=== PATIENT | female | born 1945 | race Caucasian/White ===

== ENCOUNTER 2019-06-08 07:27 | Outpatient (CLI) | payer MEDICARE, MEDICAID, SELFPAY ==
[2019-06-08 08:49] LABS: Blood Urea Nitrogen 20 mg/dL (7-17); Carbon Dioxide 27 mmol/L (22-30); Chloride 100 mmol/L (98-107); Potassium 4.4 mmol/L (3.4-5.0); Sodium 142 mmol/L (137-145)
[2019-06-08 08:50] LABS: Alanine Aminotransferase 35 U/L (4-35); Albumin Level 4.7 g/dL (3.5-5.1); Alkaline Phosphatase 96 U/L (38-126); Aspartate Amino Transferase 38 U/L (14-36); Bilirubin,Total 0.3 mg/dL (0.2-1.3); Calcium 9.6 mg/dL (8.4-10.2); Cholesterol 155 mg/dL (0-200); Estimated Glomerular Filt Rate > 60; Glucose 88 mg/dL (65-105); HDL Direct 47 mg/dL; Triglycerides 98 mg/dL (<150)
[2019-06-08 08:51] LABS: Hemoglobin A1C 6.4 % (<5.7)
[2019-06-08 09:01] LABS: LDL Cholesterol Direct 86 mg/dL
[2019-06-08 09:35] LABS: Free T4 Free Thyroxine 1.13 ng/mL (0.78-2.19)
== END 2019-06-08 07:28 | disposition home or self-care (01) ==
PROVIDERS: PCP Emergency Medicine; Visit Provider Internal Medicine Endocrinology, Diabetes & Metabolism
DX: E11.9 Type 2 diabetes mellitus without complications (principal); E78.5 Hyperlipidemia, unspecified; E03.9 Hypothyroidism, unspecified
CPT/HCPCS: 36415; 80053; 80061; 83036; 84439; 84443

== ENCOUNTER 2019-11-03 07:49 | Outpatient (CLI) | payer MEDICARE, MEDICAID, SELFPAY ==
--- NOTE | ~2019-11-03 | MM_ITS ---
EXAMINATION: MM screening [facility] BI w kelle HISTORY: Screening mammogram TECHNIQUE: Craniocaudal and mediolateral oblique 3-D tomosynthesis images were obtained and synthetic 2-D images were generated. CAD analysis was submitted and interpreted. COMPARISON: 10/03/2018, 09/29/2017, 09/30/2016, 09/16/2016 BREAST PARENCHYMAL COMPOSITION: There are scattered areas of fibroglandular density. FINDINGS: Scattered benign-appearing calcifications are present. There is no evidence of suspicious m ass, calcification, or architectural distortion to suggest malignancy in either breast. There has bee n no suspicious interval change. IMPRESSION: 1. No mammographic evidence of malignancy. 2. Recommend routine screening mammography in one year. BI-RADS Category 2: Benign finding(s). Reviewed, dictated and finalized at location A.
== END 2019-11-03 07:50 | disposition home or self-care (01) ==
PROVIDERS: PCP Emergency Medicine; Visit Provider Emergency Medicine
DX: Z12.31 Encounter for screening mammogram for malignant neoplasm of breast (principal)
CPT/HCPCS: 77063; 77067

== ENCOUNTER 2020-01-30 08:32 | Outpatient (CLI) | payer MEDICARE, MEDICAID, SELFPAY ==
--- NOTE | ~2020-01-30 | DEXA_ITS ---
Bone Density Report Name: Katlin Powell Age: 74 Sex: Female Ethnicity: White Date of : 1945 Indication: osteopenia; monitoring treatment; asthma or emphysema; hysterectomy; Referring Provider: Keo, Mónica Thomas Study: Bone densitometry was performed. Exam Date: January 30, 2020 Accession number: [id number] Bone Density: Region BMD T-score Z-score Classification AP Spine (L1-L4) 0.929 -1.1 1.2 Osteopenia Femoral Neck (Left) 0.582 -2.4 -0.4 Osteopenia Total Hip (Left) 0.852 -0.7 1.0 Normal Total Hip Bilateral Avg 0.808 -1.1 0.6 Osteopenia Femoral Neck (Right) 0.604 -2.2 -0.2 Osteopenia Total Hip (Right) 0.762 -1.5 0.2 Osteopenia World Health Organization criteria for BMD impression classify patients as: Normal (T-score at or above -1.0), Osteopenia (T-score between -1.0 and -2.5), or Osteoporosis (T-score at or below -2.5). 10-year Fracture Risk: FRAX not reported because: Treated for osteoporosis Previous Exams: Region Exam Age BMD T-score BMD Change BMD Change Date g/cm2 vs Baseline vs Previous AP Spine(L1-L4) 01/30/2020 74 0.929 -1.1 0.194(26.3%)# 0.045(5.1%)* 01/19/2018 72 0.883 -1.5 0.148(20.2%)# 0.087(10.9%)# 01/13/2016 70 0.797 -2.3 0.062(8.4%)* 0.062(8.4%)* 01/10/2014 68 0.735 -2.8 Total Hip(Left) 01/30/2020 74 0.852 -0.7 0.005(0.5%) 0.020(2.4%) 01/19/2018 72 0.833 -0.9 -0.015(-1.8%) -0.057(-6.4%)* 01/13/2016 70 0.890 -0.4 0.042(4.9%)* 0.042(4.9%)* 01/10/2014 68 0.848 -0.8 Total Hip(Right) 01/30/2020 74 0.762 -1.5 0.018(2.4%) -0.012(-1.6%) 01/19/2018 72 0.775 -1.4 0.030(4.0%)* 0.035(4.8%)* 01/13/2016 70 0.740 -1.7 -0.005(-0.7%) -0.005(-0.7%) 01/10/2014 68 0.745 -1.6 *Denotes significance at 95% confidence level, LSC for AP Spine = 0.022 g/cm2, LSC for Total Hip = 0.027 g/cm2 Clinical Information Provided by Patient: Is being treated for osteoporosis Has used the following medications: Prolia (i.e. denosumab), Calcium Has the following medical conditions: Asthma or Emphysema, Hysterectomy Patient maximum height was 60 Menopause Age: 31 Does not regularly consume dairy products Drinks caffeinated beverages Onset of menses at age 13 Number of children 0 Impression: The patient has low bone mass, based on the Left Femoral Neck T-score. No significant bone loss was observed. Discussion: PATIENT UNDER TREATMENT WITH NO SIGNIFICANT B
== END 2020-01-30 08:33 | disposition home or self-care (01) ==
PROVIDERS: PCP Emergency Medicine; Visit Provider Internal Medicine Endocrinology, Diabetes & Metabolism
DX: M81.0 Age-related osteoporosis without current pathological fracture (principal); M85.88 Other specified disorders of bone density and structure, other site; M85.852 Other specified disorders of bone density and structure, left thigh; M85.851 Other specified disorders of bone density and structure, right thigh
CPT/HCPCS: 77080

== ENCOUNTER 2020-02-06 07:48 | Outpatient (CLI) | payer MEDICARE, MEDICAID, SELFPAY ==
[2020-02-06 08:57] LABS: Hemoglobin A1C 6.6 % (<5.7)
[2020-02-06 08:59] LABS: Alanine Aminotransferase 58 U/L (4-35); Alkaline Phosphatase 103 U/L (38-126); Anion Gap 13 mmol/L (8-16); Aspartate Amino Transferase 59 U/L (14-36); Bilirubin,Total 0.5 mg/dL (0.2-1.3); Blood Urea Nitrogen 18 mg/dL (7-17); Calcium 10.4 mg/dL (8.4-10.2); Carbon Dioxide 31 mmol/L (22-30); Chloride 99 mmol/L (98-107); Estimated Glomerular Filt Rate 54; Glucose 128 mg/dL (65-105); Potassium 4.7 mmol/L (3.4-5.0); Sodium 143 mmol/L (137-145)
[2020-02-06 09:37] LABS: Free T4 Free Thyroxine 1.19 ng/mL (0.78-2.19)
== END 2020-02-06 07:49 | disposition home or self-care (01) ==
PROVIDERS: PCP Emergency Medicine; Visit Provider Internal Medicine Endocrinology, Diabetes & Metabolism
DX: E03.9 Hypothyroidism, unspecified (principal); E11.9 Type 2 diabetes mellitus without complications
CPT/HCPCS: 36415; 80053; 83036; 84439; 84443

== ENCOUNTER 2020-05-03 11:15 | Outpatient (CLI) | payer MEDICARE, MEDICAID, SELFPAY ==
--- NOTE | ~2020-05-03 | US_ITS ---
EXAMINATION:US venous doppler LE RT INDICATION:Leg edema TECHNIQUE: Multiple grayscale, color flow and Doppler images of the right lower extremity deep venous systems were obtained and reviewed. COMPARISON:09/21/2018 FINDINGS: The common femoral, superficial femoral and popliteal veins demonstrate normal respiratory variation, augmentation and compressibility. Color flow is also seen within the posterior tibial, pe roneal, greater saphenous and profunda veins. IMPRESSION: 1: No lower extremity deep venous thrombosis. Reviewed, dictated and finalized at location A. SERVICE MAN
== END 2020-05-03 11:16 | disposition home or self-care (01) ==
LOC: ANHIMG 11:24
PROVIDERS: PCP Emergency Medicine; Visit Provider Internal Medicine Cardiovascular Disease
DX: R60.9 Edema, unspecified (principal)
CPT/HCPCS: 93971

== ENCOUNTER 2020-05-20 07:37 | Outpatient (CLI) | payer MEDICARE, MEDICAID, SELFPAY ==
[2020-05-20 08:34] LABS: Hematocrit 40.6 % (37.0-47.0); Hemoglobin 13.6 g/dL (12.0-15.0); Mean Corpuscular HGB Conc 33.5 g/dl (32-36); Mean Corpuscular Hemoglobin 30.8 pg (26-34); Mean Corpuscular Volume 91.9 fl (80-100); Mean Platelet Volume 10.6 fl (7.4-10.4); Platelet Count Result 250 k/mm3 (150-375); Red Blood Count 4.42 M/mm3 (4.2-5.4); Red Cell Distribution Width 14.7 % (11.5-14.5); White Blood Count 8.2 K/mm3 (4.5-10.0)
[2020-05-20 09:29] LABS: Alanine Aminotransferase 65 U/L (4-35); Albumin Level 4.5 g/dL (3.5-5.1); Alkaline Phosphatase 91 U/L (38-126); Anion Gap 9 mmol/L (8-16); Aspartate Amino Transferase 96 U/L (14-36); Bilirubin,Total 0.7 mg/dL (0.2-1.3); Blood Urea Nitrogen 18 mg/dL (7-17); Calcium 9.5 mg/dL (8.4-10.2); Carbon Dioxide 30 mmol/L (22-30); Chloride 100 mmol/L (98-107); Estimated Glomerular Filt Rate 54; Glucose 143 mg/dL (65-105); Potassium 3.8 mmol/L (3.4-5.0); Sodium 139 mmol/L (137-145)
== END 2020-05-20 07:38 | disposition home or self-care (01) ==
PROVIDERS: PCP Nurse Practitioner Family; Visit Provider Nurse Practitioner Family
DX: E03.9 Hypothyroidism, unspecified (principal); I10 Essential (primary) hypertension; E11.9 Type 2 diabetes mellitus without complications; E78.5 Hyperlipidemia, unspecified
CPT/HCPCS: 36415; 80053; 83036; 84443; 85027

== ENCOUNTER 2020-07-02 07:29 | Outpatient (CLI) | payer MEDICARE, MEDICAID, SELFPAY ==
[2020-07-02 08:46] LABS: Alanine Aminotransferase 61 U/L (4-35); Albumin Level 4.6 g/dL (3.5-5.1); Alkaline Phosphatase 84 U/L (38-126); Anion Gap 9 mmol/L (8-16); Aspartate Amino Transferase 70 U/L (14-36); Bilirubin,Total 0.5 mg/dL (0.2-1.3); Blood Urea Nitrogen 15 mg/dL (7-17); Calcium 9.1 mg/dL (8.4-10.2); Carbon Dioxide 28 mmol/L (22-30); Chloride 105 mmol/L (98-107); Cholesterol 149 mg/dL (0-200); Estimated Glomerular Filt Rate > 60; Glucose 112 mg/dL (65-105); HDL Direct 48 mg/dL; Potassium 3.7 mmol/L (3.4-5.0); Sodium 142 mmol/L (137-145); Triglycerides 119 mg/dL (<150)
[2020-07-02 08:58] LABS: LDL Cholesterol Direct 73 mg/dL
== END 2020-07-02 07:30 | disposition home or self-care (01) ==
PROVIDERS: PCP Nurse Practitioner Family; Visit Provider Internal Medicine Cardiovascular Disease
DX: E78.5 Hyperlipidemia, unspecified (principal)
CPT/HCPCS: 36415; 80053; 80061

== ENCOUNTER 2020-07-31 07:21 | Outpatient (CLI) | payer MEDICARE, MEDICAID, SELFPAY ==
[2020-07-31 09:45] LABS: Alanine Aminotransferase 52 U/L (4-35); Albumin Level 4.5 g/dL (3.5-5.1); Alkaline Phosphatase 82 U/L (38-126); Anion Gap 10 mmol/L (8-16); Aspartate Amino Transferase 69 U/L (14-36); Bilirubin,Total 0.6 mg/dL (0.2-1.3); Blood Urea Nitrogen 21 mg/dL (7-17); Calcium 9.2 mg/dL (8.4-10.2); Carbon Dioxide 27 mmol/L (22-30); Chloride 102 mmol/L (98-107); Estimated Glomerular Filt Rate 49; Glucose 128 mg/dL (65-105); Potassium 3.5 mmol/L (3.4-5.0); Sodium 139 mmol/L (137-145)
[2020-07-31 09:46] LABS: Cholesterol 199 mg/dL (0-200); HDL Direct 39 mg/dL; LDL Cholesterol Direct 115 mg/dL; Triglycerides 172 mg/dL (<150)
== END 2020-07-31 07:22 | disposition home or self-care (01) ==
PROVIDERS: PCP Nurse Practitioner Family; Visit Provider Internal Medicine Cardiovascular Disease
DX: E78.5 Hyperlipidemia, unspecified (principal); I10 Essential (primary) hypertension
CPT/HCPCS: 36415; 80053; 80061

== ENCOUNTER 2020-08-07 07:18 | Outpatient (CLI) | payer MEDICARE, MEDICAID, SELFPAY ==
[2020-08-07 07:57] LABS: Hemoglobin A1C 6.2 % (<5.7)
[2020-08-07 07:59] LABS: Alanine Aminotransferase 88 U/L (4-35); Albumin Level 4.5 g/dL (3.5-5.1); Alkaline Phosphatase 78 U/L (38-126); Anion Gap 6 mmol/L (8-16); Aspartate Amino Transferase 92 U/L (14-36); Bilirubin,Total 0.5 mg/dL (0.2-1.3); Blood Urea Nitrogen 17 mg/dL (7-17); Calcium 9.2 mg/dL (8.4-10.2); Carbon Dioxide 33 mmol/L (22-30); Chloride 103 mmol/L (98-107); Estimated Glomerular Filt Rate 49; Glucose 122 mg/dL (65-105); Sodium 142 mmol/L (137-145)
[2020-08-07 08:11] LABS: Parathyroid Intact 28.2 pg/mL (7.5-53.5)
[2020-08-07 08:28] LABS: Creatinine Urine 170.1 mg/dL
[2020-08-07 08:32] LABS: MALB Creatinine Ratio 4.8 mg/g (0-30); Microalbumin Urine Random 8.1 mg/L (0-16.7)
[2020-08-07 08:42] LABS: Free T4 Free Thyroxine 1.18 ng/mL (0.78-2.19); Vitamin D 25 Hydroxy 43.6 ng/mL
[2020-08-11 07:48] LABS: Triiodothyronine T3 Free 2.7 pg/mL (2.3-4.2)
== END 2020-08-07 07:19 | disposition home or self-care (01) ==
PROVIDERS: PCP Nurse Practitioner Family; Visit Provider Internal Medicine Endocrinology, Diabetes & Metabolism
DX: E11.9 Type 2 diabetes mellitus without complications (principal); M81.0 Age-related osteoporosis without current pathological fracture; E03.9 Hypothyroidism, unspecified
CPT/HCPCS: 36415; 80053; 82043; 82306; 83036; 83970; 84439; 84443; 84481

== ENCOUNTER 2020-09-05 07:59 | Outpatient (CLI) | payer MEDICARE, MEDICAID, SELFPAY ==
--- NOTE | ~2020-09-05 | US_ITS ---
EXAMINATION: US abdomen limited DATE: 09/05/2020 08:47 INDICATION: Abnormal liver function tests. TECHNIQUE: Multiple grayscale and Doppler ultrasound images of the abdomen were obtained. COMPARISON: CT abdomen and pelvis 10/18/2018 FINDINGS: The visualized portions of the head and body of the pancreas are normal. There is diffuse h epatic steatosis. No liver surface nodularity. There is normal flow in main portal vein. The gallblad jacob is normal in size. No gallstones or gallbladder wall thickening. There is no sonographic Nielsen s ign. The common duct is normal and measures 3 mm. IMPRESSION: 1. Diffuse hepatic steatosis. Reviewed, dictated and finalized at location B.
== END 2020-09-05 08:00 | disposition home or self-care (01) ==
PROVIDERS: PCP Family Medicine; Visit Provider Nurse Practitioner Family
DX: R74.8 Abnormal levels of other serum enzymes (principal); K76.0 Fatty (change of) liver, not elsewhere classified
CPT/HCPCS: 76705

== ENCOUNTER 2020-11-04 08:20 | Outpatient (CLI) | payer MEDICARE, MEDICAID, SELFPAY ==
--- NOTE | ~2020-11-04 | MM_ITS ---
EXAMINATION: MM screening [facility] BI w kelle HISTORY: Screening mammogram TECHNIQUE: Craniocaudal and mediolateral oblique 3-D tomosynthesis images were obtained and synthetic 2-D images were generated. CAD analysis was submitted and interpreted. COMPARISON: 11/03/2019, 10/03/2018, 09/29/2017 BREAST PARENCHYMAL COMPOSITION: There are scattered areas of fibroglandular density. FINDINGS: Scattered benign-appearing calcifications are present. There is no evidence of suspicious m ass, calcification, or architectural distortion to suggest malignancy in either breast. There has bee n no suspicious interval change. IMPRESSION: 1. No mammographic evidence of malignancy. 2. Recommend routine screening mammography in one year. BI-RADS Category 2: Benign finding(s). Reviewed, dictated and finalized at location A.
== END 2020-11-04 08:21 | disposition home or self-care (01) ==
LOC: ANHIMG 08:23
PROVIDERS: PCP Family Medicine; Visit Provider Nurse Practitioner Family
DX: Z12.31 Encounter for screening mammogram for malignant neoplasm of breast (principal)
CPT/HCPCS: 77063; 77067

== ENCOUNTER 2020-12-23 08:17 | Outpatient (CLI) | payer MEDICARE, MEDICAID, SELFPAY ==
[2020-12-23 09:26] LABS: Alanine Aminotransferase 43 U/L (4-35); Albumin Level 4.6 g/dL (3.5-5.1); Alkaline Phosphatase 89 U/L (38-126); Anion Gap 12 mmol/L (8-16); Aspartate Amino Transferase 44 U/L (14-36); Bilirubin,Total 0.4 mg/dL (0.2-1.3); Blood Urea Nitrogen 18 mg/dL (7-17); Calcium 9.7 mg/dL (8.4-10.2); Carbon Dioxide 27 mmol/L (22-30); Chloride 96 mmol/L (98-107); Estimated Glomerular Filt Rate 54; Glucose 106 mg/dL (65-110); Potassium 3.5 mmol/L (3.4-5.0); Sodium 135 mmol/L (137-145)
[2020-12-23 09:42] LABS: Hemoglobin A1C 5.8 % (<5.7)
[2020-12-23 10:03] LABS: Free T4 Free Thyroxine 1.13 ng/mL (0.78-2.19)
[2020-12-23 12:39] LABS: Microalbumin Urine Random 16.7 mg/L (0-16.7)
[2020-12-23 13:00] LABS: Creatinine Urine 267.2 mg/dL; MALB Creatinine Ratio 6.3 mg/g (0-30)
[2020-12-25 12:22] LABS: Triiodothyronine T3 Free 2.7 pg/mL (2.3-4.2)
== END 2020-12-23 08:18 | disposition home or self-care (01) ==
PROVIDERS: PCP Family Medicine; Visit Provider Internal Medicine Endocrinology, Diabetes & Metabolism
DX: E11.9 Type 2 diabetes mellitus without complications (principal); E03.9 Hypothyroidism, unspecified
CPT/HCPCS: 36415; 80053; 82043; 83036; 84439; 84443; 84481

== ENCOUNTER 2021-03-24 08:19 | Outpatient (CLI) | payer MEDICARE, MEDICAID, SELFPAY ==
--- NOTE | ~2021-03-24 | XR_ITS ---
EXAMINATION: XR hand BI arthritis min 3V DATE: 03/24/2021 08:35 INDICATION: Bilateral hand pain. TECHNIQUE: 4 views of right hand and 4 views of left hand on a total of 7 radiographs were obtained. COMPARISON: Left wrist radiographs 04/03/2019 FINDINGS: RIGHT HAND: Bone alignment is normal. No fracture. There is mild osteoarthritis of triscaphe joint an d moderate osteoarthritis of first carpometacarpal joint. There is severe osteoarthritis of first met acarpophalangeal joint and first interphalangeal joint. There is moderate osteoarthritis of second me tacarpophalangeal joint and mild osteoarthritis of third metacarpophalangeal joint. There is moderate osteoarthritis of second-fourth proximal and distal interphalangeal joints and severe osteoarthritis of fifth proximal and distal interphalangeal joints. LEFT HAND: Bone alignment is normal. No fracture. There is mild osteoarthritis of triscaphe joint and first carpometacarpal joint. There is moderate osteoarthritis of first and third metacarpophalangeal joints and mild osteoarthritis of second metacarpophalangeal joint. There is severe osteoarthritis o f first interphalangeal joint. There is mild to moderate osteoarthritis of the second-fifth proximal and distal interphalangeal joints. IMPRESSION: 1. Polyarticular osteoarthritis. Reviewed, dictated and finalized at location A. 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
== END 2021-03-24 08:20 | disposition home or self-care (01) ==
LOC: ANHIMG 08:24
PROVIDERS: PCP Family Medicine; Visit Provider Nurse Practitioner Family
DX: M19.041 Primary osteoarthritis, right hand (principal); M19.042 Primary osteoarthritis, left hand
CPT/HCPCS: 73130

== ENCOUNTER 2021-03-27 07:40 | Outpatient (CLI) | payer MEDICARE, MEDICAID, SELFPAY ==
[2021-03-27 08:44] LABS: Hemoglobin A1C 5.5 % (<5.7)
[2021-03-27 08:59] LABS: Alanine Aminotransferase 32 U/L (4-35); Albumin Level 4.7 g/dL (3.5-5.1); Alkaline Phosphatase 96 U/L (38-126); Anion Gap 11 mmol/L (8-16); Aspartate Amino Transferase 38 U/L (14-36); Bilirubin,Total 0.7 mg/dL (0.2-1.3); Blood Urea Nitrogen 19 mg/dL (7-17); Calcium 9.7 mg/dL (8.4-10.2); Carbon Dioxide 28 mmol/L (22-30); Chloride 99 mmol/L (98-107); Estimated Glomerular Filt Rate 54; Glucose 107 mg/dL (65-110); Phosphorus 4.4 mg/dL (2.5-4.5); Potassium 4.2 mmol/L (3.4-5.0); Sodium 138 mmol/L (137-145)
[2021-03-27 09:10] LABS: Parathyroid Intact 27.5 pg/mL (7.5-53.5)
[2021-03-27 09:16] LABS: Free T4 Free Thyroxine 1.38 ng/mL (0.78-2.19); Vitamin D 25 Hydroxy 51.4 ng/mL
[2021-03-27 09:28] LABS: Creatinine Urine 47.5 mg/dL
[2021-03-27 09:50] LABS: Microalbumin Urine Random < 6.0 mg/L (0-16.7)
[2021-03-27 09:51] LABS: MALB Creatinine Ratio < 12.6 mg/g (0-30)
[2021-03-30 07:26] LABS: Triiodothyronine T3 Free 2.6 pg/mL (2.3-4.2)
== END 2021-03-27 07:41 | disposition home or self-care (01) ==
LOC: ANHLAB 07:48
PROVIDERS: PCP Family Medicine; Visit Provider Internal Medicine Endocrinology, Diabetes & Metabolism
DX: E11.9 Type 2 diabetes mellitus without complications (principal); E03.9 Hypothyroidism, unspecified; M85.80 Other specified disorders of bone density and structure, unspecified site
CPT/HCPCS: 36415; 80053; 82043; 82306; 83036; 83970; 84100; 84439; 84443; 84481

== ENCOUNTER 2021-07-28 08:55 | Outpatient (CLI) | payer MEDICARE, MEDICAID, SELFPAY ==
[2021-07-28 09:46] LABS: Alanine Aminotransferase 31 U/L (4-35); Albumin Level 4.8 g/dL (3.5-5.1); Alkaline Phosphatase 83 U/L (38-126); Anion Gap 9 mmol/L (8-16); Aspartate Amino Transferase 47 U/L (14-36); Bilirubin,Total 0.6 mg/dL (0.2-1.3); Blood Urea Nitrogen 19 mg/dL (7-17); Calcium 9.5 mg/dL (8.4-10.2); Carbon Dioxide 32 mmol/L (22-30); Chloride 99 mmol/L (98-107); Cholesterol 211 mg/dL (0-200); Estimated Glomerular Filt Rate > 60; Glucose 101 mg/dL (65-110); HDL Direct 50 mg/dL; Potassium 4.2 mmol/L (3.4-5.0); Sodium 140 mmol/L (137-145); Triglycerides 196 mg/dL (<150)
[2021-07-28 10:03] LABS: LDL Cholesterol Direct 92 mg/dL
[2021-07-28 10:04] LABS: Parathyroid Intact 28.3 pg/mL (7.5-53.5)
[2021-07-28 10:06] LABS: Hemoglobin A1C 5.5 % (<5.7)
[2021-07-28 10:35] LABS: Creatinine Urine 38.6 mg/dL
[2021-07-28 10:49] LABS: Free T4 Free Thyroxine 1.32 ng/mL (0.78-2.19); Vitamin D 25 Hydroxy 62.1 ng/mL
[2021-07-28 11:00] LABS: MALB Creatinine Ratio < 15.5 mg/g (0-30); Microalbumin Urine Random < 6.0 mg/L (0-16.7)
[2021-07-31 06:06] LABS: Triiodothyronine T3 Free 3.2 pg/mL (2.3-4.2)
== END 2021-07-28 08:56 | disposition home or self-care (01) ==
LOC: ANHLAB 08:59
PROVIDERS: PCP Family Medicine; Visit Provider Internal Medicine Endocrinology, Diabetes & Metabolism
DX: E11.9 Type 2 diabetes mellitus without complications (principal); E03.9 Hypothyroidism, unspecified; E55.9 Vitamin D deficiency, unspecified; E21.0 Primary hyperparathyroidism; E78.5 Hyperlipidemia, unspecified
CPT/HCPCS: 36415; 80053; 80061; 82043; 82306; 83036; 83970; 84439; 84443; 84481

== ENCOUNTER 2021-09-02 08:38 | Outpatient (CLI) | payer MEDICARE, MEDICAID, SELFPAY ==
[2021-09-02 09:00] LABS: Basophils Percent Auto 0.4 % (0.2-1.2); Eosinophils Absolute Auto 0.2 K/mm3 (0-0.3); Eosinophils Percent Auto 2.2 % (0-4.4); Hematocrit 44.5 % (37.0-47.0); Hemoglobin 14.5 g/dL (12.0-15.0); Immature Granulocyte Absolute 0.04 K/mm3 (0.00-0.031); Immature Granulocyte Percent A 0.4 % (0-0.5); Lymphocytes Absolute Auto 2.63 K/mm3 (0.9-3.2); Lymphocytes Percent Auto 26.6 % (18.3-44.2); Mean Corpuscular HGB Conc 32.6 g/dl (32-36); Mean Corpuscular Hemoglobin 31.3 pg (26-34); Mean Corpuscular Volume 96.1 fl (80-100); Mean Platelet Volume 9.7 fl (7.4-10.4); Monocytes Absolute Auto 0.8 K/mm3 (0.1-0.6); Neutrophils Absolute Auto 6.2 K/mm3 (1.3-6.7); Neutrophils Percent Auto 62.4 % (45.5-73.1); Platelet Count Result 216 k/mm3 (150-375); Red Blood Count 4.63 M/mm3 (4.2-5.4); White Blood Count 9.9 K/mm3 (4.5-10.0)
== END 2021-09-02 08:39 | disposition home or self-care (01) ==
LOC: ANHLAB 08:43
PROVIDERS: PCP Family Medicine; Visit Provider Nurse Practitioner
DX: J45.909 Unspecified asthma, uncomplicated (principal)
CPT/HCPCS: 36415; 82104; 82785; 85025; 86003

== ENCOUNTER 2021-09-17 09:00 | Outpatient (CLI) | payer MEDICARE, MEDICAID, SELFPAY ==
[2021-09-17 10:36] LABS: Cholesterol 194 mg/dL (0-200); HDL Direct 48 mg/dL; Triglycerides 299 mg/dL (<150)
[2021-09-17 10:47] LABS: LDL Cholesterol Direct 90 mg/dL
== END 2021-09-17 09:01 | disposition home or self-care (01) ==
PROVIDERS: PCP Family Medicine; Visit Provider Internal Medicine Cardiovascular Disease
DX: E78.5 Hyperlipidemia, unspecified (principal)
CPT/HCPCS: 36415; 80061

== ENCOUNTER 2021-11-27 08:32 | Outpatient (CLI) | payer MEDICARE, MEDICAID, SELFPAY ==
--- NOTE | ~2021-11-27 | MM_ITS ---
EXAMINATION: MM screening dell BI w kelle HISTORY: Screening TECHNIQUE: Craniocaudal and mediolateral oblique 3-D tomosynthesis images were obtained and synthetic 2-D images were generated. CAD analysis was submitted and interpreted. COMPARISON: Comparison to multiple prior studies sequentially, with oldest reviewed study dated 09/2017. BREAST PARENCHYMAL COMPOSITION: Breast composed of scattered areas of fibroglandular density FINDINGS: Stable benign-appearing bilateral breast calcifications. There is no evidence of suspicious mass, calcification, or architectural distortion to suggest malignancy in either breast. There has b een no suspicious interval change. IMPRESSION: 1. No mammographic evidence of malignancy. 2. Recommend routine screening mammography in one year. BI-RADS Category 1: Negative Reviewed, dictated and finalized at location A.
== END 2021-11-27 08:33 | disposition home or self-care (01) ==
PROVIDERS: PCP Nurse Practitioner Family; Visit Provider Nurse Practitioner Family
DX: Z12.31 Encounter for screening mammogram for malignant neoplasm of breast (principal)
CPT/HCPCS: 77063; 77067

== ENCOUNTER 2022-01-21 06:57 | Outpatient (CLI) | payer MEDICARE, MEDICAID, SELFPAY ==
--- NOTE | ~2022-01-21 | NM_ITS ---
EXAMINATION: NM melinda stress w perfusion DATE: 01/21/2022 11:54 CDT INDICATION: Chest pain TECHNIQUE: Rest images were obtained following intravenous administration of 9.5 mCi Tc99m tetrofosmi n (Myoview). The patient was infused intravenously with Lexiscan (regadenoson). Then, 29.4 mCi Tc99m tetrofosmin (Myoview) was administered intravenously, and stress images were obtained. Data was recon structed into short axis and horizontal and vertical long axis SPECT images. Gated SPECT images were also obtained. COMPARISON: None. FINDINGS: There is no definite reversible or fixed perfusion abnormality to suggest ischemia or infar ction. There is no segmental wall motion abnormality. Left ventricular ejection fraction measures 7 7%. IMPRESSION: 1. No definite ischemia or infarct. 2. Normal left ventricular ejection fraction measuring 77%. Reviewed, dictated and finalized at location B.
--- NOTE | 2022-01-21 07:34 | ECHO_ITS ---
Patient Info Name: Katlin Powell Age: 76 years : 1945 Gender: Female Ht: 60 in Wt: 170 lbs BSA: 1.84 m2 HR: 60 bpm BP: 141 / 76 mmHg Heart Rhythm: Sinus Rhythm Technical Quality: Fair Exam Date: 01/21/2022 7:51 AM Exam Location: [facility] Pulmonary Patient Status: Outpatient Admit Date: 01/21/2022 Staff Ordering Physician: Karson Hammonds DO Trolley Car Operator: Lisa Morataya RDCS Attending Provider: Karson Hammonds DO Referring Physician: Cassius ESCALERA; Exam Type: CA echo doppler color flow Study Info Indications R07.9 - Chest pain, unspecified Complete two-dimensional, color flow and Doppler transthoracic echocardiogram is performed. Summary 1. Complete two-dimensional, color flow and Doppler transthoracic echocardiogram is performed. 2. Left ventricular chamber dimension is normal. 3. Left ventricular systolic function is normal, estimated at 60-65%. 4. The left ventricular diastolic function is grade I diastolic dysfunction. 5. E/e' 12 is mildly elevated. 6. There is moderate aortic valve sclerosis. 7. There is mild aortic valve regurgitation. 8. The mitral valve has moderately calcified annulus. 9. There is trace tricuspid valve regurgitation. 10. No pulmonary hypertension, estimated pulmonary arterial systolic pressure is 28 mmHg. Left Ventricle E/e' 12 is mildly elevated. Left ventricular chamber dimension is normal. Left ventricular systolic function is normal, estimated at 60-65%. The left ventricular diastolic function is grade I diastolic dysfunction. Right Ventricle Right ventricular systolic function is normal and with normal TAPSE 2.1 cm. Right ventricular chamber dimension is normal. Left Atria Left atrial chamber dimension is normal. Right Atria Right atrial chamber dimension is normal. Aortic Valve The aortic valve is trileaflet. There is moderate aortic valve sclerosis. There is no aortic valve stenosis. There is mild aortic valve regurgitation. Pulmonic Valve There is no pulmonic regurgitation. Mitral Valve The mitral valve has moderately calcified annulus. There is no mitral valve stenosis. There is no mitral valve regurgitation. Tricuspid Valve There is trace tricuspid valve regurgitation. No pulmonary hypertension, estimated pulmonary arterial systolic pressure is 28 mmHg. Pericardium/Pleural There is no pericardial effusion. Inferior Vena Cava Normal inferior vena cava with >50% collapse upon inspiration consistent with normal right atrial pressure, 5 mmHg. Aorta The aortic root size at the sinus of Valsalva is normal. Left Ventricular Outflow Tract Name Value Normal LVOT 2D LVOT Diameter 2.0 cm LVOT Doppler LVOT Peak Gradient 4 mmHg LVOT Mean Gradient 2 mmHg LVOT VTI 24 cm LVOT VTI/AV VTI Ratio 0.7 LVOT Stroke Volume 71 ml LVOT CO 4.3 l/min LVOT CI 2.3 l/min/m2 Pulmonic Valve
--- NOTE | 2022-01-21 09:07 | EST_ITS ---
Patient Info Name: Katlin Powell Age: 76 years : 1945 Gender: Female Ht: 61 in Wt: 170 lbs BSA: 1.85 m2 Exam Date: 01/21/2022 11:01 AM Exam Location: [facility] Stress Patient Status: Outpatient Admit Date: 01/21/2022 Staff Ordering Physician: Karson Hammonds DO Attending Provider: Karson Hammonds DO Exercise Technologist: Cruz Nielsen RDCS, RT Exercise Physician: Karson Hammonds DO Exam Type: CA stress melinda w NM Study Info A regadenoson stress test was performed. Summary 1. 1. Negative lexiscan stress test for ischemic ST changes by ECG criteria. 2. 2. Baseline hypertension. 3. 3. Nuclear scan to follow and will be reported separately. Please correlate with it. 4. 4. Patient informed of the above results. Protocol: Lexiscan Stress ECG Details Stage: REST Duration (min): 9 min : 12 sec HR (bpm): 65 SBP (mmHg): 148 DBP (mmHg): 72 Stage: REST Duration (min): 10 min : 58 sec HR (bpm): 79 SBP (mmHg): 148 DBP (mmHg): 72 Stage: STAGE 1 Duration (min): 1 min : 0 sec HR (bpm): 78 SBP (mmHg): 183 DBP (mmHg): 82 Stage: RECOVERY Duration (min): 1 min : 0 sec HR (bpm): 82 SBP (mmHg): 183 DBP (mmHg): 82 Stage: RECOVERY Duration (min): 2 min : 0 sec HR (bpm): 81 SBP (mmHg): 183 DBP (mmHg): 82 Stage: RECOVERY Duration (min): 3 min : 0 sec HR (bpm): 81 SBP (mmHg): 176 DBP (mmHg): 90 Stage: RECOVERY Duration (min): 4 min : 0 sec HR (bpm): 71 SBP (mmHg): 176 DBP (mmHg): 90 Stage: RECOVERY Duration (min): 5 min : 0 sec HR (bpm): 70 SBP (mmHg): 160 DBP (mmHg): 70 Stage: RECOVERY Duration (min): 6 min : 0 sec HR (bpm): 70 SBP (mmHg): 160 DBP (mmHg): 70 Stage: RECOVERY Duration (min): 7 min : 0 sec HR (bpm): 69 SBP (mmHg): 142 DBP (mmHg): 70 Stage: RECOVERY Duration (min): 7 min : 29 sec HR (bpm): 67 SBP (mmHg): 142 DBP (mmHg): 70 Rest HR: 79 bpm Peak HR: 84 bpm Rest Sys BP: 148 mmHg Peak Sys BP: 183 mmHg Max Pred HR: 145 bpm % Max Pred HR: 58 % Target HR: 123 bpm Max RPP: 15,372 bpm*mmHg Termination Reason: Completed protocol Cardiac Symptoms: Shortness of breath Total Time: 1 min : 0 sec Rest Harvey BP: 72 mmHg Peak Harvey BP: 82 mmHg Total Dose: 0.4 mg Resting ECG Sinus rhythm. Stress ECG No ST changes. Arrhythmias None. Report Signatures
== END 2022-01-21 06:58 | disposition home or self-care (01) ==
LOC: ANHCARD 06:59
PROVIDERS: PCP Nurse Practitioner Family; Visit Provider Internal Medicine Cardiovascular Disease
DX: R07.9 Chest pain, unspecified (principal); I08.0 Rheumatic disorders of both mitral and aortic valves
CPT/HCPCS: 78452; 93017; 93306; A9502; J2785

== ENCOUNTER 2022-02-02 07:16 | Outpatient (CLI) | payer MEDICARE, MEDICAID, SELFPAY ==
[2022-02-02 08:00] LABS: Alanine Aminotransferase 52 U/L (6-35); Albumin Level 4.6 g/dL (3.5-5.1); Alkaline Phosphatase 73 U/L (38-126); Anion Gap 16 mmol/L (8-16); Aspartate Amino Transferase 58 U/L (14-36); Bilirubin,Total 0.5 mg/dL (0.2-1.3); Blood Urea Nitrogen 21 mg/dL (7-17); Calcium 9.2 mg/dL (8.4-10.2); Carbon Dioxide 28 mmol/L (22-30); Chloride 98 mmol/L (98-107); Cholesterol 175 mg/dL (0-200); Estimated Glomerular Filt Rate 48; Glucose 157 mg/dL (65-110); HDL Direct 42 mg/dL; Potassium 3.4 mmol/L (3.4-5.0); Sodium 142 mmol/L (137-145); Triglycerides 187 mg/dL (<150)
[2022-02-02 08:11] LABS: LDL Cholesterol Direct 92 mg/dL; Parathyroid Intact 26.8 pg/mL (7.5-53.5)
[2022-02-02 08:34] LABS: Free T4 Free Thyroxine 1.31 ng/mL (0.78-2.19); Vitamin D 25 Hydroxy 49.6 ng/mL
== END 2022-02-02 07:17 | disposition home or self-care (01) ==
PROVIDERS: PCP Nurse Practitioner Family; Visit Provider Internal Medicine Endocrinology, Diabetes & Metabolism
DX: E11.9 Type 2 diabetes mellitus without complications (principal); E03.9 Hypothyroidism, unspecified; E21.0 Primary hyperparathyroidism; E78.2 Mixed hyperlipidemia
CPT/HCPCS: 36415; 80053; 80061; 82306; 83036; 83970; 84439; 84443; 84481

== ENCOUNTER 2022-03-05 09:01 | Outpatient (CLI) | payer MEDICARE, MEDICAID, SELFPAY ==
--- NOTE | ~2022-03-05 | DEXA_ITS ---
Bone Density Report Name: WADE QUESADA Age: 76 Sex: Female Ethnicity: White Date of : 1945 Indication: postmenopausal; screening for osteoporosis; hysterectomy; Referring Provider: JEAN PAUL, CONNOR Thomas Study: Bone densitometry was performed. Exam Date: March 05, 2022 Accession number: [id number] Bone Density: Region BMD T-score Z-score Classification AP Spine(L1-L4) 0.955 -0.8 1.6 Normal Femoral Neck (Left) 0.633 -1.9 0.2 Osteopenia Total Hip (Left) 0.841 -0.8 1.0 Normal Femoral Neck (Right) 0.587 -2.4 -0.3 Osteopenia Total Hip (Right) 0.757 -1.5 0.3 Osteopenia Total Hip Mean 0.799 -1.2 0.7 Osteopenia World Health Organization criteria for BMD impression classify patients as: Normal (T-score at or above -1.0), Osteopenia (T-score between -1.0 and -2.5), or Osteoporosis (T-score at or below -2.5). 10-year Fracture Risk(1): Major Osteoporotic Fracture 15% Hip Fracture 4.3% Reported Risk Factors: [place] (), Neck BMD=0.587, BMI=32.6 (1) FRAX(R) Version 3.08. Fracture probability calculated for an untreated patient. Fracture probability may be lower if the patient has received treatment. Clinical Information Provided by Patient: Has used the following medications: Calcium Has the following medical conditions: Hysterectomy Patient maximum height was 60.5 Menopause Age: 51 Drinks caffeinated beverages Impression: The patient has low bone mass, based on the Right Femoral Neck T-score. The patient has an estimated ten-year risk of hip fracture of 4.3% and an estimated ten-year risk of major fracture of 15%, based on the WHO FRAX algorithm. Discussion: BONE DENSITY IS LOW AT ONE OR MORE SKELETAL SITES. THE PATIENT'S BMD AND CLINICAL RISK FACTORS CONTRIBUTE TO THIS PATIENT'S INCREASED RISK OF FRACTURE. This patient's lowest T-score is low at one or more skeletal sites. It meets the World Health Organization's (WHO) criteria for ?low bone mass? (T-score between -1.0 and -2.5). The patient's 10-year risk of hip fracture as calculated by FRAX exceeds the threshold where pharmacological therapy is recommended by the National Osteoporosis Foundation (NOF). However, all treatment decisions require clinical judgment and consideration of individual patient factors, including patient preferences, comorbidities, previous drug use, risk factors not captured in the FRAX model (e.g., frailty, falls, vitamin D deficiency, increased bone turnover, interval significant decline in bone density) and possible under or overestimation of fracture risk by FRAX. The patient should follow a healthful lifestyle (good nutrition with adequate calcium and vitamin D, and appropriate weight-bearing exercise). Follow-Up: Consider a repeat BMD and Vertebral Fracture Assessment (VFA) exam in
== END 2022-03-05 09:02 | disposition home or self-care (01) ==
PROVIDERS: PCP Nurse Practitioner Family; Visit Provider Internal Medicine Endocrinology, Diabetes & Metabolism
DX: Z78.0 Asymptomatic menopausal state (principal); M85.852 Other specified disorders of bone density and structure, left thigh; M85.851 Other specified disorders of bone density and structure, right thigh
CPT/HCPCS: 77080

== ENCOUNTER 2022-04-07 08:18 | Outpatient (CLI) | payer MEDICARE, MEDICAID, SELFPAY ==
--- NOTE | ~2022-04-07 | XR_ITS ---
Clinical Indication: Dyspnea PA and lateral views of the chest: Comparison: 12/03/2014 Findings: No change from prior exam. The lungs are clear, without evidence of focal consolidation or pleural effusion. Cardiomediastinal silhouette is within normal limits. Bones and soft tissues are u nremarkable. Impression: Normal chest. Reviewed, dictated and finalized at location [] OSONDE OPERATOR Impression: Normal chest.
== END 2022-04-07 08:19 | disposition home or self-care (01) ==
PROVIDERS: PCP Family Medicine; Visit Provider Nurse Practitioner
DX: R06.09 Other forms of dyspnea (principal)
CPT/HCPCS: 71046

== ENCOUNTER → 2022-05-01 09:24 | Outpatient (CLI) | payer MEDICARE, MEDICAID, SELFPAY ==
--- NOTE | ~2022-05-01 | XR_ITS ---
XR hip RT 2V w AP pelvis DATE: 05/01/2022 09:57 INDICATION: Right hip pain since fall 3 months ago TECHNIQUE: AP pelvis. AP and lateral views of right hip COMPARISON: None FINDINGS: No fracture or dislocation, avascular necrosis or bone destruction of the right hip. Right hip joint space appears well preserved and symmetric with the left. The pubic symphysis and sacroiliac joints are intact. There is mild degenerative change at the sacroi liac joints. No pelvic fracture or bone destruction is detected. There is degenerative disc disease of the lumbar spine, particularly at L4-5 and L5-S1. IMPRESSION: Degenerative disc disease of the lumbar spine Degenerative change at the sacroiliac joints Negative right hip Reviewed, dictated and finalized at location B. CTOR FINANCIAL SYSTEMS
== END ==
PROVIDERS: PCP Nurse Practitioner Family; Visit Provider Nurse Practitioner Family
DX: M89.8X8 Other specified disorders of bone, other site (principal); M53.3 Sacrococcygeal disorders, not elsewhere classified; M51.36 Other intervertebral disc degeneration, lumbar region
CPT/HCPCS: 73502

== ENCOUNTER 2022-07-15 08:35 | Outpatient (CLI) | payer MEDICARE, MEDICAID, SELFPAY ==
[2022-07-15 19:37] LABS: Basophils Absolute Auto 0.1 K/mm3 (0.0-0.1); Basophils Percent Auto 0.8 % (0.2-1.2); Eosinophils Absolute Auto 0.2 K/mm3 (0-0.3); Eosinophils Percent Auto 2.2 % (0-4.4); Hematocrit 44.4 % (37.0-47.0); Hemoglobin 14.4 g/dL (12.0-15.0); Immature Granulocyte Absolute 0.02 K/mm3 (0.00-0.031); Immature Granulocyte Percent A 0.3 % (0-0.5); Lymphocytes Absolute Auto 2.64 K/mm3 (0.9-3.2); Lymphocytes Percent Auto 34.2 % (18.3-44.2); Mean Corpuscular HGB Conc 32.4 g/dl (32-36); Mean Corpuscular Volume 95.5 fl (80-100); Mean Platelet Volume 10.8 fl (7.4-10.4); Monocytes Absolute Auto 0.6 K/mm3 (0.1-0.6); Monocytes Percent Auto 8.3 % (2.6-8.5); Neutrophils Absolute Auto 4.2 K/mm3 (1.3-6.7); Neutrophils Percent Auto 54.2 % (45.5-73.1); Platelet Count Result 257 k/mm3 (150-375); Red Blood Count 4.65 M/mm3 (4.2-5.4); Red Cell Distribution Width 15.1 % (11.5-14.5); White Blood Count 7.7 K/mm3 (4.5-10.0)
[2022-07-15 19:45] LABS: Alanine Aminotransferase 68 U/L (6-35); Albumin Level 4.8 g/dL (3.5-5.1); Alkaline Phosphatase 60 U/L (38-126); Anion Gap 12 mmol/L (8-16); Aspartate Amino Transferase 85 U/L (14-36); Bilirubin,Total 0.6 mg/dL (0.2-1.3); Blood Urea Nitrogen 21 mg/dL (7-17); Calcium 9.6 mg/dL (8.4-10.2); Carbon Dioxide 26 mmol/L (22-30); Chloride 99 mmol/L (98-107); Cholesterol 195 mg/dL (0-200); Estimated Glomerular Filt Rate 48; Glucose 77 mg/dL (65-110); HDL Direct 45 mg/dL; Potassium 4.1 mmol/L (3.4-5.0); Sodium 137 mmol/L (137-145); Triglycerides 149 mg/dL (<150)
[2022-07-15 19:56] LABS: LDL Cholesterol Direct 101 mg/dL
[2022-07-15 21:03] LABS: Hemoglobin A1C 5.8 % (<5.7)
== END 2022-07-15 08:36 | disposition home or self-care (01) ==
LOC: ANHGOSHLAB 08:37
PROVIDERS: PCP Family Medicine; Visit Provider Nurse Practitioner Family
DX: E11.9 Type 2 diabetes mellitus without complications (principal); E03.9 Hypothyroidism, unspecified; I10 Essential (primary) hypertension; E55.9 Vitamin D deficiency, unspecified; E78.5 Hyperlipidemia, unspecified
CPT/HCPCS: 36415; 80053; 80061; 82306; 83036; 84443; 85025

== ENCOUNTER 2022-08-31 07:15 | Outpatient (CLI) | payer MEDICARE, MEDICAID, SELFPAY ==
[2022-08-31 07:53] LABS: Alanine Aminotransferase 57 U/L (6-35); Albumin Level 4.7 g/dL (3.5-5.1); Alkaline Phosphatase 59 U/L (38-126); Anion Gap 9 mmol/L (8-16); Aspartate Amino Transferase 65 U/L (14-36); Bilirubin,Total 0.7 mg/dL (0.2-1.3); Blood Urea Nitrogen 20 mg/dL (7-17); Calcium 9.2 mg/dL (8.4-10.2); Carbon Dioxide 30 mmol/L (22-30); Chloride 100 mmol/L (98-107); Cholesterol 191 mg/dL (0-200); Estimated Glomerular Filt Rate 48; Glucose 167 mg/dL (65-110); HDL Direct 52 mg/dL; Potassium 3.9 mmol/L (3.4-5.0); Sodium 139 mmol/L (137-145); Triglycerides 213 mg/dL (<150)
[2022-08-31 07:54] LABS: Hemoglobin A1C 5.7 % (<5.7)
[2022-08-31 08:04] LABS: LDL Cholesterol Direct 102 mg/dL
[2022-08-31 08:10] LABS: Free T4 Free Thyroxine 1.24 ng/mL (0.78-2.19); Vitamin D 25 Hydroxy 53.1 ng/mL
[2022-08-31 08:41] LABS: Creatinine Urine 111.6 mg/dL
[2022-08-31 08:46] LABS: MALB Creatinine Ratio 7.4 mg/g (0-30); Microalbumin Urine Random 8.3 mg/L (0-16.7)
[2022-09-04 06:33] LABS: Triiodothyronine T3 Free 2.6 pg/mL (2.3-4.2)
== END 2022-08-31 07:16 | disposition home or self-care (01) ==
PROVIDERS: PCP Family Medicine; Visit Provider Internal Medicine Endocrinology, Diabetes & Metabolism
DX: E11.9 Type 2 diabetes mellitus without complications (principal); E03.9 Hypothyroidism, unspecified; E78.5 Hyperlipidemia, unspecified; M85.80 Other specified disorders of bone density and structure, unspecified site
CPT/HCPCS: 36415; 80053; 80061; 82043; 82306; 83036; 83970; 84439; 84443; 84481

== ENCOUNTER 2022-12-22 10:07 | Outpatient (CLI) | payer MEDICARE, MEDICAID, SELFPAY ==
[2022-12-22 15:17] LABS: Basophils Absolute Auto 0.1 K/mm3 (0.0-0.1); Basophils Percent Auto 0.7 % (0.2-1.2); Eosinophils Absolute Auto 0.2 K/mm3 (0-0.3); Eosinophils Percent Auto 2.1 % (0-4.4); Hemoglobin 14.5 g/dL (12.0-15.0); Immature Granulocyte Absolute 0.03 K/mm3 (0.00-0.031); Immature Granulocyte Percent A 0.4 % (0-0.5); Lymphocytes Absolute Auto 2.47 K/mm3 (0.9-3.2); Lymphocytes Percent Auto 32.3 % (18.3-44.2); Mean Corpuscular Hemoglobin 31.3 pg (26-34); Mean Corpuscular Volume 94.8 fl (80-100); Mean Platelet Volume 10.5 fl (7.4-10.4); Monocytes Absolute Auto 0.7 K/mm3 (0.1-0.6); Monocytes Percent Auto 8.9 % (2.6-8.5); Neutrophils Absolute Auto 4.3 K/mm3 (1.3-6.7); Neutrophils Percent Auto 55.6 % (45.5-73.1); Platelet Count Result 227 k/mm3 (150-375); Red Blood Count 4.64 M/mm3 (4.2-5.4); Red Cell Distribution Width 14.6 % (11.5-14.5); White Blood Count 7.6 K/mm3 (4.5-10.0)
[2022-12-22 15:43] LABS: Alanine Aminotransferase 68 U/L (6-35); Albumin Level 4.7 g/dL (3.5-5.1); Alkaline Phosphatase 58 U/L (38-126); Anion Gap 8 mmol/L (8-16); Aspartate Amino Transferase 88 U/L (14-36); Bilirubin,Total 0.7 mg/dL (0.2-1.3); Blood Urea Nitrogen 24 mg/dL (7-17); Calcium 9.6 mg/dL (8.4-10.2); Carbon Dioxide 33 mmol/L (22-30); Chloride 98 mmol/L (98-107); Cholesterol 199 mg/dL (0-200); Estimated Glomerular Filt Rate 44; Glucose 99 mg/dL (65-110); HDL Direct 48 mg/dL; Sodium 139 mmol/L (137-145); Triglycerides 222 mg/dL (<150)
[2022-12-22 15:54] LABS: LDL Cholesterol Direct 107 mg/dL
[2022-12-22 17:56] LABS: Hemoglobin A1C 5.6 % (<5.7)
[2022-12-25 10:39] LABS: Vitamin D 1,25 (OH)2 Total <8 pg/mL (18-72); Vitamin D2 1,25 (OH)2 <8 pg/mL; Vitamin D3 1,25 (OH)2 <8 pg/mL
== END 2022-12-22 10:08 | disposition home or self-care (01) ==
PROVIDERS: PCP Family Medicine; Visit Provider Nurse Practitioner Family
DX: E11.9 Type 2 diabetes mellitus without complications (principal); I10 Essential (primary) hypertension; E55.9 Vitamin D deficiency, unspecified
CPT/HCPCS: 36415; 80053; 80061; 82652; 83036; 85025

== ENCOUNTER 2023-02-12 07:43 | Outpatient (CLI) | payer MEDICARE, MEDICAID, SELFPAY ==
--- NOTE | ~2023-02-12 | MM_ITS ---
EXAMINATION: MM screening [facility] BI w kelle HISTORY: Screening TECHNIQUE: Craniocaudal and mediolateral oblique 3-D tomosynthesis images were obtained and synthetic 2-D images were generated. CAD analysis was submitted and interpreted. COMPARISON: Comparison to multiple prior studies sequentially, with oldest reviewed study dated 09/2017. BREAST PARENCHYMAL COMPOSITION: There are scattered areas of fibroglandular density. FINDINGS: There is no evidence of suspicious mass, calcification, or architectural distortion to sugg est malignancy in either breast. There has been no suspicious interval change. IMPRESSION: 1. No mammographic evidence of malignancy. 2. Recommend routine screening mammography in one year. BI-RADS Category 1: Negative Reviewed, dictated and finalized at location A.
== END 2023-02-12 07:44 | disposition home or self-care (01) ==
LOC: ANHIMG 07:46
PROVIDERS: PCP Family Medicine; Visit Provider Nurse Practitioner Family
DX: Z12.31 Encounter for screening mammogram for malignant neoplasm of breast (principal)
CPT/HCPCS: 77063; 77067

== ENCOUNTER 2023-04-12 08:31 | Outpatient (CLI) | payer MEDICARE, MEDICAID, SELFPAY ==
[2023-04-12 19:55] LABS: Basophils Absolute Auto 0.1 K/mm3 (0.0-0.1); Basophils Percent Auto 0.7 % (0.2-1.2); Eosinophils Absolute Auto 0.2 K/mm3 (0-0.3); Eosinophils Percent Auto 2.3 % (0-4.4); Hematocrit 44.4 % (37.0-47.0); Hemoglobin 14.6 g/dL (12.0-15.0); Immature Granulocyte Absolute 0.02 K/mm3 (0.00-0.031); Immature Granulocyte Percent A 0.2 % (0-0.5); Lymphocytes Absolute Auto 2.86 K/mm3 (0.9-3.2); Lymphocytes Percent Auto 34.9 % (18.3-44.2); Mean Corpuscular HGB Conc 32.9 g/dl (32-36); Mean Corpuscular Hemoglobin 31.3 pg (26-34); Mean Corpuscular Volume 95.3 fl (80-100); Mean Platelet Volume 10.7 fl (7.4-10.4); Monocytes Absolute Auto 0.6 K/mm3 (0.1-0.6); Monocytes Percent Auto 6.8 % (2.6-8.5); Neutrophils Absolute Auto 4.5 K/mm3 (1.3-6.7); Neutrophils Percent Auto 55.1 % (45.5-73.1); Platelet Count Result 245 k/mm3 (150-375); Red Blood Count 4.66 M/mm3 (4.2-5.4); Red Cell Distribution Width 15.4 % (11.5-14.5); White Blood Count 8.2 K/mm3 (4.5-10.0)
[2023-04-12 20:55] LABS: Alanine Aminotransferase 51 U/L (6-35); Albumin Level 4.8 g/dL (3.5-5.1); Alkaline Phosphatase 67 U/L (38-126); Anion Gap 11 mmol/L (8-16); Aspartate Amino Transferase 61 U/L (14-36); Bilirubin,Total 0.6 mg/dL (0.2-1.3); Blood Urea Nitrogen 18 mg/dL (7-17); Carbon Dioxide 27 mmol/L (22-30); Chloride 100 mmol/L (98-107); Cholesterol 233 mg/dL (0-200); Estimated Glomerular Filt Rate 48; Glucose 83 mg/dL (65-110); HDL Direct 56 mg/dL; Potassium 4.4 mmol/L (3.4-5.0); Sodium 138 mmol/L (137-145); Triglycerides 174 mg/dL (<150)
[2023-04-12 21:07] LABS: LDL Cholesterol Direct 121 mg/dL
[2023-04-12 21:32] LABS: Hemoglobin A1C 6.1 % (<5.7)
[2023-04-15 13:45] LABS: Vitamin D 1,25 (OH)2 Total 37 pg/mL (18-72); Vitamin D2 1,25 (OH)2 <8 pg/mL; Vitamin D3 1,25 (OH)2 37 pg/mL
== END 2023-04-12 08:32 | disposition home or self-care (01) ==
LOC: ANHGOSHLAB 08:32
PROVIDERS: PCP Family Medicine; Visit Provider Nurse Practitioner Family
DX: E11.9 Type 2 diabetes mellitus without complications (principal); I10 Essential (primary) hypertension; E55.9 Vitamin D deficiency, unspecified
CPT/HCPCS: 36415; 80053; 80061; 82652; 83036; 85025

== ENCOUNTER 2023-07-14 08:24 | Outpatient (CLI) | payer MEDICARE, MEDICAID, SELFPAY ==
[2023-07-14 15:03] LABS: Basophils Absolute Auto 0.1 K/mm3 (0.0-0.1); Basophils Percent Auto 0.7 % (0.2-1.2); Eosinophils Absolute Auto 0.2 K/mm3 (0-0.3); Eosinophils Percent Auto 2.1 % (0-4.4); Hematocrit 45.4 % (37.0-47.0); Hemoglobin 14.6 g/dL (12.0-15.0); Immature Granulocyte Absolute 0.03 K/mm3 (0.00-0.031); Immature Granulocyte Percent A 0.4 % (0-0.5); Lymphocytes Absolute Auto 3.15 K/mm3 (0.9-3.2); Lymphocytes Percent Auto 37.4 % (18.3-44.2); Mean Corpuscular HGB Conc 32.2 g/dl (32-36); Mean Corpuscular Hemoglobin 31.5 pg (26-34); Mean Corpuscular Volume 97.8 fl (80-100); Mean Platelet Volume 10.8 fl (7.4-10.4); Monocytes Absolute Auto 0.7 K/mm3 (0.1-0.6); Monocytes Percent Auto 8.1 % (2.6-8.5); Neutrophils Absolute Auto 4.3 K/mm3 (1.3-6.7); Neutrophils Percent Auto 51.3 % (45.5-73.1); Platelet Count Result 229 k/mm3 (150-375); Red Blood Count 4.64 M/mm3 (4.2-5.4); Red Cell Distribution Width 14.9 % (11.5-14.5); White Blood Count 8.4 K/mm3 (4.5-10.0)
[2023-07-14 15:53] LABS: Alanine Aminotransferase 55 U/L (6-35); Albumin Level 4.7 g/dL (3.5-5.1); Alkaline Phosphatase 52 U/L (38-126); Anion Gap 7 mmol/L (8-16); Aspartate Amino Transferase 70 U/L (14-36); Bilirubin,Total 0.7 mg/dL (0.2-1.3); Blood Urea Nitrogen 22 mg/dL (7-17); Calcium 9.8 mg/dL (8.4-10.2); Carbon Dioxide 30 mmol/L (22-30); Chloride 100 mmol/L (98-107); Cholesterol 182 mg/dL (0-200); Estimated Glomerular Filt Rate 54; Glucose 102 mg/dL (65-110); HDL Direct 49 mg/dL; Sodium 137 mmol/L (137-145); Triglycerides 180 mg/dL (<150)
[2023-07-14 16:07] LABS: LDL Cholesterol Direct 97 mg/dL
[2023-07-16 13:12] LABS: Hemoglobin A1C 6.4 % (<5.7)
== END 2023-07-14 08:25 | disposition home or self-care (01) ==
PROVIDERS: PCP Family Medicine; Visit Provider Nurse Practitioner Family
DX: E03.9 Hypothyroidism, unspecified (principal); E11.9 Type 2 diabetes mellitus without complications; E78.5 Hyperlipidemia, unspecified; I10 Essential (primary) hypertension; G47.33 Obstructive sleep apnea (adult) (pediatric); Z00.00 Encounter for general adult medical examination without abnormal findings; Z99.89 Dependence on other enabling machines and devices
CPT/HCPCS: 36415; 80053; 80061; 83036; 85025

== ENCOUNTER 2023-08-04 10:03 | Outpatient (CLI) | payer MEDICARE, MEDICAID, SELFPAY ==
--- NOTE | ~2023-08-04 | XR_ITS ---
Lumbosacral Spine: AP and lateral views Clinical History: Sacrococcygeal disorder Findings: The normal lordotic curve is maintained. 6 mm anterolisthesis of L4 over L5 noted. 4 mm ant erolisthesis of L3 over L4 present. There is severe facet arthropathy from L3 through S1. Questionabl e lucent lesion in L1. The sacroiliac joints are normally outlined. Impression: Questionable lucent/lytic lesion in L1. Recommend CT or MR to further evaluate. Degenerative spondylosis with 6 mm anterolisthesis of L4 over L5, as detailed above. Additional 4 mm anterolisthesis of L3 over L4. Reviewed, dictated and finalized at location . Impression: Questionable lucent/lytic lesion in L1. Recommend CT or MR to further evaluate. Degenerative spondylosis with 6 mm anterolisthesis of L4 over L5, as detailed a lila. Additional 4 mm anterolisthesis of L3 over L4.
--- NOTE | ~2023-08-04 | XR_ITS ---
AP and lateral views of the right hip Clinical history: Pain Findings: No acute fracture or dislocation is seen. Osseous alignment is anatomic. Right hip joint sp seble is preserved. Soft tissues are unremarkable. Impression: No significant abnormality is seen. Reviewed, dictated and finalized at location . Impression: No significant abnormality is seen.
== END 2023-08-04 10:04 | disposition home or self-care (01) ==
LOC: ANHASCIMG 10:06
PROVIDERS: PCP Family Medicine; Visit Provider Nurse Practitioner Family
DX: M53.3 Sacrococcygeal disorders, not elsewhere classified (principal); M25.851 Other specified joint disorders, right hip; M47.896 Other spondylosis, lumbar region
CPT/HCPCS: 72100; 73502

== ENCOUNTER 2023-08-17 09:45 | Outpatient (CLI) | payer MEDICARE, MEDICAID, SELFPAY ==
--- NOTE | ~2023-08-17 | MR_ITS ---
EXAMINATION: MR lumbar spine wo con DATE: 08/17/2023 11:22 INDICATION: Low back pain. Other specified joint disorders, right hip. TECHNIQUE: Magnetic resonance imaging (MRI) of the lumbar spine was performed without intravenous con trast. Sequences included sagittal T2-weighted FSE, sagittal T2-weighted FS FSE, sagittal T1-weighted FSE, and axial T2-weighted FSE. COMPARISON: Lumbar spine radiographs 08/04/2023 FINDINGS: There is 4 degrees dextrocurvature of thoracic lumbar spine. There is 3 mm anterolisthesis of L3 on L4 and L4 on L5. Vertebral body heights are normal. There is mildly decreased disc height at L3-L4 and L4-L5. The distal spinal cord signal intensity is normal. The conus medullaris is at L1. T he following disc levels are specifically discussed: L1-L2: The disc does not extend beyond the endplate margin. There is severe bilateral facet joint ost eoarthritis. There is no neural foraminal stenosis. There is no central canal stenosis. L2-L3: The disc is bulging. There is severe bilateral facet joint osteoarthritis. There is mild bilat eral neural foraminal stenosis. There is no central canal stenosis. L3-L4: The disc is bulging and has an annular fissure. There is severe bilateral facet joint osteoart hritis. There is mild bilateral neural foraminal stenosis. There is mild central canal stenosis. L4-L5: The disc is bulging and has an annular fissure. There is severe bilateral facet joint osteoart hritis. There is mild bilateral neural foraminal stenosis. There is mild central canal stenosis. L5-S1: The disc is bulging and has an annular fissure. There is severe bilateral facet joint osteoart hritis. There is mild bilateral neural foraminal stenosis. There is mild central canal stenosis. IMPRESSION: 1. Mild lumbar spondylosis. Reviewed, dictated and finalized at location E. IMPRESSION: 1. Mild lumbar spondylosis.
--- NOTE | ~2023-08-17 | MR_ITS ---
EXAMINATION: MR hip RT wo con DATE: 08/17/2023 11:22 INDICATION: Right hip joint disorder TECHNIQUE: Magnetic resonance imaging (MRI) of the right hip was performed without intravenous contr ast. Sequences included full-field axial PD-weighted FS FSE and T1-weighted FSE, coronal of the pelvi s with PD-weighted FS FSE, T2-weighted FSE and T1-weighted FSE, small field of view of the right hip with axial PD-weighted FS FSE, sagittal PD-weighted FS FSE, coronal PD-weighted FS FSE and coronal T2 weighted FSE. Additional radial T1-weighted FGR oriented orthogonal to the acetabular rim were obt ained for evaluation of the labrum. COMPARISON: None FINDINGS: Bones/labrum/cartilage: 6 degrees lower lumbar levocurvature. Alignment is otherwise normal. Mild fibrovascular degenerative endplate changes at both sides of the L3-L4 disc space. There is also a low signal intensity scleroti c bone island at the posterior right acetabulum. Bone marrow signal is otherwise normal. No fracture, avascular necrosis or pathologic marrow replacing process. Mild to moderate osteoarthritis at the ri ght hip with nonuniform partial thickness cartilage loss resulting greater than 50% joint space narro wing at the posterior inferomedial aspect the joint space. No degenerative subchondral changes. There is diffuse labral degeneration. Similar findings suggested but not diagnostically evaluated on the c ontralateral left hip on the larger [id number] images of the pelvis. Fluid: Symmetric physiologic amount of fluid within both hip joints. Soft tissues: Normal and symmetric muscle bulk and signal in the pelvis and visualized proximal thighs. Mild tendin opathy without tear at the distal right gluteus minimus tendon. The bilateral iliopsoas, remaining gl uteal and proximal hamstring tendons are normal. The uterus is not identified and has likely been aaron gically resected. There are multiple diverticula along the sigmoid colon without adjacent from trace stranding to suggest diverticulitis. No pathologically enlarged pelvic/inguinal lymphadenopathy. IMPRESSION: 1. Mild to moderate right hip osteoarthritis with diffuse labral degeneration. Similar findings sugge sted but not diagnostically evaluated the contralateral left hip on the larger [id number] images. 2. Mild right radius minimus tendinopathy without tear. Reviewed, dictated and finalized at location A. IMPRESSION: 1. Mild to moderate right hip osteoarthritis with diffuse labral degeneration. Similar findings suggested but not diagnostically evaluated the contralateral l eft hip on the larger [id number]-[id number] images. 2. Mild right radius minimus tendinopathy without tear.
== END 2023-08-17 09:46 | disposition home or self-care (01) ==
LOC: ANHIMG 09:47
PROVIDERS: PCP Family Medicine; Visit Provider Nurse Practitioner Family
DX: M25.851 Other specified joint disorders, right hip (principal); M53.3 Sacrococcygeal disorders, not elsewhere classified; M16.11 Unilateral primary osteoarthritis, right hip; M47.896 Other spondylosis, lumbar region
CPT/HCPCS: 72148; 73721

== ENCOUNTER 2023-10-07 09:06 | Outpatient (CLI) | payer MEDICARE, MEDICAID, SELFPAY ==
--- NOTE | ~2023-10-07 | DEXA_ITS ---
Bone Density Report Name: WADE QUESADA Age: 78 Sex: Female Ethnicity: White Date of : 1945 Indication: postmenopausal; screening for osteoporosis; height loss; hysterectomy; Referring Provider: KAREN BAI Study: Bone densitometry was performed. Exam Date: October 07, 2023 Accession number: [id number] Bone Density: Region BMD T-score Z-score Classification AP Spine(L1-L4) 1.044 0.0 2.5 Normal Femoral Neck (Left) 0.691 -1.4 0.7 Osteopenia Total Hip (Left) 0.897 -0.4 1.5 Normal Femoral Neck (Right) 0.608 -2.2 0.0 Osteopenia Total Hip (Right) 0.845 -0.8 1.1 Normal Total Hip Mean 0.871 -0.6 1.3 Normal World Health Organization criteria for BMD impression classify patients as: Normal (T-score at or above -1.0), Osteopenia (T-score between -1.0 and -2.5), or Osteoporosis (T-score at or below -2.5). 10-year Fracture Risk: FRAX not reported because: Treated for osteoporosis Clinical Information Provided by Patient: Is being treated for osteoporosis Has used the following medications: Vitamin D, Calcium Has the following medical conditions: Hysterectomy Patient maximum height was 60.5 Menopause Age: 51 Drinks caffeinated beverages Onset of menses at age 13 Number of children 0 Impression: The patient has low bone mass, based on the Right Femoral Neck T-score. Discussion: It is important to ask patients whether they are taking their medications and to encourage continued and appropriate compliance with their osteoporosis therapies to reduce fracture risk. It is also important to review their risk factors and encourage appropriate calcium and vitamin D intakes, exercise, fall prevention and other lifestyle measures. Follow-Up: Consider a repeat BMD and Vertebral Fracture Assessment (VFA) exam in 2 years or sooner if medically necessary, to reassess this patient's status. Reported by: KATHERINE on 10/07/2023 9:39:00 AM. Reviewed, dictated and finalized at location AKushal GREEN
== END 2023-10-07 09:07 | disposition home or self-care (01) ==
PROVIDERS: PCP Family Medicine; Visit Provider Internal Medicine Endocrinology, Diabetes & Metabolism
DX: M81.0 Age-related osteoporosis without current pathological fracture (principal); M85.852 Other specified disorders of bone density and structure, left thigh; M85.851 Other specified disorders of bone density and structure, right thigh
CPT/HCPCS: 77080

== ENCOUNTER 2024-02-21 08:52 | Outpatient (CLI) | payer MEDICARE, MEDICAID, SELFPAY ==
--- NOTE | ~2024-02-21 | MM_ITS ---
EXAMINATION: MM screening [facility] BI w kelle HISTORY: Screening mammogram TECHNIQUE: Craniocaudal and mediolateral oblique 3-D tomosynthesis images were obtained and synthetic 2-D images were generated. CAD analysis was submitted and interpreted. COMPARISON: 02/12/2023, 11/27/2021, 11/04/2020, 11/03/2019 BREAST PARENCHYMAL COMPOSITION:Not Dense. There are scattered areas of fibroglandular density. FINDINGS: No suspicious mass, calcification, or architectural distortion are identified in either le[place] ast to suggest malignancy. There has been no suspicious interval change. IMPRESSION: No mammographic evidence of malignancy. Recommend routine screening mammography in one year. BI-RADS Category 1: Negative Reviewed, dictated and finalized at location .
== END 2024-02-21 08:53 | disposition home or self-care (01) ==
LOC: ANHIMG 08:55
PROVIDERS: PCP Family Medicine; Visit Provider Nurse Practitioner Family
DX: Z12.31 Encounter for screening mammogram for malignant neoplasm of breast (principal)
CPT/HCPCS: 77063; 77067

== ENCOUNTER 2024-02-29 09:37 | Outpatient (CLI) | payer MEDICARE, MEDICAID, SELFPAY ==
--- NOTE | ~2024-02-29 | XR_ITS ---
XR wrist LT 2V Ordering provider: Jeannie Godoy NP History: . PAIN AND SWELLING LT WRIST; FALL . Comparison: March 24, 2021 FINDINGS: BONES: Slight widening of the distance between the lunate and scaphoid bones. Otherwise, No acute fra cture or dislocation. No definite scaphoid fracture. JOINT SPACES: Osteoarthritic changes of the first carpometacarpal joint. Otherwise, Well maintained. SOFT TISSUES: Normal. IMPRESSION: Slight widening of the distance between the scaphoid and lunate bone which may indicate ligamentous d isruption. Osteoarthritic changes of the first carpometacarpal joint. Reviewed, dictated and finalized at location A. [place] [place] [employer] IMPRESSION: Slight widening of the distance between the scaphoid and lunate bone which may indicate ligamentous disruption. Osteoarthritic changes of the first carpometacarpal joint.
[2024-02-29 19:02] LABS: Alanine Aminotransferase 21 U/L (6-35); Albumin Level 4.6 g/dL (3.5-5.1); Alkaline Phosphatase 56 U/L (38-126); Anion Gap 12 mmol/L (4-12); Aspartate Amino Transferase 45 U/L (14-36); Bilirubin,Total 0.4 mg/dL (0.2-1.3); Blood Urea Nitrogen 26 mg/dL (7-17); Calcium 9.5 mg/dL (8.4-10.2); Carbon Dioxide 28 mmol/L (22-30); Chloride 98 mmol/L (98-107); Cholesterol 170 mg/dL (0-200); Estimated Glomerular Filt Rate 48; Glucose 80 mg/dL (65-110); HDL Direct 55 mg/dL; Potassium 3.9 mmol/L (3.4-5.0); Sodium 138 mmol/L (137-145); Triglycerides 151 mg/dL (<150)
[2024-02-29 19:14] LABS: LDL Cholesterol Direct 73 mg/dL
[2024-02-29 20:03] LABS: Creatinine Urine 72.2 mg/dL
[2024-02-29 20:20] LABS: Microalbumin Urine Random < 6.0 mg/L (0-16.7)
[2024-02-29 20:21] LABS: MALB Creatinine Ratio < 8.3 mg/g (0-30)
[2024-02-29 20:57] LABS: Free T4 Free Thyroxine 1.29 ng/mL (0.78-2.19); Vitamin D 25 Hydroxy 72.8 ng/mL
== END 2024-02-29 09:38 | disposition home or self-care (01) ==
PROVIDERS: PCP Family Medicine; Visit Provider Internal Medicine Endocrinology, Diabetes & Metabolism
DX: E11.9 Type 2 diabetes mellitus without complications (principal); K76.0 Fatty (change of) liver, not elsewhere classified; M81.0 Age-related osteoporosis without current pathological fracture; E03.9 Hypothyroidism, unspecified; R79.89 Other specified abnormal findings of blood chemistry; M19.032 Primary osteoarthritis, left wrist
CPT/HCPCS: 36415; 73100; 80053; 80061; 82043; 82306; 82607; 84439; 84443

== ENCOUNTER 2024-09-09 09:17 | Emergency (ER) | payer MEDICARE, MEDICAID, SELFPAY ==
[2024-09-09 10:06] VITALS: BP 130/62; PULSE 66; RESP 16; TEMP 35.8; O2SAT 100
--- NOTE | 2024-09-09 10:10 | ED_ITS ---
HPI - Fall General Chief Complaint: Fall Stated Complaint: FALL/FACIAL INJURY Related Data Home Medications Medication Instructions Recorded Confirmed Last Taken Type albuterol sulfate 90 mcg/actuation 2 inhalation inhalation Q4H 12/14/19 06/19/24 Unknown History aerosol inhaler (Ventolin HFA) aspirin 81 mg tablet,delayed 81 mg PO DAILY 12/14/19 06/19/24 Unknown History release omega-3 fatty acids 1,000 mg 1,000 mg PO BID 08/30/20 06/19/24 Unknown History capsule (Fish Oil Concentrate) denosumab 60 mg/mL subcutaneous 60 mg subcut [id number] 01/12/23 06/19/24 Unknown History syringe (Prolia) Allergies Allergy/AdvReac Type Severity Reaction Status Date / Time oxycodone Allergy Unknown HIVES Verified 09/09/24 10:07 Penicillins Allergy Unknown Unknown Verified 09/09/24 10:07 metformin AdvReac diarrhea Verified 09/09/24 10:07 PMFSH Past Medical History Medical History Symptomatic bone lesion with abnormal x-ray Right hip impingement syndrome DDD (degenerative disc disease) Hepatic steatosis CKD (chronic kidney disease) stage 3, GFR 30-59 ml/min Environmental allergies History of CVA (cerebrovascular accident) Hypothyroidism Type 2 diabetes mellitus without complications Asthma Hx of gout Osteoporosis Dyslipidemia Essential hypertension DAVID on CPAP Surgical History Surgical History H/O: hysterectomy Hx of bilateral breast reduction surgery Hx of tonsillectomy Hx of appendectomy Hx of repair of left rotator cuff (~2019) Social History Social History Smoking status: Never smoker Alcohol intake: current Alcohol use details: rarely Substance use: never Substance use type: does not use Do You Feel Safe in your Home?: Yes Lack of Transportation: No Lack of Food: Never True Current Housing: I Have Housing Concerned About Future Housing: No Difficulty Paying Gas/Electric Bills: No Difficulty Paying for Meds: No Currently Unemployed: No Education: Grade School Difficulty w/ Childcare or Family Care: No Living arrangements: with family Occupation/Education: retired Gender identity (if verbalized by the patient): Female Sexual Orientation (if Verbalized by the Patient): Straight or Heterosexual Agree to blood products: Yes Course Vital Signs Vital signs: Vital Signs Temperature 96.4 F L 09/09/24 10:06 Pulse Rate 138 H 09/09/24 10:06 Respiratory Rate 16 09/09/24 10:06 Pulse Oximetry 100 09/09/24 10:06 Temperature 96.4 F L 09/09/24 10:06 Pulse Rate 138 H 09/09/24 10:06 Respiratory Rate 16 09/09/24 10:06 Pulse Oximetry 100 09/09/24 10:06 Discharge Plan Discharge Patient Language: Portuguese Prescriptions: No Action aspirin 81 mg tablet,delayed release (DR/EC) 81 mg PO DAILY omega-3 fatty acids [Fish Oil Concentrate] 1,000 mg capsule 1,000 mg PO BID Prolia 60 mg/mL syringe 60 mg subcut [id number] albuterol sulfate [Ventolin HFA] 90 mcg/actuation HFA aerosol inhaler 2 inhalation INHALATION Q4H (DME) Blood Glucose Test Strip See Rx Instructions .ROUTE .MEDSUPPLY Qty: 100 2RF Rx Instructions: Use to test blood sugar daily (DME) blood pressure monitor [Blood Pressure Kit] Kit See Rx Instructions .Route Qty: 1 0RF Rx Instructions: daily cholecalciferol (vitamin D3) 1,250 mcg (50,000 unit) tablet 50,000 unit PO WEEKLY Qty: 90 0RF fluticasone propionate [Flonase Allergy Relief] 50 mcg/actuation spray,suspension See Rx Instructions intranasal DAILY Qty: 16 5RF Rx Instructions: 1-2 sprays intranasal daily; administer into each nostril losartan 25 mg tablet See Rx Instructions .ROUTE .COMPLEX Qty: 90 2RF Dose Instruction: TAKE 1 TABLET BY MOUTH EVERY DAY Rx Instructions: TAKE 1 TABLET BY MOUTH EVERY DAY tirzepatide 7.5 mg/0.5 mL pen injector 7.5 mg subcut WEEKLY 30 Days Qty: 2.5 6RF cyclobenzaprine 10 mg tablet 10 mg PO TID PRN (Reason: muscle spasm) Qty: 30 1RF allopurinol 100 mg tablet 100 mg PO DAILY Qty: 90 1RF fluticasone furoate-vilanterol [Breo Ellipta] 200-25 mcg/dose blister with device See Rx Instructions .ROUTE .COMPLEX Qty: 180 1RF Dose Instruction: INHALE 1 PUFF EVERY DAY DIRECTED FOR 30 DAYS Rx Instructions: INHALE 1 PUFF EVERY DAY DIRECTED FOR 30 DAYS levothyroxine 50 mcg tablet See Rx Instructions .ROUTE .COMPLEX Qty: 90 1RF Dose Instruction: TAKE ONE TABLET BY MOUTH DAILY FOR 90 DAYS Rx Instructions: TAKE ONE TABLET BY MOUTH DAILY FOR 90 DAYS metoprolol tartrate 25 mg tablet See Rx Instructions .ROUTE .COMPLEX Qty: 180 2RF Dose Instruction: TAKE 1 TABLET BY MOUTH TWICE A DAY Rx Instructions: TAKE 1 TABLET BY MOUTH TWICE A DAY Jardiance 25 mg tablet See Rx Instructions .ROUTE .COMPLEX Qty: 90 1RF Dose Instruction: TAKE ONE TABLET BY MOUTH ONCE DAILY Rx Instructions: TAKE ONE TABLET BY MOUTH ONCE DAILY rosuvastatin 40 mg tablet 40 mg PO DAILY Qty: 90 1RF montelukast 10 mg tablet 10 mg PO DAILY Qty: 90 1RF Follow-up/Referrals: Jeannie Godoy NP [Primary Care Provider] -
--- NOTE | 2024-09-09 10:22 | ECG_ITS ---
Test Date: 2024-09-09 10:32:04 Measurements Intervals [place] Rate: 62 P: 60 UT: 209 QRS: 8 QRSD: 87 T: 41 QT: 405 QTc: 413 Interpretive Statements SINUS RHYTHM NONSPECIFIC ST ABNORMALITY ABNORMAL ECG No previous ECG available for comparison Electronically Signed On 09-09-2024 13:02:00 CDT by Rene Blackburn M.D.
[2024-09-09 10:26] LABS: Glucose Point of Care 73 mg/dl (65-105)
--- NOTE | 2024-09-09 10:53 | ED_ITS ---
HPI - Fall General Chief Complaint: Head Injury Stated Complaint: FALL/FACIAL INJURY Time Seen by Provider: 09/09/24 10:29 Source: patient Mode of arrival: ambulatory Limitations: no limitations History of Present Illness HPI Narrative: 78-year-old female presented for complaint of a fall 10 days. Endorses bruising to face. She states I would like to see if I had a stroke broke anything. Says her legs gave out, she fell flat on her face. she denies LOC. Patient denies any pain at this time; reports occasional pain across lower neck. Denies numbness, tingling, or weakness to the upper extremities, denies headache or dizziness. Related Data Home Medications Medication Instructions Recorded Confirmed Last Taken Type albuterol sulfate 90 mcg/actuation 2 inhalation inhalation Q4H 12/14/19 09/09/24 Unknown History aerosol inhaler (Ventolin HFA) aspirin 81 mg tablet,delayed 81 mg PO DAILY 12/14/19 09/09/24 Unknown History release omega-3 fatty acids 1,000 mg 1,000 mg PO BID 08/30/20 09/09/24 Unknown History capsule (Fish Oil Concentrate) denosumab 60 mg/mL subcutaneous 60 mg subcut [id number] 01/12/23 09/09/24 Unknown History syringe (Prolia) Allergies Allergy/AdvReac Type Severity Reaction Status Date / Time oxycodone Allergy Unknown HIVES Verified 09/09/24 10:07 Penicillins Allergy Unknown Unknown Verified 09/09/24 10:07 metformin AdvReac diarrhea Verified 09/09/24 10:07 Review of Systems Review of Systems: CONSTITUTIONAL: Denies body aches, fever, chills, or sweats. EYES: Denies visual changes, redness, or discharge. ENT: Denies rhinorrhea, congestion, sore throat, or otalgia. CARDIOVASCULAR: Denies chest pain, palpitations, or edema. RESPIRATORY: Denies cough or dyspnea. GASTROINTESTINAL: Denies abdominal pain, nausea, vomiting, or diarrhea. GENITOURINARY: Denies dysuria or hematuria. SKIN: Denies rash, or wounds. MUSCULOSKELETAL: Denies back pain, joint pain NEUROLOGIC: Denies headache, numbness, tinPSYCH: Denies depression or anxiety. All systems reviewed & are unremarkable except as noted in HPI and below PMFSH Past Medical History Medical History Symptomatic bone lesion with abnormal x-ray Right hip impingement syndrome DDD (degenerative disc disease) Hepatic steatosis CKD (chronic kidney disease) stage 3, GFR 30-59 ml/min Environmental allergies History of CVA (cerebrovascular accident) Hypothyroidism Type 2 diabetes mellitus without complications Asthma Hx of gout Osteoporosis Dyslipidemia Essential hypertension DAVID on CPAP Surgical History Surgical History H/O: hysterectomy Hx of bilateral breast reduction surgery Hx of tonsillectomy Hx of appendectomy Hx of repair of left rotator cuff (~2019) Social History Social History Smoking status: Never smoker Alcohol intake: current Alcohol use details: rarely Substance use: never Substance use type: does not use Do You Feel Safe in your Home?: Yes Lack of Transportation: No Lack of Food: Never True Current Housing: I Have Housing Concerned About Future Housing: No Difficulty Paying Gas/Electric Bills: No Difficulty Paying for Meds: No Currently Unemployed: No Education: Grade School Difficulty w/ Childcare or Family Care: No Living arrangements: with family Occupation/Education: retired Gender identity (if verbalized by the patient): Female Sexual Orientation (if Verbalized by the Patient): Straight or Heterosexual Agree to blood products: Yes Comments At time of signature, I have reviewed and agree with nursing past medical, surgical, social and family history unless otherwise noted. Please see nursing chart for further information. There is no relevant family history pertinent to the presenting complaint Exam Narrative: GENERAL: Well-appearing, and in no acute distress. HEAD: Normocephalic, contusion noted to cheeks around nose EYES: EOMI. PERRLA ENT: Mucous membranes pink and moist. NECK: Normal AROM. Supple. No vpt. CHEST: No respiratory distress. Clear to auscultation. HEART: Regular rate and rhythm. murmur is appreciated. Normal peripheral pulses. EXTREMITIES: Normal range of motion. No edema. SKIN: Warm, dry, no rash. Capillary refill normal. Normal skin turgor. NEURO: No focal deficits. Alert and oriented x3. Gait steady. PSYCH: Anxious, talkative. Course Course Emergency Course: Patient is aware of diagnosis, understands and agrees to treatment plan. Anticipatory guidance given. Patient agrees to follow-up as directed and is aware of reasons to seek care at the emergency department. Portions of this record may have been created with voice recognition software Level of Care: Express Care Visit Vital Signs Vital signs: Vital Signs Temperature 96.4 F L 09/09/24 10:06 Pulse Rate 66 09/09/24 10:06 Respiratory Rate 16 09/09/24 10:06 Blood Pressure 130/62 09/09/24 10:06 Pulse Oximetry 100 09/09/24 10:06 Temperature 96.4 F L 09/09/24 10:06 Pulse Rate 66 09/09/24 10:06 Respiratory Rate 16 09/09/24 10:06 Blood Pressure 130/62 09/09/24 10:06 Pulse Oximetry 100 09/09/24 10:06 MDM - Fall MDM Narrative Medical decision making narrative: Discussed physical exam findings consistent with facial contusion. EKG NSR, BS 73 Discussed possible etiologies leading to fall, and Offered ER transfer for further evaluation of head and neck injuries. Patient declines at this time stating she does not like to have her friend her. Friend is in the room during the discussion of plan per pt request. Pt is aware of the risk of worsening condition, disability and/or . She plans to follow-up with her PCP.. Advised supportive measures and signs/symptoms to go to the ER. Pt is a ppropriate for outpt treatment and f/u. Differential Diagnosis Differential diagnosis: Likely syncope, concussion without loss of consciousness and other (fall, contusion, CVA, Subarachnoid hemorrhage, subdural hematoma, cervical spine fracture, torticollis, cervical strain) Lab Data Labs: Lab Results 09/09/24 Range/Units 10:22 POC Capillary Glucose 73 (65-105) mg/dl ECG Data EKG #1: Attestation: I personally reviewed and interpreted this ECG as follows: (NSR 62) ECG completion date: 09/09/24 ECG completion time: 10:32 Prior ECG tracings: not available for review EKG Interpretation: normal rate and sinus rhythm Discharge Plan Discharge Clinical Impression: Contusion of face Qualifiers: Encounter type: initial encounter Qualified Code(s): S00.83XA - Contusion of other part of head, initial encounter Patient Disposition: Home Condition: Stable Instructions: Antibiotic Form, Head Injury (ED) Additional Instructions: Rest. Tylenol 1000mg every 8 hours as needed Alternate ice/heat to the sites Of pain as needed. Lidocaine or salon pas pain patch or use pain cream like icy/hot or biofreeze. Follow up with your primary care provider as needed in 1 week Go to the ER for worsening symptoms or concerns Patient Language: Belarusian Prescriptions: No Action aspirin 81 mg tablet,delayed release (DR/EC) 81 mg PO DAILY omega-3 fatty acids [Fish Oil Concentrate] 1,000 mg capsule 1,000 mg PO BID Prolia 60 mg/mL syringe 60 mg subcut [id number] albuterol sulfate [Ventolin HFA] 90 mcg/actuation HFA aerosol inhaler 2 inhalation INHALATION Q4H (DME) Blood Glucose Test Strip See Rx Instructions .ROUTE .MEDSUPPLY Qty: 100 2RF Rx Instructions: Use to test blood sugar daily (DME) blood pressure monitor [Blood Pressure Kit] Kit See Rx Instructions .Route Qty: 1 0RF Rx Instructions: daily cholecalciferol (vitamin D3) 1,250 mcg (50,000 unit) tablet 50,000 unit PO WEEKLY Qty: 90 0RF fluticasone propionate [Flonase Allergy Relief] 50 mcg/actuation spray,suspension See Rx Instructions intranasal DAILY Qty: 16 5RF Rx Instructions: 1-2 sprays intranasal daily; administer into each nostril losartan 25 mg tablet See Rx Instructions .ROUTE .COMPLEX Qty: 90 2RF Dose Instruction: TAKE 1 TABLET BY MOUTH EVERY DAY Rx Instructions: TAKE 1 TABLET BY MOUTH EVERY DAY tirzepatide 7.5 mg/0.5 mL pen injector 7.5 mg subcut WEEKLY 30 Days Qty: 2.5 6RF cyclobenzaprine 10 mg tablet 10 mg PO TID PRN (Reason: muscle spasm) Qty: 30 1RF allopurinol 100 mg tablet 100 mg PO DAILY Qty: 90 1RF fluticasone furoate-vilanterol [Breo Ellipta] 200-25 mcg/dose blister with device See Rx Instructions .ROUTE .COMPLEX Qty: 180 1RF Dose Instruction: INHALE 1 PUFF EVERY DAY DIRECTED FOR 30 DAYS Rx Instructions: INHALE 1 PUFF EVERY DAY DIRECTED FOR 30 DAYS levothyroxine 50 mcg tablet See Rx Instructions .ROUTE .COMPLEX Qty: 90 1RF Dose Instruction: TAKE ONE TABLET BY MOUTH DAILY FOR 90 DAYS Rx Instructions: TAKE ONE TABLET BY MOUTH DAILY FOR 90 DAYS metoprolol tartrate 25 mg tablet See Rx Instructions .ROUTE .COMPLEX Qty: 180 2RF Dose Instruction: TAKE 1 TABLET BY MOUTH TWICE A DAY Rx Instructions: TAKE 1 TABLET BY MOUTH TWICE A DAY Jardiance 25 mg tablet See Rx Instructions .ROUTE .COMPLEX Qty: 90 1RF Dose Instruction: TAKE ONE TABLET BY MOUTH ONCE DAILY Rx Instructions: TAKE ONE TABLET BY MOUTH ONCE DAILY rosuvastatin 40 mg tablet 40 mg PO DAILY Qty: 90 1RF montelukast 10 mg tablet 10 mg PO DAILY Qty: 90 1RF Follow-up/Referrals: Jeannie Godoy NP [Primary Care Provider] -
== END 2024-09-09 11:08 | disposition home or self-care (01) ==
PROVIDERS: Emergency Provider Nurse Practitioner Family; PCP Nurse Practitioner Family
DX: S00.83XA Contusion of other part of head, initial encounter (principal); W19.XXXA Unspecified fall, initial encounter; I12.9 Hypertensive chronic kidney disease with stage 1 through stage 4 chronic kidney disease, or unspecified chronic kidney disease; E11.22 Type 2 diabetes mellitus with diabetic chronic kidney disease; N18.30 Chronic kidney disease, stage 3 unspecified; Z79.84 Long term (current) use of oral hypoglycemic drugs; K76.0 Fatty (change of) liver, not elsewhere classified; E03.9 Hypothyroidism, unspecified; J45.909 Unspecified asthma, uncomplicated; M10.9 Gout, unspecified; M81.0 Age-related osteoporosis without current pathological fracture; E78.5 Hyperlipidemia, unspecified; G47.33 Obstructive sleep apnea (adult) (pediatric); Z86.73 Personal history of transient ischemic attack (TIA), and cerebral infarction without residual deficits
CPT/HCPCS: 82948; 93005; 99213; G0463

== ENCOUNTER 2024-09-13 11:20 | Outpatient (CLI) | payer MEDICARE, MEDICAID, SELFPAY ==
--- OUTSIDE RECORDS SUMMARY | 2024-09-13 11:46 | XMS_ITS | Referral Summary ---
Author Organization [facility] Address [id number] [place] [address] Care Team Providers Care Plate Cleaner Name Role Phone Henrry Olson MD Primary Care Provider [phone] Dean Flaherty MD Unavailable Farshad Farrar Unavailable [phone] Allergies Active Allergy Reactions Criticality Noted Date Comments Celecoxib Hives High Reaction: Angioedema, Metformin Other (See comments) Low 11/24/2023 Penicillins Hives Medium 11/14/2013 Medications aspirin (ASPIR-81) 81 mg tablet take 1 tablet by oral route every day 0 0 4 Active Additional Information Patient taking differently:81 mgoral Every morning, Indications: prevention of thrombosis, Informant: Self, Reported on 09/22/2023 fluticasone (FLONASE) 50 mcg/actuation nasal spray USE 1 SPRAY IN EACH NOSTRIL ONCE DAILY 2 7 Active acetaminophen 500 mg capsuleIndicat ions:Pain Take 2 capsules (1,000 mg total) by mouth every 6 (six) hours as needed for pain. Stop this medication last for pain managment 9 Active Additional Information Patient not taking.Reported on 11/24/2023 docusate sodium (COLACE) 100 mg capsuleIndicat ions:constipat ion Take 1 capsule (100 mg total) by mouth 2 (two) times a day. 30 capsule 9 Active Additional Information Patient not taking.Reported on 11/24/2023 senna-docusate (PERICOLACE) 8.6-50 mg Take up to 4 tablets by mouth 2 times daily 90 tablet 0 Active Additional Information Patient not taking.Reported on 11/24/2023 ascorbic acid (ascorbic acid) 500 mg tablet,chewabl e Take 1 tablet by ORAL twice a day 60 tablet/chew tab 0 Active Additional Information Patient not taking.Reported on 11/24/2023 ondansetron (ZOFRAN) 4 mg tablet Take 1-2 tablet(s) (4MG) by ORAL route every 8 hours as needed for nausea and vomiting 20 tablet 0 Active Additional Information Patient not taking.Reported on 11/24/2023 glimepiride (AMARYL) 1 mg tabletIndicati ons:type 2 diabetes mellitus Take 1 tablet (1 mg total) by mouth 2 (two) times a day Active calcium carbonate-aaron min D3 1500 mg (600 mg elemental) -200 units per tabletIndicati ons:Prevention of Vitamin D Deficiency Take 1 tablet by mouth daily Active losartan (COZAAR) 25 mg tabletIndicati ons:hypertensi on Take 1 tablet (25 mg total) by mouth daily Active montelukast (SINGULAIR) 10 mg tabletIndicati ons:Allergic Rhinitis Take 1 tablet (10 mg total) by mouth nightly Active cholecalcifero l (Vitamin D3) 2000 unit tabletIndicati ons:Prevention of Vitamin D Deficiency Take 0.0005 tablets (1 Units total) by mouth daily Active HYDROcodone-ac etaminophen ([place]) 5-325 mg per tabletIndicati ons:Pain 1 tabs Q8-12 hours prn pain 21 tablet 0 Active Additional Information Patient not taking.Reported on 11/24/2023 metFORMIN XR (GLUCOPHAGE XR) 500 mg 24 hr tablet metformin ER 500 mg tablet,extended release 24 hr TAKE 2 TABLET(S) EVERY DAY BY ORAL ROUTE IN THE MORNING. Active calcitRIOL (ROCALTROL) 0.25 mcg capsule Take 1 capsule (0.25 mcg total) by mouth daily 9 Active dicyclomine (BENTYL) 20 mg tablet Take 1 tablet (20 mg total) by mouth every 12 hours 8 Active albuterol HFA (Ventolin HFA) 90 mcg/actuation inhaler Ventolin HFA 90 mcg/actuation aerosol inhaler INHALE 2 PUFFS BY MOUTH EVERY 4 6 HOURS NEEDED FOR SHORTNESS OF BREATH/COUGH 6 Active Ventolin HFA 90 mcg/actuation inhaler INHALE 2 PUFFS BY MOUTH EVERY 4 6 HOURS NEEDED FOR SHORTNESS OF BREATH/COUGH 0 Active amLODIPine (Norvasc) 10 mg tablet Take 1 tablet (10 mg total) by mouth daily 0 Active fluticasone furoate-vilant Uzma (Breo Ellipta) 200-25 mcg/dose diskus inhaler Inhale 1 puff daily 7 Active levothyroxine (SYNTHROID) 75 mcg tablet Take 1 tablet (75 mcg total) by mouth every morning 0 Active levothyroxine (Synthroid) 50 mcg tablet Take 1 tablet (50 mcg total) by mouth daily 8 Active metFORMIN (FORTAMET) 1,000 mg 24 hr tablet Take 1 tablet (1,000 mg total) by mouth daily 9 Active metFORMIN XR (GLUCOPHAGE XR) 500 mg 24 hr tablet TAKE 2 TABLET(S) EVERY DAY BY ORAL ROUTE IN THE MORNING. 0 Active metoprolol tartrate (LOPRESSOR) 25 mg immediate release tablet metoprolol tartrate 25 mg tablet TAKE 1 TABLET BY MOUTH TWICE A DAY Active metoprolol tartrate (LOPRESSOR) 25 mg immediate release tablet Take 1 tablet (25 mg total) by mouth 2 (two) times a day 0 Active metoprolol tartrate (LOPRESSOR) 50 mg immediate release tablet Take 1 tablet (50 mg total) by mouth every 12 hours 9 Active atorvastatin (LIPITOR) 40 mg tablet Take 1 tablet (40 mg total) by mouth daily 0 Active allopurinoL (ZYLOPRIM) 100 mg tablet Take 1 tablet (100 mg total) by mouth daily 4 Active cyclobenzaprin e (FLEXERIL) 10 mg tablet Take 1 tablet (10 mg total) by mouth 3 (three) times a day as needed 4 Active pravastatin (PRAVACHOL) 40 mg tablet Take 1 tablet (40 mg total) by mouth nightly 4 Active Mounjaro 5 mg/0.5 mL pen injector INJECT 5 MG (0.5 ML) SUBCUTANEOUSLY WEEKLY FOR 4 WEEKS WILL INCREASE DOSE IF TOLERATED Active Jardiance 25 mg tablet Take 1 tablet (25 mg total) by mouth daily Active omega-3 fatty acids-fish oil 300-1,000 mg capsule Take 2 capsules (2 g total) by mouth daily Active Active Problems Problem Noted Date Diagnosed Date Abnormal involuntary movements 09/22/2023 Allergic rhinitis 09/22/2023 Breast lump 09/22/2023 Chest pain 09/22/2023 Chronic kidney disease 09/22/2023 Irritable bowel syndrome with diarrhea Disorder of bone and cartilage 09/22/2023 Diverticulosis of intestine, part unspecified, without perforation or abscess with bleeding 09/22/2023 Dysmetabolic syndrome X 09/22/2023 Fatty liver 09/22/2023 Chronic liver disease 09/22/2023 Anorexia 09/22/2023 Pain in right shoulder 09/22/2023 Pain in right foot 09/22/2023 Renal stone 09/22/2023 Tinea corporis 09/22/2023 Urinary tract infection 09/22/2023 Well controlled type 2 diabetes mellitus 023 Dyslipidemia 10/19/2022 Complete tear of left rotator cuff 06/05/2019 Overview (06/05/2019): Added automatically from request for surgery [id number] Biceps tendinitis of left upper extremity 2019 Overview (06/05/2019): Added automatically from request for surgery [id number] Arthritis of left acromioclavicular joint 2019 Overview (06/05/2019): Added automatically from request for surgery [id number] Impingement syndrome of left shoulder 06/05/2019 Overview (06/05/2019): Added automatically from request for surgery [id number] Diabetes mellitus 01/06/2018 Overview (09/22/2023): Added automatically from request for surgery [id number] Sleep apnea 01/06/2018 Daytime hypersomnia 10/07/2017 Obesity with body mass index 30 or greater 10/07 Postmenopausal osteoporosis 03/11/2017 Assessment & Plan (09/23/2017 9:14 AM CDT): On Fosamax Weight bearing exercise and fall precautions discussed. Assessment & Plan (03/11/2017 9:36 AM SPRING FORMER): Check DEXA Fall precautions. Daily weight bearing exercise Continue Alendronate. Hypercalcemia 11/26/2015 Uncomplicated asthma 12/28/2014 Vitamin D deficiency 01/25/2014 Assessment & Plan (09/23/2017 9:14 AM CDT): Check 25 [place] vit D Adjust dose of Ergocalciferol accordingly ( restart if indicated ) ( low vit D can worsen hyperparathyrodism ) Pain in joint, lower leg 01/03/2014 Undiagnosed cardiac murmurs 11/30/2013 Overview (09/22/2023): Heart murmur Type 2 diabetes mellitus with diabetic nephropat hy 11/14/2013 Overview (09/22/2023): Hypothyroidism Assessment & Plan (09/23/2017 9:15 AM CDT): Will check TSH and free T4 Will adjust dose of Levothyroxine accordingly . If there is a need to make changes, will recheck levels in 2-3 months. Instructions to patient on taking medication properly : in the morning, on an empty stomach , 1 h part from food and/or other meds. If any doses are missed, can take 2-3 tab together ,to make up for the missed dose; make sure at the end to the week, 7 tabs have been taken. Assessment & Plan (03/11/2017 9:24 AM SPRING FORMER): Check TSH, free T4 Adjust dose of Levothyroxine accordingly . Instructions to patient on taking medication properly Hyperparathyroidism 11/14/2013 Overview (09/22/2023): Check PTH, 25 [place] vit D, BMP, 24 h urine calcium Assessment & Plan (09/23/2017 9:14 AM CDT): Keep monitoring serum and urine Ca Pt on Fosamax, for osteoporosis Pt has been reluctant to consider surgery As long as serum Ca stays under 11-11.5 and urine calcium stays under 300 mg / 24 h , will continue monitoring Encounter for other preprocedural examination Essential hypertension 11/14/2013 Hyperlipidemia 11/14/2013 Immunizations Immunization Administration Dates Next Due Td, adsorbed 07/08/2006 Social History Tobacco Use Types Packs/Day Years Used Date Smoking Tobacco: Never Smokeless Tobacco: Never Alcohol Use Standard Drinks/Week Comments No 0 (1 standard drink = 0.6 oz pur e alcohol) Comments Unknown Sex and Gender Information Value Date Recorded Sex Assigned at Not on file Legal Sex Female 11:54 PM SPRING FORMER Gender Identity Not on file Sexual Orientation Not on file Last Filed Vital Signs Vital Sign Reading Time Taken Comments Blood Pressure 116/70 11/24/2023 8:43 AM CDT Pulse 63 11/24/2023 8:43 AM CDT Temperature 36.2 C (97.1 F) 04/29/2020 8:29 AM SPRING FORMER Respiratory Rate 18 09/06/2019 10:53 AM CDT Oxygen Saturation 98% 09/06/2019 10:53 AM CDT Inhaled Oxygen Concentration - - Weight 72.3 kg (159 lb 4.8 oz) 11/24/2023 8:43 A M CDT Height 154.5 cm (5' 0.83 ) 11/24/2023 8:43 AM CD T Body Mass Index 30.27 11/24/2023 8:43 AM CDT Plan of Treatment Not on file Medical Devices Implanted Type Area Human Resources Director Device Identifier Shelf Expiration Date Model / Serial / Lot Depuy Mitek [id number] Healix Advance Br Orthocord 4.5mm 3 Rector Suture Sterile Latex Free - [id number] Implanted:Qty: 1 on 06/29/2019 by Lex Walker MD at [facility] Left: Shoulder Depuy Mitek 07/25/2019 [id number] / / [id number] Barry [employer] Nephew 2504-1 Regenerate Tendon Rector Suture - [id number] Implanted:Qty: 1 on 06/29/2019 by Lex Walker MD at [facility] Left: Shoulder [employer] Nephew 12/01/2019 2504-1 / / [id number] Barry [employer] Nephew/Richco/Or tho 4565 Implant Medium Arthroscopic Bioinductive W/ Delivery Device - [id number] Implanted:Qty: 1 on 06/29/2019 by Lex Walker MD at [facility] Left: Shoulder [employer]/Richco/Or tho 12/29/2021 [id number] / / [id number] Bone Anchors With Arthroscopic Delivery System Advanced Implanted:Qty: 1 on 06/29/2019 by Lex Walker MD at [facility] Left: Shoulder [employer]hew [id number] 03/21/2022 [id number] / / [id number] Arthrex Inc Ar-2323bcc Swivelock C 5.5mm 19.1mm Closed Eyelet Vent Rector Suture - [id number] Implanted:Qty: 1 on 06/29/2019 by Lex Walker MD at [facility] Left: Shoulder Arthrex Inc 10/23/2020 AR-2323BC C / / [id number] Procedures Procedure Name Priority Date/Time Associated Diagnosis Comments DEXA AXIAL SKELETON BONE DENSITY 1 OR MORE SITES Schedule Routine, Read Routine (OP Routine) 09/11/2015 from Last 3 Months or Most Recently Relevant to Health Maintenance Results * Dexa Axial Skeleton Bone Density 1 or 2 Site (09/11/2015) Anatomical Region Laterality Modality Body N/A Radiographic Stephani ging Historical Provider MD MARINA DXA PROCEDURES Final Result from Last 3 Months or Most Recently Relevant to Health Maintenance Insurance IDPA MEDICARE RAILROAD MEDICARE RAILROAD Member Subscriber Plan / Payer ( fective 1972-) Name:Wade Quesada Member ID:[id number] Relation to Subscriber:Self Name:Wade Quesada Subscriber ID:[id number] Payer ID:[id number] Group ID:Not on file Type:MEDICARE TRADITIONAL [address] IDPA [facility] MEDICARE ADVANTAGE IDPA Advance Directives For more information, please contact: [phone] * Full Code (Latest Code Status on File) Date Activated Date Inactivated Comments 05/17/2018 11:43 AM 05/18/2018 1:46 PM Care Teams Plate Cleaner Relationship Specialty Start Date End Date Henrry Olson MD PCP - General 07/24/16 [place] [address] [place] [address] Consulting Physician Endocrinology Diabetes & Metabolism 06/01/18 Farshad Farrar PA [address] [place] [address] [address] [place] [address] Physician Credentialer Orthopedic Surgery 06/29/19
--- OUTSIDE RECORDS SUMMARY | 2024-09-13 11:46 | XMS_ITS | Clinical Summary ---
Author Organization [facility] Address [address] [place] [id number] Care Team Providers Care Grass Farmer Name Role Phone Henrry Olson MD Primary Care Provider [phone] Dean Flaherty MD Unavailable Farshad Farrar Unavailable [phone] Allergies Active Allergy Reactions Criticality Noted Date [...] total) by mouth daily Active HYDROcodone-ac etaminophen ([place]) 5-325 mg per tabletIndicati ons:Pain 1 tabs [...] (06/05/2019): Added automatically from request for surgery [id number] Biceps tendinitis of left upper extremity 2019 Overview (06/05/2019): Added automatically from request for surgery [id number] Arthritis of left acromioclavicular joint 2019 Overview (06/05/2019): Added automatically from request for surgery [id number] Impingement syndrome of left shoulder 06/05/2019 Overview (06/05/2019): Added automatically from request for surgery [id number] Diabetes mellitus 01/06/2018 Overview (09/22/2023): Added automatically from request for surgery [id number] Sleep apnea 01/06/2018 Daytime hypersomnia 10/07/2017 Obesity with body mass index 30 or greater 10/07 Postmenopausal osteoporosis 03/11/2017 Assessment & Plan (09/23/2017 9:14 AM CDT): On Fosamax Weight bearing exercise and fall precautions discussed. Assessment & Plan (03/11/2017 9:36 AM ENVIRONMENTAL ASSOCIATE): Check DEXA Fall precautions. Daily weight bearing [...] taken. Assessment & Plan (03/11/2017 9:24 AM ENVIRONMENTAL ASSOCIATE): Check TSH, free T4 Adjust dose of [...] Administration Dates Next Due Td, adsorbed 07/08/2006 Surgical History Surgery Date Site/Laterality Comments KNEE ARTHROPLASTY Right Knee replacement KNEE ARTHROPLASTY Left Knee replacement REDUCTION MAMMAPLASTY HYSTERECTOMY APPENDECTOMY TONSILLECTOMY Medical History Medical History Date Comments Hypertension Hypertension Hx Other Medical dyslipidemia Hypothyroidism Hypothyroidism Hx Other Medical COPD: Asthma Hx Other Medical CVA subclinical Asthma Asthma; Comments : [facility] 01/11/2014 - Rheumatoid arthritis (HCC) Rheum atoid arthritis; Comments: [facility] 01/11/2014 - Hypercholesterolemia High choles terol; Comments: [facility] 01/11/2014 - Hypertension Hypertension Disorder of thyroid Thyroid dise ase Gout Gout Hypercalcemia Hyperparathyroidism Heart murmur Sleep apnea CPAP Cerebrovascular accident (CVA) (HCC) Social History Tobacco Use Types Packs/Day Years Used Date Smoking Tobacco: Never Smokeless Tobacco: Never Alcohol Use Standard Drinks/Week Comments No 0 (1 standard drink = 0.6 oz pur e alcohol) Comments Unknown Sex and Gender Information Value Date Recorded Sex Assigned at Not on file Legal Sex Female 11:54 PM ENVIRONMENTAL ASSOCIATE Gender Identity Not on file Sexual Orientation Not on file Obstetrics History Last Filed Vital Signs Vital Sign Reading Time Taken Comments Blood Pressure 116/70 11/24/2023 8:43 AM CDT Pulse 63 11/24/2023 8:43 AM CDT Temperature 36.2 C (97.1 F) 04/29/2020 8:29 AM ENVIRONMENTAL ASSOCIATE Respiratory Rate 18 09/06/2019 10:53 AM CDT Oxygen Saturation 98% 09/06/2019 10:53 AM CDT Inhaled Oxygen Concentration - - Weight 72.3 kg (159 lb 4.8 oz) 11/24/2023 8:43 A M CDT Height 154.5 cm (5' 0.83 ) 11/24/2023 8:43 AM CD T Body Mass Index 30.27 11/24/2023 8:43 AM CDT Plan of Treatment Health Maintenance Due Date Last Done Comments Albumin Creatinine Ratio, Urine 1946 Fall Risk Assessment 1946 Hemoglobin A1C 1946 Hepatitis C Screening 1946 eGFR 1946 Dilated Eye Exam 1946 Foot Exam 1946 Lipid Panel 1946 Hepatitis B Screening 1964 DTaP/Tdap/Td Vaccine (1 - Tdap) 07/09/2006 7 Well Visit 65+ 09/11/2011 Zoster Vaccine (2 of 3) 04/22/2015 02/25/2015 Osteoporosis Screening-Bone Density Scan 2017 09/11/2015 Depression Screening 09/23/2018 09/23/2017, 03/11/20 17 Influenza Vaccine (#1) 2023 , 12/29/2019, 01/24/2018, Additional history exists Pneumococcal vaccine 65+ Completed 01/25/2017, 11/2015 Medical Devices Implanted Type Area Bleacher Kraft Pulp Device Identifier Shelf Expiration Date Model / Serial / Lot Depuy Mitek [id number] Healix Advance Br Orthocord 4.5mm 3 [place] Suture Sterile Latex Free - [id number] Implanted:Qty: 1 on 06/29/2019 by Lex Walker MD at [facility] Left: Shoulder Depuy Mitek 07/25/2019 [id number] / / [id number] [employer]hew 2504-1 Regenerate Tendon [place] Suture - [id number] Implanted:Qty: 1 on 06/29/2019 by Lex Walker MD at [facility] Left: Shoulder [employer]hew 12/01/2019 2504-1 / / [id number] [employer] Nephew/Richco/Or tho 4565 Implant Medium Arthroscopic Bioinductive W/ Delivery Device - [id number] Implanted:Qty: 1 on 06/29/2019 by Lex Walker MD at [facility] Left: Shoulder [employer]/Richco/Or tho 12/29/2021 [id number] / / [id number] Bone Anchors With Arthroscopic Delivery System Advanced Implanted:Qty: 1 on 06/29/2019 by Lex Walker MD at [facility] Left: Shoulder [employer]hew [id number] 03/21/2022 [id number] / / [id number] Arthrex Inc Ar-2323bcc Swivelock C 5.5mm 19.1mm Closed Eyelet Vent [place] Suture - [id number] Implanted:Qty: 1 on 06/29/2019 by Lex Walker MD at [facility] Left: Shoulder Ar[employer]rex Inc 10/23/2020 AR-2323BC C / / [id number] Procedures Procedure Name Priority Date/Time Associated Diagnosis [...] Most Recently Relevant to Health Maintenance Insurance [employer] MEDICARE RAILROAD MEDICARE RAILROAD IDRI MEDICARE RAILROAD IDRI [facility] MEDICARE ADVANTAGE [facility] [place] Address: [address] [address] [place] [address] IDPA Advance Directives For more information, please contact: [phone] * Full Code (Latest Code Status on File) Date Activated Date Inactivated Comments 05/17/2018 11:43 AM 05/18/2018 1:46 PM Care Teams Grass Farmer Relationship Specialty Start Date End Date Henrry Olson MD PCP - General 07/24/16 [place] [address] [address] [place] [address] Consulting Physician Endocrinology Diabetes & Metabolism 06/01/18 Farshad Farrar PA [address] [facility] [address] [place] [address] Physician Photographic Equipment Mechanic Orthopedic Surgery 06/29/19
--- OUTSIDE RECORDS SUMMARY | 2024-09-13 11:46 | XMS_ITS | Clinical Summary ---
Author Organization [facility] Address [address] [place] [address] Care Team Providers Care Audit Analyst Name Role Phone Unavailable Primary Care Provider Unavailabl e Medications denosumab (Prolia) 60 mg/mL Syringe TO BE ADMINISTERED IN PHYSICIAN'S OFFICE. INJECT ONE SYRINGE SUBCUTANEOUSLY ONCE EVERY 6 MONTHS. 1 mL 1 10/29/2022 9:57 AM CDT 2 Active Encounters Date Type Department Care Team Description 08/29/2024 External Device Data [facility] ABSTRACTION Provider, Abstract from Last 3 Months Social History Tobacco Use Types Packs/Day Years Used Date Smoking Tobacco: Never Assessed Comments Unknown Sex and Gender Information Value Date Recorded Sex Assigned at Not on file Legal Sex Female 7:34 AM QUALITY INTERN Gender Identity Not on file Sexual Orientation Not on file Plan of Treatment Health Maintenance Due Date Last Done Comments DTAP/TDAP/TD VACCINES (1 - Tdap) 1965 PNEUMOCOCCAL VACCINE 50+ YEARS (1 of 1 - PCV) 09/10/18 97 ZOSTER VACCINE (1 of 2) 1996 OSTEOPOROSIS SCREENING 09/11/2011 RSV VACCINE (60+ or ) (1 - 1-dose 75+ series) 2021 INFLUENZA VACCINE (#1) 2023 Insurance RX [employer] RX Member Subscriber Plan / Payer (Ef fective for All Dates) Name:Katlin Powell Relation to Subscriber:Self Name:Katlin Powell Payer ID:Not on file Group ID:[id number] Type:RX Medicare Part D Address: [address]
--- OUTSIDE RECORDS SUMMARY | 2024-09-13 11:47 | XMS_ITS | Continuity of Care Document ---
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 Name Role Phone Henrry Olson MD Unavailable Unavailable Allergies, Adverse Reactions, Alerts Substance Reaction Status Criticality Penicillins Active No Information Medications Medication Instructions Dosage Effective Dates (start - stop) Status Comments Norvasc 10 mg tablet take 1 tablet by or al route every day 10 MG - Active metoprolol tartrate 50 mg tablet take 1 tablet by oral route 2 times every day with meals 50 MG - Active metformin ER 1,000 mg tablet,extended release 24hr take 1 tablet by oral route every day with the evening meal 1000 MG - Active Lipitor 20 mg tablet take 1 Tablet by or al route every day 20 MG - Active calcitriol 0.25 mcg capsule take 1 capsule by oral route every day 0.25 MCG - Active dicyclomine 20 mg tablet take 1 tablet by oral route 2 times every day 20 MG - Active Synthroid 50 mcg tablet take 1 tablet by oral route every day 50 MCG - Active Breo Ellipta 200 mcg-25 mcg/dose powder for inhalation inhale 1 puff by inhalation route every day at the same time each day 1.00 puff - Active Ventolin HFA 90 mcg/actuation aerosol inhaler inhale 2 puff by inhalation route every 4 - 6 hours as needed - Active Procedures Procedure Date OFFICE/OUTPATIENT VISIT, EST OFFICE/OUTPATIENT VISIT, EST OFFICE/OUTPATIENT VISIT, EST OFFICE/OUTPATIENT VISIT, EST OFFICE/OUTPATIENT VISIT, EST OFFICE/OUTPATIENT VISIT, EST PPPS, subseq visit OFFICE/OUTPATIENT VISIT, EST OFFICE/OUTPATIENT VISIT, EST OFFICE/OUTPATIENT VISIT, EST OFFICE/OUTPATIENT VISIT, EST OFFICE/OUTPATIENT VISIT, EST PPPS, initial visit OFFICE/OUTPATIENT VISIT, EST OFFICE/OUTPATIENT VISIT, EST OFFICE/OUTPATIENT VISIT, EST OFFICE/OUTPATIENT VISIT, EST OFFICE/OUTPATIENT VISIT, EST OFFICE/OUTPATIENT VISIT, EST OFFICE/OUTPATIENT VISIT, EST OFFICE/OUTPATIENT VISIT, EST OFFICE/OUTPATIENT VISIT, EST OFFICE/OUTPATIENT VISIT, EST OFFICE/OUTPATIENT VISIT, EST OFFICE/OUTPATIENT VISIT, EST OFFICE/OUTPATIENT VISIT, EST OFFICE/OUTPATIENT VISIT, EST OFFICE/OUTPATIENT VISIT, EST OFFICE/OUTPATIENT VISIT, EST OFFICE/OUTPATIENT VISIT, EST OFFICE/OUTPATIENT VISIT, EST OFFICE/OUTPATIENT VISIT, EST OFFICE/OUTPATIENT VISIT, EST OFFICE/OUTPATIENT VISIT, EST OFFICE/OUTPATIENT VISIT, EST OFFICE/OUTPATIENT VISIT, NEW Advance Directives Directive Yes / No Effective Date File Name No Information Encounters Encounter Description Practice Location Reason(s) For Visit Diagnoses Date Provider Providers Copied on Encounter [facility], [address] [place], [place], [address], [place] tel:[phone] [facility] No Information 1 Wesley Sales. [address], [place], [place], [address] , [place]. tel:[phone] OFFICE/OUTPA TIENT VISIT, [facility], [address] [place], [place], [address], [place] tel:[phone] [facility] knee pain1 (chief complaint) Pain in right knee 0 Wesley Sales. [address], [place], [place], [address] , [place]. [phone] Referring Provider: Noe Calvo [address], [place], [place], [address]. tel:[phone] OFFICE/OUTPA TIENT VISIT, [facility], [address], [place], [place], [address], [place] tel:[phone] [facility] shoulder pain1 (chief complaint)DM (chief complaint)cass st pain1 (chief complaint) Pain in left shoulderChest painType 2 diabetes mellitus without complicationsEnc ounter for other preprocedural examination 0 Wesley Sales. [address], [address], [place], [place], [address] , [place]. [phone] Referring Provider: Noe Calvo [address], [place], [place], [address]. tel:[phone] OFFICE/OUTPA TIENT VISIT, [facility], [address], [place], [place], [address], [place] tel:[phone] [facility] shoulder pain1 (chief complaint)HTN (chief complaint)thy roid1 (chief complaint)sle ep apnea1 (chief complaint) Essential (primary) hypertensionPain in left shoulderHypothyr oidismSleep apnea 0 Wesley Boykin [address], [place], [place], [address] , [place]. [phone] Referring Provider: Noe Calvo [address], [place], [place], [address]. tel:[phone] OFFICE/OUTPA TIENT VISIT, [facility], [address], [place], [place], [address], [place] tel:[phone] [facility] shoulder pain1 (chief complaint)HTN (chief complaint)ost eoporosis1 (chief complaint) Pain in left shoulderPain in left handEssential (primary) hypertensionOste oporosis 9 Wesley Sales. [address], [place], [place], [address] , [place]. [phone] Referring Provider: Noe Calvo [address], [place], [place], [address]. tel:[phone] OFFICE/OUTPA TIENT VISIT, [facility], [address], [place], [place], [address], [place] tel:[phone] [facility] abd pain1 (chief complaint)fat ty liver1 (chief complaint)div ercitulosis1 (chief complaint) Renal stoneAbdominal painSleep apneaFatty liverDiverticulo sis of intestine without abscess with bleedingOsteopor osis 9 Wesley Boykin [address], [place], [place], [address] , [place]. [phone] Referring Provider: Noe Calvo [address], [place], [address]. tel:[phone] [facility], [address], [place], [place], [address], [place] tel:[phone] [facility] No Information 9 Wesley Boykin [address], [place], [place], [address] , [place]. tel:[phone] OFFICE/OUTPA TIENT VISIT, [facility], [address], [place], [place], [address], [place] tel:[phone] [facility] itchy rash1 (chief complaint)abd pain1 (chief complaint)LFT (chief complaint)Pre DM (chief complaint) Tinea corporisAbdomina l painFatty liverType 2 diabetes mellitus without complications 9 Wesley Boykin [address], [place], [place], [address] , [place]. tel:[phone] Referring Provider: Noe Calvo [address], [place], [place], [address]. tel:[phone] OFFICE/OUTPA TIENT VISIT, [facility], [address], [place], [place], [address], [place] tel:[phone] [facility] Medicine PHysical (chief complaint) Encounter for general adult medical exam w abnormal findingsAbdomina l painHypothyroidi smSleep apnea 9 Wesley Sales. [address], [place], [place], [address] , [place]. [phone] Referring Provider: Noe Calvo [facility] [address], [place], [place], [address]. tel:[phone] OFFICE/OUTPA TIENT VISIT, [facility], [address], [place], [place], [address], [place] tel:[phone] [facility] parathyroid1 (chief complaint)HTN (chief complaint)IBS 1 (chief complaint) OsteoporosisIrri table bowel syndrome with diarrheaEssentia l (primary) hypertensionHype rcalcemia 9 Wesley Sales. [address], [place], [place], [address] , [place]. [phone] Referring Provider: [address], [place], [place], [address]. tel:[phone] OFFICE/OUTPA TIENT VISIT, [facility], [address], [place], [address], [place] tel:[phone] [facility] parathyroid1 (chief complaint)IBS 1 (chief complaint)ost eoporosis1 (chief complaint)HTN (chief complaint) OsteoporosisEsse ntial (primary) hypertensionDiso rder of parathyroid gland, unspecifiedIrrit able bowel syndrome with diarrhea 8 Wesley Sales. [address], [place], [address] , [place]. [phone] Referring Provider: Noe Calvo [facility] [address], [place], [place], [address]. tel:[phone] OFFICE/OUTPA TIENT VISIT, [facility], [address], [place], [place], [address], [place] [phone] [facility] Medicine osteoporosis1 (chief complaint)enrrique rrhea1 (chief complaint)jur y duty1 (chief complaint)hyp othyroidism1 (chief complaint) OsteoporosisDiar rheaHypothyroidi smSleep apnea 8 Wesley Sales. [address], [place], [address] , [place]. [phone] Referring Provider: Noe Calvo [facility] [address], [place], [place], [address]. tel:[phone] OFFICE/OUTPA TIENT VISIT, [facility], [address], [place], [place], [address], [place] tel:[phone] [facility] HLP (chief complaint)DM (chief complaint)PTH (chief complaint)ost eoporosis1 (chief complaint) HypercalcemiaHyp othyroidismMixed hyperlipidemiaOs teoporosisMetabo lic syndromeSleep apnea 8 Wesley Boykin [address], [facility] [address], [place], [place], [address] , [place]. tel:[phone] Referring Provider: Noe Calvo [facility] [address], [place], [place], [address]. tel:[phone] OFFICE/OUTPA TIENT VISIT, [facility], [address], [address], [place] tel:[phone] [facility] Physical (chief complaint) Encounter for general adult medical exam w abnormal findingsOsteopor osisHypothyroidi smHypercalcemiaM ixed hyperlipidemiaEs sential (primary) hypertension 8 Wesley Boykin [address], [place], [place], [address] , [place]. [phone] Referring Provider: Noe Calvo [address] [facility] [address], [place], [place], [address]. tel:[phone] OFFICE/OUTPA TIENT VISIT, [facility], [address], [place], [place], [address], [place] tel:[phone] [facility] heel pain1 (chief complaint)cass st pain1 (chief complaint)HTN (chief complaint)ost eoprossis (chief complaint) OsteoporosisEsse ntial (primary) hypertensionChes t painPain in right foot 8 Wesley Sales. [address], [place], [place], [address] , [place]. tel:[phone] Referring Provider: Noe Calvo [address], [place], [place], [address]. tel:[phone] OFFICE/OUTPA TIENT VISIT, [facility], [address], [place], [place], [address], [place] tel:[phone] [facility] hypothyroidis m1 (chief complaint)ost eoporosis1 (chief complaint)griselda ulder pain1 (chief complaint)ast hma1 (chief complaint) HypothyroidismPa in in right shoulderOsteopor osisAsthma 7 Wesley Sales. [address], [place], [place], [address] , [place]. tel:[phone] Referring Provider: Noe Calvo [address], [place], [place], [address]. tel:[phone] OFFICE/OUTPA TIENT VISIT, [facility], [address], [place], [place], [address], [place] tel:[phone] [facility] breast nodule1 (chief complaint) Nodule in breast 7 Wesley Sales. [address], [place], [place], [address] , [place]. tel:[phone] Referring Provider: Noe Calvo [address], [place], [place], [address]. tel:[phone] OFFICE/OUTPA TIENT VISIT, [facility], [address], [place], [place], [address], [place] tel:[phone] [facility] HLP (chief complaint)met abolic (chief complaint)HTN (chief complaint)PTH (chief complaint)blake ght loss1 (chief complaint) HyperlipidemiaEs sential (primary) hypertensionAbno rmal weight lossHypothyroidi sm 7 Wesley Sales. [address], [place], [place], [address] , [place]. [phone] Referring Provider: Noe Calvo [address], [place], [place], [address]. tel:[phone] OFFICE/OUTPA TIENT VISIT, [facility], [address], [place], [place], [address], [place] [phone] [facility] Fatty liver1 (chief complaint)DM (chief complaint)HLP (chief complaint)ost eoporosis1 (chief complaint)HTN (chief complaint) OsteoporosisMixe d hyperlipidemiaEs sential (primary) hypertensionFatt y liver Wesley Sales. [address], [place], [place], [address] , [place]. [phone] Referring Provider: Noe Calvo [address] [facility] [address], [place], [place], [address]. tel:[phone] OFFICE/OUTPA TIENT VISIT, [facility], [address] [place], [address], [place] [phone] [facility] dM (chief complaint)jameel al disease (chief complaint)par athyroid (chief complaint)HLP (chief complaint)UTI 1 (chief complaint) Type 2 diabetes mellitus with diabetic nephropathyMixed hyperlipidemiaHy percalcemiaUrina ry tract infection 6 Wesley Sales. [address], [place], [place], [address] , [place]. tel:[phone] Referring Provider: Noe Calvo [facility] [address], [place], [place], [address]. tel:[phone] OFFICE/OUTPA TIENT VISIT, [facility], [address], [place], [place], [address], [place] tel:[phone] [facility] osteoporosis1 (chief complaint)par athyroidism (chief complaint)HTN (chief complaint) OsteoporosisEsse ntial (primary) hypertensionDiso rder of parathyroid gland, unspecifiedEncou nter for oth screening for malignant neoplasm of breast 6 Wesley Sales. [address], [place], [place], [address] , [place]. tel:[phone] Referring Provider: Noe Calvo [facility] [address], [place], [place], [address]. tel:[phone] OFFICE/OUTPA TIENT VISIT, [facility], [address], [address], [place] tel:[phone] [facility] hLP (chief complaint)thy roid1 (chief complaint)ost eoprosis1 (chief complaint)jameel al disease (chief complaint) OsteoporosisHypo thyroidismMixed hyperlipidemiaMe tabolic syndrome 6 Wesley Boykin [address], [place], [place], [address] , [place]. [phone] Referring Provider: Noe Calvo, [place], [place], [address]. tel:[phone] OFFICE/OUTPA TIENT VISIT, [facility], [address], [address], [place] tel:[phone] [facility] vertigo1 (chief complaint)HTN (chief complaint)Ast hma (chief complaint)hyp erparathyroid (chief complaint) AsthmaEssential (primary) hypertensionVert igoHypothyroidis m 6 Wesley Boykin [address] [facility] [address], [place], [place], [address] , [place]. tel:[phone] Referring Provider: Noe Calvo, [place], [place], [address]. tel:[phone] OFFICE/OUTPA TIENT VISIT, [facility], [address], [place], [place], [address], [place] tel:[phone] [facility] asthma (chief complaint)HLP 1 (chief complaint)HTN (chief complaint)ost oporosis1 (chief complaint) OsteoporosisEsse ntial (primary) hypertensionMixe d hyperlipidemiaAs thma 6 Wesley Sales. [address], [place], [place], [address] , [place]. tel:[phone] Referring Provider: Henrry Olson, [address], [place], [place], [address]. tel:[phone] OFFICE/OUTPA TIENT VISIT, [facility], [address], [place], [place], [address], [place] tel:[phone] [facility] tremor (chief complaint) Dietary surveillance and counselingTremor 5 Wesley Sales. [address], [place], [place], [address] , [place]. [phone] Referring Provider: Noe Calvo [address], [place], [place], [address]. tel:[phone] OFFICE/OUTPA TIENT VISIT, [facility], [address], [place], [place], [address], [place] tel:[phone] [facility] HLP (chief complaint)ost eoporosis (chief complaint)pre DM (chief complaint)jameel al (chief complaint) Dietary surveillance and counselingUnspec ified hypothyroidismOt her and unspecified hyperlipidemiaUn specified essential hypertensionOthe r disorders of bone and cartilage 5 Wesley Sales. [address], [place], [place], [address] , [place]. tel:[phone] Referring Provider: Noe Calvo [address], [place], [place], [address]. [phone] OFFICE/OUTPA TIENT VISIT, [facility], [address], [place], [place], [address], [place] tel:[phone] [facility] knee pain (chief complaint)HLP (chief complaint)hyp othyroidism (chief complaint)ast hma (chief complaint) Dietary surveillance and counselingUnspec ified hypothyroidismOt her and unspecified hyperlipidemiaPa in in joint involving lower legAsthma 5 Wesley Sales. [address], [place], [place], [address] , [place]. tel:[phone] Referring Provider: Noe Calvo [address], [place], [place], [address]. tel:[phone] OFFICE/OUTPA TIENT VISIT, [facility], [address], [place], [place], [address], [place] tel:[phone] [facility] renal (chief complaint)HLP (chief complaint)HTN (chief complaint)UTI (chief complaint) Dietary surveillance and counselingRenal Insufficiency, AcuteHypertensio n, UnspecifiedHyper parathyroidism, unspecifiedOther and unspecified hyperlipidemia 5 Wesley Sales. [address], [place], [place], [address] , [place]. tel:[phone] Referring Provider: Noe Calvo [address], [place], [place], [address]. tel:[phone] OFFICE/OUTPA TIENT VISIT, [facility], [address], [place], [place], [address], [place] tel:[phone] [facility] prediabetic (chief complaint)jameel al function (chief complaint)abd ominal pain (chief complaint)UTI (chief complaint) Dietary surveillance and counselingMetabo lic SyndromeChronic kidney disease, unspecifiedUrina ry Tract InfectionOther chronic nonalcoholic liver disease 5 Wesley Boykin [address], [place], [place], [address] , [place]. tel:[phone] Referring Provider: Noe Calvo [address], [place], [place], [address]. tel:[phone] OFFICE/OUTPA TIENT VISIT, [facility], [address], [place], [place], [address], [place] tel:[phone] [facility] HTN (chief complaint)hyp othyroidism (chief complaint)HLP (chief complaint)debbie etite loss (chief complaint)art hritis (chief complaint) Dietary surveillance and counselingDisord er of bone and cartilage, unspecifiedHypot hyroidismHyperte nsion, UnspecifiedAnore jaycee 5 Wesley Sales. [address], [place], [place], [address] , [place]. tel:[phone] Referring Provider: Noe Calvo [address], [place], [place], [address]. tel:[phone] OFFICE/OUTPA TIENT VISIT, [facility], [address], [place], [place], [address], [place] tel:[phone] [facility] knee pain (chief complaint) Dietary surveillance and counselingPain in joint involving lower leg 4 Wesley Sales. [address], [place], [place], [address] , [place]. tel:[phone] Referring Provider: Noe Calvo [address], [place], [place], [address]. tel:[phone] OFFICE/OUTPA TIENT VISIT, [facility], [address], [place], [place], [address], [place] tel:[phone] [facility] knee pain (chief complaint)hyp erparathyroid ism (chief complaint)ost eoporosis (chief complaint) Dietary surveillance and counselingHyperp arathyroidism, unspecifiedHypot hyroidismDisorde r of bone and cartilage, unspecified 4 Wesley Boykin [address], [place], [place], [address] , [place]. tel:[phone] Referring Provider: Noe Calvo [address], [place], [place], [address]. tel:[phone] OFFICE/OUTPA TIENT VISIT, [facility], [address], [place], [place], [address], [place] tel:[phone] [facility] osteoporosis (chief complaint)HTN (chief complaint)vit garcia d (chief complaint) Disorder of bone and cartilage, unspecifiedHyper tension, UnspecifiedDieta ry surveillance and counselingUnspec ified vitamin d deficiency 4 Wesley Boykin [address], [place], [place], [address] , [place]. tel:[phone] Referring Provider: Noe Calvo [address], [place], [place], [address]. tel:[phone] OFFICE/OUTPA TIENT VISIT, [facility], [address], [place], [place], [address], [place] [phone] [facility] PTH (chief complaint)car diac murmur (chief complaint)kne e pain (chief complaint) Dietary surveillance and counselingHyperp arathyroidism, unspecifiedMurmu rPain in joint involving lower leg 4 Wesley Boykin [address], [place], [address] , [place]. tel:[phone] Referring Provider: Noe Calvo [facility] [address], [place], [place], [address]. tel:[phone] OFFICE/OUTPA TIENT VISIT, [facility], [address], [place], [place], [address], [place] [phone] [facility] glucose (chief complaint)LFT (chief complaint)UTI (chief complaint)thy roid (chief complaint) Dietary surveillance and counselingHypoth yroidismHyperpar athyroidism, unspecifiedUnspe cified chronic liver disease without mention of alcoholMurmur 4 Wesley Boykin [address], [place], [place], [address] , [place]. tel:[phone] Referring Provider: Noe Calvo [address], [place], [place], [address]. tel:[phone] OFFICE/OUTPA TIENT VISIT, [facility], [address], [place], [place], [address], tel:[phone] [facility] PTH elevation (chief complaint)HLP (chief complaint)hyp othyroidism (chief complaint)HTN (chief complaint) Hyperparathyroid ism, unspecifiedHyper tension, UnspecifiedOther and unspecified hyperlipidemiaHy pothyroidismDiet mary surveillance and counseling 4 Wesley Sales. [address], [place], [address] , [place]. tel:[phone] Family History Family Member Type Diagnosis Age At Onset No Information Payers Payer name Insurance type Covered libertarian ID Authoriza tion(s) No Information Social History Type Description Quantity Date Captured Comments Sex Female Smoking Status No Information Chief Complaint And Reason For Visit No Information Plan Of Treatment Date Type Action Status Goal Special diet education compl eted Goal Special diet education compl eted Goal Special diet education compl eted Goal Special diet education compl eted Goal Special diet education compl eted Goal Special diet education compl eted Goal Prescribed dietary intake co mpleted Goal Prescribed dietary intake co mpleted Goal Special diet education compl eted Referral Ordered: Physical Therapy (related to Pain in left shoulder) ordered Referral Ordered: Lex Walker [facility] : Orthopaedic Surgery (related to Pain in left shoulder) ordered Referral Referred To: Lex Walker [address] [facility] [address] [address] [facility] [address] [place], [place] [id number] Ordered: Referrals: [facility] : Orthopaedic Surgery. Lex Walker. Evaluate and treat ordered Referral Referred To: Physical Therapy Ordered: Referrals: Physical Therapy. Evaluate and treat ordered Referral Ordered: US EXAM, EXTREMITY ordered Referral Referred To: Ezequiel Slaughter MD [address] [place], [address] Ordered: Referrals: Ezequiel Slaughter MD. Evaluate and treat ordered Referral Referred To: Brad Ferrer MD Ordered: Referrals: Brad Ferrer MD. Evaluate and treat ordered Referral Ordered: SHANNAN CARL -[facility] : Surgery (related to Renal stone) ordered Referral Referred To: SHANNAN CARL [address] [place], [place], [id number] Ordered: Referrals: [facility] : Surgery. SHANNAN CARL. Evaluate and treat ordered Referral Ordered: CT ABDOMEN&PELVIS W/CONTRAST ordered Referral Ordered: Karson Hammonds (related to Chest pain) ordered Referral Ordered: Podiatry (related to Pain in right foot) ordered Referral Referred To: Karson Hammonds [address] [place], [place] [id number] Ordered: Referrals: Karson Hammonds. Evaluate and treat ordered Referral Ordered: Referrals: Podiatry. Evaluate and treat ordered Referral Ordered: [employer] (related to Pain in right shoulder) ordered Referral Ordered: US CAROTID ordered Referral Referred To: [employer] [address] [place] [address] Ordered: Referrals: [employer] Evaluate and treat ordered Referral Ordered: IMAGE BREAST PERC/NEEDLE BX ordered Referral Ordered: MAMMOGRAM, ONE BREAST ordered Referral Ordered: DXA BONE DENSITY, AXIAL ordered Referral Ordered: Pulmonology (related to Asthma) ordered Referral Ordered: Pulmonology (related to Asthma) ordered Referral Ordered: Referrals: Pulmonology. Evaluate and treat ordered Referral Ordered: Nephrology (related to Hypothyroidism) ordered Referral Ordered: Referrals: Nephrology. Evaluate and treat ordered Referral Ordered: CHEST X-RAY PA/LAT TWO-VIEWS ordered Referral Ordered: US KIDNEY ordered Referral Ordered: US EXAM, ABDOM, COMPLETE ordered Referral Ordered: Referral: Ortho Surg. Evaluate and treat. ordered Referral Ordered: Endocrinology ordered Referral Ordered: Referral: Endocrinology. ordered Referral Ordered: MAMMOGRAM, SCREENING ordered Referral Ordered: DOPPLER ECHO EXAM, HEART ordered Referral Ordered: US THYROID ordered Nutrition Recommendation Nutrition therap y completed History Of Present Illness Encounter Date Complaint History Of Kimberly nt Illness knee pain1 pt states that s he has very mild right knee pain and also swelling above right knee for two weeks. Pt denies any injury or redness or warmth or skin abrasion Pt denies any calf or posterior right thigh pain or swelling Pt is very poor historian .Pt also does not have any video for me to see. Pt denies any sob or chest pain Pt is able to bend her knee ok. shoulder pain1 Pt has left shou lder pain. Pt needs have left shoulder arthroscopic surgery next month Pt was told that needs pre op clearance .Pt denies any chest pain or sob. Pt had negative cardiac stress test last year Pt denies any issue with anesthesia or surgery in the past. DM Pt has borderlin e Dm. Pt takes metformin from endo. her A1c is ok .Pt has not checked her glucose at home but she denies any polyuria, polydipsia Pt denies any neuropathy chest pain1 Pt had history o f chest pain Pt denies any chest pain currently Pt is seeing cardiology and she had negative cardiac stress test last year. Pt has debbie with cardiology on 06/29/19 shoulder pain1 Pt has chronic l ateral left shoulder pain for several months ,Pt denies any injury .Pt denies any neck pain. Pt denies any radiculopathy . Ultrasound showed rotator cuff muscle tear and Ac hypertrophy and also subscapularis tendinosis. Pt also has left wrist pain and she just saw Dr. taylro and was told that she has arthritis. pt did not receive any injections HTN Pt takes norvasc and metoprolol. Cardiology decreased metoprolol from 100 mg to 50 mg due to recent slow heart rate and low BP. Her BP is borderline high thyroid1 Pt has low thyro id. Pt is seeing endo and she is getting her synthroid from endo. sleep apnea1 Pt does not use cpap. Pt is noncompliant. Pt denies any fatigue or snoring now. Pt states that she sleeps ok shoulder pain1 Pt c/o left shou lder pain for one week, Pt denies any injury Pt denies any neck pain Pt c/o left shoulder stiffness and pain with movement. Pt also notices dorsal left thumb area pain one week. Pt denies any radiculopathy symptoms Pt denies any numbness or tingling or weakness left hand. Pt denies any weakness. Pt denies any waking up at night with symptoms HTN Pt has HTN. Pt t noam bearden and she recently was told to decrease metoprolol to 50 mg BID due to low BP. osteoporosis1 Pt is on bisphon ates injection every 6 months now. Pt is off fosamax. Pt takes calcium and D abd pain1 pt c/o chronic r ight side and flank pain for several years Pt denies any acute pain Pt feels sharp and dull ache. pt denies any urinary symptoms Pt denies any fever, chill, nausea, vomiting. Pt has 6 mm right side renal stone without hydronephrosis. Pt has normal UO fatty liver1 Pt has fatty marisela er. Pt has borderline LFT Pt does NOT have hepatitis divercitulosis1 Pt has diverticu losis on ct scan Pt denies any left lower quadrant abdominal pian. Pt denies any change of bowel or blood in stool, diarrhea LFT Pt has mild high LFt on recent lab Pt denies any jaundice. Pt does not drink alcohol Pre DM Pt is pre diabet ic. Pt is taking metformin ER 1000 mg daily now. her most recent A1c is 6.5, which is up from in the past. Pt denies any polyuria, polydipsia itchy rash1 Pt c/o itchy prosper h around both armpit and around inner thigh for two weeks. Pt notices multiple slightly red flat circular rash both area as well. Pt denies any rash or itch around arm and finger. Pt denies any sick contact. Pt denies any recent travel. abd pain1 Pt has intermitt ent right side abdominal pain, which is sharp for several months Pt denies any nausea, vomiting Pt has not done Ct yet. Pt denies any nausea, vomiting, GERD Pt denies any urinary symptoms. Pt denies any flank pain. Pt denies any fever chill PHysical Pt needs annual physical. Pt has osteoporosis. Pt is getting injection every 6 months now. Pt is on calcium and D. Pt has mild insulin resistance. Pt takes metformin. Pt sees endocrinology. Pt also sees cardiology. Pt does not have any heart disease Pt is on lipitor now Pt is off pravastatin Pt takes norvasc and metoprolol for HTN. Pt c/o intermittent right side abdominal pain for 2 weeks now. pt denies any nausea, vomiting, diarrhea Pt has sharp pain. Pt has intermittent pain. Pt denies any acute pain. Pt denies any trigger factor. Pt denies any blood in stool. pt denies any weight loss parathyroid1 pt has hyperpara thyroidism with hypercalcemia with osteoporosis. pt is on fosamax and calcium and also calcitrol. Pt also takes vitamin D as well. Pt just underwent parathyroidectomy two weeks ago. Pt denies any dysphagia. Pt denies any pain. HTN Pt has HTN Pt ta kes norvasc and metoprolol and doing ok Pt denies any chest pain or headache. Her BP is stable IBS1 Pt has intermitt ent nonbloody diarrhea Pt doing ok with bentyl. Pt does not want colonoscopy. Pt also no longer takes metformin IR and she is on metformin ER now. parathyroid1 pt has parathyro id adenoma. Pt is seeing endo and she will have parathyroid surgery for soon at [facility]. Pt denies any dysphagia. IBS1 Pt has abdominal cramp and nonbloody diarrhea. Pt does not want colonoscopy. Pt states that bentyl is helping her with cramp and pain Pt denies any nausea, vomiting osteoporosis1 Pt has osteoporo sis. pt takes calcium and vitamin D and also she recently seen endo and she was told to stop fosamax and she was started on something else but pt does not know the name of it. Pt was also told to take vitamin D once per month instead of once per week. HTN Pt takes norvasc and metoprolol and her BP is ok. Pt needs refill. Pt denies any chest pain or headache diarrhea1 Pt has been havi ng persistent diarrhea for 3 months. Pt denies any blood in stool. Pt has some abdominal cramp. Pt denies any abdominal pain with food. Pt denies any nausea, vomiting. Pt states that she has diarrhea soon after any type of food. Pt has diarrhea 3-4 times per day. Pt denies any GERD. hypothyroidism1 Pt has low thyro id. Pt is seeing Dr. Crowley now. Pt needs synthroid refilled Pt also is being worked up for parathyroid. osteoporosis1 Pt has osteoporo sis. Pt takes calcium and vitamin D and is trying weight bearing exercise. Pt has been on fosamax for over 5 years. Her bone density showed osteoporosis. Pt denies any fracture jury duty1 Pt wants to avoi d jury duty. Pt states that she does not want to do the jury duty HLP Pt has mild HLP Pt takes pravastatin. Her lipid profile is till mildly elevated. pt denies any myalgia DM P thas mild insu ras resistance. Pt takes metformin. Her A1c is mildly high. Pt denies any polyuria polydipsia PTH Pt has elevated PTH and her ionized calcium is normal. Her TSh is normal. pt is seeing endo. Pt takes synthroid. Pt has autoimmune thyroid disease. osteoporosis1 Pt has osteoporo sis Pt takes calcium and D and fosamax. Pt cannot do bone density until next month. Pt denies any fx Physical Pt needs annual physical. Pt has HTn. Pt takes norvasc and metoprolol. Her BP is stable. Pt has osteoporosis. Pt takes calcium and D and fosamax Pt denies any fracture Pt has low thyroid. Pt takes synthroid. Pt has HLP. Pt takes pravastatin. Pt denies any chest pain. her cardiac stress test was negative recently. Pt also takes metformin for borderline DM. Pt does not check her BG Pt denies any numbness. Pt denies any other complaints heel pain1 Pt has right pos terior heel pain for several weeks. Pt denies any injury. pt denies any pain rest of her right foot. Pt denies anynumnbess chest pain1 Pt c/o acute ons et of left side chest pain two weeks ago. Pt was watching TV when the chest pain occured. Pt denies any nausa, vomiting. Pt feels mild diaphoresis. Pt states that the chest pain went to left arm as well. pt denies any chest apin since the initial episode. Pt states that pain last 45 secods then resolved. HTN P has HTn pt tks ea norvasc, metoprolola nd enlarpirl. pt denies any headahe Pt had one chest pain two weeks ago but not since. osteoprossis Pt has osteopros is. Pt still has not talked to her endo about osteoporosis yet. Pt is on fosamax and calcium and D hypothyroidism1 Pt has low thyro id. Pt takes synthyroid. Pt denies any chest pain or headache osteoporosis1 Pt has osteoporo sis. Pt has been taking fosamax for 2-3 years. pt takes calcium and vitamin D also. Pt denies any fracture. shoulder pain1 Pt c/o right pot erior shouder pain for 4 weeks, Pt denies any injury. Pt notices achy pain, worse with movement of the right arm. Pt also notices pain right lateral neck area along with the pain. Pt denies any neck pain. Pt denies any radiculopathy or hand numbness. asthma1 pt has asthma. P t uses breo now. Pt uses ventolin 1-2 per week. Pt does not smoke. Pt sees pulmonary MD breast nodule1 Pt has right lebron ast abnormality on recent mammogram. Pt states that her right breast hurt sometimes since the mammogram Pt denies any breast nodule. Pt denies any nipple discharger HLP Pt takes pravast atin. Pt denies any myalgia. Her lipid profile is ok metabolic Pt has mildly el evated A1c. Pt is taking metformin. Pt has been diet and exercisign and she lost some weight. Pt denies any numbness HTN Pt takes norvasc , metoprolol and enlapril and her BP is stable PTH Pt sees endo and she has mildly elevatd PTH. Pt also seen endo surgeon who told her she does not need surgery. Pt is on synthroid weight loss1 Pt has been diet and exercising and cutting down glucose and she lost some jada Pt denies any abd pain or any appetite loss Fatty liver1 Pt has mildly el evated LFT. Pt denies any abd pain. Pt has fatty liver. DM Pt has borderlin e diabetes. Pt takes metfomrin Pt is trying low carb and low sweet diet. Pt denies any polyuria, polydipsia. Pt denies any foot numbness. HLP Pt takes pravast atin and her lipid profile is ok recently. Pt denies any myalgia osteoporosis1 pt has osteoporo sis. Pt is taking fosamax. Pt does have hyperparathyroidism. Pt denies any fx. HTN Pt takes norvasc , enlapril, metoprolol. Her BP is stable dM Pt has borderlin e Diabete. Pt denies any polyuria, polydipisia. Pt eats a lot ice cream and candy. renal disease Pt has chronic s tage III renal disease and mild proteinuria. Pt sees nephrology parathyroid Pt has hyperpara thyroid and chronic elevated calcium. Pt is seeing endo and will have parathyroid removed soon. Pt denies any bone pain HLP Pt has HLP. Pt t akes pravastatin and lopid. Her lipid profile is not at goal. Pt denies any myalgia UTI1 Pt denies any UT I symptoms Pt is taking macrobid. Pt denies any back pain. On further inquiry. Pt told me she did have mild burning which resolved with abx osteoporosis1 Pt has osteoporo sis on right femoral neck. Pt has been taking fosamax for past year. Her spine and left femoral neck is better but right femoral neck is worse. pt denies any history of fracture. Pt denies any bone pain parathyroidism Pt has hyperpara thyroidism. Pt is seeing endo. Pt does not have any plan for any treatment or surgery HTN Pt takes metopro lol and nor asc and enlarpril. Her BP is stable hLP Pt takes pravast atin and loipid and her lipid is ok recently from endo lab Pt denies any myalgia thyroid1 Pt is on syntroi d 50 mcg and her TSH OK Pt has high PTH and is working with endo. Pt is off calcium osteoprosis1 Pt has osteoporo sis. Pt takes calicum and vitamin D and fosamax. pt denies any fx renal disease Pt will have jameel al biospy. Pt is seeing last inserter vertigo1 Pt c/o vertigo f or 4 weeks. Pt denies any headache. Pt denies any orthostasis. Pt just feel vertigo feeling randomly. pt denies any vision, loss. Pt denies any chest pain or headache. Pt denies any ear pain or any hearing loss or any tinnitus HTN Pt takes enalapr il , norvasc and metoprolol, Her BP is stalbe. Asthma The initial visi t date was 09/19/2014. Additional information: Pt uses flovent and albuterol. Pt feels SOB BID. Pt could not tolerate the PFT. No acute SOB. hyperparathyroid Pt has history of hyperparathyroid. Pt takes synthroid for hypothyroidism. Her endo just retired. asthma The initial visi t date was 09/19/2014. Additional information: Pt uses qvar and albuterol. pt uses albuterol almost daily. Pt does not smoke. Insurance does not cover qvar anymore. HLP1 Pt takes pravast atin and lopid and doing ok. Pt denies any myalgia HTN Pt takes norvas, metoprolol and enlapril and her BP is stable. Pt denies any chest pain or headache ostoporosis1 Pt has osteoporo sis. Pt atkes calcium and vitamin D and fosamax. Pt denies any fx. Pt denies any GERD symptoms or abd pain tremor Additional infor mation: Pt c/o tremor around both hand for the past several weeks. Pt denies any neurologic deficit. Pt denies any headache or speech problem. Pt denies any weakness or numbness. HLP Pt takes pravast atin and lopid and her cholesterol is good. Pt denies any myalgia osteoporosis Additional infor mation: Pt takes fosamax and calcium and vitamin D. Pt is doing weight bearing exercise. preDM A1c is 6.1 Pt de nies any polyruia, polydipsia renal PT has intermite nt low GFR but not bad. Pt had normal ultrasound. knee pain Location: knee. Additional information: Pt has chronic left knee pain. Pt will have left knee replacement soon. Pt needs medical clearnace. HLP Pt takes lopid a nd pravastatin. Pt denies any myalgia hypothyroidism Pt takes synthro id. Pt is seeing endo. Pt still is not sure if she will have her thyroid removed. asthma The initial visi t date was 09/19/2014. Additional information: Pt states that she uses proair daily but not working. Pt has diffiuclty breathing all the time. NO acute SOB. Instructions Date Instruction Additional Infor mation Special diet education Related t o Body mass index (BMI) 34.0-34.9, adult Weight management Related to Ess ential (primary) hypertension Special diet education Related t o Body mass index (BMI) 34.0-34.9, adult Medications as instructed Relate d to Abdominal pain Increase physical activity Relat ed to Tinea corporis Weight management Related to Tin ea corporis Special diet education Related t o Body mass index (BMI) 35.0-35.9, adult Special diet education Related t o Body mass index (BMI) 34.0-34.9, adult Increase physical activity Relat ed to Encounter for general adult medical exam w abnormal findings Weight management Related to Enc ounter for general adult medical exam w abnormal findings Special diet education Related t o Body mass index (BMI) 34.0-34.9, adult Weight management Related to Ost eoporosis Special diet education Related t o Body mass index (BMI) 34.0-34.9, adult Increase physical activity Relat ed to Osteoporosis Weight management Related to Ost eoporosis Prescribed dietary intake Relate d to Body mass index (BMI) 34.0-34.9, adult Increase physical activity Relat ed to Osteoporosis Weight management Related to Ost eoporosis Prescribed dietary intake Relate d to Body mass index (BMI) 35.0-35.9, adult Increase physical activity Relat ed to Hypercalcemia Weight management Related to Hyp ercalcemia Weight management Related to Enc ounter for general adult medical exam w abnormal findings Special diet education Related t o Body mass index (BMI) 34.0-34.9, adult Increase physical activity Relat ed to Encounter for general adult medical exam w abnormal findings Prescribed Activity and Exercise Education Related to Dietary Surveillance and Counseling Prescribed Diet Educ ation/Lifestyle Education Regarding Diet Related to Dietary Surveillance and Counseling Increase physical activity Relat ed to Osteoporosis Weight management Related to Ost eoporosis Prescribed Activity and Exercise Education Related to Dietary Surveillance and Counseling Prescribed Diet Educ ation/Lifestyle Education Regarding Diet Related to Dietary Surveillance and Counseling Increase physical activity Relat ed to Hypothyroidism Weight management Related to Hyp othyroidism Prescribed Activity and Exercise Education Related to Dietary Surveillance and Counseling Prescribed Diet Educ ation/Lifestyle Education Regarding Diet Related to Dietary Surveillance and Counseling Prescribed Activity and Exercise Education Related to Dietary Surveillance and Counseling Prescribed Diet Educ ation/Lifestyle Education Regarding Diet Related to Dietary Surveillance and Counseling Prescribed Activity and Exercise Education Related to Dietary Surveillance and Counseling Prescribed Diet Educ ation/Lifestyle Education Regarding Diet Related to Dietary Surveillance and Counseling Prescribed Activity and Exercise Education Related to Dietary Surveillance and Counseling Prescribed Diet Educ ation/Lifestyle Education Regarding Diet Related to Dietary Surveillance and Counseling Prescribed Activity and Exercise Education Related to Dietary Surveillance and Counseling Prescribed Diet Educ ation/Lifestyle Education Regarding Diet Related to Dietary Surveillance and Counseling Prescribed Activity and Exercise Education Related to Dietary Surveillance and Counseling Prescribed Diet Educ ation/Lifestyle Education Regarding Diet Related to Dietary Surveillance and Counseling Prescribed Activity and Exercise Education Related to Dietary Surveillance and Counseling Prescribed Diet Educ ation/Lifestyle Education Regarding Diet Related to Dietary Surveillance and Counseling Prescribed Activity and Exercise Education Related to Dietary Surveillance and Counseling Prescribed Diet Educ ation/Lifestyle Education Regarding Diet Related to Dietary Surveillance and Counseling Prescribed activity/ exercise education Related to Dietary surveillance and counseling Physical activity counseling Rel ated to Dietary surveillance counseling Decrease caloric intake Related to Dietary surveillance counseling Physical activity counseling Rel ated to Dietary surveillance counseling Decrease caloric intake Related to Dietary surveillance counseling Physical activity counseling Rel ated to Dietary surveillance counseling Decrease caloric intake Related to Dietary surveillance counseling Dietary counseling Related to Di etary surveillance counseling Decrease caloric intake Related to Dietary surveillance counseling Dietary counseling Related to Di etary surveillance counseling Decrease caloric intake Related to Dietary surveillance counseling Dietary counseling Related to Di etary surveillance counseling Decrease caloric intake Related to Dietary surveillance counseling Dietary counseling Related to Di etary surveillance counseling Decrease caloric intake Related to Dietary surveillance counseling Dietary counseling Related to Di etary surveillance counseling Decrease caloric intake Related to Dietary surveillance counseling Dietary counseling Related to Di etary surveillance counseling Decrease caloric intake Related to Dietary surveillance counseling Assessments Type Assessment Date No Information
--- OUTSIDE RECORDS SUMMARY | 2024-09-13 11:47 | XMS_ITS | Clinical Summary ---
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 Name Role Phone Unavailable Primary Care Provider Unavailabl e Medications Meclizine HCl 25 MG chewable tablet 5 Active metoprolol tartrate (LOPRESSOR) 100 MG tablet 1 bid 5 Active gemfibrozil (LOPID) 600 MG tablet 1 bid 5 Active allopurinol (ZYLOPRIM) 300 MG tablet 1 daily beginning the day after she starts the prednisone 12 7 Active metFORMIN (GLUCOPHAGE) 500 MG tablet 1 bid 0 6 Active levoFLOXacin (LEVAQUIN) 250 MG tablet 1 daily 1 5 Active enalapril (VASOTEC) 20 MG tablet 1 bid 5 6 Active beclomethasone (QVAR) 80 MCG/ACT inhaler 5 Active albuterol HFA (PROAIR HFA) 108 (90 Base) MCG/ACT inhaler 5 Active levothyroxine (SYNTHROID) 50 MCG tablet 5 Active Meclizine HCl 25 MG chewable tablet 5 Active beclomethasone (QVAR) 40 MCG/ACT inhaler 5 Active predniSONE (DELTASONE) 10 MG tablet 1 daily for 7 days 0 7 Active aspirin (ASPIR-LOW) 81 MG EC tablet 1 daily 5 Active amLODIPine (NORVASC) 10 MG tablet 5 Active ergocalciferol (VITAMIN D-2) 36954 units capsule 1 q2wks 0 6 Active pravastatin (PRAVACHOL) 40 MG tablet 1 nightly 0 6 Active albuterol HFA (VENTOLIN HFA) 108 (90 Base) MCG/ACT inhaler 5 Active Active Problems Problem Noted Date Diagnosed Date Hyperlipidemia 11/28/2015 Hypercalcemia 11/26/2015 Essential (primary) hypertension 12/28/2014 Cerebral artery occlusion, u nspecified, with cerebral infarction 12/28/2014 Overview (07/09/2018): Converted unresolved ICD9, potential mismatch. Uncomplicated asthma 12/28/2014 Pain in joint 12/28/2014 Hypothyroidism 12/28/2014 Family History Medical History Relation Comments Kidney disease Neg Hx Social History Tobacco Use Types Packs/Day Years Used Date Smoking Tobacco: Never Comments Unknown Sex and Gender Information Value Date Recorded Sex Assigned at Not on file Legal Sex Female 9:26 AM MST Gender Identity Not on file Sexual Orientation Not on file Last Filed Vital Signs Vital Sign Reading Time Taken Comments Blood Pressure 122/70 04/06/2018 12:01 AM [employer]ICER Pulse 72 04/06/2018 12:01 AM [employer] Temperature 36.1 C (96.9 F) 04/06/2018 12:01 AM [employer] Respiratory Rate - - Oxygen Saturation - - Inhaled Oxygen Concentration - - Weight 78 kg (172 lb) 04/06/2018 12:01 AM [employer] Height 152.4 cm (5') 04/06/2018 12:01 AM [employer]ER Body Mass Index 33.59 04/06/2018 12:01 AM [employer]ER Plan of Treatment Not on file
[2024-09-13 13:02] LABS: Basophils Absolute Auto 0.1 K/mm3 (0.0-0.1); Basophils Percent Auto 0.7 % (0.2-1.2); Eosinophils Absolute Auto 0.2 K/mm3 (0-0.3); Eosinophils Percent Auto 1.8 % (0-4.4); Hematocrit 39.7 % (37.0-47.0); Hemoglobin 12.8 g/dL (12.0-15.0); Immature Granulocyte Absolute 0.05 K/mm3 (0.00-0.031); Immature Granulocyte Percent A 0.6 % (0-0.5); Lymphocytes Absolute Auto 2.28 K/mm3 (0.9-3.2); Lymphocytes Percent Auto 27.2 % (18.3-44.2); Mean Corpuscular HGB Conc 32.2 g/dl (32-36); Mean Corpuscular Hemoglobin 30.5 pg (26-34); Mean Corpuscular Volume 94.7 fl (80-100); Mean Platelet Volume 10.4 fl (7.4-10.4); Monocytes Absolute Auto 0.6 K/mm3 (0.1-0.6); Monocytes Percent Auto 6.9 % (2.6-8.5); Neutrophils Absolute Auto 5.3 K/mm3 (1.3-6.7); Neutrophils Percent Auto 62.8 % (45.5-73.1); Platelet Count Result 216 k/mm3 (150-375); Red Blood Count 4.19 M/mm3 (4.2-5.4); Red Cell Distribution Width 14.9 % (11.5-14.5); White Blood Count 8.4 K/mm3 (4.5-10.0)
[2024-09-13 13:10] LABS: Add Urine Microscopic? YES; Appearance Urine Clear (Clear); Bacteria Urine None Seen /hpf; Bilirubin Urine Negative (Negative); Blood Urine 1+ (Negative); Color Urine Yellow (Yellow); Glucose Urine UA 3+ mg/dL (Negative); Ketones Urine Negative (Negative); Leukocyte Esterase Ur 1+ LEU/UL (Negative); Nitrate Urine Negative (Negative); Protein Urine 2+ mg/dL (Negative); RBC Urine 0-2 /hpf (0-2); Specific Grav Ur 1.024 (1.001-1.035); Squamous Epithelial Cell Urine Occasional /hpf (Few); WBC Urine 51-100 /hpf (0-3); pH Urine 5.5 (5.0-9.0)
[2024-09-13 13:26] LABS: Alanine Aminotransferase 45 U/L (6-35); Albumin Level 4.5 g/dL (3.5-5.1); Alkaline Phosphatase 49 U/L (38-126); Anion Gap 8 mmol/L (4-12); Aspartate Amino Transferase 65 U/L (14-36); Bilirubin,Total 0.6 mg/dL (0.2-1.3); Blood Urea Nitrogen 21 mg/dL (7-17); Calcium 9.3 mg/dL (8.4-10.2); Carbon Dioxide 29 mmol/L (22-30); Chloride 102 mmol/L (98-107); Cholesterol 122 mg/dL (0-200); Estimated Glomerular Filt Rate 39; Glucose 90 mg/dL (65-110); HDL Direct 68 mg/dL; Potassium 4.1 mmol/L (3.4-5.0); Sodium 139 mmol/L (137-145); Triglycerides 96 mg/dL (<150)
[2024-09-13 13:42] LABS: Free T4 Free Thyroxine 1.27 ng/dL (0.78-2.19)
[2024-09-13 13:48] LABS: LDL Cholesterol Direct < 30 mg/dL
[2024-09-13 13:54] LABS: Creatinine Urine 81.3 mg/dL
[2024-09-13 14:17] LABS: Microalbumin Urine Random 223.6 mg/L (0-16.7)
[2024-09-13 17:18] LABS: Hemoglobin A1C 5.4 % (<5.7)
[2024-09-14 15:53] LABS: Mumps Virus IgG Antibody >300.00 AU/mL; Rubeola Measles IgG >300.00 AU/mL
== END 2024-09-13 11:21 | disposition home or self-care (01) ==
PROVIDERS: PCP Nurse Practitioner Family; Visit Provider Nurse Practitioner Family
DX: R29.898 Other symptoms and signs involving the musculoskeletal system (principal); E11.9 Type 2 diabetes mellitus without complications; I10 Essential (primary) hypertension; Z11.59 Encounter for screening for other viral diseases; E78.5 Hyperlipidemia, unspecified; E03.9 Hypothyroidism, unspecified
CPT/HCPCS: 36415; 80053; 80061; 81001; 82043; 83036; 84439; 84443; 85025; 86735; 86762; 86765; 87077; 87086; 87186

== ENCOUNTER 2024-10-02 10:20 | Outpatient (CLI) | payer MEDICARE, MEDICAID, SELFPAY ==
--- OUTSIDE RECORDS SUMMARY | 2024-10-02 11:34 | XMS_ITS | Clinical Summary ---
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
--- OUTSIDE RECORDS SUMMARY | 2024-10-02 11:34 | XMS_ITS | Data Portability ---
Author Organization [place] [facility] [employer], Main Office Address [address] [place] [address] Assessment No assessment recorded. Plan of Treatment Reminders Order Date Submit Date Provider Last Modified By Organization Details Last Modified Time Details Appointments None recorded. Lab CMP, serum or plasma [address], [address] [place] [address] Rd, [address] [place] [address], [id number], 3 12:36:59 HbA1c (hemoglobin A1c), blood [address], [address] [place] [address], [address] [place] [address], [address], 3 12:36:59 microalbumi n/creatinin e, mass ratio, urine [address], [address] [place] [address] Rd, [address] [place] [address], [address], 3 12:36:59 lipid panel, serum [address], [address] [place] [address] Rd, [address] [place] [address], [address], 3 12:36:59 T3, free, serum or plasma [address], [address] [place] [address] Rd, [address] [place] [address], [address], 3 09:32:01 TSH + free T4, serum [address], [address] [place] [address], [address] [place] [address], [address], 3 12:36:59 Referral None recorded. Procedures None recorded. Surgeries None recorded. Imaging None recorded. Medication Orders glimepiride [address] [facility], [address] [place], [address], 3 09:27:50 Jardiance 25 mg tablet [address] [facility], [address] [place], [address], 3 09:28:07 Prolia 60 mg/mL subcutaneou s syringe 2022 023 [id number], [address] [place] [address], [address], 3 13:48:42 levothyroxi ne 50 mcg tablet [address] [facility], [address] [place] [address], [address], 3 09:28:28 Breo Ellipta 200 mcg-25 mcg/dose powder for inhalation [address] [facility], [address] [place] [address], [address], 3 13:16:20 Patient TargetsNo targets recorded. Patient InstructionsNo instructions recorded. Reason for Referral None Reported. Results Created Date Observation Date Name Description Value Unit Range Abnormal Flag Note LastModifiedBy Organization Detail LastModifiedTime 03/06/2003/05/2022 bone densi ty No observ ation record ed. [id number], [place], [address], 06/24/2022 05:00:23 04/07/20 22 04/07/2022 XR, chest , 2 view No observ ation record ed. [id number] [facility] [address], [place], [address], 06/24/2022 05:00:23 Result Notes None recorded. Problems Name Problem SNOMED Code Status Onset Date Resolution Date Notes Provider Name and Address Organization Details Recorded Time Postmenopa usal osteoporos is 622308865 Active 2022 Not Available [facility] 3 13:48:42 Well controlled type 2 diabetes mellitus 629860786 Active 2022 Not Available [facility] 3 13:48:42 Hypothyroi dism 01243981 Active 2022 Not Available [facility] 3 13:48:42 Dyslipidem ia 052724192 Active 2022 Not Available [facility] 3 13:48:42 Disorder of thyroid gland 27303355 Active 2018 Not Available [facility] 3 13:48:42 Acute sinusitis 44106851 Active 2021 Not Available [facility] 3 13:48:42 Body mass index 30+ - obesity 788148026 Active 2017 Not Available [facility] 3 13:48:42 Asthma 739399613 Active Not Available [facility] 3 13:48:42 Osteopenia 322606668 Active 2021 Not Available [facility] 3 13:48:42 Daytime hypersomni a 5402113179719 2 Active 2017 Not Available [facility] 3 13:48:42 Environmen neel allergy 972499406 Active Not Available [facility] 3 13:48:42 Cough 25709049 Active Not Available [facility] 3 13:48:42 Dyspnea on exertion 23741567 Active 2021 Not Available [facility] 3 13:48:42 Allergic rhinitis 00455731 Active Not Available [facility] 3 13:48:42 Osteoporos is 38998438 Active 2019 Not Available [facility] 3 13:48:42 Diabetes mellitus 10504893 Active 2017 Not Available [facility] 3 13:48:42 Obstructiv e sleep apnea syndrome 25529380 Active 2017 Not Available [facility] 3 13:48:42 Notes:Some problems listed i n Document: #[id number] could not be added to this patient's chart. Please review this document and add these problems to the patient's chart manually as needed. Problem Notes None recorded. Procedures Surgical History Date Name Laterality Status Provider Name and Address Organization Details Recorded Time Nipple/areola reconstruction completed Not Available [facility] 06/24/2022 04:42:30 Knee Surgery completed Not Available [facility] 06/24/2022 04:42:30 Rotator cuff surgery completed Not Available [facility] 06/24/2022 04:42:30 Imaging Results None recorded. Procedure Notes None recorded. Medical Equipment None Reported. Allergies Allergen ID Allergen Name Allergen Category Reaction Reaction Severity Criticality Documentation Date Start Date Code Code System Note Provider Name and Address Organization Details Recorded Time 7370 Product containin g penicilli n (product) medicatio n Not available Not available Not available 06/24/2022 21724 8001 SNOMED Not Available [facility] 3 04:59:58 7371 oxycodone medicatio n Not available Not available Not available 06/24/2022 7804 RxNorm Not Available [facility] 3 04:59:58 7372 metformin medicatio n Not available Not available Not available 06/24/2022 6809 RxNorm Not Available [facility] 3 04:59:58 Medications Name Sig Start Date Stop Date Status Note LastModified by Organization Details LastModified Time atorvasta tin 40 mg tablet TAKE 1 TABLET BY MOUTH EVERY DAY 08/13 completed Not Available Not Available Not Available metformin 500 mg tablet TAKE 1 TABLET BY MOUTH TWICE A DAY WITH FOOD 06/27 completed Not Available Not Available Not Available prednison e 10 mg tablet TAKE 1 TABLET BY MOUTH EVERY DAY 01/28 completed Not Available Not Available Not Available cetirizin e 10 mg tablet Take 1 tablet every day by oral route as directed for 90 days. active Not Available Not Available No t Available azithromy rema 250 mg tablet TAKE 2 TABLETS (500 MG) BY ORAL ROUTE ONCE DAILY FOR 1 DAY THEN 1 TABLET (250 MG) BY ORAL ROUTE ONCE DAILY FOR 4 DAYS active Not Available Not Available No t Available pravastat in 40 mg tablet TAKE 1 TABLET BY MOUTH EVERY DAY 11/04 completed Stopped by cardiolo gist 07/12/18- TQ Not Available Not Available Not Available metoprolo l tartrate 100 mg tablet TAKE 1 TABLET BY MOUTH TWICE A DAY WITH MEALS active Not Available Not Available No t Available hydrocodo ne 5 mg-acetam inophen 325 mg tablet TAKE 1 TAB BY MOUTH EVERY 8 12 HOURS NEEDED FOR PAIN. active Not Available Not Available No t Available enalapril maleate 20 mg tablet TAKE 1 TABLET BY ORAL ROUTE EVERY DAY 01/28 completed Not Available Not Available Not Available alendrona te 70 mg tablet TAKE 1 TABLET BY MOUTH ONCE A WEEK IN THE MORNING AT LEAST 30 MIN BEFORE FOOD/QUYEN ERAGE/ME DICATION 06/10 completed Not Available Not Available Not Available meclizine 12.5 mg tablet TAKE 1 TABLET BY ORAL ROUTE 2 TIMES EVERY DAY NEEDED NEEDED 12/01 completed Not Available Not Available Not Available levofloxa rema 250 mg tablet TAKE 1 TABLET EVERY DAY active Not Available Not Available No t Available amlodipin e 5 mg tablet TAKE 1 TABLET BY MOUTH EVERY DAY 12/31 completed Not Available Not Available Not Available allopurin ol 100 mg tablet TAKE ONE TABLET BY MOUTH ONCE DAILY active Not Available Not Available No t Available aspirin 81 mg tablet,de layed release Take 1 tablet every day by oral route as directed . 2015 active Not Available Not Available Not Avai lable tramadol 50 mg tablet TAKE 1-2 TABLETS BY MOUTH EVERY 6 HOURS NEEDED active Not Available Not Available No t Available glimepiri de 1 mg tablet TAKE 1 TABLET BY MOUTH ONCE A DAY TAKE WITH MEAL active Not Available Not Available No t Available levothyro xine 75 mcg tablet TAKE 1 TABLET BY MOUTH EVERY DAY IN THE MORNING 08/13 completed Not Available Not Available Not Available meloxicam 7.5 mg tablet TAKE 1 TABLET BY MOUTH DAILY NEEDED FOR 30 DAYS 08/13 completed Not Available Not Available Not Available oxycodone -acetamin ophen 5 mg-325 mg tablet TAKE 1 TABLET BY MOUTH EVERY 4 TO 6 HOURS NEEDED FOR PAIN active Not Available Not Available No t Available terbinafi ne HCl 250 mg tablet 08/13 completed Not Available Not Available Not Available pravastat in 10 mg tablet TAKE 1 TABLET BY MOUTH ONCE DAILY 09/30 completed Not Available Not Available Not Available dicyclomi ne 20 mg tablet Take 1 tablet 4 times a day by oral route. 08/13 completed Not Available Not Available Not Available OneTouch Ultra Test strips USE TO TEST BLOOD GLUCOSE TWICE DAILY 10/19 completed Not Available Not Available Not Available amlodipin e 10 mg tablet TAKE 1 TABLET BY MOUTH EVERY DAY active Not Available Not Available No t Available gemfibroz il 600 mg tablet TAKE 1 TABLET BY ORAL ROUTE EVERY DAY 30 MINUTES BEFORE MORNING AND EVENING MEAL 12/14 completed Not Available Not Available Not Available levothyro xine 50 mcg tablet TAKE ONE TABLET BY MOUTH DAILY FOR 90 DAYS active Not Available Not Available No t Available nystatin 100,000 unit/gram topical cream 08/15 completed Not Available Not Available Not Available losartan 25 mg tablet TAKE 1 TABLET BY MOUTH EVERY DAY active Not Available Not Available No t Available docusate sodium 100 mg capsule TAKE 1 CAPSULE BY MOUTH TWICE A DAY 08/13 completed Not Available Not Available Not Available monteluka st 10 mg tablet TAKE 1 TABLET BY MOUTH EVERY DAY IN THE EVENING FOR 90 DAYS active Not Available Not Available No t Available allopurin ol 300 mg tablet 1 TABLE BY MOUTH DAILY BEGINNIN G THE DAY AFTER SHE STARTS THE PREDNISO NE 01/28 completed Not Available Not Available Not Available pravastat in 20 mg tablet TAKE 1 TABLET BY MOUTH AT BEDTIME active Not Available Not Available No t Available ergocalci ferol (vitamin D2) 1,250 mcg (50,000 unit) capsule TAKE 1 CAPSULE (21582CI ITS) BY ORAL ROUTE EVERY WEEK 03/04 completed Not Available Not Available Not Available albuterol sulfate HFA 90 mcg/actua tion aerosol inhaler INHALE 2 PUFFS EVERY 4 TO 6 HOURS active Not Available Not Available No t Available fluticaso ne propionat e 50 mcg/actua tion nasal spray,yolanda pension 1-2 SPRAYS INTRANAS AL DAILY ADMINIST ER INTO EACH NOSTRIL active Not Available Not Available No t Available metformin ER 500 mg tablet,ex tended release 24 hr TAKE 2 TABLET(S ) EVERY DAY BY ORAL ROUTE IN THE MORNING. 08/13 completed Not Available Not Available Not Available calcitrio l 0.25 mcg capsule TAKE 1 CAPSULE (0.25 MCG TOTAL) BY MOUTH DAILY. 12/31 completed Not Available Not Available Not Available loratadin e 10 mg tablet active Not Available Not Available Not Available Microlet Lancet test sugars up to 4 times daily 10/19 completed Not Available Not Available Not Available Low Dose Aspirin 81 mg tablet,de layed release Take 1 tablet every day by oral route. 08/13 completed Not Available Not Available Not Available Pneumovax -23 25 mcg/0.5 mL injection syringe TO BE ADMINIST ERED BY [facility] FOR IMMUNIZA TION 02/11 completed Not Available Not Available Not Available metoprolo l tartrate 25 mg tablet TAKE 1 TABLET BY MOUTH TWICE A DAY active Not Available Not Available No t Available nitrofura ntoin monohydra te/macroc rystals 100 mg capsule TAKE 1 CAPSULE BY ORAL ROUTE EVERY 12 HOURS WITH FOOD 06/02 completed Not Available Not Available Not Available Flovent HFA 110 mcg/actua tion aerosol inhaler INHALE 2 PUFF BY INHALATI ON ROUTE 2 TIMES EVERY DAY 12/14 completed Not Available Not Available Not Available dicyclomi ne 03/03 completed Not Available Not Available Not Available Calcium 600 + D(3) Take one tablet daily as directed 06/02 completed Not Available Not Available Not Available Zostavax (PF) 19,400 unit/0.65 mL subcutane ous suspensio n TO BE ADMINIST ERED BY PHARMACI [facility] FOR IMMUNIZA TION 12/01 completed Not Available Not Available Not Available hydrochlo rothiazid e 12.5 mg tablet TAKE 1 TABLET ORALLY DAILY FOR SWELLING active Not Available Not Available No t Available cholecalc iferol (vitamin D3) 1,250 mcg (50,000 unit) capsule TAKE ONE CAPSULE BY MOUTH ONCE WEEKLY active Not Available Not Available No t Available Prevnar 13 (PF) 0.5 mL intramusc ular syringe TO BE ADMINIST ERED BY PHARMACI [employer] FOR IMMUNIZA TION 12/01 completed Not Available Not Available Not Available OneTouch Delica Lancets 33 gauge USE DIRECTED . TEST SUGARS ONCE DAILY 10/19 completed Not Available Not Available Not Available Prolia 60 mg/mL subcutane ous syringe active Not Available Not Available Not Available Dulera 200 mcg-5 mcg/actua tion HFA aerosol inhaler Inhale 2 puffs twice a day by inhalati on route as directed . 12/14 completed Not Available Not Available Not Available Jardiance 10 mg tablet TAKE 1 TABLET BY MOUTH EVERY DAY active Not Available Not Available No t Available Jardiance 25 mg tablet TAKE ONE TABLET BY MOUTH ONCE DAILY active Not Available Not Available No t Available Breo Ellipta 200 mcg-25 mcg/dose powder for inhalatio n INHALE 1 PUFF EVERY DAY DIRECTED active Not Available Not Available No t Available Fluzone High-Dose 2014- (PF) 180 mcg/0.5 mL intramusc ular syringe TO BE ADMINIST ERED BY [employer] FOR IMMUNIZA TION 12/01 completed Not Available Not Available Not Available Fluzone High-Dose 9402-4398 (PF) 180 mcg/0.5 mL intramusc ular syringe TO BE ADMINIST ERED BY [employer] FOR IMMUNIZA TION 12/01 completed Not Available Not Available Not Available Fluzone High-Dose 3181-5537 (PF) 180 mcg/0.5 mL intramusc ular syringe TO BE ADMINIST ERED BY [employer] FOR IMMUNIZA TION 02/11 completed Not Available Not Available Not Available OneTouch Ultra Blue Test Strip USE DIRECTED . CHECK BLOOD SUGAR ONCE DAILY OK TO SUBSTITU TE BASED ON INSURANC E REQUIREM ENTS,Use as directed . test sugars once daily ok to substitu te meter, strips and lancets per insuranc e coverage 10/19 completed Not Available Not Available Not Available Fluzone High-Dose 4266-2177 (PF) 180 mcg/0.5 mL intramusc ular syringe TO BE ADMINIST ERED BY [employer] FOR IMMUNIZA TION 08/13 completed Not Available Not Available Not Available OneTouch Ultra2 Meter TEST SUGARS IN MORNING FASTING, OK TO SUBSTITU TE METER, STRIPS AND LANCETS FOR WHAT INSURANC E COVERS 10/19 completed Not Available Not Available Not Available Fluad Quad 0582-9189 (65yr up)(PF) 60 mcg (15 mcg x 4)/0.5mL IM syringe PHARMACY ADMINIST ERED 08/13 completed Not Available Not Available Not Available Vitals Date Recorded Body height Body mass index (BMI) Body weight Body temperature Heart rate Oxygen saturation Oxygen saturation in Arterial blood by Pulse oximetry Systolic blood pressure Diastolic blood pressure Provider Name and Address Organization Details Last Updated DateTime 3 154.94 cm 31.9 kg/m2 70202.1 1 g 97.6 [degF] 55 /min 99 % 99 % 132 mm[Hg] 64 mm[Hg] Viji Myers MA [facility] [employer] [facility] 3 09:45:33 Date Recorded Body height Body mass index (BMI) Body weight Provider Name and Address Organization Details Last Updated DateTime 10/19/2022 154.94 cm 31.9 kg/m2 47112.39 g Taylor Jose [facility] [employer] [facility] 10/19/2022 09:05:43 Date Recorded Body mass index (BMI) Body height Oxygen saturation Oxygen saturation in Arterial blood by Pulse oximetry Heart rate Body temperature Body weight Systolic blood pressure Diastolic blood pressure Provider Name and Address Organization Details Last Updated DateTime 2 32.1 kg/m2 154.94 cm 97 % 97 % 60 /min 97.3 [degF] 10203.7 g 132 mm[Hg] 70 mm[Hg] Not Available [facility] 3 04:49:09 Social History Question Answer Notes LastModified by Organizat ion Details LastModified Time Tobacco Smoking Status Never Smoker Not Available [facility] 06/24/2022 04:42:15 Do You Have An Advance Directive? No [id number] Information not available 06/24/2022 What Is Your Level Of Caffeine Consumption? Moderate [id number] Information not available 06/24/2022 How Much Tobacco Do You Chew? None [id number] Information not available 06/24/2022 In The 14 Days Before Symptom Onset, Have You Had Close Contact With A Laboratory-confirm ed COVID-19 While That Case Was Ill? No [id number] Information not available 06/24/2022 In The 14 Days Before Symptom Onset, Have You Had Close Contact With A Person Who Is Under Investigation For COVID-19 While That Person Was Ill? No [id number] Information not available 06/24/2022 What Type Of Diet Are You Following? REGULAR [id number] Information not available 06/24/2022 Which Illicit Or Recreational Drugs Have You Used? None [id number] Information not available 06/24/2022 Do You Have An Electrostatic Air Filter? No [id number] Information not available 06/24/2022 Do You Have A Humidifier? No [id number] Information not available 06/24/2022 Do You Have Moisture Problems In Your Home? Yes [id number] Information not available 06/24/2022 What Was The Date Of Your Most Recent Tobacco Screening? 03/17/2021 [id number] Information not available 06/24/2022 How Many Children Do You Have? 0 [id number] Information not available 06/24/2022 Do You Have Any Pets? Yes [id number] Information not available 06/24/2022 What Is Your Relationship Status? Single MIGRATION.[id number] Information not available 06/24/2022 Have You Recently Traveled Abroad? No [id number].[id number] Information not available 06/24/2022 Sex: Unknown Functional Status Question Answer Note LastModified by Organizat ion Details LastModified Time What is your level of alcohol consumption? None [id number] Information not available 06/24/2022 Do you or have you ever used smokeless tobacco? 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 Never used electronic cigarettes [id number].[id number] Information not available 06/24/2022 What is your exercise level? Occasional [id number] Information not available 06/24/2022 Mental Status None recorded. Family History Nothing Reported Notes:PT WAS ADOPTED Medical History Condition Response CHEST XRAY Y NERVE DISEASE N BLINDNESS N POLIO N LUNG DISEASE/DISORDER N RADIATION / CHEMOTHERAPY N COPD N BLOOD DISEASES N EAR OR HEARING PROBLEMS N FEMALE PROBLEMS / INFECTIONS N DEPRESSION (INCLUDING POST ) N BOWEL PROBLEMS N STROKE/TIA Y THYROID DISEASE Y CHEST CT N ULCERS N RENAL INSUFFICIENCY N TB SKIN TEST Y OBESITY Y GERD/NAUSEA N EXCESSIVE PERSPIRATION N ANEURYSM N URINARY/BLADDER/KIDNEY PROBLEMS N CORONARY ARTERY DISEASE (CAD) N USE OF BLOOD THINNERS N SKIN PROBLEMS N EMPHYSEMA N SHORTNESS OF BREATH Y GASTROINTESTINAL DISORDER N PARATHYROID DISEASE N PERIPHERAL VASCULAR DISEASE N GASTROINTESTINAL BLEEDING N BLOOD CLOTS N ASTHMA Y CONCUSSION OR SPINAL TRAUMA N VARICOSITIES N GI PROBLEMS N CHF N AIDS/HIV N HYPERTENSION Y TOURETTE'S N ANXIETY DISORDER N BLOOD TRANSFUSION N ANEMIA/BLOOD DISORDER N BRONCHITIS N TUBERCULOSIS N GLAUCOMA N SLEEP APNEA Y ALLERGIES/HAYFEVER Y INFECTIOUS DISEASE N HEART ARRHYTHMIA N INSOMNIA N HIGH CHOLESTEROL / HYPERLIPIDEMIA Y EDEMA Y CAROTID BLOCKAGE N BACK / NECK PROBLEMS N ATHEROSCLEROSIS N BREAST PROBLEMS N HERNIATED DISC N DIALYSIS N FIBROMYALGIA N OSTEOPOROSIS Y ARTHRITIS Y DIABETES, TYPE Y SEASONAL ALLERGIES Y HEARTBURN / REFLUX N PLEURISY N ADD/ADHD N Bronchoscopy N HEPATITIS / LIVER DISEASE N PULMONARY DISEASE N GOUT Y SLEEP DISORDER N ALZHEIMER'S DISEASE N FATIGUE N HERPES N DEMENTIA N RETINOPATHY N SEIZURES/EPILEPSY N HEADACHES/MIGRAINES N SLEEP STUDY N VASCULAR DISEASE N DIZZINESS N HEAD TRAUMA OR INJURY N HEART DISEASE/HEART PROBLEMS Y MULTIPLE SCLEROSIS N PULMONARY FUNCTION TEST Y CARDIAC ARRHYTHMIA N CANCER: SPECIFY N PNEUMONIA N ANESTHESIA COMPLICATIONS N ATRIAL FIBRILLATION N PULMONARY EMBOLISM N AUTOIMMUNE DISEASE N Gynecological HistoryNo gynecological history recorded. Obstetrics History GPAL:G 0 P 0 0 0 0 Immunizations Vaccine Type Date Status Note Provider Nam e and Address Organization Details Recorded Time Influenza, split virus, quadrivalent, preservative 0 completed Not Available [facility] 06/24/2022 04:59:47 influenza, unspecified formulation 8 completed Not Available [facility] 06/24/2022 04:59:48 Influenza, high-dose, trivalent, PF 7 completed Not Available [facility] 06/24/2022 04:59:48 pneumococcal polysaccharide PPV23 7 completed Not Available [facility] 06/24/2022 04:59:48 influenza, unspecified formulation 6 completed Not Available [facility] 06/24/2022 04:59:48 Pneumococcal conjugate PCV 13 6 completed Not Available [facility] 06/24/2022 04:59:48 Influenza, high-dose, quadrivalent, PF 1 completed Not Available [facility] 06/24/2022 04:59:48 COVID-19, mRNA, LNP-S, PF, 30 mcg/0.3 mL dose 1 completed Not Available [facility] 06/24/2022 04:59:48 COVID-19, mRNA, LNP-S, PF, 30 mcg/0.3 mL dose 1 completed Not Available [facility] 06/24/2022 04:59:48 Influenza, split virus, quadrivalent, preservative 0 completed Not Available [facility] 06/24/2022 04:59:49 zoster live 5 completed Not Available [facility] 06/24/2022 04:59:49 influenza, unspecified formulation 5 completed Not Available [facility] 06/24/2022 04:59:49 Past Encounters Encounter ID Performer Location Encounter Start Date Encounter Closed Date Diagnosis/Indication Diagnosis SNOMED-CT Code Diagnosis ICD10 Code Diagnosis Note [id number] Mónica Crowley MD [facility] [place] [address] [place] [address] 08/13/2020 00:00:00 08/13/2020 10:55:00 [id number] [facility] [place] [address] [place] [address] 08/15/2020 00:00:00 08/15/2020 10:39:42 [id number] Mónica Crowley MD S[facility] [place] [address] [place] [address] 12/31/2020 00:00:00 12/31/2020 13:17:25 [id number] [facility] [place] [address] [place] [address] 03/17/2021 00:00:00 03/17/2021 12:40:03 [id number] Mónica Crowley MD [facility] [place] [address] [place] [address] 04/01/2021 00:00:00 04/01/2021 10:16:49 [id number] Mónica Crowley MD [facility] [place] [address] [place] [address] 08/04/2021 00:00:00 08/04/2021 12:15:09 [id number] [facility] [place] [address] [place] [address] 09/30/2021 00:00:00 09/30/2021 11:28:51 [id number] Mónica Crowley MD [facility] [place] [address] [place] [address] 02/16/2022 00:00:00 02/16/2022 13:42:11 [id number] Felipa Dey [facility] [place] [address] [place] [address] 04/01/2022 00:00:00 04/01/2022 11:50:29 [id number] Mónica Crowley MD [facility] [place] [address] [place] [address] 04/06/2022 00:00:00 05/21/2022 20:26:47 [id number] [facility] [place] [address] [place] [address] 09/30/2022 09:37:47 09/30/2022 11:03:43 Asthma [id number] J45.909 PFT 05/12/17 did not meet guidelines for ATS acceptabil ity, however he had a significan t bronchodil ator response. She continues to decline a repeat study.IGE levels WNL.RAST normalAlph a 1 MM normalCont inue Breo Ellipta 200 one puff daily, she has been stable on this with no exacerbati onsInstruc liza on technique todayConti nue montelukas t daily and fluticason e2 gen antihistam ineShe is aware of reportable signs and symptomsRX for medication s todayRTO in 6 months and PRN for concerns Obstructiv e sleep apnea syndrome 02394040 G47.33 Home study 10/21/17 with AHI 43.1She is not using her machine and is uninterest ed in any troublesho otingOnce again discussed the risks of uncorrecte d DAVID, including PR, CVA, deathShe does not qualify for oral appliance or Inspire Dyspnea on exertion 6084 5006 R06.09 6MWT normal.Enc ouraged increased exercise and weight loss.Satur ations 99% on room air at rest todayCXR 03/2022 normal Allergic rhinitis [id number] J30.9 2 gen antihistam ineSaline nasal rinsesDecl vitaliy home health nurse referral [id number] Mónica Crowley MD [facility] [address] [place] [address] 10/19/2022 08:49:59 10/19/2022 09:41:28 Well controlled type 2 diabetes mellitus [id number] E11.9 a1c of 5.7%- continue on low dose glimepirid e scale along with jardiance as patient tolerating well. Discussed carb counting and how to read food labels. Recommende d patient to utilize the diabetesfo Advisor Client [employer]SoPost from the ADA website to help with food preparatio n as this presents ideal carb content per meal so this will make carb counting much easier for patient. Recommende d she incorporat e natural insulin vocational case manager s such as pears, apples, cinnamon, holly and sweet potatoes to help mobilize her endogenous insulin. Recommende d up to 150 minutes of moderate level activity/e xercise weekly. Hypothyroidism [id number] E03.9 TSH in range- continue on LT4 50 mcg daily. She was reminded to take her LT4 on empty stomach with glass of water and wait one hour to eat or have her coffee in morning and up to 4 hours if ever taking any heartburn or reflux medication s to help optimize absorption . Discussed paleo like diet with restrictio n of GMOs to help with energy and to optimize absorption of vitamins and minerals and reduce inflammati on. Dyslipidemia [id number] E 78.5 Continue on statin therapy as LDL in range. 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 Due for repeat bone density scan in fall 2023. Hyperparat hyroidism in remission. Spent up to 28 minutes preparing to see the patient (eg, review of tests), obtaining and/or reviewing separately obtained history, performing a medically appropriat e examinatio n and evaluation , counseling and educating the patient, ordering medication s, tests, along with documentin g clinical informatio n in the electronic health record, independen tly interpreti ng results and communicat ing results to the patient. RTC in 6 months. Patient was provided a handwritte n lab order which contains our fax number. If she chooses to go outside of the [facility] system to obtain labwork she was advised to provide our fax number and my informatio n to the lab she will be obtaining labwork from in order to have her labs properly forwarded over for me to review so there is no loss of follow up due to use of outside network. She was also advised to contact our clinic informing us that she has completed her labwork so we are aware we will need to reach out to the appropriat e laboratory to request her results be forwarded to us so I might have the ability to review and make further medical decision making in her case. She voiced understand ing. [id number] Mónica Crowley MD [facility] [place] [address] [place] [address] 11/06/2022 08:57:49 11/06/2022 09:36:11 Postmenopausal osteoporosis [id number] M81.0 Patient tolerated prolia injection without site reaction or pain. She is aware to complete in 6 months. She can complete with PCP or new endocrinol ogist as she is aware of my resignatio n as of Feb 05. Health Concerns Section Related Observation LastModified by Organization Detai ls LastModified Time None Recorded Concern Status LastModified by Organization Details LastModified Time None Recorded Advance Directives Directive N: Payers Encounter Date Sequence Insurance Name Policy Number Policy Miranda Covered Member ID Miranda Member ID Guarantor Name 09/30/2022 1 [facility] (MEDICARE REPLACEMENT/A DVANTAGE - HMO) [id number] Katlin Powell [id number] Katlin Powell 09/30/2022 2 [place] Katlin Powell [id number] Katlin Powell 10/19/2022 1 [facility] (MEDICARE REPLACEMENT/A DVANTAGE - HMO) [id number] Katlin Hernandezdridge [id number] Katlin Sherry 10/19/2022 2 [place] Katlin Hernandezdridge [id number] Katlin Hernandezdridge 11/06/2022 1 [facility] (MEDICARE REPLACEMENT/A DVANTAGE - HMO) [id number] Katlin Sherry [id number] Katlin Hernandezdridge 11/06/2022 2 [place] [facility] DEPARTMENT OF PUBLIC AID Katlin Hernandezdridge [id number] Katlin Sherry Notes Date Note Type Note Provider Name and Address Organization Details Recorded Time 3 text/html Katlin presents today to follow up on asthma, dyspnea and OSALydia continues to tell me that she has strong reactions to honeysuckle, encounters this frequently on her walksWalks outside daily and does have difficulty with hillsShace does not always carry her rescue inhaler with herUses her rescue MDI most days after getting back.She has been doing well on Breo Ellipta 200 one puff daily, this is affordableShace can complete ADLs without difficultyContinues to use singulair daily, has also started taking an allergy pill dailyDenies chest pain, wheezing, cough unless triggeredAt baseline she does not have dyspnea at rest.Respiratory symptoms do not wake her at night.She has had no exacerbations requiring steroids in >2 yearsContinues to report no difficulty with dressing or bathingContinues non-compliance with CPAP.Reports restful sleep but low energy levels and fatigue Felipa Dey, [facility]- [address], [place], [address], [facility] [employer] 09/30/2022 13:26:59 3 text/html 77 yo female comes in for follow up in management of hypothyroidism, hyperparathyroidism in remission, severe osteopenia and well controlled type 2 DM (A1C of 5.7%) at her last visit in Jan we continued jardiance and glimepiride scale along with LT4 50 mcg daily. we continued prolia injections last provided in March. Due for prolia injection this summer She is taking 81 mg of ASA daily She is on LT4 50 mcg daily and thyroid in range. She is not testing her glucose regularly but A1C in range. She has had a few issues with asthma from humidity. labs from 08/31/22:microalbumin 7.4 ug/mgFT3 of 2.6 pg/mLCr 1.10 mg/dl with GFR 48 ml/qif000/213/52/102gluc ose 167 mg/dLLFT highTSH of 2.71 uIU/mlFT4 of 1.24 ng/dLa1c 5.7%PTH 24 pg/ML with normal calciumvit D 53 ng/mL Mónica Crowley MD [address] [address], [place], [address], [employer] 10/19/2022 14:20:36 3 text/html 77 yo female comes in for prolia injection in management of osteoporosis. Mónica Crowley MD [address], [place], [address], [employer] 11/06/2022 16:44:12 OBGyn Episode No OBEpisode recorded.
--- OUTSIDE RECORDS SUMMARY | 2024-10-02 11:34 | XMS_ITS | Clinical Summary ---
Author Organization [facility] Care Team Providers Care Manager Surgical Name Role Phone Unavailable Primary Care Provider Unavailabl e Social History Tobacco Use Types Packs/Day Years Used Date Smoking Tobacco: Never Assessed Comments Unknown Sex and Gender Information Value Date Recorded Sex Assigned at Not on file Legal Sex Female 12:37 AM CDT Gender Identity Not on file Sexual Orientation Not on file Plan of Treatment Health Maintenance Due Date Last Done Comments DEXA Bone Density 1945 Hepatitis C Virus (HCV) Screening 1945 TdaP Immunization 1945 Pneumococcal Immunization (5 0+ years) (1 of 1 - PCV) 1996 Zoster Immunization (1 of 2) 1996 Respiratory Syncytial Virus (RSV) Immunization (Adult) (1 - 1-dose 75+ series) 2021 Influenza Immunization (#1) 2023 SARS-COV-2 Immunization ( season) 2023 Hepatitis B Immunization Aged Out No longer eligible based on patient's age to complete this topic Meningococcal Immunization (ACWY) Aged Out No longer eligible based on patient's age to complete this topic Rotavirus Immunization Aged Out No lo nger eligible based on patient's age to complete this topic
--- OUTSIDE RECORDS SUMMARY | 2024-10-02 11:34 | XMS_ITS | Continuity of Care Document ---
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 [address], [place], [place], [address] , [place]. tel:[phone] OFFICE/OUTPA TIENT VISIT, [facility], [address] [place], [place], [address], [place] tel:[phone] [facility] knee pain1 (chief complaint) Pain in right knee 0 Wesley Sales. [address], [place], [place], [address] , [place]. [phone] Referring Provider: Noe Calvo [address], [place], [place], [address]. tel:[phone] OFFICE/OUTPA TIENT VISIT, [facility], [address], [place], [place], [address], [place] tel:[phone] [facility] shoulder pain1 (chief complaint)DM (chief complaint)cass st pain1 (chief complaint) Pain in left shoulderChest painType 2 diabetes mellitus without complicationsEnc ounter for other preprocedural examination 0 Wesley Sales. [address], [place], [place], [address] , [place]. [phone] Referring Provider: Noe Calvo [address], [place], [place], [address]. tel:[phone] OFFICE/OUTPA TIENT VISIT, [facility], [address], [place], [place], [address], [place] tel:[phone] [facility] shoulder pain1 (chief complaint)HTN (chief complaint)thy roid1 (chief complaint)sle ep apnea1 (chief complaint) Essential (primary) hypertensionPain in left shoulderHypothyr oidismSleep apnea 0 Wesley Boykin [address], [place], [place], [address] , [place]. [phone] Referring Provider: Noe Calvo [address], [place], [place], [address]. tel:[phone] OFFICE/OUTPA TIENT VISIT, [facility], [address], [place], [place], [address], [place] tel:[phone] [facility] shoulder pain1 (chief complaint)HTN (chief complaint)ost eoporosis1 (chief complaint) Pain in left shoulderPain in left handEssential (primary) hypertensionOste oporosis 9 Wesley Sales. [address], [place], [place], [address] , [place]. [phone] Referring Provider: Noe Calvo [address], [place], [place], [address]. tel:[phone] OFFICE/OUTPA TIENT VISIT, [facility], [address], [place], [place], [address], [place] tel:[phone] [facility] abd pain1 (chief complaint)fat ty liver1 (chief complaint)div ercitulosis1 (chief complaint) Renal stoneAbdominal painSleep apneaFatty liverDiverticulo sis of intestine without abscess with bleedingOsteopor osis 9 Wesley Boykin [address], [place], [place], [address] , [place]. [phone] Referring Provider: Noe Calvo [address], [place], [place], [address]. [phone] [facility], [address], [place], [place], [address], [place] tel:[phone] [facility] No Information 9 Wesley Boykin [address], [place], [place], [address] , [place]. tel:[phone] OFFICE/OUTPA TIENT VISIT, [facility], [address], [place], [address], [place] tel:[phone] [facility] itchy rash1 (chief complaint)abd pain1 (chief complaint)LFT (chief complaint)Pre DM (chief complaint) Tinea corporisAbdomina l painFatty liverType 2 diabetes mellitus without complications 9 Wesley Boykin [address], [place], [place], [address] , [place]. [phone] Referring Provider: Noe Calvo [address], [place], [place], [address]. tel:[phone] OFFICE/OUTPA TIENT VISIT, [facility], [address], [place], [place], [address], [place] tel:[phone] [facility] PHysical (chief complaint) Encounter for general adult medical exam w abnormal findingsAbdomina l painHypothyroidi smSleep apnea 9 Wesley Sales. [address], [place], [place], [address] , [place]. [phone] Referring Provider: Noe Calvo [facility] [address], [place], [place], [address]. tel:[phone] OFFICE/OUTPA TIENT VISIT, [facility], [address], [place], [place], [address], [place] tel:[phone] [facility] parathyroid1 (chief complaint)HTN (chief complaint)IBS 1 (chief complaint) OsteoporosisIrri table bowel syndrome with diarrheaEssentia l (primary) hypertensionHype rcalcemia 9 Wesley Sales. [address], [place], [place], [address] , [place]. [phone] Referring Provider: [address], [place], [place], [address]. tel:[phone] OFFICE/OUTPA TIENT VISIT, [facility], [address], [place], [place], [address], [place] tel:[phone] [facility] parathyroid1 (chief complaint)IBS 1 (chief complaint)ost eoporosis1 (chief complaint)HTN (chief complaint) OsteoporosisEsse ntial (primary) hypertensionDiso rder of parathyroid gland, unspecifiedIrrit able bowel syndrome with diarrhea 8 Wesley Sales. [address], [place], [address] , [place]. [phone] Referring Provider: Noe Calvo [facility] [address], [place], [place], [address]. tel:[phone] OFFICE/OUTPA TIENT VISIT, [facility], [address], [place], [place], [address], [place] [phone] [facility] osteoporosis1 (chief complaint)enrrique rrhea1 (chief complaint)jur y duty1 (chief complaint)hyp othyroidism1 (chief complaint) OsteoporosisDiar rheaHypothyroidi smSleep apnea 8 Wesley Sales. [address], [place], [place], [address] , [place]. tel:[phone] Referring Provider: Noe Calvo [facility] [address], [place], [place], [address]. tel:[phone] OFFICE/OUTPA TIENT VISIT, [facility], [address], [place], [place], [address], [place] tel:[phone] [facility] HLP (chief complaint)DM (chief complaint)PTH (chief complaint)ost eoporosis1 (chief complaint) HypercalcemiaHyp othyroidismMixed hyperlipidemiaOs teoporosisMetabo lic syndromeSleep apnea 8 Wesley Boykin [address], [facility] [address], [place], [place], [address] , [place]. tel:[phone] Referring Provider: Noe Calvo [facility] [address], [place], [place], [address]. tel:[phone] OFFICE/OUTPA TIENT VISIT, [facility], [address], [address], [place] tel:[phone] [facility] Physical (chief complaint) Encounter for general adult medical exam w abnormal findingsOsteopor osisHypothyroidi smHypercalcemiaM ixed hyperlipidemiaEs sential (primary) hypertension 8 Wesley Boykin [address], [place], [address] , [place]. tel:[phone] Referring Provider: oNe Calvo [address] [facility] [address], [place], [place], [address]. tel:[phone] OFFICE/OUTPA TIENT VISIT, [facility], [address], [place], [place], [address], [place] tel:[phone] [facility] heel pain1 (chief complaint)cass st pain1 (chief complaint)HTN (chief complaint)ost eoprossis (chief complaint) OsteoporosisEsse ntial (primary) hypertensionChes t painPain in right foot 8 Wesley Sales. [address], [place], [place], [address] , [place]. tel:[phone] Referring Provider: Noe Calvo [address], [place], [place], [address]. tel:[phone] OFFICE/OUTPA TIENT VISIT, [facility], [address], [place], [place], [address], [place] tel:[phone] [facility] hypothyroidis m1 (chief complaint)ost eoporosis1 (chief complaint)griselda ulder pain1 (chief complaint)ast hma1 (chief complaint) HypothyroidismPa in in right shoulderOsteopor osisAsthma 7 Wesley Sales. [address], [place], [place], [address] , [place]. tel:[phone] Referring Provider: Noe Calvo [address], [place], [place], [address]. tel:[phone] OFFICE/OUTPA TIENT VISIT, [facility], [address], [place], [place], [address], [place] tel:[phone] [facility] breast nodule1 (chief complaint) Nodule in breast 7 Wesley Sales. [address], [place], [place], [address] , [place]. tel:[phone] Referring Provider: Noe Calvo [address], [place], [place], [address]. tel:[phone] OFFICE/OUTPA TIENT VISIT, [facility], [address], [place], [place], [address], [place] tel:[phone] [facility] HLP (chief complaint)met abolic (chief complaint)HTN (chief complaint)PTH (chief complaint)blake ght loss1 (chief complaint) HyperlipidemiaEs sential (primary) hypertensionAbno rmal weight lossHypothyroidi sm 7 Wesley Sales. [address], [place], [place], [address] , [place]. [phone] Referring Provider: Noe Calvo [address], [place], [place], [address]. tel:[phone] OFFICE/OUTPA TIENT VISIT, [facility], [address], [place], [place], [address], [place] [phone] [facility] Fatty liver1 (chief complaint)DM (chief complaint)HLP (chief complaint)ost eoporosis1 (chief complaint)HTN (chief complaint) OsteoporosisMixe d hyperlipidemiaEs sential (primary) hypertensionFatt y liver Wesley Sales. [address], [place], [place], [address] , [place]. [phone] Referring Provider: Noe Calvo [address] [facility] [address], [place], [place], [address]. tel:[phone] OFFICE/OUTPA TIENT VISIT, [facility], [address] [place], [address], [place] [phone] [facility] dM (chief complaint)jameel al disease (chief complaint)par athyroid (chief complaint)HLP (chief complaint)UTI 1 (chief complaint) Type 2 diabetes mellitus with diabetic nephropathyMixed hyperlipidemiaHy percalcemiaUrina ry tract infection 6 Wesley Sales. [address], [place], [place], [address] , [place]. tel:[phone] Referring Provider: Noe Calvo [facility] [address], [place], [place], [address]. tel:[phone] OFFICE/OUTPA TIENT VISIT, [facility], [address], [place], [place], [address], [place] tel:[phone] [facility] osteoporosis1 (chief complaint)par athyroidism (chief complaint)HTN (chief complaint) OsteoporosisEsse ntial (primary) hypertensionDiso rder of parathyroid gland, unspecifiedEncou nter for oth screening for malignant neoplasm of breast 6 Wesley Sales. [address], [place], [place], [address] , [place]. tel:[phone] Referring Provider: Noe Calvo [facility] [address], [place], [place], [address]. tel:[phone] OFFICE/OUTPA TIENT VISIT, [facility], [address], [address], [place] tel:[phone] [facility] hLP (chief complaint)thy roid1 (chief complaint)ost eoprosis1 (chief complaint)jameel al disease (chief complaint) OsteoporosisHypo thyroidismMixed hyperlipidemiaMe tabolic syndrome 6 Wesley Boykin [address], [place], [place], [address] , [place]. [phone] Referring Provider: Noe Calvo, [place], [place], [address]. tel:[phone] OFFICE/OUTPA TIENT VISIT, [facility], [address], [place], [address], [place] tel:[phone] [facility] vertigo1 (chief complaint)HTN (chief complaint)Ast hma (chief complaint)hyp erparathyroid (chief complaint) AsthmaEssential (primary) hypertensionVert igoHypothyroidis m 6 Wesley Boykin [address] [facility] [address], [place], [place], [address] , [place]. tel:[phone] Referring Provider: Noe Calvo, [place], [place], [address]. tel:[phone] OFFICE/OUTPA TIENT VISIT, [facility], [address], [place], [place], [address], [place] tel:[phone] [facility] asthma (chief complaint)HLP 1 (chief complaint)HTN (chief complaint)ost oporosis1 (chief complaint) OsteoporosisEsse ntial (primary) hypertensionMixe d hyperlipidemiaAs thma 6 Wesley Sales. [address], [place], [place], [address] , [place]. tel:[phone] Referring Provider: Henrry Olson, [address], [place], [place], [address]. tel:[phone] OFFICE/OUTPA TIENT VISIT, [facility], [address], [place], [place], [address], [place] tel:[phone] [facility] tremor (chief complaint) Dietary surveillance and counselingTremor 5 Wesley Sales. [address], [place], [place], [address] , [place]. [phone] Referring Provider: Noe Calvo [address], [place], [place], [address]. tel:[phone] OFFICE/OUTPA TIENT VISIT, [facility], [address], [place], [place], [address], [place] tel:[phone] [facility] HLP (chief complaint)ost eoporosis (chief complaint)pre DM (chief complaint)jameel al (chief complaint) Dietary surveillance and counselingUnspec ified hypothyroidismOt her and unspecified hyperlipidemiaUn specified essential hypertensionOthe r disorders of bone and cartilage 5 Wesley Sales. [address], [place], [place], [address] , [place]. tel:[phone] Referring Provider: Noe Calvo [address], [place], [place], [address]. tel:[phone] OFFICE/OUTPA TIENT VISIT, [facility], [address], [place], [place], [address], [place] tel:[phone] [facility] knee pain (chief complaint)HLP (chief complaint)hyp othyroidism (chief complaint)ast hma (chief complaint) Dietary surveillance and counselingUnspec ified hypothyroidismOt her and unspecified hyperlipidemiaPa in in joint involving lower legAsthma 5 Wesley Sales. [address], [place], [place], [address] , [place]. tel:[phone] Referring Provider: Noe Calvo [address], [place], [place], [address]. tel:[phone] OFFICE/OUTPA TIENT VISIT, [facility], [address], [place], [place], [address], [place] tel:[phone] [facility] renal (chief complaint)HLP (chief complaint)HTN (chief complaint)UTI (chief complaint) Dietary surveillance and counselingRenal Insufficiency, AcuteHypertensio n, UnspecifiedHyper parathyroidism, unspecifiedOther and unspecified hyperlipidemia 5 Wesley Sales. [address], [place], [place], [address] , [place]. tel:[phone] Referring Provider: Noe Calvo [address], [place], [place], [address]. tel:[phone] OFFICE/OUTPA TIENT VISIT, [facility], [address], [place], [place], [address], [place] tel:[phone] [facility] prediabetic (chief complaint)jameel al function (chief complaint)abd ominal pain (chief complaint)UTI (chief complaint) Dietary surveillance and counselingMetabo lic SyndromeChronic kidney disease, unspecifiedUrina ry Tract InfectionOther chronic nonalcoholic liver disease 5 Wesley Boykin [address], [place], [place], [address] , [place]. tel:[phone] Referring Provider: Noe Calvo [address], [place], [place], [address]. tel:[phone] OFFICE/OUTPA TIENT VISIT, [facility], [address], [place], [place], [address], [place] tel:[phone] [facility] HTN (chief complaint)hyp othyroidism (chief complaint)HLP (chief complaint)debbie etite loss (chief complaint)art hritis (chief complaint) Dietary surveillance and counselingDisord er of bone and cartilage, unspecifiedHypot hyroidismHyperte nsion, UnspecifiedAnore jaycee 5 Wesley Sales. [address], [place], [place], [address] , [place]. tel:[phone] Referring Provider: Noe Calvo [address], [place], [place], [address]. tel:[phone] OFFICE/OUTPA TIENT VISIT, [facility], [address], [place], [place], [address], [place] tel:[phone] [facility] knee pain (chief complaint) Dietary surveillance and counselingPain in joint involving lower leg 4 Wesley Sales. [address], [place], [place], [address] , [place]. tel:[phone] Referring Provider: Noe Calvo [address], [place], [place], [address]. tel:[phone] OFFICE/OUTPA TIENT VISIT, [facility], [address], [place], [place], [address], [place] tel:[phone] [facility] knee pain (chief complaint)hyp erparathyroid ism (chief complaint)ost eoporosis (chief complaint) Dietary surveillance and counselingHyperp arathyroidism, unspecifiedHypot hyroidismDisorde r of bone and cartilage, unspecified 4 Wesley Boykin [address], [place], [place], [address] , [place]. tel:[phone] Referring Provider: Noe Calvo [address], [place], [place], [address]. tel:[phone] OFFICE/OUTPA TIENT VISIT, [facility], [address], [place], [place], [address], [place] tel:[phone] [facility] osteoporosis (chief complaint)HTN (chief complaint)vit garcia d (chief complaint) Disorder of bone and cartilage, unspecifiedHyper tension, UnspecifiedDieta ry surveillance and counselingUnspec ified vitamin d deficiency 4 Wesley Boykin [address], [place], [place], [address] , [place]. tel:[phone] Referring Provider: Noe Calvo [address], [place], [place], [address]. tel:[phone] OFFICE/OUTPA TIENT VISIT, [facility], [address], [place], [place], [address], [place] [phone] [facility] PTH (chief complaint)car diac murmur (chief complaint)kne e pain (chief complaint) Dietary surveillance and counselingHyperp arathyroidism, unspecifiedMurmu rPain in joint involving lower leg 4 Wesley Boykin [address], [place], [place], [address] , [place]. tel:[phone] Referring Provider: Noe Calvo [facility] [address], [place], [place], [address]. tel:[phone] OFFICE/OUTPA TIENT VISIT, [facility], [address], [place], [place], [address], [place] [phone] [facility] glucose (chief complaint)LFT (chief complaint)UTI (chief complaint)thy roid (chief complaint) Dietary surveillance and counselingHypoth yroidismHyperpar athyroidism, unspecifiedUnspe cified chronic liver disease without mention of alcoholMurmur 4 Wesley Boykin [address], [place], [place], [address] , [place]. tel:[phone] Referring Provider: Noe Calvo [address], [place], [place], [address]. tel:[phone] OFFICE/OUTPA TIENT VISIT, [facility], [address], [place], [place], [address], tel:[phone] [facility] PTH elevation (chief complaint)HLP (chief complaint)hyp othyroidism (chief complaint)HTN (chief complaint) Hyperparathyroid ism, unspecifiedHyper tension, UnspecifiedOther and unspecified hyperlipidemiaHy pothyroidismDiet mary surveillance and counseling 4 Wesley Sales. [address], [place], [place], [address] , [place]. tel:[phone] Family History Family Member Type Diagnosis Age At Onset No Information Payers Payer name Insurance type Covered alliance party ID Authoriza tion(s) No Information Social History [...] ordered Referral Referred To: Lex Walker [address] BR[address]SHA[address] [facility] [address] [place], [place] [id number] Ordered: Referrals: Allopathic & Osteopathic Physicians : Orthopaedic Surgery. Lex Walker. Evaluate and treat ordered Referral Referred To: Physical Therapy Ordered: Referrals: Physical Therapy. Evaluate and treat ordered Referral Ordered: US EXAM, EXTREMITY ordered Referral Referred To: Ezequiel Slaughter MD [address] [place], [address] Ordered: Referrals: Ezequiel Slaughter MD. Evaluate and treat ordered Referral Referred To: Brad Ferrer MD Ordered: Referrals: Brad Ferrer MD. Evaluate and treat ordered Referral Ordered: SHANNAN CARL -Allopathic & Osteopathic Physicians : Surgery (related to Renal stone) ordered Referral Referred To: SHANNAN CARL [address] [place], [place], [phone] Ordered: Referrals: Allopathic & Osteopathic Physicians : Surgery. SHANNAN CARL. Evaluate and treat ordered Referral Ordered: CT ABDOMEN&PELVIS W/CONTRAST ordered Referral Ordered: Karson Hammonds (related to Chest pain) ordered Referral Ordered: Podiatry (related to Pain in right foot) ordered Referral Referred To: Karson Hammonds [address] [place], [place] [id number] Ordered: Referrals: Karson Hammonds. Evaluate and treat ordered Referral Ordered: Referrals: Podiatry. Evaluate and treat ordered Referral Ordered: [email or web address] (related to Pain in right shoulder) ordered Referral Ordered: [place] CAROTID ordered Referral Referred To: [facility] [address] [place] [address] Ordered: Referrals: [facility] Evaluate and treat [...] wrist pain and she just saw Dr. taylor and was told that she has arthritis. [...] will have parathyroid surgery for soon at [facility]. Pt denies any dysphagia. IBS1 Pt has [...] have jameel al biospy. 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 Instructions Date Instruction Additional Infor mation Weight management Related to Ess ential (primary) hypertension Special diet education Related t o Body mass index (BMI) 34.0-34.9, adult Medications as instructed Relate d to Abdominal pain Special diet education Related t o Body mass index (BMI) 34.0-34.9, adult Weight management Related to Tin ea corporis Increase physical activity Relat ed to Tinea corporis Special diet education Related t o [...] w abnormal findings Weight management Related to Ost eoporosis Increase physical activity Relat ed to Osteoporosis Prescribed Diet Educ ation/Lifestyle Education Regarding Diet [...] caloric intake Related to Dietary surveillance counseling Decrease caloric intake Related to Dietary surveillance counseling Dietary counseling Related to Di etary surveillance counseling Assessments Type Assessment Date No Information
--- OUTSIDE RECORDS SUMMARY | 2024-10-02 11:34 | XMS_ITS | Clinical Summary ---
Author Organization [facility] Address [address] [place] [address] Care Team Providers Care Business Development Associate Name Role Phone Unavailable Primary Care Provider Unavailabl e Medications denosumab (Prolia) 60 mg/mL Syringe TO BE ADMINISTERED IN PHYSICIAN'S OFFICE. INJECT ONE SYRINGE SUBCUTANEOUSLY ONCE EVERY 6 MONTHS. 1 mL 1 10/29/2022 9:57 AM CDT 2 Active Encounters Date Type Department Care Team Description 09/19/2024 External Device Data [facility] Provider, Abstract 09/13/2024 External Device Data [facility] Provider, Abstract 09/12/2024 External Device Data [facility] Provider, Abstract 08/29/2024 External Device Data [facility] Provider, Abstract from Last 3 Months Social History Tobacco Use Types Packs/Day Years Used Date Smoking Tobacco: Never Assessed Comments Unknown Sex and Gender Information Value Date Recorded Sex Assigned at Not on file Legal Sex Female 7:34 AM [employer] Gender Identity Not on file Sexual Orientation [...]
--- OUTSIDE RECORDS SUMMARY | 2024-10-02 11:34 | XMS_ITS | Referral Summary ---
Author Organization [facility] Address [id number] [place] [id number] Care Team Providers Care Environment Artist Name Role Phone Henrry Olson MD Primary Care Provider [phone] Dean Flaherty MD Unavailable Farshad Farrar Unavailable [phone] Allergies Active Allergy Reactions Criticality Noted Date [...] total) by mouth daily Active HYDROcodone-ac etaminophen ([place]) 5-325 mg per tabletIndicati ons:Pain 1 tabs [...] (06/05/2019): Added automatically from request for surgery [id number] Biceps tendinitis of left upper extremity 2019 Overview (06/05/2019): Added automatically from request for surgery [id number] Arthritis of left acromioclavicular joint 2019 Overview (06/05/2019): Added automatically from request for surgery [id number] Impingement syndrome of left shoulder 06/05/2019 Overview (06/05/2019): Added automatically from request for surgery [id number] Diabetes mellitus 01/06/2018 Overview (09/22/2023): Added automatically from request for surgery [id number] Sleep apnea 01/06/2018 Daytime hypersomnia 10/07/2017 Obesity with body mass index 30 or greater 10/07 Postmenopausal osteoporosis 03/11/2017 Assessment & Plan (09/23/2017 9:14 AM CDT): On Fosamax Weight bearing exercise and fall precautions discussed. Assessment & Plan (03/11/2017 9:36 AM PUBLIC HEALTH WORKER): Check DEXA Fall precautions. Daily weight bearing [...] taken. Assessment & Plan (03/11/2017 9:24 AM PUBLIC HEALTH WORKER): Check TSH, free T4 Adjust dose of [...] on file Legal Sex Female 11:54 PM PUBLIC HEALTH WORKER Gender Identity Not on file Sexual Orientation Not on file Last Filed Vital Signs Vital Sign Reading Time Taken Comments Blood Pressure 116/70 11/24/2023 8:43 AM CDT Pulse 63 11/24/2023 8:43 AM CDT Temperature 36.2 C (97.1 F) 04/29/2020 8:29 AM PUBLIC HEALTH WORKER Respiratory Rate 18 09/06/2019 10:53 AM CDT Oxygen Saturation 98% 09/06/2019 10:53 AM CDT Inhaled Oxygen Concentration - - Weight 72.3 kg (159 lb 4.8 oz) 11/24/2023 8:43 A M CDT Height 154.5 cm (5' 0.83) 11/24/2023 8:43 AM CD T Body Mass Index 30.27 11/24/2023 8:43 AM CDT Plan of Treatment Not on file Medical Devices Implanted Type Area Cardiac Technologist Device Identifier Shelf Expiration Date Model / Serial / Lot Depuy Mitek [id number] Healix Advance Br Orthocord 4.5mm 3 Austin Suture Sterile Latex Free - [id number] Implanted:Qty: 1 on 06/29/2019 by Lex Walker MD at [facility] Left: Shoulder Depuy Mitek 07/25/2019 [id number] / / [id number] [employer]hew 2504-1 Regenerate Tendon Austin Suture - [id number] Implanted:Qty: 1 on 06/29/2019 by Lex Walker MD at [facility] Left: Shoulder [employer]hew 12/01/2019 2504-1 / / [id number] [employer] Nephew/Richco/Or tho 4565 Implant Medium Arthroscopic Bioinductive W/ Delivery Device - [id number] Implanted:Qty: 1 on 06/29/2019 by Lex Walker MD at [facility] Left: Shoulder [employer]/Richco/Or tho 12/29/2021 [id number] / / [id number] Bone Anchors With Arthroscopic Delivery System Advanced Implanted:Qty: 1 on 06/29/2019 by Lex Walker MD at [facility] Left: Shoulder [employer]hew [id number] 03/21/2022 [id number] / / [id number] Arthrex Inc Ar-2323bcc Swivelock C 5.5mm 19.1mm Closed Eyelet Vent Austin Suture - [id number] Implanted:Qty: 1 on 06/29/2019 by Lex Walker MD at [facility] Left: Shoulder [employer] 10/23/2020 AR-2323BC C / / [id number] Procedures Procedure Name Priority Date/Time Associated Diagnosis [...] Payer ( fective 1972-) Name:Wade Quesada Member ID:[id number] Relation to Subscriber:Self Name:Wade Quesada Subscriber ID:[id number] Payer ID:[id number] Group ID:Not on file Type:MEDICARE TRADITIONAL [address] [place] [facility] MEDICARE ADVANTAGE ID[place] Advance Directives For more information, please contact: [phone] * Full Code (Latest Code Status on File) Date Activated Date Inactivated Comments 05/17/2018 11:43 AM 05/18/2018 1:46 PM Care Teams Environment Artist Relationship Specialty Start Date End Date Henrry Olson MD PCP - General 07/24/16 [place] [address] [place] [address] Consulting Physician Endocrinology Diabetes & Metabolism 06/01/18 Farshad Farrar PA [address] [place] [address] [address] [place] [address] Physician Angiography Nurse Orthopedic Surgery 06/29/19
--- OUTSIDE RECORDS SUMMARY | 2024-10-02 11:34 | XMS_ITS | Clinical Summary ---
Author Organization [facility] Address [address] [place] [id number] Care Team Providers Care Outpatient Coordinator Name Role Phone Henrry Olson MD Primary Care Provider [phone] Dean Flaherty MD Unavailable Farshad Farrar Unavailable [phone] Allergies Active Allergy Reactions Criticality Noted Date [...] total) by mouth daily Active HYDROcodone-ac etaminophen ([place]) 5-325 mg per tabletIndicati ons:Pain 1 tabs [...] (06/05/2019): Added automatically from request for surgery [id number] Biceps tendinitis of left upper extremity 2019 Overview (06/05/2019): Added automatically from request for surgery [id number] Arthritis of left acromioclavicular joint 2019 Overview (06/05/2019): Added automatically from request for surgery [id number] Impingement syndrome of left shoulder 06/05/2019 Overview (06/05/2019): Added automatically from request for surgery [id number] Diabetes mellitus 01/06/2018 Overview (09/22/2023): Added automatically from request for surgery [id number] Sleep apnea 01/06/2018 Daytime hypersomnia 10/07/2017 Obesity with body mass index 30 or greater 10/07 Postmenopausal osteoporosis 03/11/2017 Assessment & Plan (09/23/2017 9:14 AM CDT): On Fosamax Weight bearing exercise and fall precautions discussed. Assessment & Plan (03/11/2017 9:36 AM DIRECTIONAL DRILL OPERATOR): Check DEXA Fall precautions. Daily weight bearing [...] taken. Assessment & Plan (03/11/2017 9:24 AM DIRECTIONAL DRILL OPERATOR): Check TSH, free T4 Adjust dose of [...] Medical CVA subclinical Asthma Asthma; Comments : [facility] 01/11/2014 - Rheumatoid arthritis (HCC) Rheum atoid arthritis; Comments: [facility] 01/11/2014 - Hypercholesterolemia High choles terol; Comments: [facility] 01/11/2014 - Hypertension Hypertension Disorder of thyroid [...] on file Legal Sex Female 11:54 PM DIRECTIONAL DRILL OPERATOR Gender Identity Not on file Sexual Orientation Not on file Obstetrics History Last Filed Vital Signs Vital Sign Reading Time Taken Comments Blood Pressure 116/70 11/24/2023 8:43 AM CDT Pulse 63 11/24/2023 8:43 AM CDT Temperature 36.2 C (97.1 F) 04/29/2020 8:29 AM DIRECTIONAL DRILL OPERATOR Respiratory Rate 18 09/06/2019 10:53 AM CDT [...] Screening 09/23/2018 09/23/2017, 03/11/20 17 Influenza Vaccine (Season Ended) 2024 01/27/2020, 12/29/2019, 01/24/2018, Additional history exists Pneumococcal vaccine 65+ Completed 01/25/2017, 11/2015 Medical Devices Implanted Type Area House Designer Device Identifier Shelf Expiration Date Model / Serial / Lot Depuy Mitek [id number] Healix Advance Br Orthocord 4.5mm 3 Germfask Suture Sterile Latex Free - [id number] Implanted:Qty: 1 on 06/29/2019 by Lex Walker MD at [facility] Left: Shoulder Depuy Mitek 07/25/2019 [id number] / / [id number] [employer]hew 2504-1 Regenerate Tendon Germfask Suture - [id number] Implanted:Qty: 1 on 06/29/2019 by Lex Walker MD at [facility] Left: Shoulder [employer] 12/01/2019 2504-1 / / [id number] [employer] Nephew/Richco/Or tho 4565 Implant Medium Arthroscopic Bioinductive W/ Delivery Device - [id number] Implanted:Qty: 1 on 06/29/2019 by Lex Walker MD at [facility] Left: Shoulder [employer]/Richco/Or tho 12/29/2021 [id number] / / [id number] Bone Anchors With Arthroscopic Delivery System Advanced Implanted:Qty: 1 on 06/29/2019 by Lex Walker MD at [facility] Left: Shoulder [employer] [id number] 03/21/2022 [id number] / / [id number] Ar[employer]rex Inc Ar-2323bcc Swivelock C 5.5mm 19.1mm Closed Eyelet Vent Germfask Suture - [id number] Implanted:Qty: 1 on 06/29/2019 by Lex Walker MD at [facility] Left: Shoulder Arthrex Inc 10/23/2020 AR-2323BC C / / [id number] Procedures Procedure Name Priority Date/Time Associated Diagnosis [...] Most Recently Relevant to Health Maintenance Insurance [place] MEDICARE RAILROAD [facility] Address: [address] [address] [place] [address] MEDICARE RAILROAD [place] MEDICARE RAILROAD [place] [facility] MEDICARE ADVANTAGE ID[place] Advance Directives For more information, please contact: [phone] * Full Code (Latest Code Status on File) Date Activated Date Inactivated Comments 05/17/2018 11:43 AM 05/18/2018 1:46 PM Care Teams Outpatient Coordinator Relationship Specialty Start Date End Date Henrry Olson MD PCP - General 07/24/16 [place] [address] [place] [address] Consulting Physician Endocrinology Diabetes & Metabolism 06/01/18 Farshad Farrar PA [address] [facility] [address] [place] [address] Physician Signal Engineer Orthopedic Surgery 06/29/19
[2024-10-02 13:28] LABS: Add Urine Microscopic? YES; Appearance Urine Cloudy (Clear); Bacteria Urine 4+ /hpf; Bilirubin Urine Negative (Negative); Blood Urine Trace (Negative); Color Urine Yellow (Yellow); Glucose Urine UA 3+ mg/dL (Negative); Ketones Urine Negative (Negative); Leukocyte Esterase Ur 2+ LEU/UL (Negative); Nitrate Urine Negative (Negative); Non Pathogenic Casts 0-2; Protein Urine 1+ mg/dL (Negative); RBC Urine 0-2 /hpf (0-2); Specific Grav Ur 1.022 (1.001-1.035); Squamous Epithelial Cell Urine Occasional /hpf (Few); WBC Urine >100 /hpf (0-3); pH Urine 5.5 (5.0-9.0)
== END 2024-10-02 10:21 | disposition home or self-care (01) ==
PROVIDERS: PCP Nurse Practitioner Family; Visit Provider Family Medicine
DX: N39.0 Urinary tract infection, site not specified (principal)
CPT/HCPCS: 81001; 87086; 87186

== ENCOUNTER 2024-10-29 09:36 | Inpatient (IN) | payer MEDICARE, MEDICAID, SELFPAY ==
--- NOTE | ~2024-10-29 | XR_ITS ---
CHEST RADIOGRAPH CLINICAL HISTORY: hip fracture . COMPARISON: 04/07/2022 TECHNIQUE: Single portable view of the chest. FINDINGS The cardiomediastinal silhouette is unremarkable. The lungs are clear. IMPRESSION: No focal infiltrate or effusion. Reviewed, dictated and finalized at location A.
--- NOTE | ~2024-10-29 | CT_ITS ---
History: Trauma PROCEDURE: CT head without contrast. COMPARISON: None TECHNIQUE: Axial imaging of the head performed from the skull base to the vertex without IV contrast. Sagittal a nd coronal reformations obtained. DLP: 605 mGy-cm FINDINGS: The ventricles are enlarged. The dilatation of the ventricles is proportional to the degree of sulcal prominence, not uncommon in the senescent brain. Decreased attenuation is identified within the periventricular white matter, likely secondary to micr ovascular ischemic disease, in a patient of this age. There is no mass, mass effect or midline shift. There is no abnormal extra-axial fluid collection or intracranial hemorrhage. Visualized paranasal sinuses are clear. The mastoid air cells are well aerated. No acute displaced fractures within the overlying cranium. Impression: No acute intracranial hemorrhage or suspicious mass effect. Reviewed, dictated and finalized at location A. Impression: No acute intracranial hemorrhage or suspicious mass effect.
--- NOTE | ~2024-10-29 | XR_ITS ---
HISTORY: trauma, hip pain, fall COMPARISON: None TECHNIQUE: 2 views of the right hip along with an AP view of the pelvis FINDINGS: Acute intertrochanteric fracture is identified within the right hip. The left hip demonstrates mild osteoarthritic change. Degenerative disease within the visualized portion of the lower lower lumbar spine. Fecal stasis within the colon. Age-appropriate mineralization. IMPRESSION: Right-sided intertrochanteric fracture, as detailed above Reviewed, dictated and finalized at location A.
--- NOTE | ~2024-10-29 | XR_ITS ---
EXAMINATION: XR surgery orthopedic DATE: 10/30/2024 15:30 CDT INDICATION: RIGHT IT NAIL . TECHNIQUE: 4 fluoroscopic images of the right hip were obtained during right intertrochanteric nail p lacement. Fluoroscopy exposure time was 38.4 seconds. Air Kerma 6.3447 mGy. DAP 1.2578 mGym2. COMPARISON: X-ray right hip 10/29/2024 FINDINGS/IMPRESSION: Fluoroscopic documentation of right intertrochanteric nail placement. Please refer to the operative n ote for complete procedural details. Reviewed, dictated and finalized at location K.
[2024-10-29 09:42] VITALS: BP 138/82; PULSE 76; RESP 18; TEMP 36.6; O2SAT 95
--- NOTE | 2024-10-29 10:05 | ED_ITS ---
HPI - General Adult General Chief complaint: Fall Stated complaint: fall, R hip Time Seen by Provider: 10/29/24 09:44 History of Present Illness HPI narrative: 79-year-old female presents emergency department for evaluation for head injury and right hip pain. Patient states she was walking in the kitchen when she stumbled and did strike her head and injured her right hip. Patient states she was unable to ambulate after the fall. Patient does complain of pain with movement of the right hip. Patient denied any loss of consciousness. Patient states she is not on any blood thinners. Patient reports this was a mechanical fall where she tripped over her own feet. Patient denies any syncope or lightheaded or dizziness. Related Data Home Medications ?Medication ?Instructions ?Recorded ?Confirmed ?Last Taken ?Type albuterol sulfate 90 mcg/actuation 2 inhalation inhalation Q4H PRN 12/14/19 10/29/24 Unknown History aerosol inhaler (Ventolin HFA) shortness of breath or wheezing aspirin 81 mg tablet,delayed 81 mg PO DAILY 12/14/19 10/29/24 Unknown History release omega-3 fatty acids 1,000 mg 1,000 mg PO BID 08/30/20 10/29/24 Unknown History capsule (Fish Oil Concentrate) denosumab 60 mg/mL subcutaneous 60 mg subcut [id number] 01/12/23 10/29/24 Unknown History syringe (Prolia) Allergies Allergy/AdvReac Type Severity Reaction Status Date / Time oxycodone Allergy Unknown HIVES Verified 09/13/24 10:37 Penicillins Allergy Unknown Unknown Verified 09/13/24 10:37 metformin AdvReac diarrhea Verified 09/13/24 10:37 Review of Systems 2 Review of Systems: All systems reviewed & are unremarkable except as noted in HPI and below PMFSH Past Medical History Medical History History of broken nose Symptomatic bone lesion with abnormal x-ray Right hip impingement syndrome DDD (degenerative disc disease) Hepatic steatosis CKD (chronic kidney disease) stage 3, GFR 30-59 ml/min Environmental allergies History of CVA (cerebrovascular accident) Hypothyroidism Type 2 diabetes mellitus without complications Asthma Hx of gout Osteoporosis Dyslipidemia Essential hypertension DAVID on CPAP Surgical History Surgical History H/O: hysterectomy Hx of bilateral breast reduction surgery Hx of tonsillectomy Hx of appendectomy Hx of repair of left rotator cuff (~2019) Social History Social History Smoking status: Never smoker Alcohol intake: never Alcohol use details: rarely Substance use: never Substance use type: does not use Do You Feel Safe in your Home?: Yes Lack of Transportation: YES Lack of Food: Never True Current Housing: I Have Housing Concerned About Future Housing: No Difficulty Paying Gas/Electric Bills: No Difficulty Paying for Meds: No Currently Unemployed: No Education: High School Diploma/GED Difficulty w/ Childcare or Family Care: No Living arrangements: with family Occupation/Education: retired Gender identity (if verbalized by the patient): Female Sexual Orientation (if Verbalized by the Patient): Straight or Heterosexual Spiritual care concerns: No Agree to blood products: Yes Exam 2 Narrative: APPEARANCE: Well appearing, no pain, no distress, well-nourished. HEAD: normocephalic, atraumatic. EYES: PERRLA/EOMI, conjunctivae clear. NOSE: Normal no drainage EARS:TMS clear with good light reflex. THROAT: Pharynx clear, no exudate. NECK: Supple. No adenopathy, no masses. RESPIRATORY: Airway patent, respirations nonlabored. Clear to auscultation bilaterally, no rales, rhonchi, wheezing. CARDIOVASCULAR: Regular rate and rhythm without murmurs rubs or gallops. ABDOMINAL: Soft, nontender, nondistended, normal bowel sounds MUSCULOSKELETAL: Unable to actively move the right leg secondary to pain in the hip and pain with passive range of motion. NEURO: Alert. Cranial nerves II through XII intact. Grossly intact SKIN: Warm, dry. Normal Color Course Vital Signs Vital signs: Vital Signs Temperature 97.8 F 10/29/24 09:42 Pulse Rate 76 10/29/24 09:42 Respiratory Rate 18 10/29/24 09:42 Blood Pressure 138/82 10/29/24 09:42 Pulse Oximetry 95 10/29/24 09:42 Temperature 97.2 F L 10/29/24 14:00 Pulse Rate 79 10/29/24 14:00 Respiratory Rate 18 10/29/24 14:00 Blood Pressure 131/75 10/29/24 14:00 Pulse Oximetry 100 10/29/24 14:00 Oxygen Delivery Room Air 10/29/24 14:00 Medical Decision Making [facility] Narrative Medical decision making narrative: 71-year-old female presents emergency department for evaluation for ground level fall resulting in head injury and right hip pain. Head CT was negative for acute intracranial abnormality. Hip x-ray was positive for right-sided nitro fracture. Orthopedics was consulted. Patient was admitted to the hospitalist. Patient was updated the results of the workup and at the chest pain treatment plan. All questions concerns were addressed patient was well-appearing at time of admission. Differential Diagnosis Differential Diagnosis: Pelvic fracture, hip fracture, subdural hematoma, subarachnoid hemorrhage Vital Signs Vital Signs: Vital Signs Temperature 97.8 F 10/29/24 09:42 Pulse Rate 76 10/29/24 09:42 Respiratory Rate 18 10/29/24 09:42 Blood Pressure 138/82 10/29/24 09:42 Pulse Oximetry 95 10/29/24 09:42 Temperature 97.2 F L 10/29/24 14:00 Pulse Rate 79 10/29/24 14:00 Respiratory Rate 18 10/29/24 14:00 Blood Pressure 131/75 10/29/24 14:00 Pulse Oximetry 100 10/29/24 14:00 Oxygen Delivery Room Air 10/29/24 14:00 Lab Data Lab results reviewed: Yes I reviewed the patient's lab results. 10/29/24 10:31 10/29/24 10:30 Labs: Lab Results 10/29/24 10/29/24 Range/Units 10:30 10:31 WBC 8.0 (4.5-10.0) K/mm3 RBC 4.12 L (4.2-5.4) M/mm3 Hgb 12.3 (12.0-15.0) g/dL Hct 37.7 (37.0-47.0) % MCV 91.5 (80-100) fl MCH 29.9 (26-34) pg MCHC 32.6 (32-36) g/dl RDW 15.0 H (11.5-14.5) % Plt Count 190 (150-375) k/mm3 MPV 10.2 (7.4-10.4) fl Immature Gran % (Auto) 0.5 (0-0.5) % Neut % (Auto) 73.7 H (45.5-73.1) % Lymph % (Auto) 17.6 L (18.3-44.2) % [place] % (Auto) 5.6 (2.6-8.5) % Eos % (Auto) 2.0 (0-4.4) % Baso % (Auto) 0.6 (0.2-1.2) % Lymph # (Auto) 1.41 (0.9-3.2) K/mm3 [place] # (Auto) 0.5 (0.1-0.6) K/mm3 Eos # (Auto) 0.2 (0-0.3) K/mm3 Baso # (Auto) 0.1 (0.0-0.1) K/mm3 Abs Immat Gran (auto) 0.04 H (0.00-0.031) K/mm3 Absolute Neuts (auto) 5.9 (1.3-6.7) K/mm3 Absolute Nucleated RBC 0.000 (0.0-0.012) K/mm3 Nucleated RBC % 0.0 (0.0-0.2) % PT 14.8 H (11.1-14.7) Seconds INR 1.1 APTT 36.3 (22.3-36.8) Seconds Sodium 136 L (137-145) mmol/L Potassium 3.5 (3.4-5.0) mmol/L Chloride 104 (98-107) mmol/L Carbon Dioxide 24 (22-30) mmol/L Anion Gap 8 (4-12) mmol/L BUN 16 (7-17) mg/dL Creatinine 1.17 H (0.7-1.0) mg/dL Estim Creat Clear Calc Not Reportable Estimated GFR 45 L (59 - ) Glucose 92 (65-110) mg/dL Calcium 8.9 (8.4-10.2) mg/dL Total Bilirubin 0.6 (0.2-1.3) mg/dL AST 35 (14-36) U/L ALT 29 (6-35) U/L Alkaline Phosphatase 46 (38-126) U/L Total Protein 7.6 (6.3-8.2) g/dL Albumin 4.3 (3.5-5.1) g/dL Imaging Data Radiologist's impression: Impressions Hip/Pelvis X-Ray 10/29/24 10:44 IMPRESSION: Right-sided intertrochanteric fracture, as detailed above Head CT 10/29/24 10:46 Impression: No acute intracranial hemorrhage or suspicious mass effect. Chest X-Ray 10/29/24 11:17 IMPRESSION: No focal infiltrate or effusion. ECG Data EKG #1: EKG Interpretation: normal rate, sinus rhythm, no ectopy, non-specific ST changes, normal QRS and NL axis Discharge Plan Discharge Clinical Impression: Closed intertrochanteric fracture of right hip Qualifiers: Encounter type: initial encounter Fracture alignment: displaced Qualified Code(s): S72.141A - Displaced intertrochanteric fracture of right femur, initial encounter for closed fracture Patient Disposition: Still a Patient Condition: Stable
--- NOTE | 2024-10-29 10:09 | PC.NURSE ---
pt in imaging at this time
--- OUTSIDE RECORDS SUMMARY | 2024-10-29 10:17 | XMS_ITS | Data Portability ---
Author Organization [place] [facility], Main Office Address [address] [place] [address] Assessment No assessment recorded. Plan of Treatment Reminders Order Date Submit Date Provider Last Modified By Organization Details Last Modified Time Details Appointments None recorded. Lab CMP, serum or plasma [address], [address] [place] [address], [address] [place] [address], [address], 3 12:36:59 HbA1c (hemoglobin A1c), blood [address], [address] [place] [address], [address] [place] [address], [address], 3 12:36:59 microalbumi n/creatinin e, mass ratio, urine [address], [address] [place] [address] Rd, [address] [place] [address], [address], 3 12:36:59 lipid panel, serum [address], [address] [place] [address], [address] [place] [address], [address], 3 12:36:59 T3, free, serum or plasma [address], [address] [place] [address], [address] [place] [address], [address], 3 09:32:01 TSH + free T4, serum [address], [address] [place] [address], [address] [place] [address], [address], 3 12:36:59 Referral None recorded. Procedures None recorded. Surgeries None recorded. Imaging None recorded. Medication Orders glimepiride 1 mg tablet 2022 023 [facility], [address] [place], [address], 3 09:27:50 Jardiance 25 mg tablet 2022 023 [facility], [address] [place], [address], 3 09:28:07 Prolia 60 mg/mL subcutaneou s syringe 2022 023 [id number] [facility], [address] [place] [address], [address], 3 13:48:42 levothyroxi ne 50 mcg tablet 2022 023 [facility], [address] [place], [address], 3 09:28:28 Breo Ellipta 200 mcg-25 mcg/dose powder for inhalation 2022 023 [facility], [address] [place] [address], [address], 3 13:16:20 Patient TargetsNo targets recorded. Patient InstructionsNo instructions recorded. Reason for Referral None Reported. Results Created Date Observation Date Name Description Value Unit Range Abnormal Flag Note LastModifiedBy Organization Detail LastModifiedTime 03/06/20 22 03/05/2022 bone densi ty No observ ation record ed. [id number] [facility] [address], [place], [address], 06/24/2022 05:00:23 04/07/20 22 04/07/2022 XR, chest , 2 view No observ ation record ed. [id number] [facility] [address], [place], [address], 06/24/2022 05:00:23 Result Notes None recorded. Problems Name Problem SNOMED Code Status Onset Date Resolution Date Notes Provider Name and Address Organization Details Recorded Time Postmenopa usal osteoporos is 465039497 Active 2022 Not Available [facility] 3 13:48:42 Well controlled type 2 diabetes mellitus 490814016 Active 2022 Not Available [facility] 3 13:48:42 Hypothyroi dism 81976544 Active 2022 Not Available [facility] 3 13:48:42 Dyslipidem ia 316299428 Active 2022 Not Available [facility] 3 13:48:42 Disorder of thyroid gland 44311429 Active 2018 Not Available [facility] 3 13:48:42 Acute sinusitis 11055676 Active 2021 Not Available [facility] 3 13:48:42 Body mass index 30+ - obesity 809746238 Active 2017 Not Available [facility] 3 13:48:42 Asthma 563304788 Active Not Available [facility] 3 13:48:42 Osteopenia 292467506 Active 2021 Not Available [facility] 3 13:48:42 Daytime hypersomni a 6184445224093 2 Active 2017 Not Available [facility] 3 13:48:42 Environmen neel allergy 433466754 Active Not Available [facility] 3 13:48:42 Cough 86428769 Active Not Available [facility] 3 13:48:42 Dyspnea on exertion 28895376 Active 2021 Not Available [facility] 3 13:48:42 Allergic rhinitis 86329874 Active Not Available [facility] 3 13:48:42 Osteoporos is 71693221 Active 2019 Not Available [facility] 3 13:48:42 Diabetes mellitus 51015482 Active 2017 Not Available [facility] 3 13:48:42 Obstructiv e sleep apnea syndrome 44660395 Active 2017 Not Available [facility] 3 13:48:42 Notes:Some problems listed i n Document: #[id number] could not be added to this patient's chart. Please review this document and add these problems to the patient's chart manually as needed. Problem Notes None recorded. Procedures Surgical History Date Name Laterality Status Provider Name and Address Organization Details Recorded Time Nipple/areola reconstruction completed Not Available [facility] 06/24/2022 04:42:30 Knee Surgery completed Not Available [facility] [place] 06/24/2022 04:42:30 Rotator cuff surgery completed Not Available [facility] 06/24/2022 04:42:30 Imaging Results None recorded. Procedure Notes None recorded. Medical Equipment None Reported. Allergies Allergen ID Allergen Name Allergen Category Reaction Reaction Severity Criticality Documentation Date Start Date Code Code System Note Provider Name and Address Organization Details Recorded Time 7370 Product containin g penicilli n (product) medicatio n Not available Not available Not available 06/24/2022 12576 8001 SNOMED Not Available [facility] 3 04:59:58 7371 oxycodone medicatio n Not available Not available Not available 06/24/2022 7804 RxNorm Not Available [facility] 3 04:59:58 7372 metformin medicatio n Not available Not available Not available 06/24/2022 6809 RxNorm Not Available [facility] 3 04:59:58 Medications Name Sig Start Date [...] mcg (50,000 unit) capsule TAKE 1 CAPSULE (97022PG ITS) BY ORAL ROUTE EVERY WEEK 03/04 [...] injection syringe TO BE ADMINIST ERED BY [facility] FOR IMMUNIZA TION 02/11 completed Not Available [...] n TO BE ADMINIST ERED BY PHARMACI [facility] FOR IMMUNIZA TION 12/01 completed Not Available [...] syringe TO BE ADMINIST ERED BY PHARMAC[facility] FOR IMMUNIZA TION 12/01 completed Not Available [...] ular syringe TO BE ADMINIST ERED BY [facility] FOR IMMUNIZA TION 12/01 completed Not Available Not Available Not Available Fluzone High-Dose 1679-3065 (PF) 180 mcg/0.5 mL intramusc ular syringe TO BE ADMINIST ERED BY [facility] FOR IMMUNIZA TION 12/01 completed Not Available Not Available Not Available Fluzone High-Dose 7940-0368 (PF) 180 mcg/0.5 mL intramusc ular syringe TO BE ADMINIST ERED BY [facility] FOR IMMUNIZA TION 02/11 completed Not Available Not Available Not Available OneTouch Ultra Blue Test Strip USE DIRECTED . CHECK BLOOD SUGAR ONCE DAILY OK TO SUBSTITU TE BASED ON INSURANC E REQUIREM ENTS,Use as directed . test sugars once daily ok to substitu te meter, strips and lancets per insuranc e coverage 10/19 completed Not Available Not Available Not Available Fluzone High-Dose 6857-8888 (PF) 180 mcg/0.5 mL intramusc ular syringe TO BE ADMINIST ERED BY [facility] FOR IMMUNIZA TION 08/13 completed Not Available Not Available Not Available OneTouch Ultra2 Meter TEST SUGARS IN MORNING FASTING, OK TO SUBSTITU TE METER, STRIPS AND LANCETS FOR WHAT INSURANC E COVERS 10/19 completed Not Available Not Available Not Available Fluad Quad 4009-6812 (65yr up)(PF) 60 mcg (15 mcg x 4)/0.5mL IM syringe PHARMACY ADMINIST ERED 08/13 completed Not Available Not Available Not Available Vitals Date Recorded Body height Body mass index (BMI) Body weight Body temperature Heart rate Oxygen saturation Oxygen saturation in Arterial blood by Pulse oximetry Systolic And Diastolic Provider Name and Address Organization Details Last Updated DateTime 3 154.94 cm 31.9 kg/m2 63661.1 1 g 97.6 [degF] 55 /min 99 % 99 % 132/64 mm[Hg] Viji Myers MA [facility] [employer] [facility] 3 09:45:33 Date Recorded Body height Body mass index (BMI) Body weight Provider Name and Address Organization Details Last Updated DateTime 10/19/2022 154.94 cm 31.9 kg/m2 12852.39 g Taylor Jose [facility] [employer] [facility] 10/19/2022 09:05:43 Date Recorded Body mass index (BMI) Body height Oxygen saturation Oxygen saturation in Arterial blood by Pulse oximetry Heart rate Body temperature Body weight Systolic And Diastolic Provider Name and Address Organization Details Last Updated DateTime 2 32.1 kg/m2 154.94 cm 97 % 97 % 60 /min 97.3 [degF] 32479.7 g 132/70 mm[Hg] Not Available [facility] 04:49:09 Social History Question Answer Notes LastModified by Organizat ion Details LastModified Time Tobacco Smoking Status Never Smoker Not Available [facility] 06/24/2022 04:42:15 Do You Have An Advance Directive? No [id number] Information not available 06/24/2022 What Is Your Level Of Caffeine Consumption? Moderate [id number] Information not available 06/24/2022 How Much Tobacco Do You Chew? None [id number] Information not available 06/24/2022 In The 14 Days Before Symptom Onset, Have You Had Close Contact With A Laboratory-confirm ed COVID-19 While That Case Was Ill? No [id number] Information not available 06/24/2022 In The 14 Days Before Symptom Onset, Have You Had Close Contact With A Person Who Is Under Investigation For COVID-19 While That Person Was Ill? No [id number] [id number] Information not available 06/24/2022 What Type Of Diet Are You Following? REGULAR [id number].[id number] 6031 Information not available 06/24/2022 Which Illicit Or Recreational Drugs Have You Used? None [id number].[id number] Information not available 06/24/2022 Do You Have An Electrostatic Air Filter? No [id number] 8515 Information not available 06/24/2022 Do You Have A Humidifier? No [id number] Information not available 06/24/2022 Do You Have Moisture Problems In Your Home? Yes [id number] Information not available 06/24/2022 What Was The Date Of Your Most Recent Tobacco Screening? 03/17/2021 [id number].[id number] Information not available 06/24/2022 How Many Children Do You Have? 0 [id number].[id number] 5296 Information not available 06/24/2022 Do You Have Any Pets? Yes MIGRATION.[id number] 2312 Information not available 06/24/2022 What Is Your Relationship Status? Single MIGRATION.[id number] 2986 Information not available 06/24/2022 Have You Recently Traveled Abroad? No [id number].[id number] 4917 Information not available 06/24/2022 Sex: Unknown Functional Status Question Answer Note LastModified by Organizat ion Details LastModified Time What is your level of alcohol consumption? None [id number] Information not available 06/24/2022 Do you or have you ever used smokeless tobacco? 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 Never used electronic cigarettes [id number].[id number] 026 Information not available 06/24/2022 What is your exercise level? Occasional [id number].[id number] 026 Information not available 06/24/2022 Mental Status [...] DISEASE N PULMONARY DISEASE N GOUT Y ALZHEIMER'S DISEASE N SLEEP DISORDER N FATIGUE N DEMENTIA N HERPES N RETINOPATHY N HEADACHES/MIGRAINES N SEIZURES/EPILEPSY N SLEEP STUDY N VASCULAR DISEASE N DIZZINESS N HEAD TRAUMA OR INJURY N HEART DISEASE/HEART PROBLEMS Y MULTIPLE SCLEROSIS N PULMONARY FUNCTION TEST Y CANCER: SPECIFY N CARDIAC ARRHYTHMIA N ANESTHESIA COMPLICATIONS N PNEUMONIA N ATRIAL FIBRILLATION N PULMONARY EMBOLISM N AUTOIMMUNE DISEASE N Gynecological HistoryNo gynecological history recorded. Obstetrics History GPAL:G 0 P 0 0 0 0 Immunizations Vaccine Type Date Status Note Provider Nam e and Address Organization Details Recorded Time Influenza, split virus, quadrivalent, preservative 0 completed Not Available [facility] 06/24/2022 04:59:47 influenza, unspecified formulation 8 completed Not Available [facility] 06/24/2022 04:59:48 Influenza, high-dose, trivalent, PF 7 completed Not Available [facility] 06/24/2022 04:59:48 pneumococcal polysaccharide PPV23 7 completed Not Available [facility] 06/24/2022 04:59:48 influenza, unspecified formulation 6 completed Not Available [facility] 06/24/2022 04:59:48 Pneumococcal conjugate PCV 13 6 completed Not Available [facility] 06/24/2022 04:59:48 Influenza, high-dose, quadrivalent, PF 1 completed Not Available [facility] 06/24/2022 04:59:48 COVID-19, mRNA, LNP-S, PF, 30 mcg/0.3 mL dose 1 completed Not Available [facility] 06/24/2022 04:59:48 COVID-19, mRNA, LNP-S, PF, 30 mcg/0.3 mL dose 1 completed Not Available [facility] 06/24/2022 04:59:48 Influenza, split virus, quadrivalent, preservative 0 completed Not Available [facility] 06/24/2022 04:59:49 zoster live 5 completed Not Available [facility] 06/24/2022 04:59:49 influenza, unspecified formulation 5 completed Not Available [facility] 06/24/2022 04:59:49 Past Encounters Encounter ID Performer Location Encounter Start Date Encounter Closed Date Diagnosis/Indication Diagnosis SNOMED-CT Code Diagnosis ICD10 Code Diagnosis Note [id number] Mónica Crowley MD [facility] [place] [address] [place] [address] 08/13/2020 00:00:00 08/13/2020 10:55:00 [id number] [facility] [place] [address] [place] [address] 08/15/2020 00:00:00 08/15/2020 10:39:42 [id number] Mónica Crowley MD [facility] [place] [address] [place] [address] 12/31/2020 00:00:00 12/31/2020 13:17:25 [id number] [facility] [place] [address] [place] [address] 03/17/2021 00:00:00 03/17/2021 12:40:03 [id number] Mónica Crowley MD [facility] [place] [address] [place] [address] 04/01/2021 00:00:00 04/01/2021 10:16:49 [id number] MD BLESSING Banuelos[facility] [place] [address] [place] [address] 08/04/2021 00:00:00 08/04/2021 12:15:09 [id number] [facility] [place] [address] [place] [address] 09/30/2021 00:00:00 09/30/2021 11:28:51 [id number] Mónica Crowley MD [facility] [place] [address] [place] [address] 02/16/2022 00:00:00 02/16/2022 13:42:11 [id number] [facility] [place] [address] [place] [address] 04/01/2022 00:00:00 04/01/2022 11:50:29 [id number] Mónica Crowley MD [facility] [place] [address] [place] [address] 04/06/2022 00:00:00 05/21/2022 20:26:47 [id number] CODY Vazquez [facility] [place] [address] [place] [address] 09/30/2022 09:37:47 09/30/2022 11:03:43 Asthma 060955527 J45.909 PFT 05/12/17 did not meet guidelines [...] for concerns Obstructiv e sleep apnea syndrome 46190841 G47.33 Home study 10/21/17 with AHI 43.1She is not using her machine and is uninterest ed in any troublesho otingOnce again discussed the risks of uncorrecte d DAVID, including [place], CVA, deathShe does not qualify for oral appliance or Inspire Dyspnea on exertion 6084 5006 R06.09 6MWT normal.Enc ouraged increased exercise and weight loss.Satur ations 99% on room air at rest todayCXR 03/2022 normal Allergic rhinitis 716448 04 J30.9 2 gen antihistam ineSaline nasal rinsesDecl vitaliy aeronautical engineering officer referral [id number] Mónica Crowley MD S[facility] [place] [address] [place] [address] 10/19/2022 08:49:59 10/19/2022 09:41:28 Well controlled type 2 diabetes mellitus 895652841 E11.9 a1c of 5.7%- continue on low dose glimepirid e scale along with jardiance as patient tolerating well. Discussed carb counting and how to read food labels. Recommende d patient to utilize the diabetesfo [employer] from the ADA website to help with food preparatio n as this presents ideal carb content per meal so this will make carb counting much easier for patient. Recommende d she incorporat e natural insulin tire curer s such as pears, apples, cinnamon, holly and sweet potatoes to help mobilize her endogenous insulin. Recommende d up to 150 minutes of moderate level activity/e xercise weekly. Hypothyroidism 25076917 E03.9 TSH in range- continue on LT4 [...] and minerals and reduce inflammati on. Dyslipidemia 993972110 E 78.5 Continue on statin therapy as LDL in range. Postmenopa usal osteoporosis 111206489 M81.0 Send for refill request for prolia [...] she chooses to go outside of the [facility] system to obtain labwork she was [...] in her case. She voiced understand ing. [id number] Mónica Crowley MD [facility] [place] [address] [place] [address] 11/06/2022 08:57:49 11/06/2022 09:36:11 Postmenopausal osteoporosis 132040467 M81.0 Patient tolerated prolia injection without site [...] None Recorded Advance Directives Directive N: Payers Insurance Date Sequence Insurance Name Policy Number Policy Miranda Covered Member ID Miranda Member ID Guarantor Name 04/02/2023 1 [facility] (MEDICARE REPLACEMENT/A DVANTAGE - HMO) [id number] Katlin Powell [id number] Katlin Powell 04/02/2023 2 [place] Katlin Powell [id number] Katlin Powell Notes Date Note Type Note Provider Name [...] Ellipta 200 one puff daily, this is affordableShe can complete ADLs without difficultyContinues to use [...] low energy levels and fatigue Felipa Dey, [facility] [address] [facility], [facility] [address], [place], [address], [place] 09/30/2022 13:26:59 3 text/html 77 yo female [...] 2.6 pg/mLCr 1.10 mg/dl with GFR 48 ml/ovd384/213/52/102gluc ose 167 mg/dLLFT highTSH of 2.71 uIU/mlFT4 of 1.24 ng/dLa1c 5.7%PTH 24 pg/ML with normal calciumvit D 53 ng/mL Mnóica Crowley MD [address], [place], [address], [place] 10/19/2022 14:20:36 3 text/html 77 yo female comes in for prolia injection in management of osteoporosis. Mónica Crowley MD [address] [facility], [facility] [address], [place], [address], [facility] 11/06/2022 16:44:12 OBGyn Episode No OBEpisode recorded.
--- OUTSIDE RECORDS SUMMARY | 2024-10-29 10:17 | XMS_ITS | Continuity of Care Document ---
Author Organization [facility] Address [address] [place] [address] Phone Care Team Providers Care Client Strategist Name Role Phone Henrry Olson MD Unavailable [...] Diagnoses Date Provider Providers Copied on Encounter [facility], [address] [place], [place], [address], [place] tel:[phone] [facility] No Information 1 Wesley Sales. [address], [place], [place], [address] , [place]. tel:[phone] OFFICE/OUTPA TIENT VISIT, [facility], [address] [place], [place], [address], [place] tel:[phone] [facility] knee pain1 (chief complaint) Pain in right knee 0 Wesley Sales. [address], [place], [place], [address] , [place]. [phone] Referring Provider: Noe Calvo [address], [place], [place], [address]. tel:[phone] OFFICE/OUTPA TIENT VISIT, [facility], [address], [place], [place], [address], [place] tel:[phone] [facility] shoulder pain1 (chief complaint)DM (chief complaint)cass st pain1 (chief complaint) Pain in left shoulderChest painType 2 diabetes mellitus without complicationsEnc ounter for other preprocedural examination 0 Wesley Sales. [address], [place], [place], [address] , [place]. [phone] Referring Provider: Noe Calvo [address], [place], [address]. tel:[phone] OFFICE/OUTPA TIENT VISIT, [facility], [address], [place], [place], [address], [place] tel:[phone] [facility] shoulder pain1 (chief complaint)HTN (chief complaint)thy roid1 (chief complaint)sle ep apnea1 (chief complaint) Essential (primary) hypertensionPain in left shoulderHypothyr oidismSleep apnea 0 Wesley Boykin [address], [place], [place], [address] , [place]. [phone] Referring Provider: Noe Calvo [address], [place], [place], [address]. tel:[phone] OFFICE/OUTPA TIENT VISIT, [facility], [address], [place], [address], [place] tel:[phone] [facility] shoulder pain1 (chief complaint)HTN (chief complaint)ost eoporosis1 (chief complaint) Pain in left shoulderPain in left handEssential (primary) hypertensionOste oporosis 9 Wesley Sales. [address], [place], [address] , [place]. [phone] Referring Provider: Noe Calvo [address], [place], [place], [address]. tel:[phone] OFFICE/OUTPA TIENT VISIT, [facility], [address], [place], [address], [place] tel:[phone] [facility] abd pain1 (chief complaint)fat ty liver1 (chief complaint)div ercitulosis1 (chief complaint) Renal stoneAbdominal painSleep apneaFatty liverDiverticulo sis of intestine without abscess with bleedingOsteopor osis 9 Wesley Boykin [address], [place], [place], [address] , [place]. [phone] Referring Provider: Noe Calvo [address], [place], [address]. tel:[phone] [facility], [address], [place], [address], [place] tel:[phone] [facility] No Information 9 Wesley Boykin [address], [place], [address] , [place]. tel:[phone] OFFICE/OUTPA TIENT VISIT, [facility], [address], [place], [place], [address], [place] tel:[phone] [facility] itchy rash1 (chief complaint)abd pain1 (chief complaint)LFT (chief complaint)Pre DM (chief complaint) Tinea corporisAbdomina l painFatty liverType 2 diabetes mellitus without complications 9 Wesley Boykin [address], [place], [address] , [place]. tel:[phone] Referring Provider: Noe Calvo [address], [place], [address]. tel:[phone] OFFICE/OUTPA TIENT VISIT, [facility], [address], [place], [address], [place] tel:[phone] [facility] Medicine PHysical (chief complaint) Encounter for general adult medical exam w abnormal findingsAbdomina l painHypothyroidi smSleep apnea 9 Wesley Sales. [address], [place], [address] , [place]. [phone] Referring Provider: Noe Calvo [facility] [address], [place], [place], [address]. tel:[phone] OFFICE/OUTPA TIENT VISIT, [facility], [address], [place], [place], [address], [place] tel:[phone] [facility] parathyroid1 (chief complaint)HTN (chief complaint)IBS 1 (chief complaint) OsteoporosisIrri table bowel syndrome with diarrheaEssentia l (primary) hypertensionHype rcalcemia 9 Wesley Sales. [address], [place], [address] , [place]. [phone] Referring Provider: [address], [place], [address]. tel:[phone] OFFICE/OUTPA TIENT VISIT, [facility], [address], [place], [address], [place] tel:[phone] [facility] parathyroid1 (chief complaint)IBS 1 (chief complaint)ost eoporosis1 (chief complaint)HTN (chief complaint) OsteoporosisEsse ntial (primary) hypertensionDiso rder of parathyroid gland, unspecifiedIrrit able bowel syndrome with diarrhea 8 Wesley Sales. [address], [place], [address] , [place]. [phone] Referring Provider: Noe Calvo [facility] [address], [place], [address]. tel:[phone] OFFICE/OUTPA TIENT VISIT, [facility], [address], [place], [address], [place] [phone] [facility] Medicine osteoporosis1 (chief complaint)enrrique rrhea1 (chief complaint)jur y duty1 (chief complaint)hyp othyroidism1 (chief complaint) OsteoporosisDiar rheaHypothyroidi smSleep apnea 8 Wesley Sales. [address], [place], [address] , [place]. [phone] Referring Provider: Noe Calvo [facility] [address], [place], [address]. tel:[phone] OFFICE/OUTPA TIENT VISIT, [facility], [address], [place], [place], [address], [place] tel:[phone] [facility] HLP (chief complaint)DM (chief complaint)PTH (chief complaint)ost eoporosis1 (chief complaint) HypercalcemiaHyp othyroidismMixed hyperlipidemiaOs teoporosisMetabo lic syndromeSleep apnea 8 Wesley Boykin [address], [facility] [address], [place], [address] , [place]. tel:[phone] Referring Provider: Noe Calvo [facility] [address], [place], [address]. tel:[phone] OFFICE/OUTPA TIENT VISIT, [facility], [address] [place], [address], [place] tel:[phone] [facility] Physical (chief complaint) Encounter for general adult medical exam w abnormal findingsOsteopor osisHypothyroidi smHypercalcemiaM ixed hyperlipidemiaEs sential (primary) hypertension 8 Wesley Boykin [address], [place], [address] , [place]. tel:[phone] Referring Provider: Noe Calvo [address] [facility] [address], [place], [address]. tel:[phone] OFFICE/OUTPA TIENT VISIT, [facility], [address], [place], [address], [place] tel:[phone] [facility] heel pain1 (chief complaint)cass st pain1 (chief complaint)HTN (chief complaint)ost eoprossis (chief complaint) OsteoporosisEsse ntial (primary) hypertensionChes t painPain in right foot 8 Wesley Sales. [address], [place], [address] , [place]. tel:[phone] Referring Provider: Noe Calvo [address], [place], [place], [address]. tel:[phone] OFFICE/OUTPA TIENT VISIT, [facility], [address], [place], [address], [place] tel:[phone] [facility] hypothyroidis m1 (chief complaint)ost eoporosis1 (chief complaint)griselda ulder pain1 (chief complaint)ast hma1 (chief complaint) HypothyroidismPa in in right shoulderOsteopor osisAsthma 7 Wesley Sales. [address], [place], [address] , [place]. tel:[phone] Referring Provider: Noe Calvo [address], [place], [address]. tel:[phone] OFFICE/OUTPA TIENT VISIT, [facility], [address], [place], [address], [place] tel:[phone] [facility] breast nodule1 (chief complaint) Nodule in breast 7 Wesley Sales. [address], [place], [address] , [place]. tel:[phone] Referring Provider: Noe Calvo [address], [place], [address]. tel:[phone] OFFICE/OUTPA TIENT VISIT, [facility], [address], [place], [address], [place] tel:[phone] [facility] HLP (chief complaint)met abolic (chief complaint)HTN (chief complaint)PTH (chief complaint)blake ght loss1 (chief complaint) HyperlipidemiaEs sential (primary) hypertensionAbno rmal weight lossHypothyroidi sm 7 Wesley Sales. [address], [place], [address] , [place]. [phone] Referring Provider: Noe Calvo [address], [place], [address]. tel:[phone] OFFICE/OUTPA TIENT VISIT, [facility], [address], [place], [address], [place] [phone] [facility] Fatty liver1 (chief complaint)DM (chief complaint)HLP (chief complaint)ost eoporosis1 (chief complaint)HTN (chief complaint) OsteoporosisMixe d hyperlipidemiaEs sential (primary) hypertensionFatt y liver Wesley Sales. [address], [place], [address] , [place]. [phone] Referring Provider: Noe Calvo [address] [facility] [address], [place], [address]. tel:[phone] OFFICE/OUTPA TIENT VISIT, [facility], [address] [place], [address], [place] [phone] [facility] dM (chief complaint)jameel al disease (chief complaint)par athyroid (chief complaint)HLP (chief complaint)UTI 1 (chief complaint) Type 2 diabetes mellitus with diabetic nephropathyMixed hyperlipidemiaHy percalcemiaUrina ry tract infection 6 Wesley Sales. [address], [place], [address] , [place]. tel:[phone] Referring Provider: Noe Calvo [facility] [address], [place], [address]. tel:[phone] OFFICE/OUTPA TIENT VISIT, [facility], [address], [place], [place], [address], [place] tel:[phone] [facility] osteoporosis1 (chief complaint)par athyroidism (chief complaint)HTN (chief complaint) OsteoporosisEsse ntial (primary) hypertensionDiso rder of parathyroid gland, unspecifiedEncou nter for oth screening for malignant neoplasm of breast 6 Wesley Sales. [address], [place], [place], [address] , [place]. tel:[phone] Referring Provider: Noe Calvo [facility] [address], [place], [place], [address]. tel:[phone] OFFICE/OUTPA TIENT VISIT, [facility], [address], [place], [address], [place] tel:[phone] [facility] hLP (chief complaint)thy roid1 (chief complaint)ost eoprosis1 (chief complaint)jameel al disease (chief complaint) OsteoporosisHypo thyroidismMixed hyperlipidemiaMe tabolic syndrome 6 Wesley Boykin [address], [place], [address] , [place]. [phone] Referring Provider: Noe Calvo, [place], [address]. tel:[phone] OFFICE/OUTPA TIENT VISIT, [facility], [address] [place], [address], [place] tel:[phone] [facility] vertigo1 (chief complaint)HTN (chief complaint)Ast hma (chief complaint)hyp erparathyroid (chief complaint) AsthmaEssential (primary) hypertensionVert igoHypothyroidis m 6 Wesley Boykin [address] [facility] [address], [place], [address] , [place]. tel:[phone] Referring Provider: Noe Calvo, [place], [place], [address]. tel:[phone] OFFICE/OUTPA TIENT VISIT, [facility], [address], [place], [place], [address], [place] tel:[phone] [facility] asthma (chief complaint)HLP 1 (chief complaint)HTN (chief complaint)ost oporosis1 (chief complaint) OsteoporosisEsse ntial (primary) hypertensionMixe d hyperlipidemiaAs thma 6 Wesley Sales. [address], [place], [place], [address] , [place]. tel:[phone] Referring Provider: Henrry Olson, [address], [place], [place], [address]. tel:[phone] OFFICE/OUTPA TIENT VISIT, [facility], [address], [place], [place], [address], [place] tel:[phone] [facility] tremor (chief complaint) Dietary surveillance and counselingTremor 5 Wesley Sales. [address], [place], [address] , [place]. [phone] Referring Provider: Noe Calvo [address], [place], [place], [address]. tel:[phone] OFFICE/OUTPA TIENT VISIT, [facility], [address], [place], [address], [place] tel:[phone] [facility] HLP (chief complaint)ost eoporosis (chief complaint)pre DM (chief complaint)jameel al (chief complaint) Dietary surveillance and counselingUnspec ified hypothyroidismOt her and unspecified hyperlipidemiaUn specified essential hypertensionOthe r disorders of bone and cartilage 5 Wesley Sales. [address], [place], [address] , [place]. tel:[phone] Referring Provider: Noe Calvo [address], [place], [address]. tel:[phone] OFFICE/OUTPA TIENT VISIT, [facility], [address], [place], [address], [place] tel:[phone] [facility] knee pain (chief complaint)HLP (chief complaint)hyp othyroidism (chief complaint)ast hma (chief complaint) Dietary surveillance and counselingUnspec ified hypothyroidismOt her and unspecified hyperlipidemiaPa in in joint involving lower legAsthma 5 Wesley Sales. [address], [place], [address] , [place]. tel:[phone] Referring Provider: Noe Calvo [address], [place], [address]. tel:[phone] OFFICE/OUTPA TIENT VISIT, [facility], [address], [place], [place], [address], [place] tel:[phone] [facility] renal (chief complaint)HLP (chief complaint)HTN (chief complaint)UTI (chief complaint) Dietary surveillance and counselingRenal Insufficiency, AcuteHypertensio n, UnspecifiedHyper parathyroidism, unspecifiedOther and unspecified hyperlipidemia 5 Wesley Sales. [address], [place], [address] , [place]. tel:[phone] Referring Provider: Noe Calvo [address], [place], [address]. tel:[phone] OFFICE/OUTPA TIENT VISIT, [facility], [address], [place], [place], [address], [place] tel:[phone] [facility] prediabetic (chief complaint)jameel al function (chief complaint)abd ominal pain (chief complaint)UTI (chief complaint) Dietary surveillance and counselingMetabo lic SyndromeChronic kidney disease, unspecifiedUrina ry Tract InfectionOther chronic nonalcoholic liver disease 5 Wesley Boykin [address], [place], [address] , [place]. tel:[phone] Referring Provider: Noe Calvo [address], [place], [place], [address]. tel:[phone] OFFICE/OUTPA TIENT VISIT, [facility], [address], [place], [place], [address], [place] tel:[phone] [facility] HTN (chief complaint)hyp othyroidism (chief complaint)HLP (chief complaint)debbie etite loss (chief complaint)art hritis (chief complaint) Dietary surveillance and counselingDisord er of bone and cartilage, unspecifiedHypot hyroidismHyperte nsion, UnspecifiedAnore jaycee 5 Wesley Sales. [address], [place], [address] , [place]. tel:[phone] Referring Provider: Noe Calvo [address], [place], [address]. tel:[phone] OFFICE/OUTPA TIENT VISIT, [facility], [address], [place], [place], [address], [place] tel:[phone] [facility] knee pain (chief complaint) Dietary surveillance and counselingPain in joint involving lower leg 4 Wesley Sales. [address], [place], [place], [address] , [place]. tel:[phone] Referring Provider: Noe Calvo [address], [place], [place], [address]. tel:[phone] OFFICE/OUTPA TIENT VISIT, [facility], [address], [place], [address], [place] tel:[phone] [facility] knee pain (chief complaint)hyp erparathyroid ism (chief complaint)ost eoporosis (chief complaint) Dietary surveillance and counselingHyperp arathyroidism, unspecifiedHypot hyroidismDisorde r of bone and cartilage, unspecified 4 Wesley Boykin [address], [place], [address] , [place]. tel:[phone] Referring Provider: Noe Cal[address], [place], [place], [address]. tel:[phone] OFFICE/OUTPA TIENT VISIT, [facility], [address], [place], [address], [place] tel:[phone] [facility] osteoporosis (chief complaint)HTN (chief complaint)vit garcia d (chief complaint) Disorder of bone and cartilage, unspecifiedHyper tension, UnspecifiedDieta ry surveillance and counselingUnspec ified vitamin d deficiency 4 Wesley Boykin [address], [place], [address] , [place]. tel:[phone] Referring Provider: Noe Calvo [address], [place], [address]. tel:[phone] OFFICE/OUTPA TIENT VISIT, [facility], [address], [place], [address], [place] [phone] [facility] PTH (chief complaint)car diac murmur (chief complaint)kne e pain (chief complaint) Dietary surveillance and counselingHyperp arathyroidism, unspecifiedMurmu rPain in joint involving lower leg 4 Wesley Boykin [address], [place], [address] , [place]. [phone] Referring Provider: Noe Calvo [facility] [address], [place], [place], [address]. tel:[phone] OFFICE/OUTPA TIENT VISIT, [facility], [address], [place], [address], [place] [phone] [facility] glucose (chief complaint)LFT (chief complaint)UTI (chief complaint)thy roid (chief complaint) Dietary surveillance and counselingHypoth yroidismHyperpar athyroidism, unspecifiedUnspe cified chronic liver disease without mention of alcoholMurmur 4 Wesley Boykin [address], [place], [address] , [place]. tel:[phone] Referring Provider: Noe Calvo [address], [place], [address]. tel:[phone] OFFICE/OUTPA TIENT VISIT, [facility], [address], [place], [place], [address], tel:[phone] [facility] PTH elevation (chief complaint)HLP (chief complaint)hyp othyroidism (chief complaint)HTN (chief complaint) Hyperparathyroid ism, unspecifiedHyper tension, UnspecifiedOther and unspecified hyperlipidemiaHy pothyroidismDiet mary surveillance and counseling 4 Wesley Sales. [address], [place], [place], [address] , [place]. tel:[phone] Family History Family Member Type Diagnosis Age [...] left shoulder) ordered Referral Referred To: Lex Walekr [address] [facility] [address] [facility]SHAW [facility] [address] [place], [place] [id number] Ordered: Referrals: Allopathic & Osteopathic Physicians : Orthopaedic Surgery. Lex Walker. Evaluate and treat ordered Referral Referred To: Physical Therapy Ordered: Referrals: Physical Therapy. Evaluate and treat ordered Referral Ordered: US EXAM, EXTREMITY ordered Referral Referred To: Ezequiel Slaughter MD [address] [place], [address] Ordered: Referrals: Ezequiel Slaughter MD. Evaluate and treat ordered Referral Referred To: Brad Ferrer MD Ordered: Referrals: Brad Ferrer MD. Evaluate and treat ordered Referral Ordered: SHANNAN CARL -Allopathic & Osteopathic Physicians : Surgery (related to Renal stone) ordered Referral Referred To: SHANNAN CARL [address] [place], [place], [phone] Ordered: Referrals: Allopathic & Osteopathic Physicians : Surgery. SHANNAN CARL. Evaluate and treat ordered Referral Ordered: CT ABDOMEN&PELVIS W/CONTRAST ordered Referral Ordered: Karson Hammonds (related to Chest pain) ordered Referral Ordered: Podiatry (related to Pain in right foot) ordered Referral Referred To: Karson Hammonds [address] [place], [place] [address] Ordered: Referrals: Karson Hammonds. Evaluate and treat ordered Referral Ordered: Referrals: Podiatry. Evaluate and treat ordered Referral Ordered: [facility] [employer] (related to Pain in right shoulder) ordered Referral Ordered: US CAROTID ordered Referral Referred To: [facility] love [facility] you [address] [place] [address] Ordered: Referrals: [employer] Evaluate and treat [...] Pt has debbie with cardiology on 06/29/19 sleep apnea1 Pt does not use cpap. Pt is noncompliant. Pt denies any fatigue or snoring now. Pt states that she sleeps ok thyroid1 Pt has low thyro id. Pt is seeing endo and she is getting her synthroid from endo. HTN Pt takes norvasc and metoprolol. Cardiology decreased metoprolol from 100 mg to 50 mg due to recent slow heart rate and low BP. Her BP is borderline high shoulder pain1 Pt has chronic l ateral [...] arthritis. pt did not receive any injections shoulder pain1 Pt c/o left shou lder [...] of bowel or blood in stool, diarrhea Pre DM Pt is pre diabet ic. Pt is taking metformin ER 1000 mg daily now. her most recent A1c is 6.5, which is up from in the past. Pt denies any polyuria, polydipsia LFT Pt has mild high LFt on recent lab Pt denies any jaundice. Pt does not drink alcohol itchy rash1 Pt c/o itchy prosper h [...] will have parathyroid surgery for soon at [facility]. Pt denies any dysphagia. IBS1 Pt [...] Pt denies any chest pain or headache hypothyroidism1 Pt has low thyro id. Pt is seeing Dr. Crowley now. Pt needs synthroid refilled Pt also is being worked up for parathyroid. diarrhea1 Pt has been havi ng persistent diarrhea for 3 months. Pt denies any blood in stool. Pt has some abdominal cramp. Pt denies any abdominal pain with food. Pt denies any nausea, vomiting. Pt states that she has diarrhea soon after any type of food. Pt has diarrhea 3-4 times per day. Pt denies any GERD. osteoporosis1 Pt has osteoporo sis. Pt takes calcium and vitamin D and is trying weight bearing exercise. Pt has been on fosamax for over 5 years. Her bone density showed osteoporosis. Pt denies any fracture jury duty1 Pt wants to avoi d jury duty. Pt states that she does not want to do the jury duty osteoporosis1 Pt has osteoporo sis Pt takes calcium and D and fosamax. Pt cannot do bone density until next month. Pt denies any fx PTH Pt has elevated PTH and her ionized calcium is normal. Her TSh is normal. pt is seeing endo. Pt takes synthroid. Pt has autoimmune thyroid disease. DM P thas mild insu ras resistance. Pt takes metformin. Her A1c is mildly high. Pt denies any polyuria polydipsia HLP Pt has mild HLP Pt takes pravastatin. Her lipid profile is till mildly elevated. pt denies any myalgia Physical Pt needs annual physical. Pt has [...] is on fosamax and calcium and D asthma1 pt has asthma. P t uses breo now. Pt uses ventolin 1-2 per week. Pt does not smoke. Pt sees pulmonary MD shoulder pain1 Pt c/o right pot erior shouder pain for 4 weeks, Pt denies any injury. Pt notices achy pain, worse with movement of the right arm. Pt also notices pain right lateral neck area along with the pain. Pt denies any neck pain. Pt denies any radiculopathy or hand numbness. osteoporosis1 Pt has osteoporo sis. Pt has been taking fosamax for 2-3 years. pt takes calcium and vitamin D also. Pt denies any fracture. hypothyroidism1 Pt has low thyro id. Pt takes synthyroid. Pt denies any chest pain or headache breast nodule1 Pt has right lebron ast [...] renal disease Pt will have jameel al michele. 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 Pt takes synthroid for hypothyroidism. Her endo just retired. Asthma The initial visi t date was 09/19/2014. Additional information: Pt uses flovent and albuterol. Pt feels SOB BID. Pt could not tolerate the PFT. No acute SOB. HTN Pt takes enalapr il , norvasc and metoprolol, Her BP is stalbe. vertigo1 Pt c/o vertigo f or 4 weeks. Pt denies any headache. Pt denies any orthostasis. Pt just feel vertigo feeling randomly. pt denies any vision, loss. Pt denies any chest pain or headache. Pt denies any ear pain or any hearing loss or any tinnitus ostoporosis1 Pt has osteoporo sis. Pt atkes calcium and vitamin D and fosamax. Pt denies any fx. Pt denies any GERD symptoms or abd pain HTN Pt takes norvas, metoprolol and enlapril and her BP is stable. Pt denies any chest pain or headache HLP1 Pt takes pravast atin and lopid and doing ok. Pt denies any myalgia asthma The initial visi t date was 09/19/2014. Additional information: Pt uses qvar and albuterol. pt uses albuterol almost daily. Pt does not smoke. Insurance does not cover qvar anymore. tremor Additional infor mation: Pt c/o tremor around both hand for the past several weeks. Pt denies any neurologic deficit. Pt denies any headache or speech problem. Pt denies any weakness or numbness. preDM A1c is 6.1 Pt de nies any polyruia, polydipsia renal PT has intermite nt low GFR but not bad. Pt had normal ultrasound. HLP Pt takes pravast atin and lopid and her cholesterol is good. Pt denies any myalgia osteoporosis Additional infor mation: Pt takes fosamax and calcium and vitamin D. Pt is doing weight bearing exercise. knee pain Location: knee. Additional information: Pt [...] o Body mass index (BMI) 35.0-35.9, adult Weight management Related to Enc ounter for [...]
--- OUTSIDE RECORDS SUMMARY | 2024-10-29 10:17 | XMS_ITS | Clinical Summary ---
Author Organization [facility] Address [address] [place] [id number] Care Team Providers Care Director Of Physical Security Name Role Phone Henrry Olson MD Primary Care Provider [phone] Dean Flaherty MD Unavailable Farshad Farrar Unavailable [phone] Allergies Active Allergy Reactions Criticality Noted Date [...] total) by mouth daily Active HYDROcodone-ac etaminophen ([place]) 5-325 mg per tabletIndicati ons:Pain 1 tabs [...] (06/05/2019): Added automatically from request for surgery [id number] Biceps tendinitis of left upper extremity 2019 Overview (06/05/2019): Added automatically from request for surgery [id number] Arthritis of left acromioclavicular joint 2019 Overview (06/05/2019): Added automatically from request for surgery [id number] Impingement syndrome of left shoulder 06/05/2019 Overview (06/05/2019): Added automatically from request for surgery [id number] Diabetes mellitus 01/06/2018 Overview (09/22/2023): Added automatically from request for surgery [id number] Sleep apnea 01/06/2018 Daytime hypersomnia 10/07/2017 Obesity with body mass index 30 or greater 10/07 Postmenopausal osteoporosis 03/11/2017 Assessment & Plan (09/23/2017 9:14 AM CDT): On Fosamax Weight bearing exercise and fall precautions discussed. Assessment & Plan (03/11/2017 9:36 AM TELERADIOLOGIST): Check DEXA Fall precautions. Daily weight bearing [...] taken. Assessment & Plan (03/11/2017 9:24 AM TELERADIOLOGIST): Check TSH, free T4 Adjust dose of [...] Medical CVA subclinical Asthma Asthma; Comments : [facility] 01/11/2014 - Rheumatoid arthritis (HCC) Rheum atoid arthritis; Comments: [facility] 01/11/2014 - Hypercholesterolemia High choles terol; Comments: [facility] 01/11/2014 - Hypertension Hypertension Disorder of thyroid [...] on file Legal Sex Female 11:54 PM TELERADIOLOGIST Gender Identity Not on file Sexual Orientation Not on file Obstetrics History Last Filed Vital Signs Vital Sign Reading Time Taken Comments Blood Pressure 116/70 11/24/2023 8:43 AM CDT Pulse 63 11/24/2023 8:43 AM CDT Temperature 36.2 C (97.1 F) 04/29/2020 8:29 AM TELERADIOLOGIST Respiratory Rate 18 09/06/2019 10:53 AM CDT [...] 01/25/2017, 11/2015 Medical Devices Implanted Type Area Groundman/Lineman Device Identifier Shelf Expiration Date Model / Serial / Lot Depuy Mitek [id number] Healix Advance Br Orthocord 4.5mm 3 Frazer Suture Sterile Latex Free - [id number] Implanted:Qty: 1 on 06/29/2019 by Lex Walker MD at [facility] Left: Shoulder Depuy Mitek 07/25/2019 [id number] / / [id number] Barry [employer] Nephew 2504-1 Regenerate Tendon Frazer Suture - [id number] Implanted:Qty: 1 on 06/29/2019 by Lex Walker MD at [facility] Left: Shoulder [employer] Nephew 12/01/2019 2504-1 / / [id number] Barry & Nephew/Richco/Or tho 4565 Implant Medium Arthroscopic Bioinductive W/ Delivery Device - [id number] Implanted:Qty: 1 on 06/29/2019 by Lex Walker MD at [facility] Left: Shoulder [employer]hew/Richco/Or tho 12/29/2021 [id number] / / [id number] Bone Anchors With Arthroscopic Delivery System Advanced Implanted:Qty: 1 on 06/29/2019 by Lex Walker MD at [facility] Left: Shoulder [employer] Nephew [id number] 03/21/2022 [id number] / / [id number] Arthrex Inc Ar-2323bcc Swivelock C 5.5mm 19.1mm Closed Eyelet Vent Frazer Suture - [id number] Implanted:Qty: 1 on 06/29/2019 by Lex Walker MD at [facility] Left: Shoulder Ar[employer]rex Inc 10/23/2020 AR-2323BC C / / [id number] Procedures Procedure Name Priority Date/Time Associated Diagnosis [...] Most Recently Relevant to Health Maintenance Insurance [place] MEDICARE RAILROAD [facility] Address: [address] [address] [place] [address] MEDICARE RAILROAD IDKS MEDICARE RAILROAD IDKS [facility] MEDICARE ADVANTAGE IDPA Advance Directives For more information, please contact: [phone] * Full Code (Latest Code Status on File) Date Activated Date Inactivated Comments 05/17/2018 11:43 AM 05/18/2018 1:46 PM Care Teams Director Of Physical Security Relationship Specialty Start Date End Date Henrry Olson MD PCP - General 07/24/16 [place] [address] [place] [address] Consulting Physician Endocrinology Diabetes & Metabolism 06/01/18 Farshad Farrar PA [address] [place] [address] Physician Realtime Reporter Orthopedic Surgery 06/29/19
--- OUTSIDE RECORDS SUMMARY | 2024-10-29 10:17 | XMS_ITS | Referral Summary ---
Author Organization [facility] Address [address] [place] [address] Care Team Providers Care Behavioral Health Associate Name Role Phone Henrry Olson MD Primary Care Provider [phone] Dean Flaherty MD Unavailable Farshad Farrar Unavailable [phone] Allergies Active Allergy Reactions Criticality Noted Date [...] total) by mouth daily Active HYDROcodone-ac etaminophen ([place]) 5-325 mg per tabletIndicati ons:Pain 1 tabs [...] (06/05/2019): Added automatically from request for surgery [id number] Biceps tendinitis of left upper extremity 2019 Overview (06/05/2019): Added automatically from request for surgery [id number] Arthritis of left acromioclavicular joint 2019 Overview (06/05/2019): Added automatically from request for surgery [id number] Impingement syndrome of left shoulder 06/05/2019 Overview (06/05/2019): Added automatically from request for surgery [id number] Diabetes mellitus 01/06/2018 Overview (09/22/2023): Added automatically from request for surgery [id number] Sleep apnea 01/06/2018 Daytime hypersomnia 10/07/2017 Obesity with body mass index 30 or greater 10/07 Postmenopausal osteoporosis 03/11/2017 Assessment & Plan (09/23/2017 9:14 AM CDT): On Fosamax Weight bearing exercise and fall precautions discussed. Assessment & Plan (03/11/2017 9:36 AM FLAVORINGS COMPOUNDER): Check DEXA Fall precautions. Daily weight bearing [...] taken. Assessment & Plan (03/11/2017 9:24 AM FLAVORINGS COMPOUNDER): Check TSH, free T4 Adjust dose of [...] on file Legal Sex Female 11:54 PM FLAVORINGS COMPOUNDER Gender Identity Not on file Sexual Orientation Not on file Last Filed Vital Signs Vital Sign Reading Time Taken Comments Blood Pressure 116/70 11/24/2023 8:43 AM CDT Pulse 63 11/24/2023 8:43 AM CDT Temperature 36.2 C (97.1 F) 04/29/2020 8:29 AM FLAVORINGS COMPOUNDER Respiratory Rate 18 09/06/2019 10:53 AM CDT Oxygen Saturation 98% 09/06/2019 10:53 AM CDT Inhaled Oxygen Concentration - - Weight 72.3 kg (159 lb 4.8 oz) 11/24/2023 8:43 A M CDT Height 154.5 cm (5' 0.83) 11/24/2023 8:43 AM CD T Body Mass Index 30.27 11/24/2023 8:43 AM CDT Plan of Treatment Not on file Medical Devices Implanted Type Area Finishing Department Supervisor Device Identifier Shelf Expiration Date Model / Serial / Lot Depuy Mitek [id number] Healix Advance Br Orthocord 4.5mm 3 Cement Suture Sterile Latex Free - [id number] Implanted:Qty: 1 on 06/29/2019 by Lex Walker MD at [facility] Left: Shoulder Depuy Mitek 07/25/2019 [id number] / / [id number] Barry [employer] Nephew 2504-1 Regenerate Tendon Cement Suture - [id number] Implanted:Qty: 1 on 06/29/2019 by Lex Walker MD at [facility] Left: Shoulder [employer]hew 12/01/2019 2504-1 / / [id number] Barry [employer] Nephew/Richco/Or tho 4565 Implant Medium Arthroscopic Bioinductive W/ Delivery Device - [id number] Implanted:Qty: 1 on 06/29/2019 by Lex Walker MD at [facility] Left: Shoulder [employer]hew/Richco/Or tho 12/29/2021 [id number] / / [id number] Bone Anchors With Arthroscopic Delivery System Advanced Implanted:Qty: 1 on 06/29/2019 by Lex Walker MD at [facility] Left: Shoulder [employer]hew [id number] 03/21/2022 [id number] / / [id number] Arthrex Inc Ar-2323bcc Swivelock C 5.5mm 19.1mm Closed Eyelet Vent Cement Suture - [id number] Implanted:Qty: 1 on 06/29/2019 by Lex Walker MD at [facility] Left: Shoulder Arthrex Inc 10/23/2020 AR-2323BC C / / [id number] Procedures Procedure Name Priority Date/Time Associated Diagnosis [...] Payer ( fective 1972-) Name:Wade Quesada Member ID:[id number] Relation to Subscriber:Self Name:Wade Quesada Subscriber ID:[id number] Payer ID:[id number] Group ID:Not on file Type:MEDICARE TRADITIONAL [address] [facility] Address: [address] [address] [place] [address] IDPA [facility] MEDICARE ADVANTAGE IDPA Advance Directives For more information, please contact: [phone] * Full Code (Latest Code Status on File) Date Activated Date Inactivated Comments 05/17/2018 11:43 AM 05/18/2018 1:46 PM Care Teams Behavioral Health Associate Relationship Specialty Start Date End Date Henrry Olson MD PCP - General 07/24/16 [place] [address] [place] [address] Consulting Physician Endocrinology Diabetes & Metabolism 06/01/18 Farshad Farrar PA [address] [place] [address] [address] [place] [address] Physician Door Installer Orthopedic Surgery 06/29/19
--- OUTSIDE RECORDS SUMMARY | 2024-10-29 10:17 | XMS_ITS | Clinical Summary ---
Author Organization [facility] Address [address] [address] Care Team Providers Care Major League Baseball Player Name Role Phone Unavailable Primary Care Provider Unavailabl e Medications denosumab (Prolia) 60 mg/mL Syringe TO BE ADMINISTERED IN PHYSICIAN'S OFFICE. INJECT ONE SYRINGE SUBCUTANEOUSLY ONCE EVERY 6 MONTHS. 1 mL 1 10/29/2022 9:57 AM CDT 2 Active Encounters Date Type Department Care Team Description 10/11/2024 External Device Data [facility] ABSTRACTION Provider, Abstract 10/10/2024 External Device Data [facility] ABSTRACTION Provider, Abstract 09/19/2024 External Device Data [facility] ABSTRACTION Provider, [...] on file Legal Sex Female 7:34 AM QUANTITATIVE ANALYST Gender Identity Not on file Sexual Orientation Not on file Plan of Treatment Health Maintenance Due Date Last Done Comments DTAP/TDAP/TD VACCINES (1 - Tdap) 1965 PNEUMOCOCCAL VACCINE 50+ YEARS (1 of 1 - PCV) 09/10/18 97 ZOSTER VACCINE (1 of 2) 1996 OSTEOPOROSIS SCREENING 09/11/2011 RSV VACCINE (60+ or ) (1 - 1-dose 75+ series) 2021 INFLUENZA VACCINE (#1) 2024 Insurance RX [employer] RX Member Subscriber Plan / Payer (Ef fective for All Dates) Name:Katlin Powell Relation to Subscriber:Self Name:Katlin Powell Payer ID:Not on file Group ID:[id number] Type:RX Medicare Part D Address: [address] [place]
--- OUTSIDE RECORDS SUMMARY | 2024-10-29 10:18 | XMS_ITS | Clinical Summary ---
Author Organization [facility] Address [address] [place] [address] Phone Care Team Providers Care Obstetrician/Gynecologist Name Role Phone Unavailable Primary Care Provider [...] MG tablet 5 Active ergocalciferol (VITAMIN D-2) 42839 units capsule 1 q2wks 0 6 Active [...] Comments Blood Pressure 122/70 04/06/2018 12:01 AM COURTESY BOOTH CASHIER Pulse 72 04/06/2018 12:01 AM COURTESY BOOTH CASHIER Temperature 36.1 C (96.9 F) 04/06/2018 12:01 AM COURTESY BOOTH CASHIER Respiratory Rate - - Oxygen Saturation - - Inhaled Oxygen Concentration - - Weight 78 kg (172 lb) 04/06/2018 12:01 AM COURTESY BOOTH CASHIER Height 152.4 cm (5') 04/06/2018 12:01 AM COURTESY BOOTH CASHIER Body Mass Index 33.59 04/06/2018 12:01 AM COURTESY BOOTH CASHIER Plan of Treatment Not on file
--- OUTSIDE RECORDS SUMMARY | 2024-10-29 10:18 | XMS_ITS | Clinical Summary ---
Author Organization [facility] Care Team Providers Care Relay Tester Helper Name Role Phone Unavailable Primary Care Provider [...]
[2024-10-29 10:41] LABS: Hematocrit 37.7 % (37.0-47.0); Hemoglobin 12.3 g/dL (12.0-15.0); Immature Granulocyte Percent A 0.5 % (0-0.5); Lymphocytes Absolute Auto 1.41 K/mm3 (0.9-3.2); Mean Corpuscular HGB Conc 32.6 g/dl (32-36); Mean Corpuscular Hemoglobin 29.9 pg (26-34); Mean Corpuscular Volume 91.5 fl (80-100); Nucleated Red Blood Cells Absolute Auto 0.000 K/mm3 (0.0-0.012); Nucleated Red Blood Cells Perc 0.0 % (0.0-0.2); Platelet Count Result 190 k/mm3 (150-375); Red Blood Count 4.12 M/mm3 (4.2-5.4); White Blood Count 8.0 K/mm3 (4.5-10.0)
[2024-10-29 10:51] LABS: Alanine Aminotransferase 29 U/L (6-35); Albumin Level 4.3 g/dL (3.5-5.1); Alkaline Phosphatase 46 U/L (38-126); Anion Gap 8 mmol/L (4-12); Aspartate Amino Transferase 35 U/L (14-36); Bilirubin,Total 0.6 mg/dL (0.2-1.3); Blood Urea Nitrogen 16 mg/dL (7-17); Calcium 8.9 mg/dL (8.4-10.2); Carbon Dioxide 24 mmol/L (22-30); Chloride 104 mmol/L (98-107); Estimated Glomerular Filt Rate 45; Glucose 92 mg/dL (65-110); Potassium 3.5 mmol/L (3.4-5.0); Sodium 136 mmol/L (137-145); Total Protein 7.6 g/dL (6.3-8.2)
[2024-10-29 10:52] LABS: INR 1.1; Prothrombin Time 14.8 Seconds (11.1-14.7)
[2024-10-29 10:53] LABS: Partial Thromboplastin Time 36.3 Seconds (22.3-36.8)
--- NOTE | 2024-10-29 10:58 | ECG_ITS ---
Test Date: 2024-10-29 11:55:16 Measurements Intervals [place] Rate: 66 P: 49 TN: 186 QRS: 0 QRSD: 85 T: 19 QT: 402 QTc: 423 Interpretive Statements SINUS RHYTHM Compared to ECG 09/09/2024 10:32:04 ST (T wave) deviation no longer present Electronically Signed On 10-29-2024 13:52:22 CDT by Joshua Langley M.D.
[2024-10-29 12:05] VITALS: BP 131/72; PULSE 74; RESP 18; O2SAT 99
--- NOTE | 2024-10-29 12:36 | PM.IMHP ---
H&P: HPI History of Present Illness Date/Time: 10/29/24 12:36 Chief Complaint: Fall, Hip Pain Narrative: 79 y/o F with PMH of CKD, CVA, hypothyroidism, diabetes, dyslipidemia, hypertension, and DAVID on CPAP presents here with ground level fall and hip pain. The patient presents here from home via EMS for further evaluation of hip pain s/p ground level fall. She reports today, on 10/29, she was walking across her kitchen when she started to pull off a piece of paper towel. Her foot got hung up on on her other foot causing her to fall. She fell onto her right hip. She denies loss of consciousness. She did hit her head on the door. She denies any precipitating dizziness, shortness of breath, palpitations, or chest pain. Post fall she reports significant pain in her right hip. Denies pain to her head or neck. She did not try to ambulate post-fall. EMS did try to help the patient to stand and she was unable to, they had to lift the patient to the stretcher. She arrived to the emergency department with shortening of her right lower extremity. She is on a daily aspirin, no further anticoagulation or anti-platelet therapy. At baseline she does not ambulate with an assistive device at baseline. She denies dysuria, urinary frequency, or urinary hesistancy. Initial VS at presentation: 97.8? F, HR 76, R 18, 138/82, and 95% on RA. ED workup showed: No leukocytosis, no anemia, INR 1.1, sodium 136, creatinine 1.17 and GFR 45 (1.31 and GFR 39 on 09/13/24). Hip/ pelvic XR showed a right-sided intertrochanteric fracture. Head CT showed no acute intracranial hemorrhage or suspicious mass effect. CXR showed no focal infiltrate or effusion. Review of Systems Review of Systems: All systems reviewed & are unremarkable except as noted in HPI and below PMFSH Past Medical History Medical History History of broken nose Symptomatic bone lesion with abnormal x-ray Right hip impingement syndrome DDD (degenerative disc disease) Hepatic steatosis CKD (chronic kidney disease) stage 3, GFR 30-59 ml/min Environmental allergies History of CVA (cerebrovascular accident) Hypothyroidism Type 2 diabetes mellitus without complications Asthma Hx of gout Osteoporosis Dyslipidemia Essential hypertension DAVID on CPAP Surgical History Surgical History H/O: hysterectomy Hx of bilateral breast reduction surgery Hx of tonsillectomy Hx of appendectomy Hx of repair of left rotator cuff (~2019) Social History Social History Smoking status: Never smoker Alcohol intake: never Alcohol use details: rarely Substance use: never Substance use type: does not use Do You Feel Safe in your Home?: Yes Lack of Transportation: YES Lack of Food: Never True Current Housing: I Have Housing Concerned About Future Housing: No Difficulty Paying Gas/Electric Bills: No Difficulty Paying for Meds: No Currently Unemployed: No Education: High School Diploma/GED Difficulty w/ Childcare or Family Care: No Living arrangements: with family Occupation/Education: retired Gender identity (if verbalized by the patient): Female Sexual Orientation (if Verbalized by the Patient): Straight or Heterosexual Spiritual care concerns: No Agree to blood products: Yes Meds Home Medications and Allergies Home Medications ?Medication ?Instructions ?Recorded ?Confirmed ?Type albuterol sulfate 90 mcg/actuation 2 inhalation inhalation Q4H PRN 12/14/19 10/29/24 History aerosol inhaler (Ventolin HFA) shortness of breath or wheezing aspirin 81 mg tablet,delayed 81 mg PO DAILY 12/14/19 10/29/24 History release blood sugar diagnostic (Blood #100 ea 06/07/20 09/22/24 Rx Glucose Test strips) omega-3 fatty acids 1,000 mg 1,000 mg PO BID 08/30/20 10/29/24 History capsule (Fish Oil Concentrate) blood pressure monitor (Blood #1 ea 01/31/21 09/22/24 Rx Pressure Kit) cholecalciferol (vitamin D3) 1,250 50,000 unit PO WEEKLY #90 tabs 12/29/22 10/29/24 Rx mcg (50,000 unit) tablet denosumab 60 mg/mL subcutaneous 60 mg subcut [id number] 01/12/23 10/29/24 History syringe (Prolia) allopurinol 100 mg tablet 100 mg PO DAILY #90 tabs 09/05/24 10/29/24 Rx fluticasone furoate 200 See Rx Instructions .Route 09/05/24 10/29/24 Rx mcg-vilanterol 25 mcg/dose .COMPLEX #180 ea inhalation powder (Breo Ellipta) montelukast 10 mg tablet 10 mg PO DAILY #90 tabs 09/05/24 10/29/24 Rx rosuvastatin 40 mg tablet 40 mg PO DAILY #90 tabs 09/05/24 10/29/24 Rx cyclobenzaprine 10 mg tablet 10 mg PO TID PRN muscle spasm #30 09/11/24 10/29/24 Rx tabs empagliflozin 25 mg tablet 25 mg PO DAILY #90 tabs 09/13/24 10/29/24 Rx (Jardiance) levothyroxine 50 mcg tablet 50 mcg PO DAILY #90 tabs 09/13/24 10/29/24 Rx tirzepatide 7.5 mg/0.5 mL 7.5 mg (0.5 mL) subcut WEEKLY 3 09/13/24 10/29/24 Rx subcutaneous pen injector months #6.5 mL Allergies Allergy/AdvReac Type Severity Reaction Status Date / Time oxycodone Allergy Unknown HIVES Verified 09/13/24 10:37 Penicillins Allergy Unknown Unknown Verified 09/13/24 10:37 metformin AdvReac diarrhea Verified 09/13/24 10:37 Vital Signs Vital Signs - 24 hr 10/29/24 09:42 10/29/24 12:05 Temperature 97.8 F Pulse Rate 76 74 Respiratory Rate 18 18 Blood Pressure 138/82 131/72 Pulse Oximetry 95 99 Exam Const: General: comfortable and no acute distress Other: , female, nontoxic appearance HENMT: Face/Nose/Sinus: Normal nares present Mouth: Yes moist mucous membranes Eyes: General: appearance normal, both eyes and all related structures Sclera: sclerae normal Pupils: Equal, round and reactive pupils present EOM: EOMs intact bilaterally Resp: Effort & Inspection: normal respiratory effort Auscultation: clear to auscultation bilaterally Cardio: Rate: regular rate Rhythm: regular rhythm Other: S1-S2 present without murmur, rub, ectopy GI: Other: Abdomen soft, nondistended, nontender. Normoactive bowel sounds in all quadrants. Skin: General skin exam: normal color and no rashes or lesions noted Wounds: no wounds Neuro: Speech: normal speech Motor exam (neuro): 5/5 motor strength present throughout Sensory Exam: normal sensation Other: A&O x4 Extrem: Other: DP pulses 2+. Very mild shortening of the right lower extremity. Tenderness over the right hip. Psych: Mental Status: mental status grossly normal Affect: normal affect Other: Good insight and judgment, pleasant H&P: Results Labs Labs: Short CBC 10/29/24 Range/Units 10:31 WBC 8.0 (4.5-10.0) K/mm3 Hgb 12.3 (12.0-15.0) g/dL Hct 37.7 (37.0-47.0) % Plt Count 190 (150-375) k/mm3 BMP 10/29/24 10:30 Sodium 136 L Potassium 3.5 Chloride 104 Carbon Dioxide 24 BUN 16 Creatinine 1.17 H Glucose 92 Calcium 8.9 Liver Function 10/29/24 Range/Units 10:30 Total Bilirubin 0.6 (0.2-1.3) mg/dL AST 35 (14-36) U/L ALT 29 (6-35) U/L Alkaline Phosphatase 46 (38-126) U/L Albumin 4.3 (3.5-5.1) g/dL Assessment and Plan Assessment and plan (1) Closed intertrochanteric fracture of right hip: Qualifiers: Encounter type: initial encounter Fracture alignment: nondisplaced Qualified Code(s): S72.144A - Nondisplaced intertrochanteric fracture of right femur, initial encounter for closed fracture Code(s): S72.141A - Displaced intertrochanteric fracture of right femur, initial encounter for closed fracture Status: Acute Assessment and Plan: - Hip XR: Right-sided intertrochanteric fracture, as detailed above - bed rest until surgical fixation - orthopedist consulted - analgesics prn: Tylenol, [place], fentanyl - will need PT/OT evaluation and treatment postop - NPO at midnight (2) Fall at home: Qualifiers: Encounter type: initial encounter Qualified Code(s): W19.XXXA - Unspecified fall, initial encounter; Y92.009 - Unspecified place in unspecified non-institutional (private) residence as the place of occurrence of the external cause Code(s): W19.XXXA - Unspecified fall, initial encounter; Y92.009 - Unspecified place in unspecified non-institutional (private) residence as the place of occurrence of the external cause Status: Acute Assessment and Plan: - trauma workup included a CXR, Head CT, and Hip XR. Hip XR showed traumatic findings, see above. Head CT and CXR showed no traumatic or acute findings. - fall precautions - check UA -> equivocal but asymptomatic. monitor UC. (3) Type 2 diabetes mellitus without complications: Qualifiers: Diabetes mellitus roasterman insulin use: without [facility] use Qualified Code(s): E11.9 - Type 2 diabetes mellitus without complications Code(s): E11.9 - Type 2 diabetes mellitus without complications Status: Chronic Assessment and Plan: - borderline per patient - hypoglycemia protocol - POC blood glucose ACHS - home medication: hold Jardiance - correct regimen ordered - low dose TIDWM, based off TDD - A1C 5.4% on 09/13/2024 (4) CKD (chronic kidney disease) stage 3, GFR 30-59 ml/min: Qualifiers: Chronic kidney disease stage 3 subtype: stage 3a (GFR 45-59) Qualified Code(s): N18.31 - Chronic kidney disease, stage 3a Code(s): N18.30 - Chronic kidney disease, stage 3 unspecified Status: Chronic Assessment and Plan: - creatinine1.17, BUN 16, GFR 45 - baseline: 1.1-1.2 - trend renal function - trend electrolytes, correct as needed (5) Essential hypertension: Code(s): I10 - Essential (primary) hypertension Status: Resolved Assessment and Plan: - chronic, currently 131/72 - patient states she was recently taking off of her antihypertensive medications as her blood pressure was low. - monitor (6) DAVID on CPAP: Code(s): G47.33 - Obstructive sleep apnea (adult) (pediatric); Z99.89 - Dependence on other enabling machines and devices Status: Acute Assessment and Plan: - continue home CPAP Plan UA equivocal for UTI. Denies urinary symptoms. Will hold on initiation of abx at this time. Follow UC. Diet: heart healthy GI Prophylaxis: not currently indicated DVT Prophylaxis: SCDs IV fluids: none Lines/Tubes: peripheral IV, [place]er Code Status: full code Quality VTE Prophylaxis VTE prophylaxis: mechanical ordered Hospitalist MIPS Advance Care Plan I have confirmed that the patient's Advanced Care Plan is present, code status is documented, or surrogate decision maker is listed in patient medical record.: Yes Medication Reconciliation I have utilized all available resources to obtain, update and review the patients current medications (includes all prescriptions, OTC, herbals, cannabis, and nutritional supplements).: Yes
[2024-10-29 12:49] VITALS: BMI 26.5
--- NOTE | 2024-10-29 13:10 | ADMGEN ---
This patient, Katlin Powell, was admitted to [address] [place] [address] Room 300-01. Patient/family oriented to hospital policies and general routines including ID bracelet, bed and alarms, visiting hours, pain management, procedures, bathroom and other care routines, personal items, smoking policy, room service/diet, and visiting hours. Information on how to activate the Rapid Response Team has been discussed. Patient/Family are encouraged to report perceived risks to care and to ask questions if they do not understand what they are told or what they should do.
--- NOTE | 2024-10-29 13:32 | ADMGEN ---
This patient, Katlin Powell, was admitted to [address] [place] [address] Room 300-01. Patient/family oriented to hospital policies and general routines including ID bracelet, bed and alarms, visiting hours, pain management, procedures, bathroom and other care routines, personal items, smoking policy, room service/diet, and visiting hours. Information on how to activate the Rapid Response Team has been discussed. Patient/Family are encouraged to report perceived risks to care and to ask questions if they do not understand what they are told or what they should do. Report recieved from [facility] in the Emergency Room.
[2024-10-29 14:00] VITALS: BP 131/75; PULSE 79; RESP 18; TEMP 36.2; O2SAT 100
--- NOTE | 2024-10-29 15:24 | P.CONOP_ITS ---
Assessment and Plan Assessment and plan (1) Closed intertrochanteric fracture of right hip: Qualifiers: Encounter type: initial encounter Fracture alignment: displaced Q ualified Code(s): S72.141A - Displaced intertrochanteric fracture of right femur, initial encounter for closed fracture Code(s): S72.141A - Displaced intertrochanteric fracture of right femur, initial encounter for closed fracture Status: Acute Assessment and Plan: New patient evaluation for chief complaint Ground level fall with right hip intertrochanteric fracture. History, physical exam and radiographs reviewed with the patient. Intertrochanteric fracture right hip. Discussed the condition, nature, etiology and course of natural history with the patient. Treatment options including surgical and nonoperative treatment were reviewed. Risks and benefits of each as well as alternatives reviewed. The patient's questions were answered. Conservative treatment ice, Pain control, mechanical DVT prophylaxis. Patient desires operative treatment.. Plan Discussed nonoperative and operative treatment options with the patient. Risks and benefits of each as well as alternatives were reviewed. All of the patient's questions were answered. The risks of surgery reviewed including but not limited to: Neurovascular damage, wound complication, infection, blood clot, pulmonary embolus, stroke, myocardial infarction, and anesthetic risks up to and including . Continued pain and possible dysfunction were explained. Specific risks of the procedure including later recurrence of deformity. No guarantees were offered. If hardware used, discussed risk of failure/ breakage and possible need for removal. If complications occur, the patient understands the need for further treatment, possible further surgery. Patient verbalizes understanding and wishes to proceed. PLAN: Right hip trochanteric nail. History of Present Illness HPI Consult date: 10/29/24 Requesting physician: Nnamdi Norris MD Chief complaint: Right Hip Fracture Narrative: 79-year-old woman who lives at home on her own, status post bilateral knee replacement, independent ambulator, lost her balance this morning in the kitchen and fell onto her right side. Unable to bear weight or move the right leg. Brought to the emergency room and found to have a hip fracture. Does not use assistive devices and is normally independent with ambulation. No prior hip problems. She did hit her head but denies loss of consciousness. Denies neck or back pain. Denies numbness or tingling. Review of Systems 2 Constitutional: Constitutional: Denies fever(s) Eyes: Eyes: Denies blurry vision ENT: Reports Normal hearing present Cardiovascular: Cardiovascular: Denies chest pain and Denies dyspnea Respiratory: Respiratory: Denies dyspnea and Denies wheezing Gastrointestinal: Gastrointestinal: Denies abdominal pain Genitourinary: Genitourinary: Denies urinary urgency Musculoskeletal: Musculoskeletal: Reports as per HPI and Denies numbness Integumentary/Breasts: Skin/Breast: Denies changing lesions and Denies sores Neurologic: Reports Normal hearing present, Denies behavioral changes, Denies confusion, Denies numbness and Denies convulsions Psychiatric: Psychiatric: Denies behavioral changes, Denies confusion and Denies hallucinations Endocrine: Endocrine: Denies heat intolerance Hematologic/Lymphatic: Hematologic/Lymphatic: Denies easy bleeding Allergic/Immunologic: Allergic/Immunologic: Denies wheezing PMFSH Past Medical History Medical History History of broken nose Symptomatic bone lesion with abnormal x-ray Right hip impingement syndrome DDD (degenerative disc disease) Hepatic steatosis CKD (chronic kidney disease) stage 3, GFR 30-59 ml/min Environmental allergies History of CVA (cerebrovascular accident) Hypothyroidism Type 2 diabetes mellitus without complications Asthma Hx of gout Osteoporosis Dyslipidemia Essential hypertension DAVID on CPAP Surgical History Surgical History H/O: hysterectomy Hx of bilateral breast reduction surgery Hx of tonsillectomy Hx of appendectomy Hx of repair of left rotator cuff (~2019) Social History Social History Smoking status: Never smoker Alcohol intake: never Alcohol use details: rarely Substance use: never Substance use type: does not use Do You Feel Safe in your Home?: Yes Lack of Transportation: YES Lack of Food: Never True Current Housing: I Have Housing Concerned About Future Housing: No Difficulty Paying Gas/Electric Bills: No Difficulty Paying for Meds: No Currently Unemployed: No Education: High School Diploma/GED Difficulty w/ Childcare or Family Care: No Living arrangements: with family Occupation/Education: retired Gender identity (if verbalized by the patient): Female Sexual Orientation (if Verbalized by the Patient): Straight or Heterosexual Spiritual care concerns: No Agree to blood products: Yes Meds Home Medications and Allergies Home Medications ?Medication ?Instructions ?Recorded ?Confirmed ?Type albuterol sulfate 90 mcg/actuation 2 inhalation inhalation Q4H PRN 12/14/19 10/29/24 History aerosol inhaler (Ventolin HFA) shortness of breath or wheezing aspirin 81 mg tablet,delayed 81 mg PO DAILY 12/14/19 10/29/24 History release blood sugar diagnostic (Blood #100 ea 06/07/20 09/22/24 Rx Glucose Test strips) omega-3 fatty acids 1,000 mg 1,000 mg PO BID 08/30/20 10/29/24 History capsule (Fish Oil Concentrate) blood pressure monitor (Blood #1 ea 01/31/21 09/22/24 Rx Pressure Kit) cholecalciferol (vitamin D3) 1,250 50,000 unit PO WEEKLY #90 tabs 12/29/22 10/29/24 Rx mcg (50,000 unit) tablet denosumab 60 mg/mL subcutaneous 60 mg subcut [id number] 01/12/23 10/29/24 History syringe (Prolia) allopurinol 100 mg tablet 100 mg PO DAILY #90 tabs 09/05/24 10/29/24 Rx fluticasone furoate 200 See Rx Instructions .Route 09/05/24 10/29/24 Rx mcg-vilanterol 25 mcg/dose .COMPLEX #180 ea inhalation powder (Breo Ellipta) montelukast 10 mg tablet 10 mg PO DAILY #90 tabs 09/05/24 10/29/24 Rx rosuvastatin 40 mg tablet 40 mg PO DAILY #90 tabs 09/05/24 10/29/24 Rx cyclobenzaprine 10 mg tablet 10 mg PO TID PRN muscle spasm #30 09/11/24 10/29/24 Rx tabs empagliflozin 25 mg tablet 25 mg PO DAILY #90 tabs 09/13/24 10/29/24 Rx (Jardiance) levothyroxine 50 mcg tablet 50 mcg PO DAILY #90 tabs 09/13/24 10/29/24 Rx tirzepatide 7.5 mg/0.5 mL 7.5 mg (0.5 mL) subcut WEEKLY 3 09/13/24 10/29/24 Rx subcutaneous pen injector months #6.5 mL Allergies Allergy/AdvReac Type Severity Reaction Status Date / Time oxycodone Allergy Unknown HIVES Verified 09/13/24 10:37 Penicillins Allergy Unknown Unknown Verified 09/13/24 10:37 metformin AdvReac diarrhea Verified 09/13/24 10:37 Vital Signs Vital Signs - 24 hr 10/29/24 09:42 10/29/24 12:05 10/29/24 14:00 Temperature 97.8 F Pulse Rate 76 74 Respiratory Rate 18 18 Blood Pressure 138/82 131/72 Pulse Oximetry 95 99 Oxygen Delivery Room Air Exam 2 Const: General: No confusion Orientation/consciousness: patient oriented x3 and No confusion HENMT: Head: normal to inspection, normocephalic and atraumatic Eyes: Conjunctivae: conjunctivae normal Sclera: sclerae normal Neck: Neck: supple and nontender Chest: Chest palpation & inspection: normal inspection of the chest Resp: Effort & Inspection: normal respiratory effort and no audible wheezes Cardio: Rate: regular rate Rhythm: regular rhythm GI: GI Palp: No abdominal tenderness and Yes Soft to palpation : General: Yes deferred Skin: General skin exam: no rashes or lesions noted Neuro: General: patient oriented x3 and No confusion Extrem: General: capillary refill normal Right upper extremity: normal to inspection Left upper extremity: normal to inspection Right lower extremity: hip/thigh Details: tenderness Location: of the hip Location: laterally and swelling Location: at the hip ( mild), ankle ( able to actively flex and extend ankle) Details: no tenderness and foot Details: normal capillary refill, toes with normal ROM, vascular exam Details: dorsalis pedis pulse present and normal capillary refill and motor-sensory exam Details: light-touch normal Location: in all toes; no tenderness Left lower extremity: normal to inspection, hip/thigh Details: no tenderness and no swelling, lower leg, ankle (no calf tenderness) Details: normal ROM; no tenderness and foot Details: normal capillary refill, vascular exam Details: dorsalis pedis pulse present and normal capillary refill and motor-sensory exam light-touch normal in all toes Psych: Affect: normal affect Results Labs 10/29/24 10:31 10/29/24 10:30 Labs: Abnormal lab results 10/29/24 10/29/24 Range/Units 10:30 10:31 RBC 4.12 L (4.2-5.4) M/mm3 RDW 15.0 H (11.5-14.5) % Neut % (Auto) 73.7 H (45.5-73.1) % Lymph % (Auto) 17.6 L (18.3-44.2) % Abs Immat Gran (auto) 0.04 H (0.00-0.031) K/mm3 PT 14.8 H (11.1-14.7) Seconds Sodium 136 L (137-145) mmol/L Creatinine 1.17 H (0.7-1.0) mg/dL Estimated GFR 45 L (59 - ) H & H 07/10/18 Range/Units 10:31 Hgb 12.3 (12.0-15.0) g/dL Hct 37.7 (37.0-47.0) % Coagulation /10/18 Range/Units 10:30 INR 1.1 All other labs normal. Diagnostic results Hip x-ray: image reviewed ( Right hip intertrochanteric fracture with mild angulation and displacement. Femoral head well located with mild degenerative changes.)
[2024-10-29 15:29] LABS: Add Urine Microscopic? YES; Appearance Urine Clear (Clear); Glucose Urine UA 3+ mg/dL (Negative); Leukocyte Esterase Ur Trace LEU/UL (Negative); Nitrate Urine Negative (Negative); Specific Grav Ur 1.020 (1.001-1.035)
--- NOTE | 2024-10-29 17:39 | PCRCNOTE ---
PT. STATES SHE DOES NOT HAVE A CPAP AT HOME ANYMORE, SHE SENT IT BACK. PT. DOES NOT WANT TO WEAR ONE OF OUR UNITS. R.N. NOTIFIED R.N. STATES SHE WILL DISCONTINUE THE ORDER.
[2024-10-29] MEDS: FLUTICASONE/SALMETEROL 230-21 MCG INHALER 1 PUFF 2 PUFF INHALATION (19:56)
[2024-10-29] MEDS: ACETAMINOPHEN 325 MG TABLET 650 MG PO (21:33)
[2024-10-29 22:00] VITALS: BP 134/67; PULSE 87; RESP 18; TEMP 36.9; O2SAT 97
[2024-10-30] VITALS (16 sets, daily range): BP systolic 123–191; BP diastolic 63–99; PULSE 57–104; RESP 14–100; TEMP 35.8–37.3; O2SAT 93–100
[2024-10-30] MEDS: LEVOTHYROXINE SODIUM 50 MCG TABLET PO (06:06)
[2024-10-30 06:10] LABS: Hematocrit 37.0 % (37.0-47.0); Hemoglobin 12.2 g/dL (12.0-15.0); Immature Granulocyte Percent A 0.5 % (0-0.5); Lymphocytes Absolute Auto 1.74 K/mm3 (0.9-3.2); Mean Corpuscular HGB Conc 33.0 g/dl (32-36); Mean Corpuscular Hemoglobin 30.0 pg (26-34); Mean Corpuscular Volume 90.9 fl (80-100); Nucleated Red Blood Cells Absolute Auto 0.000 K/mm3 (0.0-0.012); Nucleated Red Blood Cells Perc 0.0 % (0.0-0.2); Platelet Count Result 179 k/mm3 (150-375); Red Blood Count 4.07 M/mm3 (4.2-5.4); White Blood Count 9.4 K/mm3 (4.5-10.0)
[2024-10-30 06:20] LABS: Anion Gap 12 mmol/L (4-12); Blood Urea Nitrogen 17 mg/dL (7-17); Calcium 9.1 mg/dL (8.4-10.2); Carbon Dioxide 21 mmol/L (22-30); Chloride 102 mmol/L (98-107); Estimated CRCL calculation 31 ml/min; Estimated Glomerular Filt Rate 48; Glucose 108 mg/dL (65-110); Potassium 3.5 mmol/L (3.4-5.0); Sodium 135 mmol/L (137-145)
--- NOTE | 2024-10-30 08:29 | PM.IMPN ---
Progress Note: A&P Assessment and Plan (1) Closed intertrochanteric fracture of right hip: Qualifiers: Encounter type: initial encounter Fracture alignment: displaced Qualified Code(s): S72.141A - Displaced intertrochanteric fracture of right femur, initial encounter for closed fracture Code(s): S72.141A - Displaced intertrochanteric fracture of right femur, initial encounter for closed fracture Status: Acute Assessment and Plan: - Hip XR: Right-sided intertrochanteric fracture, as detailed above - bed rest until surgical fixation - orthopedist consulted - analgesics prn: Tylenol, [place], fentanyl - will need PT/OT evaluation and treatment postop - NPO at midnight ortho consulted-surgery today at 2 pm (2) Fall at home: Qualifiers: Encounter type: initial encounter Qualified Code(s): W19.XXXA - Unspecified fall, initial encounter; Y92.009 - Unspecified place in unspecified non-institutional (private) residence as the place of occurrence of the external cause Code(s): W19.XXXA - Unspecified fall, initial encounter; Y92.009 - Unspecified place in unspecified non-institutional (private) residence as the place of occurrence of the external cause Status: Acute Assessment and Plan: - trauma workup included a CXR, Head CT, and Hip XR. Hip XR showed traumatic findings, see above. Head CT and CXR showed no traumatic or acute findings. - fall precautions - check UA -> equivocal but asymptomatic. monitor UC. (3) Type 2 diabetes mellitus without complications: Qualifiers: Diabetes mellitus jail insulin use: without jail use Qualified Code(s): E11.9 - Type 2 diabetes mellitus without complications Code(s): E11.9 - Type 2 diabetes mellitus without complications Status: Chronic Assessment and Plan: - borderline per patient - hypoglycemia protocol - POC blood glucose ACHS - home medication: hold Jardiance - correct regimen ordered - low dose TIDWM, based off TDD - A1C 5.4% on 09/13/2024 (4) CKD (chronic kidney disease) stage 3, GFR 30-59 ml/min: Qualifiers: Chronic kidney disease stage 3 subtype: stage 3a (GFR 45-59) Qualified Code(s): N18.31 - Chronic kidney disease, stage 3a Code(s): N18.30 - Chronic kidney disease, stage 3 unspecified Status: Chronic Assessment and Plan: - creatinine1.17, BUN 16, GFR 45 - baseline: 1.1-1.2 - trend renal function - trend electrolytes, correct as needed (5) Essential hypertension: Code(s): I10 - Essential (primary) hypertension Status: Resolved Assessment and Plan: - chronic, currently 131/72 - patient states she was recently taking off of her antihypertensive medications as her blood pressure was low. - monitor (6) DAVID on CPAP: Code(s): G47.33 - Obstructive sleep apnea (adult) (pediatric); Z99.89 - Dependence on other enabling machines and devices Status: Acute Assessment and Plan: - continue home CPAP Plan UA equivocal for UTI. Denies urinary symptoms. Will hold on initiation of abx at this time. Follow UC. Diet: heart healthy GI Prophylaxis: not currently indicated DVT Prophylaxis: SCDs IV fluids: none Lines/Tubes: peripheral IV, [place] Code Status: full code Time Spent With Patient Time with patient: 25 - 35 minutes Subjective Date/time seen: 10/30/24 08:29 Interval history: 79 y/o F with PMH of CKD, CVA, hypothyroidism, diabetes, dyslipidemia, hypertension, and DAVID on CPAP presents here with ground level fall and hip pain. The patient presents here from home via EMS for further evaluation of hip pain s/p ground level fall. Initial VS at presentation: 97.8? F, HR 76, R 18, 138/82, and 95% on RA. ED workup showed: No leukocytosis, no anemia, INR 1.1, sodium 136, creatinine 1.17 and GFR 45 (1.31 and GFR 39 on 09/13/24). Hip/ pelvic XR showed a right-sided intertrochanteric fracture. Head CT showed no acute intracranial hemorrhage or suspicious mass effect. CXR showed no focal infiltrate or effusion. 10/30 pt is seen and examined. She is resting in bed, states pain is well controlled. denies nausea. Surgery today at 2pm. Review of Systems Review of Systems: All systems reviewed & are unremarkable except as noted in HPI and below Exam Const: General: comfortable and no acute distress HENMT: Face/Nose/Sinus: Normal nares present Mouth: Yes moist mucous membranes Eyes: General: appearance normal, both eyes and all related structures Sclera: sclerae normal Pupils: Equal, round and reactive pupils present EOM: EOMs intact bilaterally Resp: Effort & Inspection: normal respiratory effort Auscultation: clear to auscultation bilaterally Cardio: Rate: regular rate Rhythm: regular rhythm Other: S1-S2 present without murmur, rub, ectopy GI: Other: Abdomen soft, nondistended, nontender. Normoactive bowel sounds in all quadrants. Skin: General skin exam: normal color and no rashes or lesions noted Wounds: no wounds Neuro: Cranial nerves: Yes Equal, round and reactive pupils present Speech: normal speech Motor exam (neuro): 5/5 motor strength present throughout Sensory Exam: normal sensation Other: A&O x4 Extrem: Other: DP pulses 2+. Very mild shortening of the right lower extremity. Tenderness over the right hip. Psych: Mental Status: mental status grossly normal Affect: normal affect Other: Good insight and judgment, pleasant Objective Data Vital Signs Vital Signs: Vital Signs - 24 hr 10/29/24 09:42 10/29/24 12:05 10/29/24 14:00 Temperature 97.8 F Pulse Rate 76 74 Respiratory Rate 18 18 Blood Pressure 138/82 131/72 Pulse Oximetry 95 99 Oxygen Delivery Room Air 10/29/24 14:00 10/29/24 20:00 10/29/24 22:00 Temperature 97.2 F L 98.5 F Pulse Rate 79 87 Respiratory Rate 18 18 Blood Pressure 131/75 134/67 Pulse Oximetry 100 97 Oxygen Delivery Room Air 10/30/24 06:00 Temperature 98.3 F Pulse Rate 89 Respiratory Rate 18 Blood Pressure 123/63 Pulse Oximetry 95 Oxygen Delivery Intake/Output Intake/Output: Intake & Output 10/27/24 10/28/24 10/29/24 10/30/24 23:59 23:59 23:59 23:59 Intake Total 236 Output Total 350 300 Balance -114 -300 Meds/Results Medications: Active Medications Generic Name Dose Route Start Last Admin Trade Name Freq PRN Reason Stop Dose Admin Acetaminophen 650 mg 10/29/24 12:45 10/29/24 21:33 Acetaminophen 325 Mg Tablet PO 650 mg Q6H PRN Administration Mild Pain (1-3) or Fever Acetaminophen 1,000 mg 10/30/24 12:00 Acetaminophen 500 Mg Tablet PO 10/30/24 12:01 ONCE ONE Albuterol 2 puff 10/29/24 16:09 Albuterol Sulfate (*Sp) Aerosol 1 Puff INHALATION Q4H PRN shortness of breath or wheezing Dextrose 12.5 gm 10/29/24 12:46 Dextrose 50% 25 Gm/50 Ml Syringe IV PUSH PRN PRN Hypoglycemia Protocol Fentanyl Citrate 50 mcg 10/29/24 11:33 Fentanyl Citrate Inj (*Crx) 100 Mcg/2 Ml Vial IV PUSH Q2H PRN Pain Rated 6 or Greater Glucagon 1 mg 10/29/24 12:46 Glucagon For Inj 1 Mg Vial IM PRN PRN Hypoglycemia Protocol Glucose 15 gm 10/29/24 12:46 Glucose Oral Gel 15 Gm Of Glucse In 37.5 Gm Tube PO PRN PRN Hypoglycemia Protocol Dextrose 1,000 mls @ 100 mls/hr 10/29/24 12:46 Dextrose 5% 1,000 Ml IVPB PRN PRN Hypoglycemia Protocol Tranexamic Acid/Sodium Chloride 1,000 mg in 100 mls @ 200 mls/hr 10/30/24 12:00 Tranexamic Acid 1,000mg/[id number] IVPB 10/30/24 12:29 ONCE ONE Cefazolin Sodium 2 gm in 50 mls @ 100 mls/hr 10/30/24 12:00 Ancef 2 Gm/D5w 50 Ml IVPB 10/30/24 12:29 ONCE ONE Insulin Aspart 2 - 5 units 10/29/24 17:00 10/29/24 17:52 Insulin Aspart (*Bkc) 100 Units/Ml SUB-Q Not Given TIDWM [facility] Protocol Levothyroxine Sodium 50 mcg 10/30/24 06:30 10/30/24 06:06 Levothyroxine Sodium 50 Mcg Tablet PO 50 mcg DAILY@0630 VELMA Administration Fluticasone/Salmeterol 2 puff 10/29/24 20:00 10/29/24 19:56 Fluticasone/Salmeterol 230-21 Mcg Inhaler 1 Puff INHALATION 2 puff Q12HRT VELMA Administration Radiology Results: ITS Impressions Hip/Pelvis X-Ray 10/29/24 10:44 IMPRESSION: Right-sided intertrochanteric fracture, as detailed above Head CT 10/29/24 10:46 Impression: No acute intracranial hemorrhage or suspicious mass effect. Chest X-Ray 10/29/24 11:17 IMPRESSION: No focal infiltrate or effusion. Labs Labs: Laboratory Results - last 24 hr 10/29/24 10/29/24 10/29/24 10:30 10:31 15:01 WBC 8.0 RBC 4.12 L Hgb 12.3 Hct 37.7 MCV 91.5 MCH 29.9 MCHC 32.6 RDW 15.0 H Plt Count 190 MPV 10.2 Immature Gran % (Auto) 0.5 Neut % (Auto) 73.7 H Lymph % (Auto) 17.6 L [place] % (Auto) 5.6 Eos % (Auto) 2.0 Baso % (Auto) 0.6 Lymph # (Auto) 1.41 [place] # (Auto) 0.5 Eos # (Auto) 0.2 Baso # (Auto) 0.1 Abs Immat Gran (auto) 0.04 H Absolute Neuts (auto) 5.9 Absolute Nucleated RBC 0.000 Nucleated RBC % 0.0 PT 14.8 H INR 1.1 APTT 36.3 Sodium 136 L Potassium 3.5 Chloride 104 Carbon Dioxide 24 Anion Gap 8 BUN 16 Creatinine 1.17 H Estim Creat Clear Calc Not Reportable Estimated GFR 45 L Glucose 92 POC Capillary Glucose Calcium 8.9 Total Bilirubin 0.6 AST 35 ALT 29 Alkaline Phosphatase 46 Total Protein 7.6 Albumin 4.3 Urine Color Yellow Urine Appearance Clear Urine pH 5.5 Ur Specific [place] 1.020 Urine Protein 2+ H Urine Glucose (UA) 3+ H Urine Ketones Negative Ur Blood (Man) 1+ H Urine Nitrate Negative Urine Bilirubin Negative Urine Urobilinogen 0.2 Leukocyte Esterase Rfl Trace H Urine RBC 0-2 Urine WBC 6-10 H Ur Squamous Epith Cells Occasional Urine Bacteria None seen Urine Casts 3-5 10/29/24 10/29/24 10/30/24 17:47 20:04 04:55 WBC 9.4 RBC 4.07 L Hgb 12.2 Hct 37.0 MCV 90.9 MCH 30.0 MCHC 33.0 RDW 14.9 H Plt Count 179 MPV 10.5 H Immature Gran % (Auto) 0.5 Neut % (Auto) 73.2 H Lymph % (Auto) 18.4 [place] % (Auto) 6.7 Eos % (Auto) 0.7 Baso % (Auto) 0.5 Lymph # (Auto) 1.74 [place] # (Auto) 0.6 Eos # (Auto) 0.1 Baso # (Auto) 0.1 Abs Immat Gran (auto) 0.05 H Absolute Neuts (auto) 6.9 H Absolute Nucleated RBC 0.000 Nucleated RBC % 0.0 PT INR APTT Sodium 135 L Potassium 3.5 Chloride 102 Carbon Dioxide 21 L Anion Gap 12 BUN 17 Creatinine 1.10 H Estim Creat Clear Calc 31 Estimated GFR 48 L Glucose 108 POC Capillary Glucose 76 126 H Calcium 9.1 Total Bilirubin AST ALT Alkaline Phosphatase Total Protein Albumin Urine Color Urine Appearance Urine pH Ur Specific [place] Urine Protein Urine Glucose (UA) Urine Ketones Ur Blood (Man) Urine Nitrate Urine Bilirubin Urine Urobilinogen Leukocyte Esterase Rfl Urine RBC Urine WBC Ur Squamous Epith Cells Urine Bacteria Urine Casts 10/30/24 07:52 WBC RBC Hgb Hct MCV MCH MCHC RDW Plt Count MPV Immature Gran % (Auto) Neut % (Auto) Lymph % (Auto) [place] % (Auto) Eos % (Auto) Baso % (Auto) Lymph # (Auto) [place] # (Auto) Eos # (Auto) Baso # (Auto) Abs Immat Gran (auto) Absolute Neuts (auto) Absolute Nucleated RBC Nucleated RBC % PT INR APTT Sodium Potassium Chloride Carbon Dioxide Anion Gap BUN Creatinine Estim Creat Clear Calc Estimated GFR Glucose POC Capillary Glucose 100 Calcium Total Bilirubin AST ALT Alkaline Phosphatase Total Protein Albumin Urine Color Urine Appearance Urine pH Ur Specific [place] Urine Protein Urine Glucose (UA) Urine Ketones Ur Blood (Man) Urine Nitrate Urine Bilirubin Urine Urobilinogen Leukocyte Esterase Rfl Urine RBC Urine WBC Ur Squamous Epith Cells Urine Bacteria Urine Casts Quality VTE Prophylaxis VTE prophylaxis: mechanical ordered
[2024-10-30] MEDS: FLUTICASONE/SALMETEROL 230-21 MCG INHALER 1 PUFF 2 PUFF INHALATION ×2 (09:00→20:04)
--- NOTE | 2024-10-30 12:28 | WPDHPUPDATE1 ---
History and Physical Update Update Date/Time: 10/30/24 12:28 History and Physical has been reviewed, including an updated exam of the patient. There are NO changes in the patient's condition. Risks, benefits, and alternatives have been discussed and questions answered. Patient agrees to proceed with procedure.
[2024-10-30] MEDS: LACTATED RINGERS 1,000 ML 30 ML IV CONT (14:30)
[2024-10-30] MEDS: TRANEXAMIC ACID 1,000MG/ISO100 1,000 MG/100 ML BAG 200 MG IVPB (14:30)
[2024-10-30] MEDS: ACETAMINOPHEN 500 MG TABLET 1000 MG PO (14:30)
--- NOTE | 2024-10-30 15:03 | P.PNAN_ITS ---
Anes - Initial Pre Proc Eval Procedure: Operation Date: 10/30/24 15:00 Proposed Procedures p Right Intertrochanteric Nail - Jason Hooker MD Date/Time: 10/30/24 15:03 Surgeon: Doris Marquez MD Pre Op Diagnosis: Right Hip Fracture Patient Data Age: 79 Gender: F Height: 1.52 m Weight: 61.6 kg Last Vital Signs Temp 99.2 F 10/30/24 14:28 Pulse 104 H 10/30/24 14:28 Resp 18 10/30/24 06:00 BP 151/73 H 10/30/24 14:28 Pulse Ox 100 10/30/24 14:28 O2 Del Method Room Air 10/30/24 14:28 Allergies Allergy/AdvReac Type Severity Reaction Status Date / Time oxycodone Allergy Unknown HIVES Verified 09/13/24 10:37 Penicillins Allergy Unknown Unknown Verified 09/13/24 10:37 metformin AdvReac diarrhea Verified 09/13/24 10:37 Home Medications ?Medication ?Instructions ?Recorded ?Confirmed ?Type albuterol sulfate 90 mcg/actuation 2 inhalation inhalation Q4H PRN 12/14/19 10/29/24 History aerosol inhaler (Ventolin HFA) shortness of breath or wheezing aspirin 81 mg tablet,delayed 81 mg PO DAILY 12/14/19 10/29/24 History release blood sugar diagnostic (Blood #100 ea 06/07/20 10/30/24 Rx Glucose Test strips) omega-3 fatty acids 1,000 mg 1,000 mg PO BID 08/30/20 10/29/24 History capsule (Fish Oil Concentrate) blood pressure monitor (Blood #1 ea 01/31/21 10/30/24 Rx Pressure Kit) cholecalciferol (vitamin D3) 1,250 50,000 unit PO WEEKLY #90 tabs 12/29/22 10/29/24 Rx mcg (50,000 unit) tablet denosumab 60 mg/mL subcutaneous 60 mg subcut [id number] 01/12/23 10/29/24 History syringe (Prolia) allopurinol 100 mg tablet 100 mg PO DAILY #90 tabs 09/05/24 10/29/24 Rx fluticasone furoate 200 See Rx Instructions .Route 09/05/24 10/29/24 Rx mcg-vilanterol 25 mcg/dose .COMPLEX #180 ea inhalation powder (Breo Ellipta) montelukast 10 mg tablet 10 mg PO DAILY #90 tabs 09/05/24 10/29/24 Rx rosuvastatin 40 mg tablet 40 mg PO DAILY #90 tabs 09/05/24 10/29/24 Rx cyclobenzaprine 10 mg tablet 10 mg PO TID PRN muscle spasm #30 09/11/24 10/29/24 Rx tabs empagliflozin 25 mg tablet 25 mg PO DAILY #90 tabs 09/13/24 10/29/24 Rx (Jardiance) levothyroxine 50 mcg tablet 50 mcg PO DAILY #90 tabs 09/13/24 10/29/24 Rx tirzepatide 7.5 mg/0.5 mL 7.5 mg (0.5 mL) subcut WEEKLY 3 09/13/24 10/29/24 Rx subcutaneous pen injector months #6.5 mL Laboratory Tests 10/29/24 10/29/24 10/29/24 15:01 17:47 20:04 WBC RBC Hgb Hct MCV MCH MCHC RDW Plt Count MPV Immature Gran % (Auto) Neut % (Auto) Lymph % (Auto) [place] % (Auto) Eos % (Auto) Baso % (Auto) Lymph # (Auto) [place] # (Auto) Eos # (Auto) Baso # (Auto) Abs Immat Gran (auto) Absolute Neuts (auto) Absolute Nucleated RBC Nucleated RBC % Sodium Potassium Chloride Carbon Dioxide Anion Gap BUN Creatinine Estim Creat Clear Calc Estimated GFR Glucose POC Capillary Glucose 76 mg/dl 126 H mg/dl (65-105) (65-105) Calcium Urine Color Yellow (Yellow) Urine Appearance Clear (Clear) Urine pH 5.5 (5.0-9.0) Ur Specific [place] 1.020 (1.001-1.035) Urine Protein 2+ H mg/dL (Negative) Urine Glucose (UA) 3+ H mg/dL (Negative) Urine Ketones Negative mg/dL (Negative) Ur Blood (Man) 1+ H (Negative) Urine Nitrate Negative (Negative) Urine Bilirubin Negative (Negative) Urine Urobilinogen 0.2 mg/dL (<2.0) Leukocyte Esterase Rfl Trace H JOYCELYN/UL (Negative) Urine RBC 0-2 /hpf (0-2) Urine WBC 6-10 H /hpf (0-3) Ur Squamous Epith Cells Occasional /hpf (Few) Urine Bacteria None seen /hpf Urine Casts 3-5 10/30/24 10/30/24 10/30/24 04:55 07:52 11:59 WBC 9.4 K/mm3 (4.5-10.0) RBC 4.07 L M/mm3 (4.2-5.4) Hgb 12.2 g/dL (12.0-15.0) Hct 37.0 % (37.0-47.0) MCV 90.9 fl (80-100) MCH 30.0 pg (26-34) MCHC 33.0 g/dl (32-36) RDW 14.9 H % (11.5-14.5) Plt Count 179 k/mm3 (150-375) MPV 10.5 H fl (7.4-10.4) Immature Gran % (Auto) 0.5 % (0-0.5) Neut % (Auto) 73.2 H % (45.5-73.1) Lymph % (Auto) 18.4 % (18.3-44.2) [place] % (Auto) 6.7 % (2.6-8.5) Eos % (Auto) 0.7 % (0-4.4) Baso % (Auto) 0.5 % (0.2-1.2) Lymph # (Auto) 1.74 K/mm3 (0.9-3.2) [place] # (Auto) 0.6 K/mm3 (0.1-0.6) Eos # (Auto) 0.1 K/mm3 (0-0.3) Baso # (Auto) 0.1 K/mm3 (0.0-0.1) Abs Immat Gran (auto) 0.05 H K/mm3 (0.00-0.031) Absolute Neuts (auto) 6.9 H K/mm3 (1.3-6.7) Absolute Nucleated RBC 0.000 K/mm3 (0.0-0.012) Nucleated RBC % 0.0 % (0.0-0.2) Sodium 135 L mmol/L (137-145) Potassium 3.5 mmol/L (3.4-5.0) Chloride 102 mmol/L (98-107) Carbon Dioxide 21 L mmol/L (22-30) Anion Gap 12 mmol/L (4-12) BUN 17 mg/dL (7-17) Creatinine 1.10 H mg/dL (0.7-1.0) Estim Creat Clear Calc 31 ml/min Estimated GFR 48 L (59 - ) Glucose 108 mg/dL (65-110) POC Capillary Glucose 100 mg/dl 102 mg/dl (65-105) (65-105) Calcium 9.1 mg/dL (8.4-10.2) Urine Color Urine Appearance Urine pH Ur Specific [place] Urine Protein Urine Glucose (UA) Urine Ketones Ur Blood (Man) Urine Nitrate Urine Bilirubin Urine Urobilinogen Leukocyte Esterase Rfl Urine RBC Urine WBC Ur Squamous Epith Cells Urine Bacteria Urine Casts Patient hx anesthesia problems: none Family hx anesthesia problems: none Results Review: All pre-operative results and documents have been reviewed as part of the pre- operative evaluation. [facility] Past Medical History Medical History History of broken nose Symptomatic bone lesion with abnormal x-ray Right hip impingement syndrome DDD (degenerative disc disease) Hepatic steatosis CKD (chronic kidney disease) stage 3, GFR 30-59 ml/min Environmental allergies History of CVA (cerebrovascular accident) Hypothyroidism Type 2 diabetes mellitus without complications Asthma Hx of gout Osteoporosis Dyslipidemia Essential hypertension DAVID on CPAP Surgical History Surgical History H/O: hysterectomy Hx of bilateral breast reduction surgery Hx of tonsillectomy Hx of appendectomy Hx of repair of left rotator cuff (~2019) Social History Social History Smoking status: Never smoker Alcohol intake: never Alcohol use details: rarely Substance use: never Substance use type: does not use Do You Feel Safe in your Home?: Yes Lack of Transportation: YES Lack of Food: Never True Current Housing: I Have Housing Concerned About Future Housing: No Difficulty Paying Gas/Electric Bills: No Difficulty Paying for Meds: No Currently Unemployed: No Education: High School Diploma/GED Difficulty w/ Childcare or Family Care: No Living arrangements: with family Occupation/Education: retired Gender identity (if verbalized by the patient): Female Sexual Orientation (if Verbalized by the Patient): Straight or Heterosexual Spiritual care concerns: No Agree to blood products: Yes Anes - Eval Final PreProcedure Day of Procedure 10/30/24 15:03 Patient weight: normal Lungs: normal air movement Airway: Mallampati scale class II and special considerations (Missing some in post aspect. ) Neurological: alert and oriented and confused Last oral intake: >/= 8 hours ASA classification: III Emergent: no Anesthetic plan: proceed Anesthesia type and monitoring: general LMA and standard monitoring Results Review: All pre-operative results and documents have been reviewed as part of the pre- operative evaluation. Hx reviewed w pt and by EMR. Mechanical fall at ground level. HTN, hyperlipidemia, DM, hypothyroidism, DAVID on CPAP, CKD stage 3, hx of CVA 2018 w some mild residual for word finding. ECHO 2021 60-65. EP EKG SR now. Informed Consent: The patient's anesthetic plan and its attendant risks and benefits were discussed with the patient/family/POA. Questions were solicited and answers provided to the satisfaction of the patient/family/POA.
[2024-10-30] MEDS: ceFAZolin 2 GM/D5W 50 ML 2 GM/50 ML BAG IVPB ×2 (15:16→20:00)
[2024-10-30] MEDS: BUPIVACAINE/EPINEPHRINE 0.5% 50 ML VIAL 30 ML INFILTRATE (15:51)
--- NOTE | 2024-10-30 16:24 | W.PM.PROC2 ---
Procedure Note - Detailed Date of Procedure 10/30/24 Pre-op Diagnosis Right Hip Fracture, intertrochanteric Post-op Diagnosis Same Procedure Performed Right hip trochanteric fracture fixation with intramedullary hip screw Surgeon Jason Hooker MD Corporate Compliance Officer 1st optometry assistant Anesthesia General Indications 79-year-old woman who fell at home and sustained a right hip intertrochanteric fracture. She has been medically stabilized and desires operative treatment. Description of Procedure After informed consent the operative extremity was marked in the preoperative holding area. Patient received intravenous antibiotics. The patient was taken to the operative room, placed in the supine position, general anesthesia induced by the anesthesia team, and was placed on a fracture table with longitudinal traction applied to the right leg. The hip fracture was reduced to near anatomic position and verified with image intensification. A time-out was performed confirming the patient, site of the surgery and plan. The right lower extremity was prepped and draped sterilely from the knee to the iliac crest region using a ChloraPrep skin solution. Incision was made just proximal to greater trochanter down to the subcutaneous tissues. Hemostasis controlled with electrocautery. Blunt dissection through the fascia to the tip of the greater trochanter. A starter awl was placed at the tip of the greater trochanter into the medullary canal of the femur. This was checked with image intensification and was in good position. Intramedullary guide jerilyn positioned. A one-step hand reaming done proximally. Intramedullary canal was reamed with a 12.5 millimeter flexible reamer. Neck angle selected off of preoperative radiographs temp plating. 125 degree 11.5mm X 22cm Nail opened on the back table and assembled. This was then inserted over the guide jerilyn to the correct depth. Guide jerilyn removed. Lag screw was then placed with a stab incision over the lateral femur using a 10 blade knife. Blunt dissection down to the lateral side of the bone. Soft tissue protectors placed. Guide pin placed in the center center position of the femoral head and measured. 90 millimeter x 10.5 millimeter lag screw placed to correct depth and verified with image intensification. Traction released from the leg and compression of the fracture performed with the external compression device. Proximal locking screw placed. Distal locking of the nail then performed. Stab incision made lateral distal thigh. Blunt dissection down lateral side of the femur. Soft tissue protector placed. Femur drilled from lateral to medial through the distal nail. Distal femur measured and the appropriate size screw placed. Image intensification confirmed the placement through the locking hole. Final image intensification confirmed reduction of the fracture and placement of the hardware. Wounds then thoroughly irrigated with antibiotic solution. Fascia repaired with 0 Vicryl interrupted suture. Subcutaneous tissue repaired with 00 Vicryl interrupted suture and skin repaired with beatriz. Sterile dressings applied. Patient then awoke from anesthesia, extubated, taken to recovery room stable condition. All sponge, needle and instrument counts correct at the end the case. Implants Arthrex trochanteric nail 11 x 220 mm, 125 degree with 90 x 10.5 mm lag screw, 34 mm distal locking screw. Estimated Blood Loss 75 Urine Output 300 Drains No Packing No Pathology None sent Complications None Condition Stable Disposition PACU [facility] Billing Surgery - Charge Forward: Surgery Billing ([id number])
--- NOTE | 2024-10-30 17:42 | PC.NURSE ---
Patient back from PACU at 17:40. Report received from [facility] Rivera.
[2024-10-30] MEDS: SENNA/DOCUSATE SODIUM TABLET 2 TAB PO (17:48)
[2024-10-30] MEDS: ERGOCALCIFEROL (VITAMIN D2) 1,250 MCG (50,000 UNITS) CAPSULE 1250 MCG PO (18:04)
[2024-10-30] MEDS: HYDROcodone/acetaminophen (*CRX) 5-325 MG TABLET 1 TAB PO (20:00)
[2024-10-30] MEDS: RIVAROXABAN 10 MG TABLET PO (22:56)
[2024-10-31 03:45] VITALS: BP 140/68; PULSE 87; RESP 18; TEMP 36.6; O2SAT 99
[2024-10-31] MEDS: ceFAZolin 2 GM/D5W 50 ML 2 GM/50 ML BAG IVPB ×2 (05:50→13:06)
[2024-10-31] MEDS: LEVOTHYROXINE SODIUM 50 MCG TABLET PO (05:54)
[2024-10-31 06:19] LABS: Add Urine Microscopic? YES; Appearance Urine Clear (Clear); Glucose Urine UA 3+ mg/dL (Negative); Leukocyte Esterase Ur Negative LEU/UL (Negative); Need Manual Microscopic Reviewed; Nitrate Urine Negative (Negative); Specific Grav Ur 1.036 (1.001-1.035)
--- NOTE | 2024-10-31 07:18 | WPDANESPN ---
Anes - Prog Note Post-Op Date/Time: 10/31/24 07:18 Cardiovascular status: normal Respiratory status: normal Airway patency: baseline Mental status: baseline Post-Op hydration status: normal Vital Signs: Last Vital Signs Temp 36.6 C 10/31/24 03:45 Pulse 87 10/31/24 03:45 Resp 18 10/31/24 03:45 BP 140/68 10/31/24 03:45 Pulse Ox 99 10/31/24 03:45 O2 Del Method Room Air 10/30/24 20:08 O2 Flow Rate 8 10/30/24 16:45 FiO2 21 10/30/24 20:08 Pain Score (VAS): 1 I/O: Intake & Output 10/30/24 10/30/24 10/31/24 15:59 23:59 07:59 Intake Total 150 349.5 550 Output Total 300 600 Balance 150 49.5 -50 Laboratory Tests 10/30/24 04:55 10/30/24 04:55 10/30/24 10/30/24 10/30/24 07:52 11:59 16:36 POC Capillary Glucose 100 102 96 Urine Color Urine Appearance Urine pH Ur Specific [place] Urine Protein Urine Glucose (UA) Urine Ketones Ur Blood (Man) Urine Nitrate Urine Bilirubin Urine Urobilinogen Add Ur Microanalysis Leukocyte Esterase Rfl Urine RBC Urine WBC Ur Squamous Epith Cells Urine Bacteria Urine Casts 10/30/24 10/31/24 10/31/24 20:31 03:47 05:50 POC Capillary Glucose 102 110 H Urine Color Yellow Urine Appearance Clear Urine pH 5.0 Ur Specific [place] 1.036 H Urine Protein 2+ H Urine Glucose (UA) 3+ H Urine Ketones Trace H Ur Blood (Man) 2+ H Urine Nitrate Negative Urine Bilirubin Negative Urine Urobilinogen 0.2 Add Ur Microanalysis Reviewed Leukocyte Esterase Rfl Negative Urine RBC 0-2 Urine WBC 0-5 Ur Squamous Epith Cells Occasional Urine Bacteria None seen Urine Casts 6-10 Post-procedural complaints: none Patient Feedback: Patient satisfied with anesthetic care.
--- NOTE | 2024-10-31 07:35 | P.PNOP_ITS ---
Progress Note: A&P Assessment and Plan (1) Closed intertrochanteric fracture of right hip: Qualifiers: Encounter type: subsequent encounter Fracture alignment: displaced Fracture healing: with routine healing Qualified Code(s): S72.141D - Displaced intertrochanteric fracture of right femur, subsequent encounter for closed fracture with routine healing Code(s): S72.141A - Displaced intertrochanteric fracture of right femur, initial encounter for closed fracture Status: Acute Assessment and Plan: POD 1 RT hip IM nail Pain control PT/OT with wbat. Xarelto Confusion this AM, s/p anesthesia, pain meds, surgery. PT is very high fall risk May require sitter Subjective Subjective Date/Time Seen: 10/31/24 07:35 Post Op day: 1 Principal diagnosis: RT hip IT fx Interval history: Awake, alert. C/O rt hip pain. Oriented to self. Disoriented to place and time. Exam Const: General: comfortable; No acute distress Orientation/consciousness: oriented to person, No oriented to place, No oriented to time and confusion Resp: Effort & Inspection: normal respiratory effort and no audible wheezes Extrem: Right lower extremity: lower leg ( Negative Homans sign), ankle Details: normal ROM ( dorsiflexion and plantar flexion intact) and foot Details: vascular exam Details: dorsalis pedis pulse present and normal capillary refill, tendon exam Details: active flexion normal and active extension normal and masha r-sensory exam Details: light-touch normal Location: in all toes; no edema Left lower extremity: normal to inspection, ankle Details: normal ROM and foot Details: vascular exam Details: dorsalis pedis pulse present and normal capillary refill and motor-sensory exam light-touch normal in all toes; no edema Other: RT hip dressing clean and dry. Muscles soft. Negative Chloe's Objective Data Vital Signs Vital Signs: Vital Signs - 24 hr 10/30/24 08:00 10/30/24 14:28 10/30/24 16:29 Temperature 99.2 F 97.1 F L Pulse Rate 104 H 95 Respiratory Rate 100 H Blood Pressure 151/73 H 130/75 Pulse Oximetry 100 100 Oxygen Delivery Room Air Room Air Simple Face Mask Oxygen Flow Rate 8 Fraction of Inspired Oxygen 10/30/24 16:38 10/30/24 16:45 10/30/24 17:00 Temperature 97.4 F L Pulse Rate 71 75 Respiratory Rate 14 15 Blood Pressure 191/99 H 156/73 H Pulse Oximetry 100 99 97 Oxygen Delivery Simple Face Mask Simple Face Mask Room Air Oxygen Flow Rate 8 8 Fraction of Inspired Oxygen 10/30/24 17:15 10/30/24 17:30 10/30/24 17:50 Temperature 97.1 F L 96.4 F L Pulse Rate 80 72 76 Respiratory Rate 17 19 16 Blood Pressure 150/80 H 157/74 H 144/79 H Pulse Oximetry 99 97 98 Oxygen Delivery Room Air Room Air Oxygen Flow Rate Fraction of Inspired Oxygen 10/30/24 18:05 10/30/24 18:35 10/30/24 20:00 Temperature 96.6 F L 96.9 F L Pulse Rate 82 57 L Respiratory Rate 16 18 Blood Pressure 160/72 H 141/72 H Pulse Oximetry 96 93 Oxygen Delivery Room Air Oxygen Flow Rate Fraction of Inspired Oxygen 10/30/24 20:04 10/30/24 20:08 10/30/24 20:30 Temperature 98.6 F Pulse Rate 81 81 86 Respiratory Rate 20 20 16 Blood Pressure 186/96 H Pulse Oximetry 98 99 Oxygen Delivery Room Air Oxygen Flow Rate Fraction of Inspired Oxygen 21 10/30/24 20:45 10/31/24 03:45 Temperature 97.8 F Pulse Rate 87 Respiratory Rate 18 Blood Pressure 140/65 140/68 Pulse Oximetry 99 Oxygen Delivery Oxygen Flow Rate Fraction of Inspired Oxygen Intake/Output Intake/Output: Intake & Output 10/28/24 10/29/24 10/30/24 10/31/24 23:59 23:59 23:59 23:59 Intake Total 236 499.5 550 Output Total 350 600 600 Balance -114 -100.5 -50 Meds/Results Medications: Active Medications Generic Name Dose Route Start Last Admin Trade Name Freq PRN Reason Stop Dose Admin Acetaminophen 650 mg 10/29/24 12:45 10/29/24 21:33 Acetaminophen 325 Mg Tablet PO 650 mg Q6H PRN Administration Mild Pain (1-3) or Fever Hydrocodone Bitart/Acetaminophen 1 tab 10/30/24 17:35 10/30/24 20:00 Hydrocodone/Acetaminophen (*Crx) 5-325 Mg Tablet PO 1 tab Q4H PRN Administration Pain Rated 4-6 Albuterol 2 puff 10/29/24 16:09 Albuterol Sulfate (*Sp) Aerosol 1 Puff INHALATION Q4H PRN shortness of breath or wheezing Allopurinol 100 mg 10/31/24 09:00 Allopurinol 100 Mg Tablet PO DAILY [facility] Aspirin 81 mg 10/31/24 09:00 Aspirin 81 Mg Enteric Tablet PO DAILY [facility] Dextrose 12.5 gm 10/29/24 12:46 Dextrose 50% 25 Gm/50 Ml Syringe IV PUSH PRN PRN Hypoglycemia Protocol Ergocalciferol 1,250 mcg 10/30/24 17:55 10/30/24 18:04 Ergocalciferol (Vitamin D2) 1,250 Mcg (50,000 Units) Capsule PO 1,250 mcg Mo@0900 [facility] Administration Fentanyl Citrate 50 mcg 10/29/24 11:33 Fentanyl Citrate Inj (*Crx) 100 Mcg/2 Ml Vial IV PUSH Q2H PRN Pain Rated 6 or Greater Glucagon 1 mg 10/29/24 12:46 Glucagon For Inj 1 Mg Vial IM PRN PRN Hypoglycemia Protocol Glucose 15 gm 10/29/24 12:46 Glucose Oral Gel 15 Gm Of Glucse In 37.5 Gm Tube PO PRN PRN Hypoglycemia Protocol Hydroxyzine Pamoate 50 mg 10/30/24 17:35 Hydroxyzine Pamoate 25 Mg Capsule PO Q4H PRN Itching Dextrose 1,000 mls @ 100 mls/hr 10/29/24 12:46 Dextrose 5% 1,000 Ml IVPB PRN PRN Hypoglycemia Protocol Cefazolin Sodium 2 gm in 50 mls @ 100 mls/hr 10/30/24 21:00 10/31/24 05:50 Ancef 2 Gm/D5w 50 Ml IVPB 10/31/24 13:29 100 mls/hr Q8H [facility] Administration Ibuprofen 800 mg in 200 mls @ 400 mls/hr 10/30/24 17:35 Caldolor 800 Mg/200 Ml IVPB Q6H PRN Breakthrough Pain Rated 1-3 or NPO Insulin Aspart 2 - 5 units 10/29/24 17:00 10/30/24 17:35 Insulin Aspart (*Bkc) 100 Units/Ml SUB-Q Not Given TIDWM [facility] Protocol Levothyroxine Sodium 50 mcg 10/30/24 06:30 10/31/24 05:54 Levothyroxine Sodium 50 Mcg Tablet PO 50 mcg DAILY@0630 [facility]EL[facility] Administration Montelukast Sodium 10 mg 10/31/24 09:00 Montelukast Sodium 10 Mg Tablet PO DAILY [facility] Naloxone HCl 0.1 mg 10/30/24 17:35 Naloxone Hcl 0.4 Mg/Ml Vial IV PUSH Q2M PRN Opiate Reversal Ondansetron HCl 4 mg 10/30/24 17:35 Ondansetron Inj 4 Mg/2 Ml Vial IV PUSH Q4H PRN Nausea And Vomiting Polyethylene Glycol 17 gm 10/31/24 09:00 Polyethylene Glycol 3350 17 Gm Powd.Pack PO QAM [facility] Rivaroxaban 10 mg 10/30/24 22:30 10/30/24 22:56 Rivaroxaban 10 Mg Tablet PO 10 mg DAILY@17 [facility] Administration Rosuvastatin Calcium 40 mg 10/31/24 09:00 Rosuvastatin 20 Mg Tablet PO DAILY [facility] Fluticasone/Salmeterol 2 puff 10/29/24 20:00 10/30/24 20:04 Fluticasone/Salmeterol 230-21 Mcg Inhaler 1 Puff INHALATION 2 puff Q12HRT [facility]EL[facility] Administration Senna/Docusate Sodium 2 tab 10/30/24 17:35 10/30/24 17:48 Senna/Docusate Sodium Tablet PO 2 tab BID [facility]EL[facility] Administration Radiology Results: ITS Impressions Hip/Pelvis X-Ray 10/29/24 10:44 IMPRESSION: Right-sided intertrochanteric fracture, as detailed above Head CT 10/29/24 10:46 Impression: No acute intracranial hemorrhage or suspicious mass effect. Chest X-Ray 10/29/24 11:17 IMPRESSION: No focal infiltrate or effusion. Labs Labs: Laboratory Results - last 24 hr 10/30/24 10/30/24 10/30/24 07:52 11:59 16:36 POC Capillary Glucose 100 102 96 Urine Color Urine Appearance Urine pH Ur Specific [place] Urine Protein Urine Glucose (UA) Urine Ketones Ur Blood (Man) Urine Nitrate Urine Bilirubin Urine Urobilinogen Add Ur Microanalysis Leukocyte Esterase Rfl Urine RBC Urine WBC Ur Squamous Epith Cells Urine Bacteria Urine Casts 10/30/24 10/31/24 10/31/24 20:31 03:47 05:50 POC Capillary Glucose 102 110 H Urine Color Yellow Urine Appearance Clear Urine pH 5.0 Ur Specific [place] 1.036 H Urine Protein 2+ H Urine Glucose (UA) 3+ H Urine Ketones Trace H Ur Blood (Man) 2+ H Urine Nitrate Negative Urine Bilirubin Negative Urine Urobilinogen 0.2 Add Ur Microanalysis Reviewed Leukocyte Esterase Rfl Negative Urine RBC 0-2 Urine WBC 0-5 Ur Squamous Epith Cells Occasional Urine Bacteria None seen Urine Casts 6-10
[2024-10-31 07:52] VITALS: BP 129/62; PULSE 77; RESP 18; TEMP 36.7; O2SAT 99
[2024-10-31] MEDS: FLUTICASONE/SALMETEROL 230-21 MCG INHALER 1 PUFF 2 PUFF INHALATION ×2 (08:01→21:41)
[2024-10-31] MEDS: ASPIRIN 81 MG ENTERIC TABLET PO (08:06)
[2024-10-31] MEDS: SENNA/DOCUSATE SODIUM TABLET 2 TAB PO ×2 (08:07→16:23)
[2024-10-31] MEDS: ROSUVASTATIN 20 MG TABLET 40 MG PO (08:07)
[2024-10-31] MEDS: MONTELUKAST SODIUM 10 MG TABLET PO (08:07)
--- NOTE | 2024-10-31 08:10 | PC.NURSE ---
Informed Dr. Hooker that staffing is not currently available for a patient sitter per provider's order. Provider informed that patient will be monitored with bed alarms and frequently rounding as per this unit's policy to ensure safety due to patient's confusion. Provider aware that sitter is not available at this time.
[2024-10-31] MEDS: HYDROcodone/acetaminophen (*CRX) 5-325 MG TABLET 1 TAB PO ×2 (08:18→20:39)
[2024-10-31 11:14] VITALS: BP 144/68; PULSE 79; RESP 16; TEMP 36.4; O2SAT 97
--- NOTE | 2024-10-31 11:21 | P.PNIM_ITS ---
Progress Note: A&P Assessment and Plan (1) Closed intertrochanteric fracture of right hip: Qualifiers: Encounter type: subsequent encounter Fracture alignment: displaced Fracture healing: with routine healing Qualified Code(s): S72.141D - Displaced intertrochanteric fracture of right femur, subsequent encounter for closed fracture with routine healing Code(s): S72.141A - Displaced intertrochanteric fracture of right femur, initial encounter for closed fracture Status: Acute Assessment and Plan: - Hip XR: Right-sided intertrochanteric fracture, as detailed above - bed rest until surgical fixation - orthopedist consulted - analgesics prn: Tylenol, [place], fentanyl - will need PT/OT evaluation and treatment postop - NPO at midnight ortho consulted-surgery today at 2 pm 7/8 s/p RT hip IM nail, post op day 1. (2) Fall at home: Qualifiers: Encounter type: initial encounter Qualified Code(s): W19.XXXA - Unspecified fall, initial encounter; Y92.009 - Unspecified place in unspecified non-institutional (private) residence as the place of occurrence of the external cause Code(s): W19.XXXA - Unspecified fall, initial encounter; Y92.009 - Unspecified place in unspecified non-institutional (private) residence as the place of occurrence of the external cause Status: Acute Assessment and Plan: - trauma workup included a CXR, Head CT, and Hip XR. Hip XR showed traumatic findings, see above. Head CT and CXR showed no traumatic or acute findings. - fall precautions - check UA -> equivocal but asymptomatic. monitor UC. (3) Type 2 diabetes mellitus without complications: Qualifiers: Diabetes mellitus halfway insulin use: without housekeeping coordinator use Qualified Code(s): E11.9 - Type 2 diabetes mellitus without complications Code(s): E11.9 - Type 2 diabetes mellitus without complications Status: Chronic Assessment and Plan: - borderline per patient - hypoglycemia protocol - POC blood glucose ACHS - home medication: hold Jardiance - correct regimen ordered - low dose TIDWM, based off TDD - A1C 5.4% on 09/13/2024 (4) CKD (chronic kidney disease) stage 3, GFR 30-59 ml/min: Qualifiers: Chronic kidney disease stage 3 subtype: stage 3a (GFR 45-59) Qualified Code(s): N18.31 - Chronic kidney disease, stage 3a Code(s): N18.30 - Chronic kidney disease, stage 3 unspecified Status: Chronic Assessment and Plan: - creatinine1.17, BUN 16, GFR 45 - baseline: 1.1-1.2 - trend renal function - trend electrolytes, correct as needed (5) Essential hypertension: Code(s): I10 - Essential (primary) hypertension Status: Resolved Assessment and Plan: - chronic, currently 131/72 - patient states she was recently taking off of her antihypertensive medications as her blood pressure was low. - monitor (6) DAVID on CPAP: Code(s): G47.33 - Obstructive sleep apnea (adult) (pediatric); Z99.89 - Dependence on other enabling machines and devices Status: Acute Assessment and Plan: - continue home CPAP Plan UA equivocal for UTI. Denies urinary symptoms. Will hold on initiation of abx at this time. Follow UC. Diet: heart healthy GI Prophylaxis: not currently indicated DVT Prophylaxis: SCDs IV fluids: none Lines/Tubes: peripheral IV, [place] Code Status: full code Time Spent With Patient Time with patient: 25 - 35 minutes Subjective Date/time seen: 10/31/24 11:21 Interval history: Pt is seen and examined. She is awake and alert. reports some rt hip pain, worse with movement. PT/ot today. Pt wants to be discharged home vs rehab. Encouraged to do IS. Review of Systems Review of Systems: All systems reviewed & are unremarkable except as noted in HPI and below Exam Const: General: comfortable and no acute distress Other: , female, nontoxic appearance HENMT: Face/Nose/Sinus: Normal nares present Mouth: Yes moist mucous membranes Eyes: General: appearance normal, both eyes and all related structures Sclera: sclerae normal Pupils: Equal, round and reactive pupils present EOM: EOMs intact bilaterally Resp: Effort & Inspection: normal respiratory effort Auscultation: clear to auscultation bilaterally Cardio: Rate: regular rate Rhythm: regular rhythm Other: S1-S2 present without murmur, rub, ectopy GI: Other: Abdomen soft, nondistended, nontender. Normoactive bowel sounds in all quadrants. Skin: General skin exam: normal color and no rashes or lesions noted Wounds: no wounds Neuro: Cranial nerves: Yes Equal, round and reactive pupils present Speech: normal speech Motor exam (neuro): 5/5 motor strength present throughout Sensory Exam: normal sensation Other: A&O x4 Extrem: Other: DP pulses 2+. Very mild shortening of the right lower extremity. Tenderness over the right hip. Psych: Mental Status: mental status grossly normal Affect: normal affect Other: Good insight and judgment, pleasant Objective Data Vital Signs Vital Signs: Vital Signs - 24 hr 10/30/24 14:28 10/30/24 16:29 10/30/24 16:38 Temperature 99.2 F 97.1 F L Pulse Rate 104 H 95 Respiratory Rate 100 H Blood Pressure 151/73 H 130/75 Pulse Oximetry 100 100 100 Oxygen Delivery Room Air Simple Face Mask Simple Face Mask Oxygen Flow Rate 8 8 Fraction of Inspired Oxygen 10/30/24 16:45 10/30/24 17:00 10/30/24 17:15 Temperature 97.4 F L 97.1 F L Pulse Rate 71 75 80 Respiratory Rate 14 15 17 Blood Pressure 191/99 H 156/73 H 150/80 H Pulse Oximetry 99 97 99 Oxygen Delivery Simple Face Mask Room Air Room Air Oxygen Flow Rate 8 Fraction of Inspired Oxygen 10/30/24 17:30 10/30/24 17:50 10/30/24 18:05 Temperature 96.4 F L 96.6 F L Pulse Rate 72 76 82 Respiratory Rate 19 16 16 Blood Pressure 157/74 H 144/79 H 160/72 H Pulse Oximetry 97 98 96 Oxygen Delivery Room Air Oxygen Flow Rate Fraction of Inspired Oxygen 10/30/24 18:35 10/30/24 20:00 10/30/24 20:04 Temperature 96.9 F L Pulse Rate 57 L 81 Respiratory Rate 18 20 Blood Pressure 141/72 H Pulse Oximetry 93 Oxygen Delivery Room Air Oxygen Flow Rate Fraction of Inspired Oxygen 10/30/24 20:08 10/30/24 20:30 10/30/24 20:45 Temperature 98.6 F Pulse Rate 81 86 Respiratory Rate 20 16 Blood Pressure 186/96 H 140/65 Pulse Oximetry 98 99 Oxygen Delivery Room Air Oxygen Flow Rate Fraction of Inspired Oxygen 21 10/31/24 03:45 10/31/24 07:52 10/31/24 08:00 Temperature 97.8 F 98.1 F Pulse Rate 87 77 Respiratory Rate 18 18 Blood Pressure 140/68 129/62 Pulse Oximetry 99 99 Oxygen Delivery Room Air Oxygen Flow Rate Fraction of Inspired Oxygen 10/31/24 09:36 10/31/24 11:14 Temperature 97.6 F Pulse Rate 79 Respiratory Rate 16 Blood Pressure 144/68 H Pulse Oximetry 97 Oxygen Delivery Room Air Oxygen Flow Rate Fraction of Inspired Oxygen Intake/Output Intake/Output: Intake & Output 10/28/24 10/29/24 10/30/24 10/31/24 23:59 23:59 23:59 23:59 Intake Total 236 499.5 790 Output Total 350 600 600 Balance -114 -100.5 190 Meds/Results Medications: Active Medications Generic Name Dose Route Start Last Admin Trade Name Freq PRN Reason Stop Dose Admin Acetaminophen 650 mg 10/29/24 12:45 10/29/24 21:33 Acetaminophen 325 Mg Tablet PO 650 mg Q6H PRN Administration Mild Pain (1-3) or Fever Hydrocodone Bitart/Acetaminophen 1 tab 10/30/24 17:35 10/31/24 08:18 Hydrocodone/Acetaminophen (*Crx) 5-325 Mg Tablet PO 1 tab Q4H PRN Administration Pain Rated 4-6 Albuterol 2 puff 10/29/24 16:09 Albuterol Sulfate (*Sp) Aerosol 1 Puff INHALATION Q4H PRN shortness of breath or wheezing Allopurinol 100 mg 10/31/24 09:00 10/31/24 08:06 Allopurinol 100 Mg Tablet PO 100 mg DAILY [facility] Administration Aspirin 81 mg 10/31/24 09:00 10/31/24 08:06 Aspirin 81 Mg Enteric Tablet PO 81 mg DAILY [facility] Administration Dextrose 12.5 gm 10/29/24 12:46 Dextrose 50% 25 Gm/50 Ml Syringe IV PUSH PRN PRN Hypoglycemia Protocol Ergocalciferol 1,250 mcg 10/30/24 17:55 10/30/24 18:04 Ergocalciferol (Vitamin D2) 1,250 Mcg (50,000 Units) Capsule PO 1,250 mcg Mo@0900 VEL[facility] Administration Fentanyl Citrate 50 mcg 10/29/24 11:33 Fentanyl Citrate Inj (*Crx) 100 Mcg/2 Ml Vial IV PUSH Q2H PRN Pain Rated 6 or Greater Glucagon 1 mg 10/29/24 12:46 Glucagon For Inj 1 Mg Vial IM PRN PRN Hypoglycemia Protocol Glucose 15 gm 10/29/24 12:46 Glucose Oral Gel 15 Gm Of Glucse In 37.5 Gm Tube PO PRN PRN Hypoglycemia Protocol Hydroxyzine Pamoate 50 mg 10/30/24 17:35 Hydroxyzine Pamoate 25 Mg Capsule PO Q4H PRN Itching Dextrose 1,000 mls @ 100 mls/hr 10/29/24 12:46 Dextrose 5% 1,000 Ml IVPB PRN PRN Hypoglycemia Protocol Cefazolin Sodium 2 gm in 50 mls @ 100 mls/hr 10/30/24 21:00 10/31/24 05:50 Ancef 2 Gm/D5w 50 Ml IVPB 10/31/24 13:29 100 mls/hr Q8H [facility] Administration Ibuprofen 800 mg in 200 mls @ 400 mls/hr 10/30/24 17:35 Caldolor 800 Mg/200 Ml IVPB Q6H PRN Breakthrough Pain Rated 1-3 or NPO Insulin Aspart 2 - 5 units 10/29/24 17:00 10/31/24 10:14 Insulin Aspart (*Bkc) 100 Units/Ml SUB-Q Not Given TIDWM [facility] Protocol Levothyroxine Sodium 50 mcg 10/30/24 06:30 10/31/24 05:54 Levothyroxine Sodium 50 Mcg Tablet PO 50 mcg DAILY@0630 [facility] Administration Montelukast Sodium 10 mg 10/31/24 09:00 10/31/24 08:07 Montelukast Sodium 10 Mg Tablet PO 10 mg DAILY [facility] Administration Naloxone HCl 0.1 mg 10/30/24 17:35 Naloxone Hcl 0.4 Mg/Ml Vial IV PUSH Q2M PRN Opiate Reversal Ondansetron HCl 4 mg 10/30/24 17:35 Ondansetron Inj 4 Mg/2 Ml Vial IV PUSH Q4H PRN Nausea And Vomiting Polyethylene Glycol 17 gm 10/31/24 09:00 10/31/24 08:06 Polyethylene Glycol 3350 17 Gm Powd.Pack PO 17 gm QAM [facility] Administration Rivaroxaban 10 mg 10/30/24 22:30 10/30/24 22:56 Rivaroxaban 10 Mg Tablet PO 10 mg DAILY@17 [facility] Administration Rosuvastatin Calcium 40 mg 10/31/24 09:00 10/31/24 08:07 Rosuvastatin 20 Mg Tablet PO 40 mg DAILY [facility] Administration Fluticasone/Salmeterol 2 puff 10/29/24 20:00 10/31/24 08:01 Fluticasone/Salmeterol 230-21 Mcg Inhaler 1 Puff INHALATION 2 puff Q12HRT [facility] Administration Senna/Docusate Sodium 2 tab 10/30/24 17:35 10/31/24 08:07 Senna/Docusate Sodium Tablet PO 2 tab BID [facility] Administration Radiology Results: ITS Impressions Hip/Pelvis X-Ray 10/29/24 10:44 IMPRESSION: Right-sided intertrochanteric fracture, as detailed above Head CT 10/29/24 10:46 Impression: No acute intracranial hemorrhage or suspicious mass effect. Chest X-Ray 10/29/24 11:17 IMPRESSION: No focal infiltrate or effusion. Labs Labs: Laboratory Results - last 24 hr 10/30/24 10/30/24 10/30/24 11:59 16:36 20:31 POC Capillary Glucose 102 96 102 Urine Color Urine Appearance Urine pH Ur Specific [place] Urine Protein Urine Glucose (UA) Urine Ketones Ur Blood (Man) Urine Nitrate Urine Bilirubin Urine Urobilinogen Add Ur Microanalysis Leukocyte Esterase Rfl Urine RBC Urine WBC Ur Squamous Epith Cells Urine Bacteria Urine Casts 10/31/24 10/31/24 10/31/24 03:47 05:50 08:30 POC Capillary Glucose 110 H 100 Urine Color Yellow Urine Appearance Clear Urine pH 5.0 Ur Specific [place] 1.036 H Urine Protein 2+ H Urine Glucose (UA) 3+ H Urine Ketones Trace H Ur Blood (Man) 2+ H Urine Nitrate Negative Urine Bilirubin Negative Urine Urobilinogen 0.2 Add Ur Microanalysis Reviewed Leukocyte Esterase Rfl Negative Urine RBC 0-2 Urine WBC 0-5 Ur Squamous Epith Cells Occasional Urine Bacteria None seen Urine Casts 6-10 Quality VTE Prophylaxis VTE prophylaxis: mechanical ordered
[2024-10-31 16:00] VITALS: BP 120/56; PULSE 94; RESP 17; TEMP 35.9; O2SAT 97
[2024-10-31] MEDS: RIVAROXABAN 10 MG TABLET PO (16:23)
[2024-10-31 20:00] VITALS: PULSE 101; RESP 19; O2SAT 96
[2024-10-31 21:31] VITALS: BP 131/55; PULSE 101; RESP 19; TEMP 36.6; O2SAT 96
[2024-11-01 06:03] VITALS: BP 152/61; PULSE 96; RESP 17; TEMP 36.2; O2SAT 96
[2024-11-01] MEDS: LEVOTHYROXINE SODIUM 50 MCG TABLET PO (06:28)
[2024-11-01] MEDS: HYDROcodone/acetaminophen (*CRX) 5-325 MG TABLET 1 TAB PO ×2 (08:11→21:34)
[2024-11-01] MEDS: ROSUVASTATIN 20 MG TABLET 40 MG PO (08:13)
[2024-11-01] MEDS: SENNA/DOCUSATE SODIUM TABLET 2 TAB PO ×2 (08:13→17:05)
[2024-11-01] MEDS: ASPIRIN 81 MG ENTERIC TABLET PO (08:13)
[2024-11-01] MEDS: MONTELUKAST SODIUM 10 MG TABLET PO (08:13)
--- NOTE | 2024-11-01 08:55 | PM.IMPN ---
Progress Note: A&P Assessment and Plan (1) Fall at home: Qualifiers: Encounter type: initial encounter Qualified Code(s): W19.XXXA - Unspecified fall, initial encounter; Y92.009 - Unspecified place in unspecified non-institutional (private) residence as the place of occurrence of the external cause Code(s): W19.XXXA - Unspecified fall, initial encounter; Y92.009 - Unspecified place in unspecified non-institutional (private) residence as the place of occurrence of the external cause Status: Acute Assessment and Plan: Mechanical ground level fall Denies loss of consciousness. She did hit her head on the door. - CXR and Head CT unremarkable - Hip XR showed right-sided intertrochanteric fracture see plan below - fall precautions - urine culture negative. (2) Closed intertrochanteric fracture of right hip: Qualifiers: Encounter type: subsequent encounter Fracture alignment: displaced Fracture healing: with routine healing Qualified Code(s): S72.141D - Displaced intertrochanteric fracture of right femur, subsequent encounter for closed fracture with routine healing Code(s): S72.141A - Displaced intertrochanteric fracture of right femur, initial encounter for closed fracture Status: Acute Assessment and Plan: Hip XR: Right-sided intertrochanteric fracture - analgesics prn: Tylenol, [place] [facility], fentanyl - continue xarelto - PT/OT recommending SNF placement weight bearing as tolerated per ortho recommendations - orthopedist consulted s/p right hip trochanteric fracture fixation with intramedullary hip screw on 10/[address] Hooker (3) Type 2 diabetes mellitus without complications: Qualifiers: Diabetes mellitus half-way insulin use: without manager terminal use Qualified Code(s): E11.9 - Type 2 diabetes mellitus without complications Code(s): E11.9 - Type 2 diabetes mellitus without complications Status: Chronic Assessment and Plan: - hypoglycemia protocol - POC blood glucose ACHS - home medication: hold Jardiance - correct regimen ordered - low dose TIDWM, based off TDD - A1C 5.4% on 09/13/2024 Glucose levels controlled. Continue to monitor. (4) CKD (chronic kidney disease) stage 3, GFR 30-59 ml/min: Qualifiers: Chronic kidney disease stage 3 subtype: stage 3a (GFR 45-59) Qualified Code(s): N18.31 - Chronic kidney disease, stage 3a Code(s): N18.30 - Chronic kidney disease, stage 3 unspecified Status: Chronic Assessment and Plan: - creatinine1.17, BUN 16, GFR 45 on admission - baseline: 1.1-1.2 - trend renal function - monitor I/O - renally dose medications - avoid nephrotoxic medications - trend electrolytes, correct as needed (5) Essential hypertension: Code(s): I10 - Essential (primary) hypertension Status: Resolved Assessment and Plan: - chronic continue to monitor. remains stable at this time. - patient states she was recently taking off of her antihypertensive medications as her blood pressure was low. (6) DAVID on CPAP: Code(s): G47.33 - Obstructive sleep apnea (adult) (pediatric); Z99.89 - Dependence on other enabling machines and devices Status: Acute Assessment and Plan: - continue home CPAP Time Spent With Patient Time with patient: 25 - 35 minutes Subjective Date/time seen: 11/01/24 08:55 Interval history: 79 year old female with past medical history of CKD, CVA, hypothyroidism, diabetes, dyslipidemia, hypertension, and DAVID on CPAP presents here with ground level fall and hip pain. Patient is pleasant lying comfortably in bed. She is alert and oriented x3 at time of assessment and is not actively having hallucinations. She does states that she was seeing a cat ran around her room earlier in the day but states she feels like she was dreaming because she her cat at home would be doing this. She has no complaints denying chest pain, shortness a breath, palpitations, nausea/vomiting, and abdominal pain. States that her pain is well controlled on the current regimen. She continues to work with therapy who is currently recommending SNF placement. Care coordination following. Review of Systems Review of Systems: All systems reviewed & are unremarkable except as noted in HPI and below Exam Narrative: AF HR 96 RR 17 SpO2 93 BP 152/61 General: female in no acute respiratory distress who is nontoxic appearing, lying semi recumbent in bed. HEENT: Normocephalic. Atraumatic. Extraocular movement intact. Sclera clear and anicteric. No facial asymmetry. Chest: Lungs are clear to auscultation bilaterally. No wheezes or crackles. CV: Heart was regular rate and rhythm. Abd: Abdomen was soft. Nontender. Nondistended. Positive bowel sounds. Ext: No clubbing, cyanosis, or edema. DP pulses bilaterally. Neuro: Patient is alert and oriented x3. Speech is clear. Objective Data Vital Signs Vital Signs: Vital Signs - 24 hr 10/31/24 09:36 10/31/24 11:14 10/31/24 16:00 Temperature 97.6 F 96.6 F L Pulse Rate 79 94 Respiratory Rate 16 17 Blood Pressure 144/68 H 120/56 L Pulse Oximetry 97 97 Oxygen Delivery Room Air Fraction of Inspired Oxygen 10/31/24 20:00 10/31/24 21:31 11/01/24 06:03 Temperature 97.8 F 97.2 F L Pulse Rate 101 H 101 H 96 Respiratory Rate 19 19 17 Blood Pressure 131/55 L 152/61 H Pulse Oximetry 96 96 96 Oxygen Delivery Room Air Fraction of Inspired Oxygen 21 Intake/Output Intake/Output: Intake & Output 10/29/24 10/30/24 10/31/24 11/01/24 23:59 23:59 23:59 23:59 Intake Total 236 499.5 1370 500 Output Total 790 365 6882 1400 Balance -114 -100.5 70 -900 Meds/Results Medications: Active Medications Generic Name Dose Route Start Last Admin Trade Name Freq PRN Reason Stop Dose Admin Acetaminophen 650 mg 10/29/24 12:45 10/29/24 21:33 Acetaminophen 325 Mg Tablet PO 650 mg Q6H PRN Administration Mild Pain (1-3) or Fever Hydrocodone Bitart/Acetaminophen 1 tab 10/30/24 17:35 11/01/24 08:11 Hydrocodone/Acetaminophen (*Crx) 5-325 Mg Tablet PO 1 tab Q4H PRN Administration Pain Rated 4-6 Albuterol 2 puff 10/29/24 16:09 Albuterol Sulfate (*Sp) Aerosol 1 Puff INHALATION Q4H PRN shortness of breath or wheezing Allopurinol 100 mg 10/31/24 09:00 11/01/24 08:08 Allopurinol 100 Mg Tablet PO 100 mg DAILY VELMA Administration Aspirin 81 mg 10/31/24 09:00 11/01/24 08:13 Aspirin 81 Mg Enteric Tablet PO 81 mg DAILY VELMA Administration Dextrose 12.5 gm 10/29/24 12:46 Dextrose 50% 25 Gm/50 Ml Syringe IV PUSH PRN PRN Hypoglycemia Protocol Ergocalciferol 1,250 mcg 10/30/24 17:55 10/30/24 18:04 Ergocalciferol (Vitamin D2) 1,250 Mcg (50,000 Units) Capsule PO 1,250 mcg Mo@0900 VELMA Administration Fentanyl Citrate 50 mcg 10/29/24 11:33 Fentanyl Citrate Inj (*Crx) 100 Mcg/2 Ml Vial IV PUSH Q2H PRN Pain Rated 6 or Greater Glucagon 1 mg 10/29/24 12:46 Glucagon For Inj 1 Mg Vial IM PRN PRN Hypoglycemia Protocol Glucose 15 gm 10/29/24 12:46 Glucose Oral Gel 15 Gm Of Glucse In 37.5 Gm Tube PO PRN PRN Hypoglycemia Protocol Hydroxyzine Pamoate 50 mg 10/30/24 17:35 Hydroxyzine Pamoate 25 Mg Capsule PO Q4H PRN Itching Dextrose 1,000 mls @ 100 mls/hr 10/29/24 12:46 Dextrose 5% 1,000 Ml IVPB PRN PRN Hypoglycemia Protocol Ibuprofen 800 mg in 200 mls @ 400 mls/hr 10/30/24 17:35 Caldolor 800 Mg/200 Ml IVPB Q6H PRN Breakthrough Pain Rated 1-3 or NPO Insulin Aspart 2 - 5 units 10/29/24 17:00 11/01/24 08:18 Insulin Aspart (*Bkc) 100 Units/Ml SUB-Q Not Given TIDWM [facility] Protocol Levothyroxine Sodium 50 mcg 10/30/24 06:30 11/01/24 06:28 Levothyroxine Sodium 50 Mcg Tablet PO 50 mcg DAILY@0630 VELMA Administration Montelukast Sodium 10 mg 10/31/24 09:00 11/01/24 08:13 Montelukast Sodium 10 Mg Tablet PO 10 mg DAILY VELMA Administration Naloxone HCl 0.1 mg 10/30/24 17:35 Naloxone Hcl 0.4 Mg/Ml Vial IV PUSH Q2M PRN Opiate Reversal Ondansetron HCl 4 mg 10/30/24 17:35 Ondansetron Inj 4 Mg/2 Ml Vial IV PUSH Q4H PRN Nausea And Vomiting Polyethylene Glycol 17 gm 10/31/24 09:00 11/01/24 08:13 Polyethylene Glycol 3350 17 Gm Powd.Pack PO 17 gm QAM VELMA Administration Rivaroxaban 10 mg 10/30/24 22:30 10/31/24 16:23 Rivaroxaban 10 Mg Tablet PO 10 mg DAILY@17 VELMA Administration Rosuvastatin Calcium 40 mg 10/31/24 09:00 11/01/24 08:13 Rosuvastatin 20 Mg Tablet PO 40 mg DAILY VELMA Administration Fluticasone/Salmeterol 2 puff 10/29/24 20:00 10/31/24 21:41 Fluticasone/Salmeterol 230-21 Mcg Inhaler 1 Puff INHALATION 2 puff Q12HRT VELMA Administration Senna/Docusate Sodium 2 tab 10/30/24 17:35 11/01/24 08:13 Senna/Docusate Sodium Tablet PO 2 tab BID VELMA Administration Radiology Results: ITS Impressions Hip/Pelvis X-Ray 10/29/24 10:44 IMPRESSION: Right-sided intertrochanteric fracture, as detailed above Head CT 10/29/24 10:46 Impression: No acute intracranial hemorrhage or suspicious mass effect. Chest X-Ray 10/29/24 11:17 IMPRESSION: No focal infiltrate or effusion. Labs Labs: Laboratory Results - last 24 hr 10/31/24 10/31/24 10/31/24 12:12 16:35 20:01 POC Capillary Glucose 119 H 120 H 362 H 11/01/24 08:17 POC Capillary Glucose 92 Quality VTE Prophylaxis VTE prophylaxis: mechanical ordered
[2024-11-01] MEDS: FLUTICASONE/SALMETEROL 230-21 MCG INHALER 1 PUFF 2 PUFF INHALATION ×2 (09:36→22:05)
[2024-11-01 09:37] VITALS: O2SAT 93
[2024-11-01 09:44] LABS: Hematocrit 32.5 % (37.0-47.0); Hemoglobin 10.8 g/dL (12.0-15.0); Mean Corpuscular HGB Conc 33.2 g/dl (32-36); Mean Corpuscular Hemoglobin 30.3 pg (26-34); Mean Corpuscular Volume 91.3 fl (80-100); Platelet Count Result 173 k/mm3 (150-375); Red Blood Count 3.56 M/mm3 (4.2-5.4); White Blood Count 10.3 K/mm3 (4.5-10.0)
[2024-11-01 09:58] LABS: Alanine Aminotransferase 16 U/L (6-35); Albumin Level 3.9 g/dL (3.5-5.1); Alkaline Phosphatase 41 U/L (38-126); Anion Gap 10 mmol/L (4-12); Aspartate Amino Transferase 37 U/L (14-36); Bilirubin,Total 0.9 mg/dL (0.2-1.3); Blood Urea Nitrogen 23 mg/dL (7-17); Calcium 8.7 mg/dL (8.4-10.2); Carbon Dioxide 21 mmol/L (22-30); Chloride 102 mmol/L (98-107); Estimated CRCL calculation 33 ml/min; Estimated Glomerular Filt Rate 52; Glucose 184 mg/dL (65-110); Potassium 3.5 mmol/L (3.4-5.0); Sodium 133 mmol/L (137-145); Total Protein 7.0 g/dL (6.3-8.2)
--- NOTE | 2024-11-01 15:15 | PM.PNORT ---
Progress Note: A&P Assessment and Plan (1) Closed intertrochanteric fracture of right hip: Qualifiers: Encounter type: subsequent encounter Fracture alignment: displaced Fracture healing: with routine healing Qualified Code(s): S72.141D - Displaced intertrochanteric fracture of right femur, subsequent encounter for closed fracture with routine healing Code(s): S72.141A - Displaced intertrochanteric fracture of right femur, initial encounter for closed fracture Status: Acute Assessment and Plan: POD 2 RT hip IM nail Pain control PT/OT with wbat. Xarelto PT is very high fall risk Subjective Subjective Date/Time Seen: 11/01/24 15:15 Post Op day: 2 Principal diagnosis: RT hip IT fx Interval history: Awake, alert. C/O rt hip pain. Oriented to self. Exam Const: General: comfortable; No acute distress Orientation/consciousness: oriented to person, No oriented to place, No oriented to time and confusion Resp: Effort & Inspection: normal respiratory effort and no audible wheezes Extrem: Right lower extremity: lower leg ( Negative Homans sign), ankle Details: normal ROM ( dorsiflexion and plantar flexion intact) and foot Details: vascular exam Details: dorsalis pedis pulse present and normal capillary refill, tendon exam Details: active flexion normal and active extension normal and motor-sensory exam Details: light-touch normal Location: in all toes; no edema Left lower extremity: normal to inspection, ankle Details: normal ROM and foot Details: vascular exam Details: dorsalis pedis pulse present and normal capillary refill and motor-sensory exam light-touch normal in all toes; no edema Other: RT hip dressing clean and dry. Muscles soft. Negative Chloe's Objective Data Vital Signs Vital Signs: Vital Signs - 24 hr 10/31/24 16:00 10/31/24 20:00 10/31/24 21:31 Temperature 96.6 F L 97.8 F Pulse Rate 94 101 H 101 H Respiratory Rate 17 19 19 Blood Pressure 120/56 L 131/55 L Pulse Oximetry 97 96 96 Oxygen Delivery Room Air Fraction of Inspired Oxygen 21 11/01/24 06:03 11/01/24 08:00 11/01/24 09:37 Temperature 97.2 F L Pulse Rate 96 Respiratory Rate 17 Blood Pressure 152/61 H Pulse Oximetry 96 93 Oxygen Delivery Room Air Room Air Fraction of Inspired Oxygen Intake/Output Intake/Output: Intake & Output 10/29/24 10/30/24 10/31/24 11/01/24 23:59 23:59 23:59 23:59 Intake Total 236 499.5 1370 980 Output Total 659 212 9150 1850 Balance -114 -100.5 70 -870 Meds/Results Medications: Active Medications Generic Name Dose Route Start Last Admin Trade Name Freq PRN Reason Stop Dose Admin Acetaminophen 650 mg 10/29/24 12:45 10/29/24 21:33 Acetaminophen 325 Mg Tablet PO 650 mg Q6H PRN Administration Mild Pain (1-3) or Fever Hydrocodone Bitart/Acetaminophen 1 tab 10/30/24 17:35 11/01/24 08:11 Hydrocodone/Acetaminophen (*Crx) 5-325 Mg Tablet PO 1 tab Q4H PRN Administration Pain Rated 4-6 Albuterol 2 puff 10/29/24 16:09 Albuterol Sulfate (*Sp) Aerosol 1 Puff INHALATION Q4H PRN shortness of breath or wheezing Allopurinol 100 mg 10/31/24 09:00 11/01/24 08:08 Allopurinol 100 Mg Tablet PO 100 mg DAILY VELMA Administration Aspirin 81 mg 10/31/24 09:00 11/01/24 08:13 Aspirin 81 Mg Enteric Tablet PO 81 mg DAILY VELMA Administration Dextrose 12.5 gm 10/29/24 12:46 Dextrose 50% 25 Gm/50 Ml Syringe IV PUSH PRN PRN Hypoglycemia Protocol Ergocalciferol 1,250 mcg 10/30/24 17:55 10/30/24 18:04 Ergocalciferol (Vitamin D2) 1,250 Mcg (50,000 Units) Capsule PO 1,250 mcg Mo@0900 VELMA Administration Fentanyl Citrate 50 mcg 10/29/24 11:33 Fentanyl Citrate Inj (*Crx) 100 Mcg/2 Ml Vial IV PUSH Q2H PRN Pain Rated 6 or Greater Glucagon 1 mg 10/29/24 12:46 Glucagon For Inj 1 Mg Vial IM PRN PRN Hypoglycemia Protocol Glucose 15 gm 10/29/24 12:46 Glucose Oral Gel 15 Gm Of Glucse In 37.5 Gm Tube PO PRN PRN Hypoglycemia Protocol Hydroxyzine Pamoate 50 mg 10/30/24 17:35 Hydroxyzine Pamoate 25 Mg Capsule PO Q4H PRN Itching Dextrose 1,000 mls @ 100 mls/hr 10/29/24 12:46 Dextrose 5% 1,000 Ml IVPB PRN PRN Hypoglycemia Protocol Ibuprofen 800 mg in 200 mls @ 400 mls/hr 10/30/24 17:35 Caldolor 800 Mg/200 Ml IVPB Q6H PRN Breakthrough Pain Rated 1-3 or NPO Insulin Aspart 2 - 5 units 10/29/24 17:00 11/01/24 12:08 Insulin Aspart (*Bkc) 100 Units/Ml SUB-Q Not Given TIDWM [facility] Protocol Levothyroxine Sodium 50 mcg 10/30/24 06:30 11/01/24 06:28 Levothyroxine Sodium 50 Mcg Tablet PO 50 mcg DAILY@0630 VELMA Administration Montelukast Sodium 10 mg 10/31/24 09:00 11/01/24 08:13 Montelukast Sodium 10 Mg Tablet PO 10 mg DAILY VELMA Administration Naloxone HCl 0.1 mg 10/30/24 17:35 Naloxone Hcl 0.4 Mg/Ml Vial IV PUSH Q2M PRN Opiate Reversal Ondansetron HCl 4 mg 10/30/24 17:35 Ondansetron Inj 4 Mg/2 Ml Vial IV PUSH Q4H PRN Nausea And Vomiting Polyethylene Glycol 17 gm 10/31/24 09:00 11/01/24 08:13 Polyethylene Glycol 3350 17 Gm Powd.Pack PO 17 gm QAM VELMA Administration Rivaroxaban 10 mg 10/30/24 22:30 10/31/24 16:23 Rivaroxaban 10 Mg Tablet PO 10 mg DAILY@17 VELMA Administration Rosuvastatin Calcium 40 mg 10/31/24 09:00 11/01/24 08:13 Rosuvastatin 20 Mg Tablet PO 40 mg DAILY VELMA Administration Fluticasone/Salmeterol 2 puff 10/29/24 20:00 11/01/24 09:36 Fluticasone/Salmeterol 230-21 Mcg Inhaler 1 Puff INHALATION 2 puff Q12HRT VELMA Administration Senna/Docusate Sodium 2 tab 10/30/24 17:35 11/01/24 08:13 Senna/Docusate Sodium Tablet PO 2 tab BID VELMA Administration Radiology Results: ITS Impressions Hip/Pelvis X-Ray 10/29/24 10:44 IMPRESSION: Right-sided intertrochanteric fracture, as detailed above Head CT 10/29/24 10:46 Impression: No acute intracranial hemorrhage or suspicious mass effect. Chest X-Ray 10/29/24 11:17 IMPRESSION: No focal infiltrate or effusion. Labs Labs: Laboratory Results - last 24 hr 10/31/24 10/31/24 11/01/24 16:35 20:01 08:17 WBC RBC Hgb Hct MCV MCH MCHC RDW Plt Count MPV Sodium Potassium Chloride Carbon Dioxide Anion Gap BUN Creatinine Estim Creat Clear Calc Estimated GFR Glucose POC Capillary Glucose 120 H 362 H 92 Calcium Total Bilirubin AST ALT Alkaline Phosphatase Total Protein Albumin 11/01/24 11/01/24 09:35 11:39 WBC 10.3 H RBC 3.56 L Hgb 10.8 L Hct 32.5 L MCV 91.3 MCH 30.3 MCHC 33.2 RDW 14.9 H Plt Count 173 MPV 10.4 Sodium 133 L Potassium 3.5 Chloride 102 Carbon Dioxide 21 L Anion Gap 10 BUN 23 H Creatinine 1.02 H Estim Creat Clear Calc 33 Estimated GFR 52 L Glucose 184 H POC Capillary Glucose 135 H Calcium 8.7 Total Bilirubin 0.9 AST 37 H ALT 16 Alkaline Phosphatase 41 Total Protein 7.0 Albumin 3.9
[2024-11-01] MEDS: RIVAROXABAN 10 MG TABLET PO (17:05)
[2024-11-01 20:00] VITALS: PULSE 115; RESP 18; O2SAT 100
[2024-11-01 21:30] VITALS: BP 143/58; PULSE 109; RESP 20; TEMP 37.4; O2SAT 100
[2024-11-01 22:05] VITALS: PULSE 115; RESP 18
[2024-11-02] MEDS: LEVOTHYROXINE SODIUM 50 MCG TABLET PO (05:43)
[2024-11-02 05:52] VITALS: BP 117/55; PULSE 92; RESP 14; TEMP 36.4; O2SAT 99
[2024-11-02] MEDS: ROSUVASTATIN 20 MG TABLET 40 MG PO (08:15)
[2024-11-02] MEDS: ASPIRIN 81 MG ENTERIC TABLET PO (08:15)
[2024-11-02] MEDS: SENNA/DOCUSATE SODIUM TABLET 2 TAB PO ×2 (08:15→16:09)
[2024-11-02] MEDS: MONTELUKAST SODIUM 10 MG TABLET PO (08:15)
[2024-11-02] MEDS: FLUTICASONE/SALMETEROL 230-21 MCG INHALER 1 PUFF 2 PUFF INHALATION ×2 (08:25→20:38)
[2024-11-02 08:27] VITALS: O2SAT 97
--- NOTE | 2024-11-02 09:00 | P.PNIM_ITS ---
Progress Note: A&P Assessment and Plan (1) Fall at home: Qualifiers: Encounter type: initial encounter Qualified Code(s): W19.XXXA - Unspecified fall, initial encounter; Y92.009 - Unspecified place in unspecified non-institutional (private) residence as the place of occurrence of the external cause Code(s): W19.XXXA - Unspecified fall, initial encounter; Y92.009 - Unspecified place in unspecified non-institutional (private) residence as the place of occurrence of the external cause Status: Acute Assessment and Plan: Mechanical ground level fall Denies loss of consciousness. She did hit her head on the door. - CXR and Head CT unremarkable - Hip XR showed right-sided intertrochanteric fracture see plan below - fall precautions - urine culture negative. (2) Closed intertrochanteric fracture of right hip: Qualifiers: Encounter type: subsequent encounter Fracture alignment: displaced Fracture healing: with routine healing Qualified Code(s): S72.141D - Displaced intertrochanteric fracture of right femur, subsequent encounter for closed fracture with routine healing Code(s): S72.141A - Displaced intertrochanteric fracture of right femur, initial encounter for closed fracture Status: Acute Assessment and Plan: Hip XR: Right-sided intertrochanteric fracture - analgesics prn: Tylenol, [place], fentanyl - continue xarelto - PT/OT recommending SNF placement working better with therapy today - rodriguez catheter was in place for immobility, attempt voiding trial today. - orthopedist consulted s/p right hip trochanteric fracture fixation with intramedullary hip screw on 10/[address] Burnettebing weight bearing as tolerated (3) Hallucinations: Code(s): R44.3 - Hallucinations, unspecified Status: Acute Assessment and Plan: Patient having hallucinations yesterday of a cat running around her room, bugs and people standing by her bed. She denies any hallucinations today No signs of active infection as patient remains afebrile, UA and prior chest xr nonconcerning, and patient has no complaints. WBC slightly elevated. Continue to monitor. 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 Continue to monitor. (5) CKD (chronic kidney disease) stage 3, GFR 30-59 ml/min: Qualifiers: Chronic kidney disease stage 3 subtype: stage 3a (GFR 45-59) Qualified Code(s): N18.31 - Chronic kidney disease, stage 3a Code(s): N18.30 - Chronic kidney disease, stage 3 unspecified Status: Chronic Assessment and Plan: - creatinine1.17, BUN 16, GFR 45 on admission - baseline: 1.1-1.2 - trend renal function - monitor I/O - renally dose medications - avoid nephrotoxic medications - trend electrolytes, correct as needed (6) Essential hypertension: Code(s): I10 - Essential (primary) hypertension Status: Resolved Assessment and Plan: - chronic continue to monitor. remains stable at this time. - patient states she was recently taking off of her antihypertensive medications as her blood pressure was low. (7) DAVID on CPAP: Code(s): G47.33 - Obstructive sleep apnea (adult) (pediatric); Z99.89 - Dependence on other enabling machines and devices Status: Acute Assessment and Plan: - continue home CPAP Time Spent With Patient Time with patient: 25 - 35 minutes Subjective Date/time seen: 11/02/24 09:00 Interval history: 79 year old female with past medical history of CKD, CVA, hypothyroidism, diabetes, dyslipidemia, hypertension, and DAVID on CPAP presents here with ground level fall and hip pain. Patient is pleasant sitting up comfortably in bed. She is alert and oriented x3 at time of assessment. Per nursing staff patient was having hallucinations yesterday. Patient is currently denying any active hallucinations at time of assessment for earlier today. She denies prior history of hallucinations. Review of Systems Review of Systems: All systems reviewed & are unremarkable except as noted in HPI and below Exam Narrative: AF HR 92 RR 14 SpO2 97 BP 117/55 General: female in no acute respiratory distress who is nontoxic appearing, lying semi recumbent in bed. HEENT: Normocephalic. Atraumatic. Extraocular movement intact. Sclera clear and anicteric. No facial asymmetry. Chest: Lungs are clear to auscultation bilaterally. No wheezes or crackles. CV: Heart was regular rate and rhythm. Abd: Abdomen was soft. Nontender. Nondistended. Positive bowel sounds. Ext: No clubbing, cyanosis, or edema. DP pulses bilaterally. Dressing to right leg clean/dry/intact. Wiggling toes. Sensation intact. Neuro: Patient is alert and oriented x3. Speech is clear. Objective Data Vital Signs Vital Signs: Vital Signs - 24 hr 11/01/24 09:37 11/01/24 20:00 11/01/24 21:30 Temperature 99.4 F Pulse Rate 115 H 109 H Respiratory Rate 18 20 Blood Pressure 143/58 H Pulse Oximetry 93 100 100 Oxygen Delivery Room Air Room Air Fraction of Inspired Oxygen 21 11/01/24 22:05 11/02/24 05:52 11/02/24 08:00 Temperature 97.6 F Pulse Rate 115 H 92 Respiratory Rate 18 14 Blood Pressure 117/55 L Pulse Oximetry 99 Oxygen Delivery Room Air Fraction of Inspired Oxygen 11/02/24 08:27 Temperature Pulse Rate Respiratory Rate Blood Pressure Pulse Oximetry 97 Oxygen Delivery Room Air Fraction of Inspired Oxygen Intake/Output Intake/Output: Intake & Output 10/30/24 10/31/24 11/01/24 11/02/24 23:59 23:59 23:59 23:59 Intake Total 499.5 1370 1220 550 Output Total 600 1300 2100 1 Balance -100.5 70 -880 549 Meds/Results Medications: Active Medications Generic Name Dose Route Start Last Admin Trade Name Freq PRN Reason Stop Dose Admin Acetaminophen 650 mg 10/29/24 12:45 10/29/24 21:33 Acetaminophen 325 Mg Tablet PO 650 mg Q6H PRN Administration Mild Pain (1-3) or Fever Hydrocodone Bitart/Acetaminophen 1 tab 10/30/24 17:35 11/01/24 21:34 Hydrocodone/Acetaminophen (*Crx) 5-325 Mg Tablet PO 1 tab Q4H PRN Administration Pain Rated 4-6 Albuterol 2 puff 10/29/24 16:09 Albuterol Sulfate (*Sp) Aerosol 1 Puff INHALATION Q4H PRN shortness of breath or wheezing Allopurinol 100 mg 10/31/24 09:00 11/02/24 08:15 Allopurinol 100 Mg Tablet PO 100 mg DAILY VELMA Administration Aspirin 81 mg 10/31/24 09:00 11/02/24 08:15 Aspirin 81 Mg Enteric Tablet PO 81 mg DAILY VELMA Administration Dextrose 12.5 gm 10/29/24 12:46 Dextrose 50% 25 Gm/50 Ml Syringe IV PUSH PRN PRN Hypoglycemia Protocol Ergocalciferol 1,250 mcg 10/30/24 17:55 10/30/24 18:04 Ergocalciferol (Vitamin D2) 1,250 Mcg (50,000 Units) Capsule PO 1,250 mcg Mo@0900 VELMA Administration Fentanyl Citrate 50 mcg 10/29/24 11:33 Fentanyl Citrate Inj (*Crx) 100 Mcg/2 Ml Vial IV PUSH Q2H PRN Pain Rated 6 or Greater Glucagon 1 mg 10/29/24 12:46 Glucagon For Inj 1 Mg Vial IM PRN PRN Hypoglycemia Protocol Glucose 15 gm 10/29/24 12:46 Glucose Oral Gel 15 Gm Of Glucse In 37.5 Gm Tube PO PRN PRN Hypoglycemia Protocol Hydroxyzine Pamoate 50 mg 10/30/24 17:35 Hydroxyzine Pamoate 25 Mg Capsule PO Q4H PRN Itching Dextrose 1,000 mls @ 100 mls/hr 10/29/24 12:46 Dextrose 5% 1,000 Ml IVPB PRN PRN Hypoglycemia Protocol Ibuprofen 800 mg in 200 mls @ 400 mls/hr 10/30/24 17:35 Caldolor 800 Mg/200 Ml IVPB Q6H PRN Breakthrough Pain Rated 1-3 or NPO Insulin Aspart 2 - 5 units 10/29/24 17:00 11/02/24 07:39 Insulin Aspart (*Bkc) 100 Units/Ml SUB-Q Not Given TIDWM [facility] Protocol Levothyroxine Sodium 50 mcg 10/30/24 06:30 11/02/24 05:43 Levothyroxine Sodium 50 Mcg Tablet PO 50 mcg DAILY@0630 VELMA Administration Montelukast Sodium 10 mg 10/31/24 09:00 11/02/24 08:15 Montelukast Sodium 10 Mg Tablet PO 10 mg DAILY VELMA Administration Naloxone HCl 0.1 mg 10/30/24 17:35 Naloxone Hcl 0.4 Mg/Ml Vial IV PUSH Q2M PRN Opiate Reversal Ondansetron HCl 4 mg 10/30/24 17:35 Ondansetron Inj 4 Mg/2 Ml Vial IV PUSH Q4H PRN Nausea And Vomiting Polyethylene Glycol 17 gm 10/31/24 09:00 11/02/24 08:15 Polyethylene Glycol 3350 17 Gm Powd.Pack PO 17 gm QAM VELMA Administration Rivaroxaban 10 mg 10/30/24 22:30 11/01/24 17:05 Rivaroxaban 10 Mg Tablet PO 10 mg DAILY@17 VELMA Administration Rosuvastatin Calcium 40 mg 10/31/24 09:00 11/02/24 08:15 Rosuvastatin 20 Mg Tablet PO 40 mg DAILY VELMA Administration Fluticasone/Salmeterol 2 puff 10/29/24 20:00 11/02/24 08:25 Fluticasone/Salmeterol 230-21 Mcg Inhaler 1 Puff INHALATION 2 puff Q12HRT VELMA Administration Senna/Docusate Sodium 2 tab 10/30/24 17:35 11/02/24 08:15 Senna/Docusate Sodium Tablet PO 2 tab BID VELMA Administration Radiology Results: ITS Impressions Hip/Pelvis X-Ray 10/29/24 10:44 IMPRESSION: Right-sided intertrochanteric fracture, as detailed above Head CT 10/29/24 10:46 Impression: No acute intracranial hemorrhage or suspicious mass effect. Chest X-Ray 10/29/24 11:17 IMPRESSION: No focal infiltrate or effusion. Labs Labs: Laboratory Results - last 24 hr 11/01/24 11/01/24 11/01/24 09:35 11:39 16:46 WBC 10.3 H RBC 3.56 L Hgb 10.8 L Hct 32.5 L MCV 91.3 MCH 30.3 MCHC 33.2 RDW 14.9 H Plt Count 173 MPV 10.4 Sodium 133 L Potassium 3.5 Chloride 102 Carbon Dioxide 21 L Anion Gap 10 BUN 23 H Creatinine 1.02 H Estim Creat Clear Calc 33 Estimated GFR 52 L Glucose 184 H POC Capillary Glucose 135 H 112 H Calcium 8.7 Total Bilirubin 0.9 AST 37 H ALT 16 Alkaline Phosphatase 41 Total Protein 7.0 Albumin 3.9 11/01/24 11/02/24 21:33 07:32 WBC RBC Hgb Hct MCV MCH MCHC RDW Plt Count MPV Sodium Potassium Chloride Carbon Dioxide Anion Gap BUN Creatinine Estim Creat Clear Calc Estimated GFR Glucose POC Capillary Glucose 110 H 103 Calcium Total Bilirubin AST ALT Alkaline Phosphatase Total Protein Albumin Quality VTE Prophylaxis VTE prophylaxis: mechanical ordered
[2024-11-02 09:30] LABS: Hematocrit 33.7 % (37.0-47.0); Hemoglobin 11.1 g/dL (12.0-15.0); Mean Corpuscular HGB Conc 32.9 g/dl (32-36); Mean Corpuscular Hemoglobin 30.6 pg (26-34); Mean Corpuscular Volume 92.8 fl (80-100); Platelet Count Result 241 k/mm3 (150-375); Red Blood Count 3.63 M/mm3 (4.2-5.4); White Blood Count 11.9 K/mm3 (4.5-10.0)
[2024-11-02 09:44] LABS: Alanine Aminotransferase 27 U/L (6-35); Albumin Level 4.1 g/dL (3.5-5.1); Alkaline Phosphatase 64 U/L (38-126); Anion Gap 12 mmol/L (4-12); Aspartate Amino Transferase 57 U/L (14-36); Bilirubin,Total 1.1 mg/dL (0.2-1.3); Blood Urea Nitrogen 24 mg/dL (7-17); Calcium 9.0 mg/dL (8.4-10.2); Carbon Dioxide 24 mmol/L (22-30); Chloride 99 mmol/L (98-107); Estimated CRCL calculation 32 ml/min; Estimated Glomerular Filt Rate 51; Glucose 115 mg/dL (65-110); Potassium 3.6 mmol/L (3.4-5.0); Sodium 135 mmol/L (137-145); Total Protein 7.6 g/dL (6.3-8.2)
[2024-11-02 11:58] LABS: Add Urine Microscopic? YES; Appearance Urine Cloudy (Clear); Glucose Urine UA 3+ mg/dL (Negative); Leukocyte Esterase Ur Negative LEU/UL (Negative); Need Manual Microscopic Reviewed; Nitrate Urine Negative (Negative); Specific Grav Ur 1.031 (1.001-1.035)
[2024-11-02 14:00] VITALS: BP 119/71; PULSE 91; RESP 18; TEMP 36.8; O2SAT 100
[2024-11-02] MEDS: RIVAROXABAN 10 MG TABLET PO (16:09)
[2024-11-02 20:40] VITALS: PULSE 98; RESP 16
[2024-11-02 20:48] VITALS: PULSE 96; RESP 18
[2024-11-02 21:08] VITALS: BP 119/73; PULSE 101; RESP 16; TEMP 36.4; O2SAT 98
[2024-11-02] MEDS: HYDROcodone/acetaminophen (*CRX) 5-325 MG TABLET 1 TAB PO (22:09)
[2024-11-03 04:36] VITALS: BP 122/62; PULSE 80; RESP 16; TEMP 36.4; O2SAT 96
[2024-11-03] MEDS: LEVOTHYROXINE SODIUM 50 MCG TABLET PO (05:30)
[2024-11-03 06:19] LABS: Hematocrit 30.6 % (37.0-47.0); Hemoglobin 10.0 g/dL (12.0-15.0); Mean Corpuscular HGB Conc 32.7 g/dl (32-36); Mean Corpuscular Hemoglobin 30.5 pg (26-34); Mean Corpuscular Volume 93.3 fl (80-100); Platelet Count Result 227 k/mm3 (150-375); Red Blood Count 3.28 M/mm3 (4.2-5.4); White Blood Count 9.3 K/mm3 (4.5-10.0)
[2024-11-03 06:40] LABS: Alanine Aminotransferase 33 U/L (6-35); Albumin Level 3.7 g/dL (3.5-5.1); Alkaline Phosphatase 48 U/L (38-126); Anion Gap 11 mmol/L (4-12); Aspartate Amino Transferase 73 U/L (14-36); Bilirubin,Total 1.2 mg/dL (0.2-1.3); Blood Urea Nitrogen 24 mg/dL (7-17); Calcium 8.7 mg/dL (8.4-10.2); Carbon Dioxide 23 mmol/L (22-30); Chloride 99 mmol/L (98-107); Estimated CRCL calculation 33 ml/min; Estimated Glomerular Filt Rate 52; Glucose 97 mg/dL (65-110); Potassium 3.8 mmol/L (3.4-5.0); Sodium 133 mmol/L (137-145); Total Protein 6.8 g/dL (6.3-8.2)
[2024-11-03] MEDS: MONTELUKAST SODIUM 10 MG TABLET PO (09:15)
[2024-11-03] MEDS: ROSUVASTATIN 20 MG TABLET 40 MG PO (09:15)
[2024-11-03] MEDS: SENNA/DOCUSATE SODIUM TABLET 2 TAB PO (09:15)
[2024-11-03] MEDS: ASPIRIN 81 MG ENTERIC TABLET PO (09:15)
[2024-11-03] MEDS: FLUTICASONE/SALMETEROL 230-21 MCG INHALER 1 PUFF 2 PUFF INHALATION (09:55)
--- NOTE | 2024-11-03 12:21 | PM.PNORT ---
Progress Note: A&P Assessment and Plan (1) Closed intertrochanteric fracture of right hip: Qualifiers: Encounter type: subsequent encounter Fracture alignment: displaced Fracture healing: with routine healing Qualified Code(s): S72.141D - Displaced intertrochanteric fracture of right femur, subsequent encounter for closed fracture with routine healing Code(s): S72.141A - Displaced intertrochanteric fracture of right femur, initial encounter for closed fracture Status: Acute Assessment and Plan: POD 4 RT hip IM nail Pain control improved PT/OT with wbat. Xarelto for DVT prophylaxis PT is very high fall risk still with delirium, disoriented.\ The patient will require placement most likely senior living or memory care. Cleared for discharge from orthopedic standpoint. Plan for follow-up in 6 weeks. Subjective Subjective Date/Time Seen: 11/03/24 12:21 Post Op day: 4 Principal diagnosis: RT hip IT fx Interval history: Awake, alert. Right hip pain better. Oriented to self. Exam Const: General: comfortable; No acute distress Orientation/consciousness: oriented to person, No oriented to place, No oriented to time and confusion Resp: Effort & Inspection: normal respiratory effort and no audible wheezes Extrem: Right lower extremity: lower leg ( Negative Homans sign), ankle Details: normal ROM ( dorsiflexion and plantar flexion intact) and foot Details: vascular exam Details: dorsalis pedis pulse present and normal capillary refill, tendon exam Details: active flexion normal and active extension normal and motor-sensory exam Details: light-touch normal Location: in all toes; no edema Left lower extremity: normal to inspection, ankle Details: normal ROM and foot Details: vascular exam Details: dorsalis pedis pulse present and normal capillary refill and motor-sensory exam light-touch normal in all toes; no edema Other: RT hip dressing clean and dry. Muscles soft. Negative Chloe's Objective Data Vital Signs Vital Signs: Vital Signs - 24 hr 11/02/24 14:00 11/02/24 20:40 11/02/24 20:48 Temperature 98.2 F Pulse Rate 91 98 96 Respiratory Rate 18 16 18 Blood Pressure 119/71 Pulse Oximetry 100 11/02/24 21:08 11/03/24 04:36 Temperature 97.6 F 97.6 F Pulse Rate 101 H 80 Respiratory Rate 16 16 Blood Pressure 119/73 122/62 Pulse Oximetry 98 96 Intake/Output Intake/Output: Intake & Output 10/31/24 11/01/24 11/02/24 11/03/24 23:59 23:59 23:59 23:59 Intake Total 1370 1220 2370 730 Output Total 1300 2100 601 Balance 70 -880 1769 730 Meds/Results Medications: Active Medications Generic Name Dose Route Start Last Admin Trade Name Freq PRN Reason Stop Dose Admin Acetaminophen 650 mg 10/29/24 12:45 10/29/24 21:33 Acetaminophen 325 Mg Tablet PO 650 mg Q6H PRN Administration Mild Pain (1-3) or Fever Hydrocodone Bitart/Acetaminophen 1 tab 10/30/24 17:35 11/02/24 22:09 Hydrocodone/Acetaminophen (*Crx) 5-325 Mg Tablet PO 1 tab Q4H PRN Administration Pain Rated 4-6 Albuterol 2 puff 10/29/24 16:09 Albuterol Sulfate (*Sp) Aerosol 1 Puff INHALATION Q4H PRN shortness of breath or wheezing Allopurinol 100 mg 10/31/24 09:00 11/03/24 09:15 Allopurinol 100 Mg Tablet PO 100 mg DAILY VELMA Administration Aspirin 81 mg 10/31/24 09:00 11/03/24 09:15 Aspirin 81 Mg Enteric Tablet PO 81 mg DAILY VELMA Administration Dextrose 12.5 gm 10/29/24 12:46 Dextrose 50% 25 Gm/50 Ml Syringe IV PUSH PRN PRN Hypoglycemia Protocol Ergocalciferol 1,250 mcg 10/30/24 17:55 10/30/24 18:04 Ergocalciferol (Vitamin D2) 1,250 Mcg (50,000 Units) Capsule PO 1,250 mcg Mo@0900 VELMA Administration Fentanyl Citrate 50 mcg 10/29/24 11:33 Fentanyl Citrate Inj (*Crx) 100 Mcg/2 Ml Vial IV PUSH Q2H PRN Pain Rated 6 or Greater Glucagon 1 mg 10/29/24 12:46 Glucagon For Inj 1 Mg Vial IM PRN PRN Hypoglycemia Protocol Glucose 15 gm 10/29/24 12:46 Glucose Oral Gel 15 Gm Of Glucse In 37.5 Gm Tube PO PRN PRN Hypoglycemia Protocol Hydroxyzine Pamoate 50 mg 10/30/24 17:35 Hydroxyzine Pamoate 25 Mg Capsule PO Q4H PRN Itching Dextrose 1,000 mls @ 100 mls/hr 10/29/24 12:46 Dextrose 5% 1,000 Ml IVPB PRN PRN Hypoglycemia Protocol Ibuprofen 800 mg in 200 mls @ 400 mls/hr 10/30/24 17:35 Caldolor 800 Mg/200 Ml IVPB Q6H PRN Breakthrough Pain Rated 1-3 or NPO Insulin Aspart 2 - 5 units 10/29/24 17:00 11/03/24 09:16 Insulin Aspart (*Bkc) 100 Units/Ml SUB-Q Not Given TIDWM [facility] Protocol Levothyroxine Sodium 50 mcg 10/30/24 06:30 11/03/24 05:30 Levothyroxine Sodium 50 Mcg Tablet PO 50 mcg DAILY@0630 VELMA Administration Montelukast Sodium 10 mg 10/31/24 09:00 11/03/24 09:15 Montelukast Sodium 10 Mg Tablet PO 10 mg DAILY VELMA Administration Naloxone HCl 0.1 mg 10/30/24 17:35 Naloxone Hcl 0.4 Mg/Ml Vial IV PUSH Q2M PRN Opiate Reversal Ondansetron HCl 4 mg 10/30/24 17:35 Ondansetron Inj 4 Mg/2 Ml Vial IV PUSH Q4H PRN Nausea And Vomiting Polyethylene Glycol 17 gm 10/31/24 09:00 11/03/24 09:16 Polyethylene Glycol 3350 17 Gm Powd.Pack PO 17 gm QAM VELMA Administration Rivaroxaban 10 mg 10/30/24 22:30 11/02/24 16:09 Rivaroxaban 10 Mg Tablet PO 10 mg DAILY@17 VELMA Administration Rosuvastatin Calcium 40 mg 10/31/24 09:00 11/03/24 09:15 Rosuvastatin 20 Mg Tablet PO 40 mg DAILY VELMA Administration Fluticasone/Salmeterol 2 puff 10/29/24 20:00 11/03/24 09:55 Fluticasone/Salmeterol 230-21 Mcg Inhaler 1 Puff INHALATION 2 puff Q12HRT VELMA Administration Senna/Docusate Sodium 2 tab 10/30/24 17:35 11/03/24 09:15 Senna/Docusate Sodium Tablet PO 2 tab BID VELMA Administration Radiology Results: ITS Impressions Hip/Pelvis X-Ray 10/29/24 10:44 IMPRESSION: Right-sided intertrochanteric fracture, as detailed above Head CT 10/29/24 10:46 Impression: No acute intracranial hemorrhage or suspicious mass effect. Chest X-Ray 10/29/24 11:17 IMPRESSION: No focal infiltrate or effusion. Labs Labs: Laboratory Results - last 24 hr 11/02/24 11/02/24 11/03/24 16:38 21:14 05:06 WBC 9.3 RBC 3.28 L Hgb 10.0 L Hct 30.6 L MCV 93.3 MCH 30.5 MCHC 32.7 RDW 15.2 H Plt Count 227 MPV 10.2 Sodium 133 L Potassium 3.8 Chloride 99 Carbon Dioxide 23 Anion Gap 11 BUN 24 H Creatinine 1.02 H Estim Creat Clear Calc 33 Estimated GFR 52 L Glucose 97 POC Capillary Glucose 92 109 H Calcium 8.7 Total Bilirubin 1.2 AST 73 H ALT 33 Alkaline Phosphatase 48 Total Protein 6.8 Albumin 3.7 11/03/24 11/03/24 07:52 11:40 WBC RBC Hgb Hct MCV MCH MCHC RDW Plt Count MPV Sodium Potassium Chloride Carbon Dioxide Anion Gap BUN Creatinine Estim Creat Clear Calc Estimated GFR Glucose POC Capillary Glucose 89 115 H Calcium Total Bilirubin AST ALT Alkaline Phosphatase Total Protein Albumin
[2024-11-03 14:00] VITALS: BP 113/64; PULSE 99; RESP 16; TEMP 37.1; O2SAT 99
--- NOTE | 2024-11-03 14:22 | PM.DS ---
DS: Admitting Diagnosis Discharge Date 11/03/2024 Admitting Diagnosis Fall DS: Discharge Diagnosis Discharge Diagnosis (1) Fall at home: Qualifiers: Encounter type: initial encounter Qualified Code(s): W19.XXXA - Unspecified fall, initial encounter; Y92.009 - Unspecified place in unspecified non-institutional (private) residence as the place of occurrence of the external cause Code(s): W19.XXXA - Unspecified fall, initial encounter; Y92.009 - Unspecified place in unspecified non-institutional (private) residence as the place of occurrence of the external cause Status: Acute (2) Closed intertrochanteric fracture of right hip: Qualifiers: Encounter type: subsequent encounter Fracture alignment: displaced Fracture healing: with routine healing Qualified Code(s): S72.141D - Displaced intertrochanteric fracture of right femur, subsequent encounter for closed fracture with routine healing Code(s): S72.141A - Displaced intertrochanteric fracture of right femur, initial encounter for closed fracture Status: Acute (3) Hallucinations: Code(s): R44.3 - Hallucinations, unspecified Status: Acute (4) Type 2 diabetes mellitus without complications: Qualifiers: Diabetes mellitus custodial insulin use: without custodial use Qualified Code(s): E11.9 - Type 2 diabetes mellitus without complications Code(s): E11.9 - Type 2 diabetes mellitus without complications Status: Chronic (5) CKD (chronic kidney disease) stage 3, GFR 30-59 ml/min: Qualifiers: Chronic kidney disease stage 3 subtype: stage 3a (GFR 45-59) Qualified Code(s): N18.31 - Chronic kidney disease, stage 3a Code(s): N18.30 - Chronic kidney disease, stage 3 unspecified Status: Chronic (6) Essential hypertension: Code(s): I10 - Essential (primary) hypertension Status: Resolved (7) DAVID on CPAP: Code(s): G47.33 - Obstructive sleep apnea (adult) (pediatric); Z99.89 - Dependence on other enabling machines and devices Status: Acute DS: Summary Hospital Course Hospital Course: # Fall at home: Mechanical ground level fall Denies loss of consciousness. She did hit her head on the door. - CXR and Head CT unremarkable - Hip XR showed right-sided intertrochanteric fracture see plan below - fall precautions - urine culture negative. # Closed intertrochanteric fracture of right hip: Hip XR: Right-sided intertrochanteric fracture - analgesics prn: Tylenol, [place], fentanyl - continue xarelto - PT/OT recommending SNF placement working better with therapy and going home with home health as she refused SNF placement - rodriguez catheter was in place for immobility, attempt voiding trial today. - orthopedist consulted s/p right hip trochanteric fracture fixation with intramedullary hip screw on 10/[address] Hooker weight bearing as tolerated # Hallucinations: Patient having hallucinations of a cat running around her room, bugs and people standing by her bed. This continued to improve No signs of active infection as patient remains afebrile, UA and prior chest xr nonconcerning, and patient has no complaints. WBC slightly elevated. Continue to monitor. Possibly related to anesthesia vs narcotic pain medication vs delirium Encourage good sleep schedule Keep window open # Type 2 diabetes mellitus without complications: - hypoglycemia protocol - POC blood glucose ACHS - home medication: hold Jardiance - correct regimen ordered - low dose TIDWM, based off TDD - A1C 5.4% on 09/13/2024 Glucose levels controlled. Continue to monitor. # CKD (chronic kidney disease) stage 3, GFR 30-59 ml/min: - creatinine1.17, BUN 16, GFR 45 on admission - baseline: 1.1-1.2 - trend renal function - monitor I/O - renally dose medications - avoid nephrotoxic medications - trend electrolytes, correct as needed # Essential hypertension: - chronic continue to monitor. remains stable at this time. - patient states she was recently taking off of her antihypertensive medications as her blood pressure was low. # DAVID on CPAP: - continue home CPAP Time Spent with Patient Time attestation: Total time spent providing and/or coordinating discharge services: 40 minutes Exam Narrative: General: female in no acute respiratory distress who is nontoxic appearing, lying semi recumbent in bed. HEENT: Normocephalic. Atraumatic. Extraocular movement intact. Sclera clear and anicteric. No facial asymmetry. Chest: Lungs are clear to auscultation bilaterally. No wheezes or crackles. CV: Heart was regular rate and rhythm. Abd: Abdomen was soft. Nontender. Nondistended. Positive bowel sounds. Ext: No clubbing, cyanosis, or edema. DP pulses bilaterally. Dressing to right leg clean/dry/intact. Wiggling toes. Sensation intact. Neuro: Patient is alert and oriented x3. Speech is clear. DS: Data Data Completed and Pending Labs on day of discharge: Labs from last 24 hours 11/03/24 11/03/24 11/03/24 11:40 07:52 05:06 WBC 9.3 RBC 3.28 L Hgb 10.0 L Hct 30.6 L MCV 93.3 MCH 30.5 MCHC 32.7 RDW 15.2 H Plt Count 227 MPV 10.2 Sodium 133 L Potassium 3.8 Chloride 99 Carbon Dioxide 23 Anion Gap 11 BUN 24 H Creatinine 1.02 H Estim Creat Clear Calc 33 Estimated GFR 52 L Glucose 97 POC Capillary Glucose 115 H 89 Calcium 8.7 Total Bilirubin 1.2 AST 73 H ALT 33 Alkaline Phosphatase 48 Total Protein 6.8 Albumin 3.7 11/02/24 11/02/24 21:14 16:38 WBC RBC Hgb Hct MCV MCH MCHC RDW Plt Count MPV Sodium Potassium Chloride Carbon Dioxide Anion Gap BUN Creatinine Estim Creat Clear Calc Estimated GFR Glucose POC Capillary Glucose 109 H 92 Calcium Total Bilirubin AST ALT Alkaline Phosphatase Total Protein Albumin Procedures/Treatments: Procedure Note - Detailed Date of Procedure 10/30/24 Pre-op Diagnosis Right Hip Fracture, intertrochanteric Post-op Diagnosis Same Procedure Performed Right hip trochanteric fracture fixation with intramedullary hip screw Surgeon Jason Hooker MD [employer] Director 1st periodontal assistant Anesthesia General Indications 79-year-old woman who fell at home and sustained a right hip intertrochanteric fracture. She has been medically stabilized and desires operative treatment. Description of Procedure After informed consent the operative extremity was marked in the preoperative holding area. Patient received intravenous antibiotics. The patient was taken to the operative room, placed in the supine position, general anesthesia induced by the anesthesia team, and was placed on a fracture table with longitudinal traction applied to the right leg. The hip fracture was reduced to near anatomic position and verified with image intensification. A time-out was performed confirming the patient, site of the surgery and plan. The right lower extremity was prepped and draped sterilely from the knee to the iliac crest region using a ChloraPrep skin solution. Incision was made just proximal to greater trochanter down to the subcutaneous tissues. Hemostasis controlled with electrocautery. Blunt dissection through the fascia to the tip of the greater trochanter. A starter awl was placed at the tip of the greater trochanter into the medullary canal of the femur. This was checked with image intensification and was in good position. Intramedullary guide jerilyn positioned. A one-step hand reaming done proximally. Intramedullary canal was reamed with a 12.5 millimeter flexible reamer. Neck angle selected off of preoperative radiographs temp plating. 125 degree 11.5mm X 22cm Nail opened on the back table and assembled. This was then inserted over the guide jerilyn to the correct depth. Guide jerilyn removed. Lag screw was then placed with a stab incision over the lateral femur using a 10 blade knife. Blunt dissection down to the lateral side of the bone. Soft tissue protectors placed. Guide pin placed in the center center position of the femoral head and measured. 90 millimeter x 10.5 millimeter lag screw placed to correct depth and verified with image intensification. Traction released from the leg and compression of the fracture performed with the external compression device. Proximal locking screw placed. Distal locking of the nail then performed. Stab incision made lateral distal thigh. Blunt dissection down lateral side of the femur. Soft tissue protector placed. Femur drilled from lateral to medial through the distal nail. Distal femur measured and the appropriate size screw placed. Image intensification confirmed the placement through the locking hole. Final image intensification confirmed reduction of the fracture and placement of the hardware. Wounds then thoroughly irrigated with antibiotic solution. Fascia repaired with 0 Vicryl interrupted suture. Subcutaneous tissue repaired with 00 Vicryl interrupted suture and skin repaired with beatriz. Sterile dressings applied. Patient then awoke from anesthesia, extubated, taken to recovery room stable condition. All sponge, needle and instrument counts correct at the end the case. Implants Arthrex trochanteric nail 11 x 220 mm, 125 degree with 90 x 10.5 mm lag screw, 34 mm distal locking screw. Estimated Blood Loss 75 Urine Output 300 Drains No Packing No Pathology None sent Complications None Condition Stable Disposition PACU [facility] Billing Surgery - Charge Forward: Surgery Billing (34022) Imaging Radiologist's impression: ITS Impressions Hip/Pelvis X-Ray 10/29/24 10:44 IMPRESSION: Right-sided intertrochanteric fracture, as detailed above Head CT 10/29/24 10:46 Impression: No acute intracranial hemorrhage or suspicious mass effect. Chest X-Ray 10/29/24 11:17 IMPRESSION: No focal infiltrate or effusion. Discharge Plan Discharge Attending physician on discharge: Kev Peña Consulting providers: Jason Hooker Discharging Clinician: Kev Peña Anticipated Discharge Date/Time: 11/03/24 14:24 Patient Disposition: Home with Home Health Service Activity: as tolerated Diet: heart healthy and diabetic Discharge Instructions: Per Care Coordination: Patient to have [facility] at discharge for RN/PT/OT services. Office will call patient to initiate services and set up initial appointment, beginning week of November 06. #[phone]. Patient Instructions: Antibiotic Form, Rivaroxaban (By mouth) Patient Language: Maltese Stand Alone Forms: General Discharge Information Follow-up/Referrals: Jeannie Godoy NP [Primary Care Provider] - 1 Week Jason Hooker MD [Physician] - 12/12/24 9:45 am Discharge Medications: New hydrocodone-acetaminophen 5-325 mg Tablet 1 tablet PO Q4H PRN (Reason: Pain Rated 4-6) Qty: 30 0RF sennosides-docusate sodium [Senokot-S] 8.6-50 mg Tablet 2 tab PO BID PRN (Reason: Constipation) Qty: 30 0RF polyethylene glycol 3350 [Miralax] 17 gram Powder In Packet 17 g PO QAM Qty: 30 0RF Xarelto 10 mg Tablet 10 mg PO DAILY@17 Qty: 30 0RF Continued aspirin 81 mg tablet,delayed release (DR/EC) 81 mg PO DAILY omega-3 fatty acids [Fish Oil Concentrate] 1,000 mg capsule 1,000 mg PO BID Prolia 60 mg/mL syringe 60 mg subcut [id number] Patient Comments: Due 10/31/24 albuterol sulfate [Ventolin HFA] 90 mcg/actuation HFA aerosol inhaler 2 inhalation INHALATION Q4H PRN (Reason: shortness of breath or wheezing) levothyroxine 50 mcg tablet 50 mcg PO DAILY Qty: 90 1RF Jardiance 25 mg tablet 25 mg PO DAILY Qty: 90 1RF (DME) Blood Glucose Test Strip See Rx Instructions .ROUTE .MEDSUPPLY Qty: 100 2RF Rx Instructions: Use to test blood sugar daily (DME) blood pressure monitor [Blood Pressure Kit] Kit See Rx Instructions .Route Qty: 1 0RF Rx Instructions: daily cholecalciferol (vitamin D3) 1,250 mcg (50,000 unit) tablet 50,000 unit PO WEEKLY Qty: 90 0RF allopurinol 100 mg tablet 100 mg PO DAILY Qty: 90 1RF fluticasone furoate-vilanterol [Breo Ellipta] 200-25 mcg/dose blister with device See Rx Instructions .ROUTE .COMPLEX Qty: 180 1RF Dose Instruction: INHALE 1 PUFF EVERY DAY DIRECTED FOR 30 DAYS Rx Instructions: INHALE 1 PUFF EVERY DAY DIRECTED FOR 30 DAYS rosuvastatin 40 mg tablet 40 mg PO DAILY Qty: 90 1RF montelukast 10 mg tablet 10 mg PO DAILY Qty: 90 1RF cyclobenzaprine 10 mg tablet 10 mg PO TID PRN (Reason: muscle spasm) Qty: 30 1RF tirzepatide 7.5 mg/0.5 mL pen injector 7.5 mg subcut WEEKLY 90 Days Qty: 6.5 1RF Patient Comments: Takes on Date of admission: 10/29/24 14:46 Primary Care Provider: Jeannie Godoy Admitting Provider: Doris Marquez Attending physician on admission: Doris Marquez Condition: Stable
== END 2024-11-03 17:15 | disposition home health service (06) | DRG 482 ==
LOC: ANHED 11:38 → ANH3MEDSUR 12:48
PROVIDERS: Internal Medicine; Orthopaedic Surgery; Student in an Organized Health Care Education/Training Program; Admitting Provider Family Medicine; Emergency Provider Emergency Medicine; PCP Nurse Practitioner Family; Visit Provider Internal Medicine
PROC: 0QS636Z Reposition Right Upper Femur with Intramedullary Internal Fixation Device, Percutaneous Approach (ICD-10-PCS; CPT 27245; principal; 2024-10-30 15:00)
DX: S72.141A Displaced intertrochanteric fracture of right femur, initial encounter for closed fracture (principal); W01.10XA Fall on same level from slipping, tripping and stumbling with subsequent striking against unspecified object, initial encounter; I12.9 Hypertensive chronic kidney disease with stage 1 through stage 4 chronic kidney disease, or unspecified chronic kidney disease; E11.22 Type 2 diabetes mellitus with diabetic chronic kidney disease; N18.31 Chronic kidney disease, stage 3a; E78.5 Hyperlipidemia, unspecified; G47.33 Obstructive sleep apnea (adult) (pediatric); J45.909 Unspecified asthma, uncomplicated; R44.1 Visual hallucinations; M81.0 Age-related osteoporosis without current pathological fracture; E03.9 Hypothyroidism, unspecified; Z79.84 Long term (current) use of oral hypoglycemic drugs; Z86.73 Personal history of transient ischemic attack (TIA), and cerebral infarction without residual deficits; Z96.653 Presence of artificial knee joint, bilateral; Z79.82 Long term (current) use of aspirin; Z91.81 History of falling
CPT/HCPCS: 36415; 70450; 71045; 73502; 80048; 80053; 81001; 82948; 85025; 85027; 85610; 85730; 87086; 93005; 94640; 96374; 97110; 97116; 97162; 97166; 97530; 97535; 99199; 99285; A9270; C1713; G0378; J0690; J2003; J2405; J2704; J3010; J7120

== ENCOUNTER 2025-03-15 08:57 | Outpatient (CLI) | payer MEDICARE, MEDICAID, SELFPAY ==
--- NOTE | ~2025-03-15 | DEXA_ITS ---
Bone Density Report Name: WADE QUESADA Age: 79 Sex: Female Ethnicity: White Date of : 1945 Indication: monitoring treatment; height loss; hysterectomy; Referring Provider: KAREN BAI Study: Bone densitometry was performed. Exam Date: March 15, 2025 Accession number: [id number] Bone Density: Region BMD T-score Z-score Classification AP Spine(L1-L4) 1.008 -0.4 2.2 Normal Femoral Neck (Left) 0.637 -1.9 0.3 Osteopenia Total Hip (Left) 0.867 -0.6 1.4 Normal World Health Organization criteria for BMD impression classify patients as: Normal (T-score at or above -1.0), Osteopenia (T-score between -1.0 and -2.5), or Osteoporosis (T-score at or below -2.5). 10-year Fracture Risk: FRAX not reported because: Treated for osteoporosis Previous Exams: Region Exam Age BMD T-score BMD Change BMD Change Date g/cm2 vs Baseline vs Previous AP Spine (L1-L4) 03/15/2025 79 1.008 -0.4 0.211 (26.5%)# -0.036 (-3.5%) 10/07/2023 78 1.044 0.0 0.248 (31.1%)# 0.089 (9.4%)* 03/05/2022 76 0.955 -0.8 0.158 (19.9%)# 0.026 (2.8%)* 01/30/2020 74 0.929 -1.1 0.132 (16.6%)# 0.045 (5.1%)* 01/19/2018 72 0.883 -1.5 0.087 (10.9%)# 0.087 (10.9%)# 01/13/2016 70 0.797 -2.3 Total Hip(Left) 03/15/2025 79 0.867 -0.6 -0.023 (-2.6%) -0.030 (-3.4%) 10/07/2023 78 0.897 -0.4 0.007 (0.8%) 0.056 (6.7%)* 03/05/2022 76 0.841 -0.8 -0.049 (-5.5%) -0.012 (-1.4%) 01/30/2020 74 0.852 -0.7 -0.037 (-4.2%) 0.020 (2.4%) 01/19/2018 72 0.833 -0.9 -0.057 (-6.4%) -0.057 (-6.4%) 01/13/2016 70 0.890 -0.4 *Denotes significance at 95% confidence level, LSC for AP Spine = 0.022 g/cm2, LSC for Total Hip = 0.027 g/cm2 # Denotes dissimilar scan types or analysis methods Clinical Information Provided by Patient: Is being treated for osteoporosis Has used the following medications: Vitamin D, Calcium Has the following medical conditions: Hysterectomy Patient maximum height was 60.5 Menopause Age: 51 Drinks caffeinated beverages Onset of menses at age 13 Number of children 0 Impression: The patient has low bone mass, based on the Left Femoral Neck T-score. The BMD for the AP Spine (L1-L4) decreased, changing by -3.5% since the last DXA exam. The BMD for the Total Hip(Left) decreased, changing by -3.4% since the last DXA exam. Discussion: SIGNIFICANT BONE LOSS OBSERVED. Adherence to therapy (including calcium and vitamin D intake) should be assessed. If compliance is not a factor, review management and exclusion of secondary causes of bone loss. It is important to ask patients whether they are taking their medications and to encourage continued and appropriate compliance with their osteoporosis therapies to reduce fracture risk. It is also important to review their risk factors and encourage appropriate calcium and vitamin D intakes, exercise, fall prevention and other lifestyle measures. Follow-Up: Consider a repeat BMD and Vertebral Fracture Assessment (VFA) exam in 2 years or sooner if medically necessary, to reassess this patient's status. Reported by: KATHERINE on 03/19/2025 12:26:00 PM. Reviewed, dictated and finalized at location A.
== END 2025-03-15 08:58 | disposition home or self-care (01) ==
LOC: ANHFOHIMG 08:58
PROVIDERS: PCP Nurse Practitioner Family; Visit Provider Internal Medicine Endocrinology, Diabetes & Metabolism
DX: M81.0 Age-related osteoporosis without current pathological fracture (principal); M85.852 Other specified disorders of bone density and structure, left thigh
CPT/HCPCS: 77080